=== PATIENT | female | born 1965 | race Caucasian/White ===

== ENCOUNTER 2022-05-02 08:05 | Outpatient (CLI) | payer OTHER, SELFPAY ==
--- NOTE | 2022-05-02 08:15 | CRLHL7_ITS ---
For Patients: As a result of the Century Cures Act, medical imaging exams and procedure reports are released immediately into your electronic medical record. You may view this report before your referring provider. If you have questions, please contact your health care provider. Technique: Double-contrast upper GI performed after the uneventful administration of effervescent crystals and thick barium followed by thin barium. Fluoroscopy time 1 minutes 40 seconds. Indication: MORBID OBESITY WITH BMI OF ADULT; COMPLAINS OF STOMACH PAIN Comparison: None. Findings: Swallowing mechanism: Normal. Esophageal motility: Decreased esophageal motility particularly in the prone oblique position. Gastroesophageal reflux: None. Hernia: 5.1 cm sliding hiatal hernia is present. Esophagus, stomach and duodenal bulb mucosa: Normal mucosa. No stricture or mass. Normal appearance of the gastric bypass with no evidence of inflammation regarding the small bowel. Impression: 5.1 cm sliding hiatal hernia. Decreased esophageal motility without mucosal irregularity. No reflux. Normal appearance of the gastrojejunal anastomosis. Dictated by Kapil Caldwell MD @ 05/02/2022 8:58:32 AM (Electronically Signed)
== END 2022-05-02 08:06 | disposition home or self-care (01) ==
PROVIDERS: PCP Family Medicine; Visit Provider Family Medicine
DX: R10.9 Unspecified abdominal pain (principal); K44.9 Diaphragmatic hernia without obstruction or gangrene; E66.01 Morbid (severe) obesity due to excess calories
CPT/HCPCS: 74246

== ENCOUNTER 2023-07-22 14:37 | Inpatient (IN) | payer OTHER, SELFPAY ==
[2023-07-22] VITALS (50 sets, daily range): BP systolic 96–134; BP diastolic 48–70; PULSE 88–105; RESP 16–22; TEMP 37.6; O2SAT 87–98; BMI 36.6
--- NOTE | 2023-07-22 15:38 | CRLHL7_ITS ---
For Patients: As a result of the Century Cures Act, medical imaging exams and procedure reports are released immediately into your electronic medical record. You may view this report before your referring provider. If you have questions, please contact your health care provider. INDICATION: Shortness of breath. Left-sided chest pain. Recent TORE procedure. TECHNIQUE: CT chest PE was acquired with 95 cc Isovue 370 IV contrast. COMPARISON: 01/02/2018. FINDINGS: Heart and vasculature: Contrast opacification of the pulmonary arterial tree is adequate. No sign of pulmonary embolism. Heart size is normal. Thoracic aorta and pulmonary artery are normal in caliber. Lungs and pleura: No suspicious nodules or infiltrates. Small to moderate size left pleural effusion with adjacent consolidation of the left lower lobe. No pneumothorax. Lymph nodes/mediastinum: No mediastinal, hilar, or axillary adenopathy. Chest wall: No masses. Upper abdomen: Postoperative changes present from a gastric bypass procedure. In large irregular fluid collection with a fair amount of air is positioned between the stomach and liver. This collection measures 8 cm as demonstrated on axial series 5, image 142. Smaller fluid collections with foci of air are adjacent to the larger collection. Bones: Unremarkable for age. IMPRESSION: 1. No pulmonary embolism. 2. Small to moderate-sized left pleural effusion with adjacent passive atelectasis favored over infiltrate in the left lower lobe. 3. Large complex 8 cm fluid collection with smaller adjacent fluid collections position between the stomach and left lobe of the liver. This likely represents a contained perforation/abscess. Surgical consultation recommended for management of this finding. Please note that all CT scans at this facility use dose modulation, iterative reconstruction, and/or weight-based dosing when appropriate to reduce radiation dose to as low as reasonably achievable. Dictated by Ananda Medrano MD @ 07/22/2023 5:53:35 PM (Electronically Signed)
--- NOTE | 2023-07-22 15:56 | ED_ITS ---
HPI - General Adult General Date Seen: 07/22/23 Chief complaint: Chest Pain Stated complaint: sharp chest pain L-post op Time Seen by Provider: 07/22/23 15:00 History of Present Illness HPI narrative: This is a very pleasant 57-year-old female with a past medical history including obesity, previous Comfort-en-Y gastric bypass surgery in the , revision in 2011, with recent T OR procedure done at [facility] last week on Saturday. She apparently was at [facility] last week for for workup. She she was undergoing a diagnostic endoscopy but did sign a general consent. During the endoscopy she says that her doctors discovered ?a hole? in her stomach. They apparently repaired the whole through a transoral approach with some stitches. They also removed some old edinson from her stomach lining. She was discharged home later that day. (based on the disposition I wonder if this was truly a stomach perforation. Perhaps they did a revision of her gastrojejunal anastomosis?) She was discharged home on omeprazole 40 mg b.i.d.. On postop day 1 she developed an episode of sharp left shoulder pain that resolved. Ever since then she has had some dyspnea. She notes dyspnea on exertion when she tries to walk more than 10 years. Sometimes when she breathes it hurts and makes her nauseous. Sometimes she has coughing spells but mostly she is not coughing. No production of sputum or hemoptysis. No fever or chills. She does have some chronic bilateral lower extremity edema but that is actually been better than baseline this week. No asymmetric swelling. Since yesterday she has had recurrence of her left shoulder and left posterior rib pain. It is more persistent than last Saturday and will not go away. She still very short of breath. She called her doctors at [facility] and they told to come here to the ER. No trauma. She has no history of heart disease. No history of DVT or PE. She does have a family history of PE in her father. She has no history of asthma, COPD, chronic liver or kidney disease. No history of diabetes. No seizures. No history of hypertension or dyslipidemia. She is a nonsmoker. Related Data Allergies Allergy/AdvReac Type Severity Reaction Status Date / Time No Known Drug Allergies Allergy Verified 05/02/22 08:47 PFSH PFSH Social History Smoking Status: Never smoker Do you use any of these nicotine containing products: None Second hand tobacco smoke exposure: No How often do you have a drink containing alcohol: never How often do you have six or more drinks on one occasion: Never AUDIT-C Alcohol total score: 0 Non-prescribed substance use: denies use service: No Exam Narrative: Exam Narrative: Constitutional: Appears well-developed and well-nourished. Alert. Conversant. Respiration mildly labored. Oxygen sats in the low 90s on room air while I am examining her. However,. Nurses did note that she desatted down to the 80s on room air so we put her on nasal cannula. HENT: Head: Atraumatic. Nose: Nose normal. Mouth/Throat: Oral mucosa is clear and moist. no trismus. Pharynx normal. Tonsils symmetric. No tonsillar enlargement, erythema, or exudate. Eyes: Conjunctivae normal. EOM normal. Pupils equal, round, and reactive to light. No scleral icterus. Neck: Normal range of motion. Neck supple. No tracheal deviation present. No JVD Cardiovascular: Normal rate, regular rhythm. No gallop. No friction rub. No murmur heard. Symmetric radial artery pulses Pulmonary/Chest: Effort normal. No stridor. No respiratory distress. No wheezes. Bilateral expiratory rales/wheezes.. Abdominal: Soft. Bowel sounds normal. No distension. No mass. No tenderness. No rebound. No guarding. Musculoskeletal: RUE: Normal range of motion. No tenderness. No deformity LUE: Normal range of motion. No tenderness. No deformity RLE: Normal range of motion. Trace edema. No tenderness. No deformity LLE: Normal range of motion. Trace edema. No tenderness. No deformity Lymph: No cervical adenopathy. Neurological: Alert and oriented to person, place, and time. Normal strength. CN II-VII intact. No sensory deficit. GCS eye subscore is 4. GCS verbal subscore is 5. GCS motor subscore is 6. Normal coordination Skin: Skin is warm and dry. No rash noted. No pallor. Normal capillary refill. Psychiatric: Normal mood. Normal affect. Const: Vital Signs, click to edit/add: Vital Signs - 24 hr 07/22/23 14:45 07/22/23 15:34 07/22/23 15:35 Temperature 99.7 F H Pulse Rate 96 100 Pulse Rate [Pulse Oximeter] 105 H Respiratory Rate 18 Blood Pressure 96/48 L Blood Pressure [Ri ght Upper Arm] 96/70 Pulse Oximetry 93 87 L 88 Oxygen Delivery Me thod Room Air Oxygen Flow Rate 07/22/23 15:37 07/22/23 15:45 07/22/23 16:01 Temperature Pulse Rate 100 104 H Pulse Rate [Pulse Oximeter] Respiratory Rate 20 Blood Pressure 114/66 Blood Pressure [Ri ght Upper Arm] Pulse Oximetry 88 92 88 Oxygen Delivery Me thod Nasal Cannula Oxygen Flow Rate 1 07/22/23 16:19 07/22/23 16:20 07/22/23 16:21 Temperature Pulse Rate 100 96 96 Pulse Rate [Pulse Oximeter] Respiratory Rate Blood Pressure 134/64 Blood Pressure [Ri ght Upper Arm] Pulse Oximetry 97 98 96 Oxygen Delivery Me thod Oxygen Flow Rate 07/22/23 16:30 07/22/23 16:32 07/22/23 16:41 Temperature Pulse Rate 102 H 98 Pulse Rate [Pulse Oximeter] Respiratory Rate 22 Blood Pressure 123/69 Blood Pressure [Ri ght Upper Arm] Pulse Oximetry 98 98 96 Oxygen Delivery Me thod Nasal Cannula Oxygen Flow Rate 2 07/22/23 16:45 07/22/23 17:00 07/22/23 17:02 Temperature Pulse Rate 103 H 93 91 Pulse Rate [Pulse Oximeter] Respiratory Rate Blood Pressure 110/65 Blood Pressure [Ri ght Upper Arm] Pulse Oximetry 97 97 95 Oxygen Delivery Me thod Oxygen Flow Rate 07/22/23 17:15 07/22/23 17:18 07/22/23 17:30 Temperature Pulse Rate 88 91 95 Pulse Rate [Pulse Oximeter] Respiratory Rate Blood Pressure 111/70 Blood Pressure [Ri ght Upper Arm] Pulse Oximetry 92 92 91 Oxygen Delivery Me thod Oxygen Flow Rate 0 07/22/23 17:32 07/22/23 17:45 07/22/23 18:00 Temperature Pulse Rate 96 93 96 Pulse Rate [Pulse Oximeter] Respiratory Rate Blood Pressure 116/68 Blood Pressure [Ri ght Upper Arm] Pulse Oximetry 92 90 89 Oxygen Delivery Me thod Oxygen Flow Rate 07/22/23 18:02 07/22/23 18:15 07/22/23 18:30 Temperature Pulse Rate 92 95 103 H Pulse Rate [Pulse Oximeter] Respiratory Rate Blood Pressure 123/68 Blood Pressure [Ri ght Upper Arm] Pulse Oximetry 91 96 91 Oxygen Delivery Me thod Oxygen Flow Rate 07/22/23 18:32 07/22/23 18:35 07/22/23 18:45 Temperature 99.6 F Pulse Rate 97 94 Pulse Rate [Pulse Oximeter] Respiratory Rate Blood Pressure 112/61 Blood Pressure [Ri ght Upper Arm] Pulse Oximetry 95 93 Oxygen Delivery Me thod Oxygen Flow Rate 07/22/23 19:00 07/22/23 19:02 07/22/23 19:15 Temperature Pulse Rate 93 94 93 Pulse Rate [Pulse Oximeter] Respiratory Rate Blood Pressure 105/67 Blood Pressure [Ri ght Upper Arm] Pulse Oximetry 93 92 95 Oxygen Delivery Me thod Oxygen Flow Rate 07/22/23 19:30 07/22/23 19:45 07/22/23 19:53 Temperature Pulse Rate 96 92 Pulse Rate [Pulse Oximeter] Respiratory Rate 22 Blood Pressure Blood Pressure [Ri ght Upper Arm] Pulse Oximetry 94 95 94 Oxygen Delivery Me thod Room Air Oxygen Flow Rate Course Course ED Course: Recheck-after fentanyl pain is improved. Did temporarily desaturate, requiring nasal cannula bed respirations still doing fairly well. Reevaluation(s) Reevaluation #1: Recheck-now off nasal cannula. Breathing on room air. Heart rate 95. Blood pressure 105/60. Updated patient about CT findings. Consult placed to [facility]. CT images transmitted to [facility]. Reevaluation #2: Recheck-discussed with DENISE bae Dr. Reichler. He accepts this patient for admission to the hospital/ /transfer back to [facility]. Unfortunately there are no open beds at [facility]. I reviewed the case with the accepting provider and the transfer line. There is no way to get the patient transferred to [facility]. Also reviewed for a possible ER to ER transfer. There ER is on full divert and cannot accept transfers. They anticipate she would likely be assigned a bed sometime tomorrow afternoon. We also looked for other tertiary care facilities. There are no beds and the [facility], in the [facility] [place] [facility], in the [place] [facility], or at [facility]. Reevaluation #3: Discussed with hospitalist from [place], Dr. Alvarez. He will admit the patient to the medical floor here at [place] overnight for supportive care until her bed at [facility] can be arranged. Vital Signs Vital signs: Initial Vital Signs Temperature 99.7 F H 07/22/23 14:45 Temperature Source Oral 07/22/23 14:45 Pulse Rate 105 H 07/22/23 14:45 Pulse Rhythm Regular 07/22/23 14:45 Respiratory Rate 18 07/22/23 14:45 Blood Pressure 96/70 07/22/23 14:45 Blood Pressure Mean 78 07/22/23 14:45 Blood Pressure Position Sitting 07/22/23 14:45 Pulse Oximetry 93 07/22/23 14:45 Oxygen Delivery Method Room Air 07/22/23 14:45 Vital Signs Temperature 99.7 F H 07/22/23 14:45 Pulse Rate 105 H 07/22/23 14:45 Respiratory Rate 18 07/22/23 14:45 Blood Pressure 96/70 07/22/23 14:45 Pulse Oximetry 93 07/22/23 14:45 Oxygen Delivery Method Room Air 07/22/23 14:45 Temperature 99.6 F 07/22/23 18:35 Pulse Rate 92 07/22/23 19:45 Respiratory Rate 22 07/22/23 19:53 Blood Pressure 105/67 07/22/23 19:02 Pulse Oximetry 94 07/22/23 19:53 Oxygen Delivery Method Room Air 07/22/23 19:53 Oxygen Flow Rate 0 07/22/23 17:30 Medical Decision Making MDM Narrative Medical decision making narrative: 57-year-old female with a complex presentation to the ER. 1. Her main concern would be left-sided chest pain and left shoulder pain with progressive shortness of breath and some coughing. Differential here would include pneumonia, postprocedural PE, COVID, cardiac pathology, pneumothorax, hemothorax, pleural effusion, rib fracture, among others. Given her recent surgical procedure we were concerned about PE so we obtain CT PA. CT scan does show evidence for a moderate size left pleural effusion with associated left lower lobe atelectasis. 2. She is also having some epigastric pain. She apparently underwent a transoral endoscopic procedure last Saturday at [facility]. She has signs of fluid collection adjacent to the stomach which are concerning for stomach perforation. Differential would also include intraperitoneal bleeding from her stomach. However her blood pressure is stable and hemoglobin is normal, arguing against any significant bleed. She is started on IV PPI. We made expeditious consultation with the GI service for [facility]. As above the accepted her for transfer but cannot take her right now due to bed capacity issues. She is started on broad-spectrum antibiotics-Zosyn, vanco, is the mycin to cover for pulmonary pathology, possible aspiration, as well as for a GI infection. 3. She did present with borderline tachycardia, heart rate 105, low-grade fever and then 9.7 and does have leukocytosis of 20. She has mild tachypnea but no severe hypoxia. Concern is for possible early or evolving sepsis. Fortunately blood pressures remained stable while here in the ER. Lactic acid is normal. At this point no clear physiology for septic shock requiring large fluid boluses or vasopressors. Lab Data Labs: Lab Results 07/22/23 07/22/23 Range/Units 15:50 16:40 WBC 20.11 H (4.50-11.00) K/uL RBC 4.32 (4.00-5.20) m/uL Hgb 13.1 (12.0-16.0) gm/dL Hct 39.6 (33.0-51.0) % MCV 92 (80-100) fL MCH 30 (26-34) pg MCHC 33 (32-36) gm/dL RDW Coeff of Cat 13.2 (11.5-15.5) % Plt Count 412 (140-440) K/uL Neut % (Auto) 85.2 H (42.0-72.0) % Lymph % (Auto) 8.3 L (20-44) % Storey % (Auto) 4.9 (0.0-11.0) % Eos % (Auto) 0.1 (0.0-7.0) % Baso % (Auto) 0.4 (0.0-3.0) % Neut # (Auto) 17.10 H (1.7-7.0) K/uL Lymph # (Auto) 1.70 (0.90-2.90) K/uL Storey # (Auto) 1.00 H (0.00-0.90) K/UL Eos # (Auto) 0.00 (0.00-0.50) K/uL Baso # (Auto) 0.10 (0.00-0.30) K/uL Abs Immat Gran (auto) 0.20 (0.00-0.30) K/uL Imm/Tot Granulo (auto) 1.1 % Diff Slide Review Acceptable Review (Acceptable) Sodium 134 L (135-149) mmol/L Potassium 3.4 L (3.6-5.1) mmol/L Chloride 95 L (96-114) mmol/L Carbon Dioxide 28 (20-32) mmol/L Anion Gap 11 (7-15) mEq/L BUN 9 (7-30) mg/dL Creatinine 0.5 (0.5-1.5) mg/dL Estimated Creat Clear 110.36 Estimated GFR 109 ml/min Glucose 114 (60-115) mg/dL Lactate 1.2 (0.5-1.9) mmol/L Calcium 8.7 (8.4-10.6) mg/dL Troponin I < 0.01 L (0.01-0.04) ng/mL NT-Pro-B Natriuret Pep 281 pg/mL Lipase 79 (23-300) U/L SARS-CoV-2 (PCR) Negative SARS-CoV-2 (Negative) Influenza Type A (PCR) Negative PCR FLU A (Negative) Influenza Type B (PCR) Negative PCR FLU B (Negative) RSV (PCR) Negative PCR RSV (Negative) Imaging Data CT scan - chest: My impression: Evaluated immediately after images were obtained. Large left pleural effusion. Possible enhancing of the left lower lung. No definite PE. Reviewed with instructional technology coordinator. They will try to expedite getting read by Radiology. Radiologist's impression: IMPRESSION: 1. No pulmonary embolism. 2. Small to moderate-sized left pleural effusion with adjacent passive atelectasis favored over infiltrate in the left lower lobe. 3. Large complex 8 cm fluid collection with smaller adjacent fluid collections position between the stomach and left lobe of the liver. This likely represents a contained perforation/abscess. Surgical consultation recommended for management of this finding. ECG Data Attestation: I personally reviewed and interpreted this ECG as follows: Interpretation: Normal sinus rhythm . Rate 100 MA 122 QRS axis normal QRS axis. No pathologic Q-waves. ST segment/T wave: Nonspecific ST changes in 2, 3, AVF. No ST elevation. QTc: 438 Discharge Plan Discharge Clinical Impression: Pleural effusion, Sepsis, Gastric perforation Follow Up/Referrals: Nayeli Orourke MD [Primary Care Provider] -
[2023-07-22 15:58] LABS: Lactate* 1.2 mmol/L (0.5-1.9)
[2023-07-22 16:01] LABS: Basophils Percent Auto 0.4 % (0.0-3.0); Eosinophils Percent Auto 0.1 % (0.0-7.0); Hematocrit 39.6 % (33.0-51.0); Hemoglobin* 13.1 gm/dL (12.0-16.0); Immature Granulocytes Pct Auto 1.1 %; Lymphocytes Percent Auto 8.3 % (20-44); Mean Corpuscular HGB Conc 33 gm/dL (32-36); Mean Corpuscular Hemoglobin 30 pg (26-34); Mean Corpuscular Volume 92 fL (80-100); Monocytes Percent Auto 4.9 % (0.0-11.0); Neutrophils Percent Auto 85.2 % (42.0-72.0); Platelet Count* 412 K/uL (140-440); RDW Coefficient of Variation % 13.2 % (11.5-15.5); Red Blood Count 4.32 m/uL (4.00-5.20); White Blood Count* 20.11 K/uL (4.50-11.00)
[2023-07-22 16:09] LABS: Slide Review Reflex Yes
[2023-07-22 16:14] LABS: Chloride* 95 mmol/L (96-114); Potassium* 3.4 mmol/L (3.6-5.1); Sodium* 134 mmol/L (135-149)
[2023-07-22 16:16] LABS: Creatinine* 0.5 mg/dL (0.5-1.5); Est. Creatinine Clearance* 110.36; Estimated Glomerular Filt Rate 109 ml/min
[2023-07-22 16:17] LABS: Anion Gap 11 mEq/L (7-15); Blood Urea Nitrogen* 9 mg/dL (7-30); Carbon Dioxide* 28 mmol/L (20-32); Glucose* 114 mg/dL (60-115); Lipase* 79 U/L (23-300)
[2023-07-22 16:18] LABS: Calcium* 8.7 mg/dL (8.4-10.6)
[2023-07-22] MEDS: fentaNYL 100 MCG/2 ML inj 25 MCG IVP ×2 (16:19→20:19)
[2023-07-22] MEDS: ONDANSETRON 2 MG/ML inj 4 MG IVP (16:19)
[2023-07-22] MEDS: ALBUTEROL SULFATE 2.5 MG/3 ML VIAL.NEB NEB (16:19)
[2023-07-22] MEDS: 0.9 % SODIUM CHLORIDE 500 ML 500 ML IV (16:23)
[2023-07-22 16:28] LABS: NT Pro B Type NatriureticPept* 281 pg/mL
[2023-07-22 16:30] LABS: Troponin I* < 0.01 ng/mL (0.01-0.04)
--- OUTSIDE RECORDS SUMMARY | 2023-07-22 16:45 | XMS_ITS | Continuity of Care Document ---
Author Name Unknown Organization [facility] Address [address] [place] [address] Phone Care Team Providers Care Presiding Steward Name Role Phone Unavailable Unavailable Unavailable Allergies, Adverse Reactions, Alerts Substance Reaction Status Criticality No Known allergies Medications Medication Instructions Dosage Effective Dates (start - stop) Status Comments ULTRAM (unknown strength) Not Available - Active Procedures Procedure Date Postop Followup Visit X-Ray Exam Lower Spine 2-3 Views 2011 Lumbar Spine Fusion, Posterolateral Lumbar Spine Fusion W/Bone Graft 2011 Removal Of Spine Lamina (Cabrera Type) Insert Spine Fixation, Posterior 2011 Insert Spine Fix Dev, Ant, 2-3 Seg Allograft, Spine Surg, Structural Allograft, Spine Surg, Morselized Autograft, Spine Surgery, Local 012 Pa Assist Lumbar Spine Fusion, Posterola teral Pa Assist Removal Of Spine Lamina (Cabrera Type) Pa Assist Insert Spine Fixation, Posteri or Office/Outpatient Visit,[facility], [facility] 2011 Advance Directives Directive Yes / No Effective Date File Name No Information Encounters Encounter Description Practice Location Reason(s) For Visit Diagnoses Date Provider Providers Copied on Encounter [facility] [place], [address], [place], [place], [facility], [place] tel:[phone] [facility] No Information Rodney-2 1-201 3 No Information [facility], [address] [place] [address], [place], [facility], [place] tel:[phone] [facility] No Information Dec-0 3-201 2 Mehbod Amir. [facility] [place], [address] [place] [address], [address] [place] [address], [place]. tel:[phone] Referring Provider: Ramesh Polanco, [address], [address]. tel:[phone] [facility] [place], [address] [place] [address], [facility], [place] tel:[phone] [facility] ACQ SPONDYLOLISTH ESIS Dec-0 3-201 2 Eckroth Benjamin. [address] [place] [address], [address] [place] [address], [place]. tel:[phone] [facility] [place], [address] [place] [address], [facility], [place] tel:[phone] [facility] No Information Jul-2 4-201 2 Mehbod Amir. [facility] [place], [address] [place] [address], [address] [place] [address], [place]. tel:[phone] Referring Provider: Ramesh Polanco [address], [address]. tel:[phone] Office/Outpa tient Visit,[facility], [facility] Z [facility] [place], [address] [place] [address], [facility], [place] tel:[phone] [facility] LUMBAGO Julián-3 0-201 2 Mehbod Amir. [facility] [place], [address] [place] [address], [address] [place] [address], [place]. tel:[phone] Referring Provider: Ramesh Polanco [address], [address]. tel:[phone] Family History Family Member Type Diagnosis Age At Onset Problem (finding) Problem (finding) Problem (finding) Problem (finding) Problem (finding) Family history of Yes Problem (finding) Problem (finding) Payers Payer name Insurance type Covered [id number] [facility] [id number] Social History Type Description Quantity Date Captured Comments Sex Female Smoking Status No Information Chief Complaint And Reason For Visit No Information Reason For Referral Reason For Referral No Information History Of Present Illness Encounter Date Complaint History Of Prese nt Illness No Information Functional Status Date Functional Assessmen t No Information Instructions Date Instruction Additional Infor mation No Information Assessments Type Assessment Date No Information Patient Care Teams Name Effective Dates (start - stop) Status Members No Information
--- OUTSIDE RECORDS SUMMARY | 2023-07-22 16:45 | XMS_ITS | Continuity of Care Document ---
Author Name Unknown Organization [facility] Address [address] [address] [place] [address] Phone Care Team Providers Care Health Navigator Name Role Phone Odell Ardon MD Unavailable Unavailable Allergies, Adverse Reactions, Alerts Substance Reaction Status Criticality No Known Allergies Active No Inform ation Medications Medication Instructions Dosage Effective Dates (start - stop) Status Comments omeprazole 40 mg capsule,delayed release take 1 capsule by oral route 2 times every day before a meal 40 MG - Active Procedures Procedure Date Established Level 3 Ugi Endo; W/bx 1/mx Level Iv-surg Path Gross/micro Esophageal Motility Study New Level 4 Advance Directives Directive Yes / No Effective Date File Name No Information Encounters Encounter Description Practice Location Reason(s) For Visit Diagnoses Date Provider Providers Copied on Encounter Established Level 3 [facility], [address] [address], [place], [place], [id number], [place] tel:[phone] [facility] GI Symptoms or Concerns (chief complaint) Bariatric surgery statusOther dysphagia 2 Duglas Bain. [address] [facility], [facility] [address], [place], [place], [id number], [place]. tel:[phone] Referring Provider: Referral Self. [facility], [address] [address], [place], [id number], [place] tel:[phone] [facility] GI Symptoms or Concerns (chief complaint) Eosinophilic esophagitisHi story of gastric bypassEosinop hilic esophagitisBa riatric surgery status 2 Russell Bryan. [address] [facility], [place] [address], [place], [id number], [place]. tel:[phone] Referring Provider: Nayeli Jett, [address] [facility], [place], [address]. tel:[phone] [facility], [address] [address], [place], [id number], [place] tel:[phone] [facility] Other dysphagia Jun-2 2 Duglas Bain. [address] [facility], [facility] [address], [place], [id number], [place]. tel:[phone] Referring Provider: Referral Self. New Level 4 [facility], [address] [address], [place], [place], [address], [place] tel:[phone] [facility] GI Symptoms or Concerns (chief complaint) Esophageal dysphagiaEosi nophilic esophagitis Sep-2 2 Duglas Bain. [address] [facility], [facility] [address], [place], [place], [address], [place]. tel:[phone] Referring Provider: Referral Self. [facility], [address] [address], [place], [id number], [place] tel:[phone] No Information Jun- 2 No Information Referring Provider: Zaida RODARTE M, [address] [facility] [address], [place], [address]. tel:[phone] Family History Family Member Type Diagnosis Age At Onset Father Problem (finding) GERD Mother Problem (finding) Cancer Brother Problem (finding) GERD Sister Problem (finding) Cancer, cervical Brother Problem (finding) Cancer, prostate Brother Problem (finding) Cancer, thyroid Mother Problem (finding) Crohn's disease Immunizations Vaccine Date Status Comments Afluria Qd administered Note: [facility] bi-directional interface ; Source: Other Registry SARS-COV-2 (COVID-19) vaccin e, mRNA, spike protein, LNP, bivalent booster, preservative free, 30 mcg/0.3 mL dose, robyn-sucrose formulation administered Note: [facility] bi-d irectional interface ; Source: Other Registry tetanus toxoid, reduced diphtheria toxoid, and acellular pertussis vaccine, adsorbed administered Note: [facility] b i-directional interface ; Source: Other Registry SARS-COV-2 (COVID-19) vaccin e, vector non-replicating, recombinant spike protein-Ad26, preservative free, 0.5 mL administered Note: [facility] bi- directional interface ; Source: Other Registry Influenza, injectable, Madin Glady Canine Kidney, quadrivalent with preservative administered Note: MII C bi- directional interface ; Source: Other Registry SARS-COV-2 (COVID-19) vaccin e, vector non-replicating, recombinant spike protein-Ad26, preservative free, 0.5 mL administered Note: [facility] bi- directional interface ; Source: Other Registry Influenza administered Note: [facility] bi-d irectional interface ; Source: Other Registry influenza virus vaccine, unspecified formulation administered Note: [facility] bi-di rectional interface ; Source: Other Registry Influenza, seasonal, injectable administe red Note: [facility] bi- directional interface ; Source: Other Registry influenza virus vaccine, unspecified formulation administered Note: [facility] bi-di rectional interface ; Source: Other Registry tetanus toxoid, reduced diphtheria toxoid, and acellular pertussis vaccine, adsorbed administered Note: [facility] b i-directional interface ; Source: Other Registry Novel [id number], all formulations administered Note: [facility] bi-direct ional interface ; Source: Other Registry Influenza, seasonal, injectable administe red Note: [facility] bi- directional interface ; Source: Other Registry Payers Payer name Insurance type Covered constitution party ID Authoriza tion(s) [employer] CI [id number] Social History Type Description Quantity Date Captured Comments Sex Female Smoking Status No Information Chief Complaint And Reason For Visit From encounter dated 09/13/2022 15:21'. GI Symptoms or Concerns (chief complaint). Description: Charisse Lizarraga is seen today in followup. Before beginning a virtual visit, she verified a safe place and gave consent. Her was present as well.By history, she is a 56-year-old woman with a history of vertical banded gastroplasty, subsequently converted 10 years ago to a Comfort-en-Y procedure.Most recently, she has been having abdominal discomfort. It is a strain sensation occasionally in the ribcage area, occurs when she is bendingover doing activity.She underwent upper endoscopy by Dr. Adams which was felt to show hiatal hernia, and showed significant eosinophilia. With a concern regarding this prior to possible repair surgically, we are seeing her.It is noted that when seen initially, dysphagia was occurring somewhat, but not but minimal.With these symptoms, she underwent repeat upper endoscopy. This was performed by Dr. Wells from our office. This was done after the patient had been on omeprazole at a higher dose of 20 mg twice a day.When seen today, she is actually feeling better. The globus type sensation, which she had in the past is gone, although she still does develop the upper abdominal discomfort.I reviewed the patient's endoscopy as well as pathology findings with her at the time of endoscopyand the esophagus appeared normal. Biopsy showed only 0-3 eosinophils per high-power field, essentially normal. Of note is that the study did not show evidence of hiatal hernia.In addition, her esophageal manometry did show what appeared to be intact motor function with no evidence of abnormality either. The manometry did suggest a small hiatal hernia, but only of about half a centimeter in size. Reason For Referral Reason For Referral No Information Plan Of Treatment Date Type Action Status Referral Ordered: Xray Esophagus (Esophagram, Barium Swallow Study) Appointment date/timeframe: First Available ordered History Of Present Illness Encounter Date Complaint History Of Prese nt Illness GI Symptoms or Concerns Charisse Hale is seen today in followup. Before beginning a virtual visit, she verified a safe place and gave consent. Her was present as well.By history, she is a 56-year-old woman with a history of vertical banded gastroplasty, subsequently converted 10 years ago to a Comfort-en-Y procedure.Most recently, she has been having abdominal discomfort. It is a strain sensation occasionally in the ribcage area, occurs when she is bending over doing activity.She underwent upper endoscopy by Dr. Adams which was felt to show hiatal hernia, and showed significant eosinophilia. With a concern regarding this prior to possible repair surgically, we are seeing her.It is noted that when seen initially, dysphagia was occurring somewhat, but not but minimal.With these symptoms, she underwent repeat upper endoscopy. This was performed by Dr. Wells from our office. This was done after the patient had been on omeprazole at a higher dose of 20 mg twice a day.When seen today, she is actually feeling better. The globus type sensation, which she had in the past is gone, although she still does develop the upper abdominal discomfort.I reviewed the patient's endoscopy as well as pathology findings with her at the time of endoscopy and the esophagus appeared normal. Biopsy showed only 0-3 eosinophils per high-power field, essentially normal. Of note is that the study did not show evidence of hiatal hernia.In addition, her esophageal manometry did show what appeared to be intact motor function with no evidence of abnormality either. The manometry did suggest a small hiatal hernia, but only of about half a centimeter in size. GI Symptoms or Concerns GI Symptoms or Concerns Charisse hale is seen today in consultation. This was a virtual visit. Before beginning, she verified a safe place and gave consent.By history, the patient is a 56-year-old woman with a history of vertical banded gastroplasty, subsequently converted 10 years ago to a Comfort-en-Y procedure. Most recently, she has been having what she describes as atypical abdominal discomfort. It is a straining sensation that she gets below the ribcage. Typically can occur any time. It may last a few days to be moderate in intensity. With these symptoms, she was seen through her physicians and subsequently by Dr. Adams from surgery. Upper GI series showed evidence of a 5 cm hiatal hernia. Upper GI endoscopy with biopsies of the esophagus revealed evidence of eosinophilia. Because of the concern regarding the eosinophilia prior to consideration of hernia repair, we are seeing her at this time.In talking to the patient, she does have some dysphagia. Typically, it occurs with dry food s Functional Status Date Functional Assessmen t No Information Instructions Date Instruction Additional Infor bernadine No Information Assessments Type Assessment Date assessment Bariatric surgery status 2021 assessment Other dysphagia impression IMPRESSION1. Probabl e abdominal wall musculoskeletal pain.2. Globus, resolving.At this stage, clinically the patient is doing reasonably well. Her abdominal discomfort does appear to be musculoskeletal. I am reassured that the eosinophilia has resolved at this stage and would appear probably to be related to acid reflux as it has responded to the higher dose of medication.Lastly, because of initial finding of hiatal hernia and possible surgery, I will ask that a barium study be done to verify this and make sure there are no other findings that we should be concerned about. If there is no evidence of a hiatal hernia, I would suggest deferring on any operative intervention.We appreciate assisting in Charisse's care. These findings were discussed with her in detail. A barium study will be ordered with followup as needed. Patient Care Teams Name Effective Dates (start - stop) Status Members No Information
--- OUTSIDE RECORDS SUMMARY | 2023-07-22 16:45 | XMS_ITS | Continuity of Care Document ---
Author Name Unknown Organization [facility] Address [address] [address] [place] [address] Phone Care Team Providers Care Vacuum Worker Name Role Phone Odell Ardon MD Unavailable [...] Providers Copied on Encounter Established Level 3 [facility], [address] [address], [place], [place], [id number], [place] tel:[phone] [facility] GI Symptoms or Concerns (chief complaint) Bariatric surgery statusOther dysphagia 2 Duglas Bain. [address] [facility], [facility] [address], [place], [place], [address], [place]. tel:[phone] Referring Provider: Referral Self. [facility], [address] [address], [place], [id number], [place] tel:[phone] [facility] GI Symptoms or Concerns (chief complaint) Eosinophilic esophagitisHi story of gastric bypassEosinop hilic esophagitisBa riatric surgery status 2 Russell Bryan. [address] [facility], [place] [address], [place], [id number], [place]. tel:[phone] Referring Provider: Nayeli Jett, [address] [facility], [place], [address]. tel:[phone] [facility], [address] [address], [place], [place], [address], [place] tel:[phone] [facility] Other dysphagia Jun-2 2 Duglas Bain. [address] [facility], [facility] [address], [place], [address], [place]. tel:[phone] Referring Provider: Referral Self. New Level 4 [facility], [address] [address], [place], [place], [id number], [place] tel:[phone] [facility] GI Symptoms or Concerns (chief complaint) Esophageal dysphagiaEosi nophilic esophagitis Sep-2 2 Duglas Bain. [address] [facility], [facility] [address], [place], [place], [address], [place]. tel:[phone] Referring Provider: Referral Self. [facility], [address] [address], [place], [place], [id number], [place] tel:[phone] No Information Jun- 2 No Information Referring Provider: Zaida RODARET M, [address] [facility] [address], [place], [address]. tel:[phone] Family History Family Member Type Diagnosis Age [...] ; Source: Other Registry Influenza, injectable, Madin Vichy Canine Kidney, quadrivalent with preservative administered Note: [...] i-directional interface ; Source: Other Registry Novel [id number], all formulations administered Note: [facility] bi-direct ional interface ; Source: Other Registry Influenza, seasonal, injectable administe red Note: [facility] bi- directional interface ; Source: Other Registry Payers Payer name Insurance type Covered constitution party ID Authoriza tion(s) [employer] CI [id number] Social History Type Description Quantity Date Captured [...]
--- OUTSIDE RECORDS SUMMARY | 2023-07-22 16:45 | XMS_ITS | Continuity of Care Document ---
Author Name Unknown Organization [facility] Address [address] [place] [address] Phone Care Team Providers Care Creeler Name Role Phone Unavailable Unavailable Unavailable Allergies, [...] Assist Insert Spine Fixation, Posteri or Office/Outpatient Visit,[facility], [facility] 2011 Advance Directives Directive Yes / No Effective Date File Name No Information Encounters Encounter Description Practice Location Reason(s) For Visit Diagnoses Date Provider Providers Copied on Encounter [facility] [place], [address], [place], [place], [facility], [place] tel:[phone] [facility] No Information Rodney-2 1-201 3 No Information [facility], [address] [place] [address], [place], [facility], [place] tel:[phone] [facility] No Information Dec-0 3-201 2 Mehbod Amir. [facility] [place], [address] [place] [address], [address] [place] [address], [place]. tel:[phone] Referring Provider: Ramesh Polanco, [address], [address]. tel:[phone] [facility] [place], [address] [place] [address], [facility], [place] tel:[phone] [facility] ACQ SPONDYLOLISTH ESIS Dec-0 3-201 2 Eckroth Benjamin. [address] [place] [address], [address] [place] [address], [place]. tel:[phone] [facility] [place], [address] [place] [address], [facility], [place] tel:[phone] [facility] No Information Jul-2 4-201 2 Mehbod Amir. [facility] [place], [address] [place] [address], [address] [place] [address], [place]. tel:[phone] Referring Provider: Ramesh Polanco [address], [address]. tel:[phone] Office/Outpa tient Visit,[facility], [facility] [place], [address] [place] [address], [facility], [place] tel:[phone] [facility] LUMBAGO Julián-3 0-201 2 Mehbod Amir. [facility] [place], [address] [place] [address], [address] [place] [address], [place]. tel:[phone] Referring Provider: Ramesh Polanco [address], [address]. tel:[phone] Family History Family Member Type Diagnosis Age At Onset Problem (finding) Problem (finding) Problem (finding) Problem (finding) Problem (finding) Family history of Yes Problem (finding) Problem (finding) Payers Payer name Insurance type Covered democr[place]iza tion([id number] [facility] [id number] Social History Type Description Quantity Date Captured [...]
[2023-07-22 17:19] LABS: Slide Review Acceptable Review (Acceptable)
[2023-07-22] MEDS: PIPERACILLIN/TAZOBACTAM 4.5 GM in 0.9 % SODIUM CHLORIDE Mini-bag 100 ML IVPB (17:20)
[2023-07-22 17:27] LABS: PCR FLU A Negative PCR FLU A (Negative); PCR FLU B Negative PCR FLU B (Negative); PCR RSV Negative PCR RSV (Negative); SARS PCR* Negative SARS-CoV-2 (Negative)
[2023-07-22] MEDS: AZITHROMYCIN 500 MG in 0.9 % SODIUM CHLORIDE 250 ml 250 ML 255 MG IVPB (18:06)
[2023-07-22] MEDS: PANTOPRAZOLE SODIUM 40 MG INJ 80 MG IVP (20:21)
[2023-07-22] MEDS: 0.9 % SODIUM CHLORIDE 1000 ml 1,000 ML IV (22:14)
--- NOTE | 2023-07-22 22:56 | ED.NURSE ---
Pt admitted to M/S. Transfered at 8255, report given to Deirdre. Continues to be on room air, dyspnea on exertion. Vitally stable.
--- NOTE | 2023-07-22 23:35 | P.IMHP_ITS ---
Hospitalist- H&P: HPI History of Present Illness Date Seen: 07/23/23 Chief complaint: sharp chest pain L-post op Narrative: Charisse Hoyt is a 57 year old female who has h/o Comfort-N-Y gastric bypass and recent EGD at [facility] with subsequent perforation and repair presents to the ED with sharp chest and epigastric pain and fever. Patient states that pain is centered over her left chest, is sharp and pleuritic. Patient had CT scan which shows large fluid collection near the stomach, either abscess versus contained perforation. The patient is to be transferred to the [facility], but unfortunately they have no beds currently so she will wait here until they have availability. The surgical team at [place] recommends broad spectrum abx and PPI. Review of Systems Status of ROS: Reports: 10 or more systems reviewed and unremarkable except as noted in History and below PFSH PFSH Social History Smoking Status: Never smoker Do you use any of these nicotine containing products: None Second hand tobacco smoke exposure: No How often do you have a drink containing alcohol: never How often do you have six or more drinks on one occasion: Never AUDIT-C Alcohol total score: 0 Non-prescribed substance use: denies use service: No Meds Home Medications and Allergies Allergies Allergy/AdvReac Type Severity Reaction Status Date / Time No Known Drug Allergies Allergy Verified 05/02/22 08:47 Exam Narrative: Exam Narrative: GEN: AA, moderate distress with pain HEENT: normocephalic, atraumatic NECK: supple, no masses, no JVD CVS: S1 S2 RRR, no murmurs LUNGS: CTA b/l ABD: soft, no distention, tender epigastrum, no rebound EXT: no edema NEURO: oriented x 3, no focal motor deficits PSYCH: normal affect Const: Vital Signs, click to edit/add: Vital Signs - 24 hr 07/22/23 14:45 07/22/23 15:34 07/22/23 15:35 Temperature 99.7 F H Pulse Rate 96 100 Pulse Rate [Pulse Oximeter] 105 H Respiratory Rate 18 Blood Pressure 96/48 L Blood Pressure [Ri ght Upper Arm] 96/70 Pulse Oximetry 93 87 L 88 Oxygen Delivery Me thod Room Air Oxygen Flow Rate 07/22/23 15:37 07/22/23 15:45 07/22/23 16:01 Temperature Pulse Rate 100 104 H Pulse Rate [Pulse Oximeter] Respiratory Rate 20 Blood Pressure 114/66 Blood Pressure [Ri ght Upper Arm] Pulse Oximetry 88 92 88 Oxygen Delivery Me thod Nasal Cannula Oxygen Flow Rate 1 07/22/23 16:19 07/22/23 16:20 07/22/23 16:21 Temperature Pulse Rate 100 96 96 Pulse Rate [Pulse Oximeter] Respiratory Rate Blood Pressure 134/64 Blood Pressure [Ri ght Upper Arm] Pulse Oximetry 97 98 96 Oxygen Delivery Me thod Oxygen Flow Rate 07/22/23 16:30 07/22/23 16:32 07/22/23 16:41 Temperature Pulse Rate 102 H 98 Pulse Rate [Pulse Oximeter] Respiratory Rate 22 Blood Pressure 123/69 Blood Pressure [Ri ght Upper Arm] Pulse Oximetry 98 98 96 Oxygen Delivery Me thod Nasal Cannula Oxygen Flow Rate 2 07/22/23 16:45 07/22/23 17:00 07/22/23 17:02 Temperature Pulse Rate 103 H 93 91 Pulse Rate [Pulse Oximeter] Respiratory Rate Blood Pressure 110/65 Blood Pressure [Ri ght Upper Arm] Pulse Oximetry 97 97 95 Oxygen Delivery Me thod Oxygen Flow Rate 07/22/23 17:15 07/22/23 17:18 07/22/23 17:30 Temperature Pulse Rate 88 91 95 Pulse Rate [Pulse Oximeter] Respiratory Rate Blood Pressure 111/70 Blood Pressure [Ri ght Upper Arm] Pulse Oximetry 92 92 91 Oxygen Delivery Me thod Oxygen Flow Rate 0 07/22/23 17:32 07/22/23 17:45 07/22/23 18:00 Temperature Pulse Rate 96 93 96 Pulse Rate [Pulse Oximeter] Respiratory Rate Blood Pressure 116/68 Blood Pressure [Ri ght Upper Arm] Pulse Oximetry 92 90 89 Oxygen Delivery Me thod Oxygen Flow Rate 07/22/23 18:02 07/22/23 18:15 07/22/23 18:30 Temperature Pulse Rate 92 95 103 H Pulse Rate [Pulse Oximeter] Respiratory Rate Blood Pressure 123/68 Blood Pressure [Ri ght Upper Arm] Pulse Oximetry 91 96 91 Oxygen Delivery Me thod Oxygen Flow Rate 07/22/23 18:32 07/22/23 18:35 07/22/23 18:45 Temperature 99.6 F Pulse Rate 97 94 Pulse Rate [Pulse Oximeter] Respiratory Rate Blood Pressure 112/61 Blood Pressure [Ri ght Upper Arm] Pulse Oximetry 95 93 Oxygen Delivery Me thod Oxygen Flow Rate 07/22/23 19:00 07/22/23 19:02 07/22/23 19:15 Temperature Pulse Rate 93 94 93 Pulse Rate [Pulse Oximeter] Respiratory Rate Blood Pressure 105/67 Blood Pressure [Ri ght Upper Arm] Pulse Oximetry 93 92 95 Oxygen Delivery Me thod Oxygen Flow Rate 07/22/23 19:30 07/22/23 19:45 07/22/23 19:53 Temperature Pulse Rate 96 92 Pulse Rate [Pulse Oximeter] Respiratory Rate 22 Blood Pressure Blood Pressure [Ri ght Upper Arm] Pulse Oximetry 94 95 94 Oxygen Delivery Me thod Room Air Oxygen Flow Rate 07/22/23 20:00 07/22/23 20:02 07/22/23 20:15 Temperature Pulse Rate 97 95 94 Pulse Rate [Pulse Oximeter] Respiratory Rate Blood Pressure 105/64 Blood Pressure [Ri ght Upper Arm] Pulse Oximetry 92 93 91 Oxygen Delivery Me thod Oxygen Flow Rate 07/22/23 20:27 07/22/23 20:30 07/22/23 20:45 Temperature Pulse Rate 94 95 95 Pulse Rate [Pulse Oximeter] Respiratory Rate Blood Pressure 113/64 Blood Pressure [Ri ght Upper Arm] Pulse Oximetry 94 93 92 Oxygen Delivery Me thod Oxygen Flow Rate 07/22/23 21:00 07/22/23 21:02 07/22/23 21:15 Temperature Pulse Rate 93 96 95 Pulse Rate [Pulse Oximeter] Respiratory Rate Blood Pressure 104/62 Blood Pressure [Ri ght Upper Arm] Pulse Oximetry 92 92 93 Oxygen Delivery Me thod Oxygen Flow Rate 07/22/23 21:30 07/22/23 21:45 07/22/23 22:06 Temperature Pulse Rate 94 99 100 Pulse Rate [Pulse Oximeter] Respiratory Rate Blood Pressure 117/60 Blood Pressure [Ri ght Upper Arm] Pulse Oximetry 93 93 93 Oxygen Delivery Me thod Oxygen Flow Rate 07/22/23 22:07 07/22/23 22:15 07/22/23 22:30 Temperature Pulse Rate 95 95 97 Pulse Rate [Pulse Oximeter] Respiratory Rate Blood Pressure Blood Pressure [Ri ght Upper Arm] Pulse Oximetry 92 92 93 Oxygen Delivery Me thod Oxygen Flow Rate Hospitalist - H&P: Result Labs Labs: Short CBC 07/22/23 Range/Units 15:50 WBC 20.11 H (4.50-11.00) K/uL Hgb 13.1 (12.0-16.0) gm/dL Hct 39.6 (33.0-51.0) % Plt Count 412 (140-440) K/uL BMP 07/22/23 15:50 Sodium 134 L Potassium 3.4 L Chloride 95 L Carbon Dioxide 28 BUN 9 Creatinine 0.5 Glucose 114 Calcium 8.7 Cardiac Enzymes 07/22/23 Range/Units 15:50 Troponin I < 0.01 L (0.01-0.04) ng/mL Assessment and Plan Assessment and plan (1) Gastric perforation: Status: Acute Assessment and Plan: -Transfer to [facility] for definitive management as soon as bed is available -Empiric zosyn and vanco (2) Sepsis: Status: Acute Assessment and Plan: -IV fluids per sepsis protocl -Telemetry monitoring (3) Pleural effusion: Status: Acute Assessment and Plan: -left sided, consider for source of symptoms -consider tapping after gastric perforation/abscess is addressed -abx as above for the time being -respiratory status stable on RA
[2023-07-23] MEDS: PANTOPRAZOLE SODIUM 40 MG INJ IVP (01:12)
[2023-07-23] MEDS: PIPERACILLIN/TAZOBACTAM 3.375 GM in 0.9 % SODIUM CHLORIDE Mini-bag 100 ML IVPB ×3 (01:13→13:19)
[2023-07-23] MEDS: POTASSIUM CHLORIDE 10 MEQ/100 ML PIGGYBACK 100 MEQ IVPB ×2 (01:13→03:56)
[2023-07-23] MEDS: 0.9 % SODIUM CHLORIDE 1000 ml 1,000 ML 75 ML IV (01:14)
[2023-07-23 01:48] VITALS: BP 117/67; PULSE 95; RESP 16; TEMP 36.7; O2SAT 92; BMI 37.2
[2023-07-23 03:00] VITALS: BP 115/64; PULSE 97; RESP 16; TEMP 36.7; O2SAT 93
[2023-07-23] MEDS: HYDROmorphone 0.5 mg/0.5 ml inj IVP ×2 (04:03→10:39)
[2023-07-23 06:02] LABS: Lactate* 0.7 mmol/L (0.5-1.9)
[2023-07-23 06:13] LABS: Basophils Percent Auto 0.5 % (0.0-3.0); Eosinophils Percent Auto 0.1 % (0.0-7.0); Hematocrit 34.6 % (33.0-51.0); Hemoglobin* 11.2 gm/dL (12.0-16.0); Lymphocytes Percent Auto 7.5 % (20-44); Mean Corpuscular HGB Conc 32 gm/dL (32-36); Mean Corpuscular Hemoglobin 30 pg (26-34); Mean Corpuscular Volume 92 fL (80-100); Neutrophils Percent Auto 85.9 % (42.0-72.0); Platelet Count* 384 K/uL (140-440); RDW Coefficient of Variation % 13.5 % (11.5-15.5); Red Blood Count 3.75 m/uL (4.00-5.20); White Blood Count* 21.26 K/uL (4.50-11.00)
[2023-07-23 06:26] LABS: Albumin* 2.8 g/dL (3.3-5.0); Chloride* 103 mmol/L (96-114)
[2023-07-23 06:27] LABS: Potassium* 3.6 mmol/L (3.6-5.1); Sodium* 138 mmol/L (135-149)
[2023-07-23 06:29] LABS: Alkaline Phosphatase* 115 U/L (40-150); Anion Gap 11 mEq/L (7-15); Aspartate Amino Transferase* 39 U/L (12-35); Bilirubin Total* 0.7 mg/dL (0.1-1.5); Blood Urea Nitrogen* 9 mg/dL (7-30); Carbon Dioxide* 24 mmol/L (20-32); Creatinine* 0.6 mg/dL (0.5-1.5); Est. Creatinine Clearance* 91.97; Estimated Glomerular Filt Rate 104 ml/min; Total Protein* 6.1 g/dL (6.0-8.3)
[2023-07-23 06:30] LABS: Alanine Aminotransferase* 38 U/L (4-35); Calcium* 8.3 mg/dL (8.4-10.6); Glucose* 102 mg/dL (60-115)
--- NOTE | 2023-07-23 06:35 | PC.NURSE ---
End of Shift: Pt admitted to unit via ED d/t epigastric pain radiating to left upper chest below breast. Imaging concluded this was related to a previous procedure and pt is needing to be sent out to a larger facility. In the meantime pt is to remain NPO and recieve current plan per DEC. Pt has two intact, working IV's, SBA in room with GB and cane.
[2023-07-23 07:00] VITALS: BP 123/65; PULSE 89; RESP 21; O2SAT 93
[2023-07-23 07:19] LABS: Slide Review Reflex Yes
[2023-07-23 08:31] LABS: Slide Review Acceptable Review (Acceptable)
[2023-07-23] MEDS: ONDANSETRON 2 MG/ML inj 4 MG IVP (10:39)
[2023-07-23 11:00] VITALS: BP 105/63; PULSE 88; RESP 20; O2SAT 92
--- NOTE | 2023-07-23 11:14 | P.IMPN_ITS ---
Progress Note: A&P Assessment and plan (1) Gastric perforation: Problem details: -CT shows large complex 8 cm fluid collection with smaller adjacent fluid collections position between the stomach and left lobe of the liver -s/p EGD 07/15/2023 at [place] -awaiting transfer to [facility] for definitive management as soon as bed is available (as of 0745 on 07/23, possible bed availability this afternoon) -continue empiric azithromycin, zosyn and vanco -WBC up trending slightly, 21.26 from 20.11. BC pending. Remains afebrile. -NPO, IVF 75 mL/HR -pain and nausea management as needed -IV PPI Status: Acute (2) Sepsis: Problem details: -management as above -telemetry Status: Acute (3) Pleural effusion: Problem details: -small to moderate sized, left sided, with atelectasis -?consider tapping after gastric perforation/abscess is addressed -abx as above for the time being -respiratory status stable on RA Status: Acute Plan CODE: Full VTE PPX: Heparin subQ q.12 Disposition: Inpatient. Awaiting transfer to [place] Time Spent With Patient Total time spent: Total time spent caring for the patient today was 45 minutes. This includes time spent for the visit reviewing the chart, time spent during the visit, time spent after the visit and documentation and planning in coordination of care. Subjective Date Seen: 07/23/23 Interval history: Patient admitted last night, awaiting transfer as no bed availability at outside hospitals last night. Tells me her pain is ?manageable? currently. Denies nausea. Remains NPO. She is s/p Comfort-en-Y and gastric bypass (last surgery in 2011) and underwent an EGD at [place] on 07/15/2023. Complains of intermittent, now constant shoulder pain 1 day following this procedure. Remains vitally stable. Leukocytosis up trending. Remains afebrile. Exam Narrative: Exam Narrative: PHYSICAL EXAM General: Sitting in a chair, appears mildly uncomfortable, otherwise conversant HEENT: Normocephalic, atraumatic, sclera white, EOMI, oral mucosa moist Cardiovascular: RRR, S1S2. No pitting edema Pulmonary: CTA bilaterally without rhonchi, rales, expiratory wheezes. No dyspnea Abdominal: Soft, nondistended, no guarding, no focal tenderness Neurological: Alert, answering questions appropriately, cranial nerves intact, no focal findings Extremities: No gross joint deformity or swelling. AROMI Skin: Warm, dry. No rash Const: Vital Signs, click to edit/add: Vital Signs - 24 hr 07/22/23 14:45 07/22/23 15:34 07/22/23 15:35 Temperature 99.7 F H Pulse Rate 96 100 Pulse Rate [Left P ulse Oximeter] Pulse Rate [Pulse Oximeter] 105 H Respiratory Rate 18 Blood Pressure 96/48 L Blood Pressure [Le ft Arm] Blood Pressure [Ri ght Upper Arm] 96/70 Pulse Oximetry 93 87 L 88 Oxygen Delivery Me thod Room Air Oxygen Flow Rate 07/22/23 15:37 07/22/23 15:45 07/22/23 16:01 Temperature Pulse Rate 100 104 H Pulse Rate [Left P ulse Oximeter] Pulse Rate [Pulse Oximeter] Respiratory Rate 20 Blood Pressure 114/66 Blood Pressure [Le ft Arm] Blood Pressure [Ri ght Upper Arm] Pulse Oximetry 88 92 88 Oxygen Delivery Me thod Nasal Cannula Oxygen Flow Rate 1 07/22/23 16:19 07/22/23 16:20 07/22/23 16:21 Temperature Pulse Rate 100 96 96 Pulse Rate [Left P ulse Oximeter] Pulse Rate [Pulse Oximeter] Respiratory Rate Blood Pressure 134/64 Blood Pressure [Le ft Arm] Blood Pressure [Ri ght Upper Arm] Pulse Oximetry 97 98 96 Oxygen Delivery Me thod Oxygen Flow Rate 07/22/23 16:30 07/22/23 16:32 07/22/23 16:41 Temperature Pulse Rate 102 H 98 Pulse Rate [Left P ulse Oximeter] Pulse Rate [Pulse Oximeter] Respiratory Rate 22 Blood Pressure 123/69 Blood Pressure [Le ft Arm] Blood Pressure [Ri ght Upper Arm] Pulse Oximetry 98 98 96 Oxygen Delivery Me thod Nasal Cannula Oxygen Flow Rate 2 07/22/23 16:45 07/22/23 17:00 07/22/23 17:02 Temperature Pulse Rate 103 H 93 91 Pulse Rate [Left P ulse Oximeter] Pulse Rate [Pulse Oximeter] Respiratory Rate Blood Pressure 110/65 Blood Pressure [Le ft Arm] Blood Pressure [Ri ght Upper Arm] Pulse Oximetry 97 97 95 Oxygen Delivery Me thod Oxygen Flow Rate 07/22/23 17:15 07/22/23 17:18 07/22/23 17:30 Temperature Pulse Rate 88 91 95 Pulse Rate [Left P ulse Oximeter] Pulse Rate [Pulse Oximeter] Respiratory Rate Blood Pressure 111/70 Blood Pressure [Le ft Arm] Blood Pressure [Ri ght Upper Arm] Pulse Oximetry 92 92 91 Oxygen Delivery Me thod Oxygen Flow Rate 0 07/22/23 17:32 07/22/23 17:45 07/22/23 18:00 Temperature Pulse Rate 96 93 96 Pulse Rate [Left P ulse Oximeter] Pulse Rate [Pulse Oximeter] Respiratory Rate Blood Pressure 116/68 Blood Pressure [Le ft Arm] Blood Pressure [Ri ght Upper Arm] Pulse Oximetry 92 90 89 Oxygen Delivery Me thod Oxygen Flow Rate 07/22/23 18:02 07/22/23 18:15 07/22/23 18:30 Temperature Pulse Rate 92 95 103 H Pulse Rate [Left P ulse Oximeter] Pulse Rate [Pulse Oximeter] Respiratory Rate Blood Pressure 123/68 Blood Pressure [Le ft Arm] Blood Pressure [Ri ght Upper Arm] Pulse Oximetry 91 96 91 Oxygen Delivery Me thod Oxygen Flow Rate 07/22/23 18:32 07/22/23 18:35 07/22/23 18:45 Temperature 99.6 F Pulse Rate 97 94 Pulse Rate [Left P ulse Oximeter] Pulse Rate [Pulse Oximeter] Respiratory Rate Blood Pressure 112/61 Blood Pressure [Le ft Arm] Blood Pressure [Ri ght Upper Arm] Pulse Oximetry 95 93 Oxygen Delivery Me thod Oxygen Flow Rate 07/22/23 19:00 07/22/23 19:02 07/22/23 19:15 Temperature Pulse Rate 93 94 93 Pulse Rate [Left P ulse Oximeter] Pulse Rate [Pulse Oximeter] Respiratory Rate Blood Pressure 105/67 Blood Pressure [Le ft Arm] Blood Pressure [Ri ght Upper Arm] Pulse Oximetry 93 92 95 Oxygen Delivery Me thod Oxygen Flow Rate 07/22/23 19:30 07/22/23 19:45 07/22/23 19:53 Temperature Pulse Rate 96 92 Pulse Rate [Left P ulse Oximeter] Pulse Rate [Pulse Oximeter] Respiratory Rate 22 Blood Pressure Blood Pressure [Le ft Arm] Blood Pressure [Ri ght Upper Arm] Pulse Oximetry 94 95 94 Oxygen Delivery Me thod Room Air Oxygen Flow Rate 07/22/23 20:00 07/22/23 20:02 07/22/23 20:15 Temperature Pulse Rate 97 95 94 Pulse Rate [Left P ulse Oximeter] Pulse Rate [Pulse Oximeter] Respiratory Rate Blood Pressure 105/64 Blood Pressure [Le ft Arm] Blood Pressure [Ri ght Upper Arm] Pulse Oximetry 92 93 91 Oxygen Delivery Me thod Oxygen Flow Rate 07/22/23 20:27 07/22/23 20:30 07/22/23 20:45 Temperature Pulse Rate 94 95 95 Pulse Rate [Left P ulse Oximeter] Pulse Rate [Pulse Oximeter] Respiratory Rate Blood Pressure 113/64 Blood Pressure [Le ft Arm] Blood Pressure [Ri ght Upper Arm] Pulse Oximetry 94 93 92 Oxygen Delivery Me thod Oxygen Flow Rate 07/22/23 21:00 07/22/23 21:02 07/22/23 21:15 Temperature Pulse Rate 93 96 95 Pulse Rate [Left P ulse Oximeter] Pulse Rate [Pulse Oximeter] Respiratory Rate Blood Pressure 104/62 Blood Pressure [Le ft Arm] Blood Pressure [Ri ght Upper Arm] Pulse Oximetry 92 92 93 Oxygen Delivery Me thod Oxygen Flow Rate 07/22/23 21:30 07/22/23 21:45 07/22/23 22:06 Temperature Pulse Rate 94 99 100 Pulse Rate [Left P ulse Oximeter] Pulse Rate [Pulse Oximeter] Respiratory Rate Blood Pressure 117/60 Blood Pressure [Le ft Arm] Blood Pressure [Ri ght Upper Arm] Pulse Oximetry 93 93 93 Oxygen Delivery Me thod Oxygen Flow Rate 07/22/23 22:07 07/22/23 22:15 07/22/23 22:30 Temperature Pulse Rate 95 95 97 Pulse Rate [Left P ulse Oximeter] Pulse Rate [Pulse Oximeter] Respiratory Rate Blood Pressure Blood Pressure [Le ft Arm] Blood Pressure [Ri ght Upper Arm] Pulse Oximetry 92 92 93 Oxygen Delivery Me thod Oxygen Flow Rate 07/22/23 23:00 07/22/23 23:28 07/23/23 01:48 Temperature 98.1 F Pulse Rate 90 Pulse Rate [Left P ulse Oximeter] 95 Pulse Rate [Pulse Oximeter] Respiratory Rate 16 16 Blood Pressure Blood Pressure [Le ft Arm] 117/67 Blood Pressure [Ri ght Upper Arm] Pulse Oximetry 92 92 Oxygen Delivery Me thod Room Air Room Air Oxygen Flow Rate 07/23/23 01:48 07/23/23 03:00 07/23/23 07:00 Temperature 98.1 F Pulse Rate Pulse Rate [Left P ulse Oximeter] 97 89 Pulse Rate [Pulse Oximeter] Respiratory Rate 16 16 21 Blood Pressure Blood Pressure [Le ft Arm] 115/64 Blood Pressure [Ri ght Upper Arm] Pulse Oximetry 92 93 Oxygen Delivery Nd thod Room Air Room Air Oxygen Flow Rate 0 07/23/23 07:00 07/23/23 07:00 Temperature Pulse Rate Pulse Rate [Left P ulse Oximeter] 89 Pulse Rate [Pulse Oximeter] Respiratory Rate 21 21 Blood Pressure Blood Pressure [Le ft Arm] 123/65 Blood Pressure [Ri ght Upper Arm] Pulse Oximetry 93 93 Oxygen Delivery Nd thod Room Air Room Air Oxygen Flow Rate Labs Labs: Laboratory Results - last 24 hr 07/22/23 07/22/23 07/23/23 15:50 16:40 05:48 WBC 20.11 H 21.26 H RBC 4.32 3.75 L Hgb 13.1 11.2 L Hct 39.6 34.6 MCV 92 92 MCH 30 30 MCHC 33 32 RDW Coeff of Cat 13.2 13.5 Plt Count 412 384 Neut % (Auto) 85.2 H 85.9 H Lymph % (Auto) 8.3 L 7.5 L [place] % (Auto) 4.9 5.0 Eos % (Auto) 0.1 0.1 Baso % (Auto) 0.4 0.5 Neut # (Auto) 17.10 H 18.30 H Lymph # (Auto) 1.70 1.60 [place] # (Auto) 1.00 H 1.10 H Eos # (Auto) 0.00 0.00 Baso # (Auto) 0.10 0.10 Abs Immat Gran (auto) 0.20 0.20 Imm/Tot Granulo (auto) 1.1 1.0 Diff Slide Review Acceptable Review Acceptable Review Sodium 134 L 138 Potassium 3.4 L 3.6 Chloride 95 L 103 Carbon Dioxide 28 24 Anion Gap 11 11 BUN 9 9 Creatinine 0.5 0.6 Estimated Creat Clear 110.36 91.97 Estimated GFR 109 104 Glucose 114 102 Lactate 1.2 0.7 Calcium 8.7 8.3 L Total Bilirubin 0.7 AST 39 H ALT 38 H Alkaline Phosphatase 115 Troponin I < 0.01 L NT-Pro-B Natriuret Pep 281 Total Protein 6.1 Albumin 2.8 L Lipase 79 SARS-CoV-2 (PCR) Negative SARS-CoV-2 Influenza Type A (PCR) Negative PCR FLU A Influenza Type B (PCR) Negative PCR FLU B RSV (PCR) Negative PCR RSV
[2023-07-23] MEDS: HEPARIN 5,000 UNIT/0.5 ML INJ 5000 UNIT SUBCUT (11:54)
[2023-07-23 15:00] VITALS: BP 119/63; PULSE 101; RESP 24; TEMP 36.9; O2SAT 97
--- NOTE | 2023-07-23 18:57 | PC.NURSE ---
Nursing Care Hours: [id number] Pt this shift calm and cooperative with cares, alert and oriented. Anxious d/t pain, weakened cough. Cotton Roll Packer educated pt about splinting against site of pain to promote stronger cough. Also gave and educated pt on IS, moderate effort in use, cough afterwards. Cough productive but LS clear. Afebrile, VSS. Pain controlled per eMAR. SB assist with walker and gait belt d/t weakness. Walked short distance in guidry, HR went up to 125, O2 saturation stable at 93%, SOB with exertion. IV in R hand and L AC patent and asymptomatic. Tele on, NSR reading. Pt independent in oral cares. DC'd to [facility] in [place], transferred via EMS. Nurse to nurse given over the phone.
--- NOTE | 2023-07-24 10:35 | P.DS_ITS ---
DS: Providers Provider Date Seen: 07/23/23 Date of admission: 07/22/23 23:29 Primary care physician: Nayeli Orourke MD Admitting Clinician: Praneeth Alvarez MD Attending Physician on discharge: Praneeth Alvarez MD Date of Discharge: 07/23/23 DS: Diagnosis Discharge Diagnosis (1) Gastric perforation: Status: Acute Problem details: -CT shows large complex 8 cm fluid collection with smaller adjacent fluid collections position between the stomach and left lobe of the liver -s/p EGD 07/15/2023 at [place] -awaiting transfer to [facility] for definitive management as soon as bed is available (as of 0745 on 07/23, possible bed availability this afternoon) -continue empiric azithromycin, zosyn and vanco -WBC up trending slightly, 21.26 from 20.11. BC pending. Remains afebrile. -NPO, IVF 75 mL/HR -pain and nausea management as needed -IV PPI (2) Sepsis: Status: Acute Problem details: -management as above -telemetry (3) Pleural effusion: Status: Acute Problem details: -small to moderate sized, left sided, with atelectasis -?consider tapping after gastric perforation/abscess is addressed -abx as above for the time being -respiratory status stable on RA DS: Summary Hospital Course Hospital Course: Hospitalist- H&P: HPI History of Present Illness Date Seen: 07/23/23 Chief complaint: sharp chest pain L-post op Narrative: Charisse Hoyt is a 57 year old female who has h/o Comfort-N-Y gastric bypass and recent EGD at [facility] with subsequent perforation and repair presents to the ED with sharp chest and epigastric pain and fever. Patient states that pain is centered over her left chest, is sharp and pleuritic. Patient had CT scan which shows large fluid collection near the stomach, either abscess versus contained perforation. The patient is to be transferred to the [facility], but unfortunately they have no beds currently so she will wait here until they have availability. The surgical team at [facility] recommends broad spectrum abx and PPI. HOSPITAL SUMMARY The patient was transferred to [facility] on 07/23 for definitive treatment and management Time Spent with Patient Time attestation: Total time spent providing and/or coordinating discharge services: Exam Narrative: Exam Narrative: patient examined by Primary hospitalist earlier in the day from Hospitalist Progress Note PHYSICAL EXAM General: Sitting in a chair, appears mildly uncomfortable, otherwise conversant HEENT: Normocephalic, atraumatic, sclera white, EOMI, oral mucosa moist Cardiovascular: RRR, S1S2. No pitting edema Pulmonary: CTA bilaterally without rhonchi, rales, expiratory wheezes. No dyspnea Abdominal: Soft, nondistended, no guarding, no focal tenderness Neurological: Alert, answering questions appropriately, cranial nerves intact, no focal findings Extremities: No gross joint deformity or swelling. AROMI Skin: Warm, dry. No rash Const: Vital Signs, click to edit/add: Vital Signs - 24 hr 07/23/23 11:00 07/23/23 15:00 07/23/23 15:00 Temperature Pulse Rate [Left P ulse Oximeter] 88 101 H Respiratory Rate 20 24 24 Blood Pressure [Le ft Arm] 105/63 Pulse Oximetry 92 97 Oxygen Delivery Me thod Room Air Room Air 07/23/23 15:00 Temperature 98.5 F Pulse Rate [Left P ulse Oximeter] 101 H Respiratory Rate 24 Blood Pressure [Le ft Arm] 119/63 Pulse Oximetry 97 Oxygen Delivery Me thod Room Air DS: Data Data Completed and Pending Labs on day of discharge: Preliminary micro results at discharge 07/22/23 17:30 Blood Culture - Preliminary Blood NO GROWTH AFTER 24 HOURS 07/22/23 16:44 Blood Culture - Preliminary Blood NO GROWTH AFTER 24 HOURS Discharge Plan Discharge Disposition: [facility] Acute Care Hospital Discharge Location: [facility] Date of Admission: 07/22/23 23:29 Attending Provider on Discharge: Praneeth Alvarez Primary Care Provider: Nayeli Orourke Condition: Critical
== END 2023-07-23 15:47 | disposition short-term general hospital (02) | DRG 862 ==
LOC: ED 21:39 → MEDSURG 22:38
PROVIDERS: Admitting Provider Internal Medicine; Emergency Provider Emergency Medicine; PCP Family Medicine; Visit Provider Hospitalist
DX: T81.44XA Sepsis following a procedure, initial encounter (principal); A41.9 Sepsis, unspecified organism; K63.1 Perforation of intestine (nontraumatic); J90 Pleural effusion, not elsewhere classified; J98.11 Atelectasis; T81.40XA Infection following a procedure, unspecified, initial encounter; Z98.84 Bariatric surgery status; K68.11 Postprocedural retroperitoneal abscess
CPT/HCPCS: 36415; 71275; 80048; 80053; 83605; 83690; 83880; 84484; 85025; 87040; 87631; 93005; 94640; 99284; 99285; A0425; A0428; C9113; J0456; J1170; J1644; J2405; J2543; J3010; J3370; J3480; J7030; J7050; J7120; Q9967

== ENCOUNTER 2023-08-29 11:00 | Outpatient (RCR) | payer OTHER, SELFPAY ==
--- NOTE | 2023-08-23 15:00 | ONC.NURNOTE ---
Addendum entered by Ruthann Preston RN 08/26/23 13:19: Called pt today, she had a GI procedure done today, no redness, or pain at PICC line site. Pt needs to keep PICC line in for another 4-6 weeks. Pt scheduled for PICC drsg change on 08/29/23. Original Note: Thick yellow drainage present under dressing near the insertion site. Cleaned area. Site irritated where dressing was present, so op-site applied. No warmth or pain present. Patient instructed on what to watch for regarding infection and aware to be seen urgently if redness, warmth, or pain appear in area. Left message for Dr. Orourke to call back with this information.
[2023-08-29 11:30] VITALS: BP 92/60; PULSE 94; RESP 16; TEMP 36.7; O2SAT 96
--- NOTE | 2023-08-29 13:02 | ONC.NURNOTE ---
Patient comes in for PICC dressing change. States she is starting to feel better but noted was her dry lips and lower blood pressure. She states she can give herself some extra fluids at home through her PICC line. PICC dressing changed and on biopatch was dark brown/green drainage. After site cleaned there was no redness but noted was 3cm migration with a widened insertion site hole.
== END 2024-02-19 23:59 | disposition home or self-care (01) ==
LOC: CCIC 11:00
PROVIDERS: PCP Family Medicine; Referring Provider Family Medicine; Visit Provider Family Medicine
DX: K25.5 Chronic or unspecified gastric ulcer with perforation (principal)
CPT/HCPCS: A4221

== ENCOUNTER 2024-04-06 08:48 | Outpatient (RCR) | payer OTHER, SELFPAY ==
--- NOTE | 2024-04-01 09:23 | URNOTE ---
Per Jason on behalf of [employer], prior auth is not required for Infed ([id number]).
--- NOTE | 2024-04-01 10:36 | PC.NURSE ---
Diagnosis: Iron Deficiency Anemia
[2024-04-06 09:10] VITALS: BP 117/81; PULSE 81; RESP 18; TEMP 36.9; O2SAT 95
[2024-04-06] MEDS: IRON DEXTRAN COMPLEX 25 MG in 0.9 % SODIUM CHLORIDE 100 ml 100 ML 400 MG IVPB (09:29)
[2024-04-06 09:52] VITALS: BP 109/74; PULSE 77; RESP 16; TEMP 36.7; O2SAT 95
[2024-04-06 10:39] VITALS: BP 106/72; PULSE 62; RESP 18; O2SAT 97
[2024-04-06] MEDS: IRON DEXTRAN COMPLEX 975 MG in 0.9 % SODIUM CHLORIDE 250 ml 250 ML 270 MG IVPB (10:59)
[2024-04-06] MEDS: SODIUM CHLORIDE 0.9 % (FLUSH) 10 ML SYRINGE IVF (11:00)
[2024-04-06] MEDS: 0.9 % SODIUM CHLORIDE 250 ml IV (11:00)
[2024-04-06 12:07] VITALS: BP 114/76; PULSE 60; RESP 18; TEMP 37.2; O2SAT 98
[2024-04-06 12:41] VITALS: BP 108/73; PULSE 68; RESP 16; TEMP 37.1; O2SAT 97
== END 2024-10-03 23:59 | disposition home or self-care (01) ==
LOC: CCIC 08:48
PROVIDERS: PCP Family Medicine; Referring Provider Family Medicine; Visit Provider Family Medicine
DX: D50.9 Iron deficiency anemia, unspecified (principal)
CPT/HCPCS: 96365; 96376; 96411; J1750; J7050

== ENCOUNTER 2024-05-04 17:47 | Outpatient (CLI) | payer OTHER, SELFPAY ==
--- OUTSIDE RECORDS SUMMARY | 2024-05-04 17:52 | XMS_ITS ---
Author Organization [facility] Address [address] [place] [id number] Care Team Providers Care Duct Layer Helper Name Role Phone Unavailable Unavailable Unavailable Surgery Details Not on file Complications Check Surgery Details section. Procedure Estimated Blood Loss Check Surgery Details section. Procedure Findings Check Surgery Details section. Procedure Specimens Taken Check Surgery Details section.
--- OUTSIDE RECORDS SUMMARY | 2024-05-04 17:52 | XMS_ITS | Encounter Summary ---
Author Organization [facility] Address [address] [place] [id number] Care Team Providers Care Tripe Cooker Name Role Phone Elsewhere, Pcp Primary Care Provider Unavailabl e Encounter Details Date Type Department Care Team (Latest Contact Info) Description 02/07/2024 11:24 AM CDT - 02/07/2024 11:59 PM CDT Hospital Encounter Department of Laboratory Medicine and Pathology, [facility], in [place], [place] [address] [place] [phone] Denise Tubbs M.D. [address] [place] [phone] Fistula Stomach; Bypass Gastric Comfort En Y Status Post; Hemorrhage Gastrointestinal Discharge Disposition: Home or Self Care Social History Tobacco Use Types Packs/Day Years Used Date Smoking Tobacco: Never Smokeless Tobacco: Never Alcohol Use Standard Drinks/Week Comments Not Currently 1 (1 standard drink = 0.6 oz pur e alcohol) Humiliation, Afraid, Rape, and Kick questionnair e Answer Date Recorded Within the last year, have y ou been afraid of your partner or ex-partner? No 05/12/2023 Within the last year, have y ou been humiliated or emotionally abused in other ways by your partner or ex-partner? No Within the last year, have y ou been kicked, hit, slapped, or otherwise physically hurt by your partner or ex-partner? No 05/12/2023 Within the last year, have y ou been raped or forced to have any kind of sexual activity by your partner or ex-partner? No 05/12/2023 Social Connection and Isolat ion Panel [NHANES] Answer Date Recorded In a typical week, how many times do you talk on the phone with family, friends, or neighbors? More than three times a week 08/28/2021 How often do you get togethe r with friends or relatives? Once a week 08/28/2021 How often do you attend [facility] or episcopal services? Patient declined 08/28/2021 Do you belong to any clubs o r organizations such as buddhism groups, unions, fraternal or athletic groups, or school groups? No 08/28/2021 How often do you attend meet ings of the clubs or organizations you belong to? Never 08/28/2021 Are you , , di vorced, , never , or living with a partner? 08/28/2021 AUDIT-C Answer Date Recorded Q1: How often do you have a drink containing alc ohol? Monthly or less 08/28/2021 Q2: How many drinks containi ng alcohol do you have on a typical day when you are drinking? 1 or 2 08/28/2021 Q3: How often do you have si x or more drinks on one occasion? Never 08/28/2021 Overall Financial Resource Strain (CARDIA) Answe r Date Recorded How hard is it for you to pa y for the very basics like food, housing, medical care, and heating? Not hard at all 05/12/2023 PHQ-2 Answer Date Recorded PHQ-2 Score 0 04/07/2020 [facility] - Occupational Stress Questionnaire Answer Date Recorded Do you feel stress - tense, restless, nervous, or anxious, or unable to sleep at night because your mind is troubled all the time - these days? To some extent 08/28/2021 Exercise Vital Sign Answer Date Recorde d On average, how many days pe r week do you engage in moderate to strenuous exercise (like a brisk walk)? 0 days 05/12/2023 On average, how many minutes do you engage in exercise at this level? 0 min 05/12/2023 Hunger Vital Sign Answer Date Recorded Within the past 12 months, y ou worried that your food would run out before you got the money to buy more. Never true 05/12/20 23 Within the past 12 months, t he food you bought just didn't last and you didn't have money to get more. Never true 05/12/2023 PRAPARE - Transportation Answer Date Re corded In the past 12 months, has l ack of transportation kept you from medical appointments or from getting medications? No 04/27 In the past 12 months, has l ack of transportation kept you from meetings, work, or from getting things needed for daily living? No 05/12/2023 Nutrition Answer Date Recorded On average, how many serving s of fruits and vegetables do you eat per day (serving size is equal to 1 cup or approximately the size of a tennis ball)? 0-2 05/12/2023 Dental Answer Date Recorded Dental: Regular Dentist Yes 10/28/19 Employment Answer Date Recorded Employment status Employed and actively working without restrictions 05/12/2023 Housing Stability Answer Date Recorded What is your living situation today? I have a [facility] place to live 05/12/2023 Education Answer Date Recorded What is the highest level of school you have completed or the highest degree you have received? Associate degree: academic program 04/12/2019 Sex and Gender Information Value Date Recorded Sex Assigned at Female 08/28/2021 7:02 PM CDT Gender Identity Female 08/28/2021 7:02 PM CDT Sexual Orientation Straight 08/28/2021 7: 02 PM CDT documented as of this encounter Medications at Time of Discharge Medication Sig Dispensed Refills Start Date End Date apixaban (ELIQUIS) 2.5 mg tablet Take 1 tablet (2.5 mg total) by mouth 2 (two) times a day. 180 tablet 3 02/07/2024 02/06/2025 furosemide (LASIX) 20 mg tablet Administer 1 tablet (20 mg total) via small bowel tube daily. 30 tablet 1 07/29/2023 iron,carbonyl/ascorbi c acid (VITRON-C ORAL) Administer 1 tablet via small bowel tube daily. 03/12/2017 omeprazole (PriLOSEC) [address] capsule Take 1 capsule (40 mg total) by mouth every morning before breakfast. 30 capsule 3 08/19/2023 documented as of this encounter Plan of Treatment Upcoming Encounters Date Type Department Care Team (Latest Contact Info) Description 05/21/2024 7:15 AM CDT Clinical Communication Virtual Review in [address] [phone] 05/22/2024 7:00 AM CDT Appointment Department of Radiology, [facility], in [place], [place] [address] [place] [phone] Arlene Loco APRN, C.N.P. [address] [place] [phone] 05/22/2024 9:30 AM CDT Office Visit Division of Endocrinology in [address] [phone] Arlene Loco APRN, C.N.P. [address] [place] [phone] 06/08/2024 8:15 AM CDT Clinical Communication Virtual Review in [address] [phone] 06/09/2024 2:00 PM CDT Telemedicine Division of Endocrinology in [address] [phone] Merry Donahue APRN, C.N.P. [address] [place] [phone] 07/01/2024 4:20 PM CDT Telemedicine Division of Gastroenterology in [address] [phone] Denise Tubbs M.D. [address] [place] [phone] documented as of this encounter Procedures Procedure Name Priority Date/Time Associated Diagnosis Comments HEPATIC FUNCTION PANEL, S Routine 02/07/2024 11:40 AM CDT Fistula Stomach Bypass Gastric Comfort En Y Status Post Hemorrhage Gastrointestinal IRON AND TOT IRON-BINDING CAPACITY, S/P Routine 02/07/2024 11:40 AM CDT Fistula Stomach Bypass Gastric Comfort En Y Status Post Hemorrhage Gastrointestinal CBC WITH DIFFERENTIAL, B Routine 02/07/2024 11:40 AM CDT Fistula Stomach Bypass Gastric Comfort En Y Status Post Hemorrhage Gastrointestinal FERRITIN, S Routine 02/07/2024 11:40 AM CDT Fistula Stomach Bypass Gastric Comfort En Y Status Post Hemorrhage Gastrointestinal VITAMIN B12 ASSAY, S Routine 02/07/2024 11:40 AM CDT Fistula Stomach Bypass Gastric Comfort En Y Status Post Hemorrhage Gastrointestinal documented in this encounter Results * CBC with Differential, Blood (02/07/2024 11:40 AM CDT) [facility] Hemoglobin 11.7 11.6 - 15.0 g/dL 02/07/2024 12:48 PM CDT DTL Hematocrit 38.0 35.5 - 44.9 % 02/07/2024 12:48 PM CDT DTL Erythrocytes 4.29 3.92 - 5.13 x10(12)/L 02/07/2024 12:48 PM CDT DTL MCV 88.6 78.2 - 97.9 fL 02/07/2024 12:48 PM CDT DTL RBC Distrib Width 15.0 12.2 - 16.1 % 02/07/2024 12:48 PM CDT DTL Platelet Count 339 157 - 371 x10(9)/L 02/07/2024 12:48 PM CDT DTL Leukocytes 5.6 3.4 - 9.6 x10(9)/L 02/07/2024 12:48 PM CDT DTL Neutrophils 2.36 1.56 - 6.45 x10(9)/L 02/07/2024 12:48 PM CDT [facility] Lymphocytes 2.65 0.95 - 3.07 x10(9)/L 02/07/2024 12:48 PM CDT DTL Monocytes 0.39 0.26 - 0.81 x10(9)/L 02/07/2024 12:48 PM CDT DTL Eosinophils 0.09 0.03 - 0.48 x10(9)/L 02/07/2024 12:48 PM CDT DTL Basophils 0.07 0.01 - 0.08 x10(9)/L 02/07/2024 12:48 PM CDT DTL Blood (Blood, Venous) 02/07/2024 11:40 AM CDT 02/07/2024 12:34 PM CDT Denise Tubbs M.D. LAB BLOOD ADD-ON Performing Organization Address City/[facility]/ZIP Co de Phone Number [facility] [address] [place] [address], [facility] [address] [place], [place] [phone] [place] [address] [address] [place] [address] * Iron and Total Iron-Binding Capacity (02/07/2024 11:40 AM CDT) Iron 56 35 - 145 mcg/dL 02/07/2024 1:01 PM CDT DTL Total Iron Binding Capacity 388 250 - 400 mcg/dL 02/07/2024 1:01 PM CDT DTL Percent Saturation 14 14 - 50 % 02/07/2024 1:01 PM CDT DTL Blood (Blood, Venous) 02/07/2024 11:40 AM CDT 02/07/2024 12:24 PM CDT Denise Tubbs M.D. LAB BLOOD ADD-ON Performing Organization Address City/[facility]/ZIP Co de Phone Number [facility] [address] [place] [address], [facility] [address] [place] [address] * Ferritin (02/07/2024 11:40 AM CDT) Ferritin, S 11 11 - 328 mcg/L 02/07/2024 1:01 PM CDT DTL Blood (Blood, Venous) 02/07/2024 11:40 AM CDT 02/07/2024 12:24 PM CDT Denise Tubbs M.D. LAB BLOOD ADD-ON Performing Organization Address [facility] Co de Phone Number [facility] [address] [place] [address], [facility] [address] [place] [address] * Vitamin B12 Assay (02/07/2024 11:40 AM CDT) Pathologist [facility] Vitamin B12 Assay, S 324 180 - 914 ng/L 02/07/2024 1:08 PM CDT DTL Comment: ----ADDITIONAL INFORMATION---- In patients being evaluated for vitamin B12 deficiency who have intrinsic factor blocking antibodies (IFBA), false elevations of B12 may occur due to IFBA interference thus potentially obscuring a physiological deficiency of B12. If observed B12 concentrations are discordant with clinical presentation, measurement of methylmalonic acid (MMA) should be considered. Blood (Blood, Venous) 02/07/2024 11:40 AM CDT 02/07/2024 12:24 PM CDT Denise Tubbs M.D. LAB BLOOD ADD-ON Performing Organization Address [facility] Co de Phone Number [facility] [address] [place] [address], [facility] [address] [place] [address] * Hepatic Function Panel (02/07/2024 11:40 AM CDT) Bilirubin, Total, S 0.4 0.0 - 1.2 mg/dL 02/07/2024 1:01 PM CDT DTL Bilirubin, Direct, S <0.2 0.0 - 0.3 mg/dL 02/07/2024 1:01 PM CDT DTL Aspartate Aminotransferase (AST), S 24 8 - 43 U/L 02/07/2024 1:01 PM CDT DTL Alanine Aminotransferase (ALT), S 34 7 - 45 U/L 02/07/2024 1:01 PM CDT DTL Alkaline Phosphatase, S 97 35 - 104 U/L 02/07/2024 1:01 PM CDT DTL Albumin, S 4.0 3.5 - 5.0 g/dL 02/07/2024 1:01 PM CDT DTL Protein, Total, S 6.3 6.3 - 7.9 g/dL 02/07/2024 1:01 PM CDT DTL Blood (Blood, Venous) 02/07/2024 11:40 AM CDT 02/07/2024 12:24 PM CDT Dneise Tubbs M.D. LAB BLOOD ADD-ON [facility] [address] [place] [address], [facility] [address] [place] [address] documented in this encounter Visit Diagnoses Diagnosis Fistula Stomach Bypass Gastric Comfort En Y Status Post Hemorrhage Gastrointestinal documented in this encounter Additional Health Concerns Assessment Noted Time PHQ-9 Depression Total Score: 4 03/12/20 17 3:53 PM CDT documented as of this encounter Care Teams Tripe Cooker Relationship Specialty Start Date End Date Elsewhere, Pcp PCP - General Internal Medicine 08/02/23 documented as of this encounter
--- OUTSIDE RECORDS SUMMARY | 2024-05-04 17:52 | XMS_ITS | Encounter Summary ---
Author Organization [facility] Address [address] [place] [phone] Care Team Providers Care Valve Grinder Name Role Phone Elsewhere, Pcp Primary Care Provider Unavailabl e Reason for Visit * Auth/Cert (Routine) Specialty Diagnoses / Procedures Referred By Arielle t Referred To Contact Diagnoses Fistula Stomach Procedures EGD (ESOPHAGEALGASTRODUODENOSCOPY) Referral ID Status Reason Start Date Expiration Date Visits Re quested Visits Authorized [id number] 1 1 Encounter Details Date Type Department Care Team (Latest Contact Info) Description 02/14/2024 12:43 PM CDT Anesthesia Event Division of Gastroenterology in [place], [place] [address] [place] [address] Kathy Power APRN, CHRISTIANO [address] [place] [phone] Gina Holland APRN, COMPLEX CASE MANAGER [address] [place] [phone] Anesthesia Record Procedure Summary Procedure Name Responsible Anesthesiologist Anesthesia Start Time Anesthesia Stop Time EGD (ESOPHAGEALGASTRODU ODENOSCOPY) Kathy Power APRN, CHRISTIANO 02/14/24 1243 02/14/24 1322 Events Date Time Event Comment 02/14/2024 1243 An Start Machine/Equipme nt Checked Infection Precautions Followed Procedure/Site Verified NPO Status Verified Supine Standard ASA Monitors Applied 1249 An Induction 1251 An Intubation 1252 Turnover to Proceduralist 1306 Proc Start 1311 Proc Fin 1313 Turnover to ANE Staff 1315 Airway Removal Criteria Met 1315 Extubation/Airway Removed 1316 an stop data 1322 An End I completed my handoff to the receiving staff during which we 1. Identified the patient 2. Identified the responsible provider 3. Reviewed the pertinent medical history 4. Discussed the surgical course 5. Reviewed intra-op anesthesia management and issues during anesthesia 6. Set expectations for post-procedure period 7. Allowed opportunity for questions and acknowledgement of understanding. Meds Name Total fentanyl injection 50 mcg/mL 50 mcg lidocaine 2% (mg) injection 60 mg succinylcholine 20 mg/mL injection 100 m g ondansetron 4 mg/2 mL injection 4 mg propofol 10 mg/mL infusion 289.14 mg propofol 10 mg/mL injection 150 mg scopolamine 1.5mg (1 mg/72) hr patch 1 p atch dexAMETHasone (DECADRON) injection 4 mg/ mL 4 mg Lactated Ringers Free Drip 500 mL * Agents No agents on file. * Blood No blood administrations on file. Lines, Drains, and Airways Type Details Placement Removal Wound 08/08/23; 1335; Y; IntertrigDer; Gluteal cleft; & Perianal 08/08/23 1335 by Parisa Barney R.N. Wound 08/08/23; 1335; Y; IntertrigDer; Breast; Bilateral; & Bilateral Groin & Medial Anterior Thighs Bilaterally 08/08/23 1335 by Parisa Barney R.N. Peripheral IV Placement Date: 01/26 07/21; Placement Time: 1220; Catheter Size: 20 G; Orientation: Distal, Lower, Posterior, Right; Location: Forearm; Site Prep: Alcohol; Removal Date: 02/14/24; Removal Time: 1352; Removal Reason: Patient discharged 02/14/24 1220 by Suzie Narvaez R.NSrikanth 02/14/24 1352 by Suzie Narvaez R.N. ETT Placement Date: 01/26 07/21; Placement Time: 1251 (created via procedure documentation); Mask Ventilation: Not attempted; Technique: Video laryngoscopy; Type: Standard ETT; Single Lumen Tube Size: 7 mm; Cuffed: Yes; Location: Oral; Grade View: Grade 2A; Insertion Attempts: 1; Placement Verification: Bilateral breath sounds, Positive ETCO2, Symmetrical chest wall movement; Removal Date: 02/14/24; Removal Time: 131402/14/24 1251 by Gina Holland APRN, CRNA 02/14/24 1315 by Kathy Power APRN, CRNA documented in this encounter Social History Tobacco Use Types Packs/Day Years [...] week 08/28/2021 How often do you attend [facility] or alevism services? Patient declined 08/28/2021 Do you belong to any clubs o r organizations such as catholic groups, unions, fraternal or athletic groups, or [...] Answer Date Recorded PHQ-2 Score 0 04/07/2020 [facility] of Occupat ional [facility] - Occupational Stress Questionnaire Answer Date Recorded [...] money to buy more. Never true 05/12/20 Within the past 12 months, t he [...] your living situation today? I have a [facility] place to live 05/12/2023 Education Answer Date [...] PM CDT documented as of this encounter OR Notes * Anesthesia Postprocedure Evaluation - Kathy Power APRN, CRNA - 02/14/2024 1:22 PM CDT Patient: Charisse Lizarraga Procedure Summary Date: 02/14/24 Room / Location: Division of Gastroenterology in [place], [place] Anesthesia Start: 1243 Anesthesia Stop: 1322 Procedure: EGD (ESOPHAGEALGASTRODUODENOSCOPY) Diagnosis: Fistula Stomach Fistula Stomach Scheduled Providers: Gina Holland APRN, CRNA Responsible Provider: Kathy Power APRN, CRNA Anesthesia Type: general ASA Status: 3 Anesthesia Type: general Last vitals Vitals Value Taken Time BP 120/73 02/14/24 1320 Temp 36.8 ??C 02/14/24 1318 Pulse 74 02/14/24 1322 Resp 10 02/14/24 1322 SpO2 95 % 02/14/24 1322 Vitals shown include unfiled device data. Please reference Vitals flowsheet for most recent vital signs. Anesthesia Post Evaluation Patient Disposition: dismissal Cardiovascular status: hemodynamics (HR & BP) acceptable Respiratory status: patent airway with spontaneous effort Temperature: normothermic Oxygen requirements: room air Level of consciousness: awake Pain score: pain adequately controlled and/or at baseline Post Op nausea/vomiting: none Hydration status: euvolemic * Anesthesia Procedure Notes - Gina Holland APRN, CRNA - 02/14/2024 12:59 PM CDTAssociated Order(s): Airway Airway Date/Time: 02/14/2024 12:51 PM Performed by: Gina Holland APRN, CRNA Authorized by: Kathy Power APRN, CRNA Patient location during procedure: OR / Procedure Area PROCEDURE DETAILS: Mask difficulty assessment: not attempted Final airway type: video laryngoscope Laryngeal Manipulation: no Final best view of glottic structures - Cormack/Lehane Score: grade 2A ETT location: oral VL device: glide scope [place] scope blade size: 3 Tube size: 7 ETT distance at teeth/gum: 22 Oral tube type: standard ETT Cuffed: yes Leak Test Performed: no Number of attempt to successful placement: 1 Airway confirmation: bilateral breath sounds, positive ETCO2 and bilateral chest rise PRE PROCEDURE DETAILS: Pre evaluation for airway management: procedure Urgency: elective Preop assessment of probable difficulty: no difficulty anticipated Preoxygenation: bag valve mask SEDATION / ANESTHESIA Anesthesia method: anesthesia POST PROCEDURE DETAILS: Procedure outcome: successful Notable Events: no complications * Anesthesia Preprocedure Evaluation - Gina Holland APRN, CRNA - 02/14/2024 12:56 PM CDT Preprocedure Anesthesia & H&P Assessment Procedure Summary Anesthesia Start Date/Time: 02/14/24 1243 Scheduled providers: Gina Holland APRN, CRNA Procedure: EGD (ESOPHAGEALGASTRODUODENOSCOPY) Diagnosis: Fistula Stomach [K31.6] Fistula Stomach [K31.6] Location: Division of Gastroenterology in [place], [place] Pertinent components of the patient's history including current problem list, medical history, surgical history, family history, social history, medications and allergies were reviewed. Present illness and pre-op diagnosis were confirmed. The planned surgery / procedure was verified with the patient / legal guardian. The patient's general health condition remains unchanged RELEVANT COMORBID CONDITIONS CV (+) Embolus Pulmonary (HCC) (+) Tachycardia Paroxysmal (HCC) GI (+) Acute Gastrojejunal Ulcer With Hemorrhage HEME (+) Anticoagulant Therapy Respiratory (+) Hernia Hiatal (+) Shortness Of Breath Circulatory (+) Thrombosis Deep Vein Acute Lower Extremity Left (HCC) Digestive (+) Hemorrhage Gastrointestinal (+) Nausea Hematologic (+) Lymphoma (HCC) Other (+) Abscess Intra Abdominal (HCC) (+) Bypass Gastric Comfort En Y Status Post (+) Obesity Body Mass Index 30-39.9 Adult OBJECTIVE PHYSICAL EXAMINATION Airway (HEENT) Mallampati: II TM Distance: >3 FB Neck ROM: Full Mouth Opening: >3 cm Upper Lip Bite Test Class: I Cardiovascular Rhythm: Regular Rate: Normal Cardiovascular Assessment: cardiovascular normal Functional Capacity: >4 METS Pulmonary Pulmonary Assessment: Clear General / Constitutional Constitutional Assessment: Normal General State of Health:: healthy appearing and calm Neurological Neurologic Assessment: alert and alert and oriented x 3 Dental Dental Assessment: dentition intact ASSESSMENT / PLAN ANESTHESIA PLAN ASA: 3 Anesthesia Plan: general RSI Patient seen and allergies reviewed, anesthesia plan and risks discussed directly with patient /legal guardian or through an healthcare recruiter. Risks/Benefits/Alternatives of Blood transfusion discussed with patient / legal guardian, includingan opportunity to ask questions and/or decline some or all transfusion therapies. The patient / legal guardian consented to the use of all blood products, as deemed medically necessary Approval to Proceed: approved for anesthesia documented in this encounter Plan of Treatment Upcoming Encounters Date Type Department Care Team (Latest Contact Info) Description 05/21/2024 7:15 AM CDT Clinical Communication Virtual Review in [address] [phone] 05/22/2024 7:00 AM CDT Appointment Department of Radiology, [facility], in [place], [place] [address] [place] [phone] Arlene Loco APRN, C.N.P. [address] [place] [phone] 05/22/2024 9:30 AM CDT Office Visit Division of Endocrinology in [address] [phone] Arlene Loco APRN, C.N.P. [address] [place] [phone] 06/08/2024 8:15 AM CDT Clinical Communication Virtual Review in [address] [phone] 06/09/2024 2:00 PM CDT Telemedicine Division of Endocrinology in [place], [place] [address] [place] [phone] Merry Donahue APRN, C.N.P. [address] [place] [phone] 07/01/2024 4:20 PM CDT Telemedicine Division of Gastroenterology in [place], [place] [address] [place] [phone] Denise Tubbs M.D. [address] [place] [phone] documented as of this encounter Procedures Procedure Name Priority Date/Time Associated Diagnosis Comments LDA ANE ENDOTRACHEAL AIRWAY Routine 02/14/2024 12:51 PM CDT documented in this encounter Results * LDA ANE ENDOTRACHEAL AIRWAY (02/14/2024 12:51 PM CDT) Narrative Gina Holland APRN, CRNA - 02/14/2024 12:51 PM CDT Gina Holland APRN, CRNA ? 02/14/2024 12:59 PM Airway Date/Time: 02/14/2024 12:51 PM Performed by: Gina Holland APRN, CRNA Authorized by: Kathy Power APRN, CRNA ?? Patient location during procedure: OR / Procedure Area PROCEDURE DETAILS: Mask difficulty assessment: not attempted Final airway type: video laryngoscope Laryngeal Manipulation: no ?? Final best view of glottic structures - Cormack/Lehane Score: grade 2A ETT location: oral VL device: glide scope [place] scope blade size: 3 Tube size: 7 ETT distance at teeth/gum: 22 Oral tube type: standard ETT Cuffed: yes Leak Test Performed: no ?? Number of attempt to successful placement: 1 Airway confirmation: bilateral breath sounds, positive ETCO2 and bilateral chest rise PRE PROCEDURE DETAILS: Pre evaluation for airway management: procedure Urgency: elective Preop assessment of probable difficulty: no difficulty anticipated Preoxygenation: bag valve mask SEDATION / ANESTHESIA Anesthesia method: anesthesia POST PROCEDURE DETAILS: ? Procedure outcome: successful ?? Notable Events: no complications Kathy Power APRN, CRNA ANESTHESIA ORD ERABLES documented in this encounter Visit Diagnoses Not on filedocumented in this encounter Administered Medications Inactive Administered Medications - up to 3 most recent administrations Medication Order MAR Action Action Date Dose Rate Site dexAMETHasone injection (DECADRON) intravenous, As needed, Starting on Sat02/14/24 at 1257, Anesthesia Intra-op Given 02/14/2024 12:57 PM CDT 4 mg fentaNYL injection (SUBLIMAZE) intravenous, As needed, Starting on Sat02/14/24 at 1248, Anesthesia Intra-op Given 02/14/2024 12:48 PM CDT 50 mcg Lactated Ringer's intravenous, Continuous Infusion: Per Instructions PRN, Starting on Sat02/14/24 at 1244, Anesthesia Intra-op New Bag 02/14/2024 12:44 PM CDT lidocaine (PF) (cardiac) injection intravenous, As needed, Starting on Sat02/14/24 at 1248, Anesthesia Intra-op Given 02/14/2024 12:48 PM CDT 60 mg ondansetron (PF) injection (ZOFRAN) intravenous, As needed, Starting on Sat02/14/24 at 1248, Anesthesia Intra-op Given 02/14/2024 12:48 PM CDT 4 mg propofol 10 mg/mL infusion (DIPRIVAN) intravenous, Continuous Infusion: Per Instructions PRN, Starting on Sat02/14/24 at 1248, Anesthesia Intra-op Rate/Dose Change 02/14/2024 1:09 PM CDT 100 mcg/kg/min 56.88 mL/hr Rate/Dose Change 02/14/2024 12:57 PM CDT 125 mcg/kg/min 71 .1 mL/hr New Bag 02/14/2024 12:48 PM CDT 150 mcg/kg/min 85.32 mL /hr propofoL injection (DIPRIVAN) intravenous, As needed, Starting on Sat02/14/24 at 1249, Anesthesia Intra-op Given 02/14/2024 12:49 PM CDT 150 mg scopolamine base 1 mg over 3 days (TRANSDERM SCOP) transdermal, Administer over 72 Hours, As needed, Starting on Sat02/14/24 at 1243, Anesthesia Intra-op Given 02/14/2024 12:43 PM CDT 1 patch succinylcholine (PF) injection (ANECTINE) intravenous, As needed, Starting on Sat02/14/24 at 1250, Anesthesia Intra-op Given 02/14/2024 12:50 PM CDT 100 mg documented in this encounter Additional Health Concerns Assessment Noted Time PHQ-9 Depression Total Score: 4 03/12/20 17 3:53 PM CDT documented as of this encounter Care Teams Valve Grinder Relationship Specialty Start Date End Date Elsewhere, Pcp PCP - General Internal Medicine 08/02/23 documented as of this encounter
--- OUTSIDE RECORDS SUMMARY | 2024-05-04 17:52 | XMS_ITS | Encounter Summary ---
Author Organization [facility] Address [address] [place] [phone] Care Team Providers Care Correctional Officer Chief Name Role Phone Elsewhere, Pcp Primary Care Provider Unavailabl e Reason for Visit * Auth/Cert (Routine) Specialty Diagnoses / Procedures Referred By Arielle t Referred To Contact Diagnoses Fistula Stomach Procedures EGD (ESOPHAGEALGASTRODUODENOSCOPY) Referral ID Status Reason Start Date Expiration Date Visits Re quested Visits Authorized [id number] 1 1 Encounter Details Date Type Department Care Team (Latest Contact Info) Description 02/14/2024 12:04 PM CDT - 02/14/2024 11:59 PM CDT Hospital Encounter Department of Radiology, [facility] in [place], [place] [address] [place] [phone] Eliana Davidson, JOSÉ MANUEL, C.N.P., D.N.P., M.S.N. [address] [place] [phone] Discharge Disposition: Home or Self Care Social [...] 08/28/2021 How often do you attend [facility] or sikh services? Patient declined 08/28/2021 Do you belong to any clubs o r organizations such as sikh groups, unions, fraternal or athletic groups, or [...] Answer Date Recorded PHQ-2 Score 0 04/07/2020 [facility] of Occupat ional Health - Occupational Stress [...] your living situation today? I have a [facility] place to live 05/12/2023 Education Answer [...] AM CDT Clinical Communication Virtual Review in [address] [phone] 05/22/2024 7:00 AM CDT Appointment Department of Radiology, [facility], in [address] [phone] Arlene Loco APRN, C.N.P. [address] [place] [phone] 05/22/2024 9:30 AM CDT Office Visit Division of Endocrinology in [address] [phone] Arlene Loco APRN, C.N.P. [address] [place] [phone] 06/08/2024 8:15 AM CDT Clinical Communication Virtual Review in [address] [phone] 06/09/2024 2:00 PM CDT Telemedicine Division of Endocrinology in [address] [phone] Merry Donahue APRN, C.N.P. [address] [place] [phone] 07/01/2024 4:20 PM CDT Telemedicine Division of Gastroenterology in [address] [phone] Denise Tubbs M.D. [address] [place] [phone] documented as of this encounter Procedures Procedure Name Priority Date/Time Associated Diagnosis Comments FL FLUORO LESS THAN 1 HOUR RAD - Routine (most inpatients and all outpatients) 02/14/2024 1:15 PM CDT Fistula Stomach documented in this encounter Results * FL Fluoro Less Than 1 Hour (02/14/2024 1:15 PM CDT) Narrative ERCP LOS RST - 02/14/2024 1:15 PM CDT This exam does not require a radiologist review or interpretation. Please refer to the patient's medical record on this date for clinical details. Jimbo Diop APRN.N.Sonido., D.N.P., M.S.N. IMG FLUOROSCOPY PROCEDURES ERCP LOS RST documented in this encounter Visit Diagnoses Not on filedocumented in this encounter Additional Health Concerns Assessment Noted Time PHQ-9 Depression Total Score: 4 03/12/20 17 3:53 PM CDT documented as of this encounter Care Teams Correctional Officer Chief Relationship Specialty Start Date End Date Elsewhere, Pcp PCP - General Internal Medicine 08/02/23 documented as of this encounter
--- OUTSIDE RECORDS SUMMARY | 2024-05-04 17:52 | XMS_ITS | Encounter Summary ---
Author Organization [facility] Address [address] [place] [phone] Care Team Providers Care Early Morning Name Role Phone Elsewhere, Pcp Primary Care Provider Unavailabl e Reason for Referral * Outpatient (Routine) - Authorized Specialty Diagnoses / Procedures Referred By Contact Referred To Contact Gastroenterology and Hepatology Diagnoses Fistula Stomach Bypass Gastric Comfort En Y Status Post Hemorrhage Gastrointestinal Denise Tubbs M.D. [address] [place] [phone] [facility] Referral ID Status Reason Start Date Expiration Date V isits Requested Visits Authorized [id number] Authorized 04/01/2024 10/01/2025 1 1 Reason for Visit * Outpatient (Routine) - Closed Specialty Diagnoses / Procedures Referred By Contact Referred To Contact Gastroenterology and Hepatology Diagnoses Fistula Stomach Bypass Gastric Comfort En Y Status Post Hemorrhage Gastrointestinal Denise Tubbs M.D. [address] [place] [phone] [facility] Referral ID Status Reason Start Date Expiration Date Visits Re quested Visits Authorized [id number] Closed 01/21/2024 07/22/2025 1 1 Encounter Details Date Type Department Care Team (Latest Contact Info) Description 04/01/2024 4:00 PM CDT Telemedicine Division of Gastroenterology in [place], [place] [address] [place] [address] Denise Tubbs M.D. [address] [place] [phone] Fistula Stomach; Bypass Gastric Comfort En Y Status Post; Hemorrhage Gastrointestinal Social History Tobacco Use Types Packs/Day Years [...] week 08/28/2021 How often do you attend chur or bahai services? Patient declined 08/28/2021 Do you belong to any clubs o r organizations such as religious groups, unions, fraternal or athletic groups, or [...] Answer Date Recorded PHQ-2 Score 0 04/07/2020 [facility] - Occupational Stress [...] your living situation today? I have a [facility] place to live 05/12/2023 Education Answer [...] PM CDT documented as of this encounter Progress Notes * Denise Tubbs M.D. - 04/01/2024 4:00 PM CDT Hospital follow up/ [facility] Mrs. 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 She is here for follow up of her fistula and procedure. 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 HEENT: Normocephalic, atraumatic. Conjunctivae anicteric without pallor or injection. Pulm: Breathing comfortably in room air. Neuro: Alert and oriented to person, place, time, and situation . Psych: Appropriate mood and affect; linear thought process. Imaging and Procedures: 02/14/24 EGD Post-op Diagnoses: - Normal esophagus. - Comfort-en-Y gastrojejunostomy with gastrojejunal anastomosis characterized by healthy appearing mucosa. OTSC is in good place and no contrast leak noted. - Normal examined jejunum. Spontaneously migrated stent. - No specimens collected. 11/25/22 EGD Post-op Diagnoses: - Normal esophagus. - Comfort-en-Y gastrojejunostomy with a well positioned stent. - Resolved abscess cavity. Drain removed and gastric fistula closed with OTSC. - Normal examined jejunum. - No specimens collected. Recommendation: - Please schedule [phone]) a follow-up procedure with Dr. Daily under anesthesia in 12 weeks to remove the Axios stent. - Diet- Clear liquids X1 day and then Full liquid diet X1 day and then Mechanical soft stent diet X12 weeks 09/25/23 EGD Recommendation: - Return to referring physician as previously scheduled. - Diet- Clear liquids X1 day and then Full liquid diet X1 day and then Mechanical soft stent diet - Perform CT scan (computed tomography) of the abdomen with contrast in 1 week. - If CT in 1 week shows no cavity, please schedule [phone]) a follow-up procedure with Dr. Daily under anesthesia in 4 weeks. Post-op Diagnoses: - Normal esophagus. - A Comfort-en-Y anastomosis was found, characterized by moderate stenosis. Prosthesis placed. - Gastric fistula. Transnasal drain was cut and left through the stent into the jejunum while the loop is still within the original cavity site in the left subdiaphragmatic space under fluoroscopic guidance. - No specimens collected. 10/02/2023 CT Abdomen pelvis with IV contrast (OSH) Findings: Linear areas of subsegmental scarring within the left lung base. No pleural effusion. No free air. No pneumatosis. Postop changes of gastric bypass. Internal fistula is present between the stomach and jejunum along with an internal stent. Positive contrast extends into the more distal small bowel wi thout evidence of obstruction or extravasation. No abscess. Bladder is normal. No adnexal mass. Heterogeneous uterus. No diverticulitis. Stool is present throughout the colon. No adenopathy. Small supraumbilical abdominal wall hernia containing fat. Fatty infiltration liver. No intrahepatic masses.Gallbladder absent. Similar appearance of the biliary tree. Spleen normal. Normal adrenal glands. Kidneys unremarkable. Postop changes L5-S1. Left hip replacement hardware. Impression: No evidence of abscess or bowel obstruction. Postop changes to the stomach from gastric bypass and internal fistula. No inflammatory changes. EGD 11/25/23 Recommendation: - Return to referring physician as previously scheduled. - Please schedule [phone]) a follow-up procedure with Dr. Daily under anesthesia in 12 weeks to remove the Axios stent. - Diet- Clear liquids X1 day and then Full liquid diet X1 day and then Mechanical soft stent diet X12 weeks Findings: The examined esophagus was normal. Evidence of a Comfort-en-Y gastrojejunostomy was found with a well positioned Axios stent. This was traversed. A drain was exiting a 3 mm fistula in the gastric pouch with no residua cavity in the cardia. Drainwas removed. To repair the defect, the tissue edges were approximated and one 12 mm [id number] clip was successfully placed (MR conditional). Closure of the defect was successful. Clip furnace mechanic: I and love and you. There was no bleeding at the end of the procedure. The examined jejunum was normal. Assessment and plan Overall, Mrs. Lizarraga is a 58-year-old cis woman who has a history of Comfort-en-Y gastric bypass andTORe complicated by perforation, fistula, and perigastric abscess s/p stenting 07/24/23 and also complicated by DVT/PE. She most recently underwent EGD with Dr. Daily on 02/14/24 which noted that the Comfort-en-Y gastrojejunostomy had an anastomosis with healthy-appearing mucosa. The OTSC was in good place without without contrast leak and the previously placed axial stent had spontaneously migrated. Likely, no additional upper endoscopy procedures are needed at this time. However, she is having some symptoms of abdominal pressure and pain that is worse postprandially. -can trial gaviscon advance with sodium alginate to see if it helps -carafate/sucralfate next option -pregabalin or TCA as third option -patient to let me know how this is helping -continue to advance diet as tolerated Follow up: 3 months, and over the portal sooner if needed I personally spent over half of total 25 minutes in counseling and discussion with the patient and coordination of care as described above. PATIENT EDUCATION Patient ready to learn, learning preferences including listening. Explained diagnosis and treatmentplan; patient expressed understanding of the content. Patient will be discussed with j2ee consultant Dr. Daily. documented in this encounter Plan of Treatment Upcoming Encounters Date Type Department Care Team (Latest Contact Info) Description 05/21/2024 7:15 AM CDT Clinical Communication Virtual Review in [place], [place] 200 [place] [address] 05/22/2024 7:00 AM CDT Appointment Department of Radiology, [facility], in [place], [place] [address] [place] [phone] Arlene Loco APRN, C.N.P. [address] [place] [phone] 05/22/2024 9:30 AM CDT Office Visit Division of Endocrinology in [address] [phone] Arlene Loco APRN, C.N.P. [address] [place] [phone] 06/08/2024 8:15 AM CDT Clinical Communication Virtual Review in [address] [phone] 06/09/2024 2:00 PM CDT Telemedicine Division of Endocrinology in [address] [phone] Merry Donahue APRN, C.N.P. [address] [place] [phone] 07/01/2024 4:20 PM CDT Telemedicine Division of Gastroenterology in [address] [phone] Denise Tubbs M.D. [address] [place] [phone] Scheduled Referrals Name Type Priority Associated Diagnoses Orde r Schedule Gastroenterology and Hepatology office visit (clinic) Outpatient Referral Routine Fistula Stomach Bypass Gastric Comfort En Y Status Post Hemorrhage Gastrointestinal Expected: 07/02/2024, Expires: 07/02/2025 documented as of this encounter Visit Diagnoses Diagnosis Fistula Stomach Bypass Gastric Comfort En Y Status Post Hemorrhage Gastrointestinal documented in this encounter Additional Health Concerns Assessment Noted Time PHQ-9 Depression Total Score: 4 03/12/20 17 3:53 PM CDT documented as of this encounter Care Teams Early Morning Relationship Specialty Start Date End Date Elsewhere, Pcp PCP - General Internal Medicine 08/02/23 documented as of this encounter
--- OUTSIDE RECORDS SUMMARY | 2024-05-04 17:52 | XMS_ITS | Encounter Summary ---
Author Organization [facility] Address [address] [place] [address] Care Team Providers Care Cesspool Cleaner Name Role Phone Elsewhere, Pcp Primary Care Provider Unavailabl e Reason for Referral * Outpatient (Routine) - Closed Specialty Diagnoses / Procedures Referred By Arielle richards Referred To Contact Diagnoses Fistula Stomach Procedures EGD (EsophagealGastroDuodenoscopy ) Eliana Davidson APRN, C.N.P., D.N.P., M.S.N. [address] [place] [phone] [facility] Referral ID Status Reason Start Date Expiration Date Visits Re quested Visits Authorized [id number] Closed 11/25/2023 11/24/2024 1 1 Reason for Visit * Auth/Cert (Routine) Specialty Diagnoses / Procedures Referred By Arielle richards Referred To Contact Diagnoses Fistula Stomach Procedures EGD (ESOPHAGEALGASTRODUODENOSCOPY) Referral ID Status Reason Start Date Expiration Date Visits Re quested Visits Authorized [id number] 1 1 Encounter Details Date Type Department Care Team (Latest Contact Info) Description 02/14/2024 11:37 AM CDT - 02/14/2024 1:55 PM CDT Hospital Encounter Division of Gastroenterology in [place], [place] [address] [place] [phone] Eliana Davidson APRN, C.N.P., D.N.P., M.S.N. [address] [place] [phone] Gina Holland APRN, DISABILITY REPRESENTATIVE [address] [place] [phone] Fistula Stomach Discharge Disposition: Home or Self Care Social [...] How often do you attend chur or evangelical services? Patient declined 08/28/2021 Do you belong to any clubs o r organizations such as taoist groups, unions, fraternal or athletic groups, or [...] Answer Date Recorded PHQ-2 Score 0 04/07/2020 [facility] - Occupational [...] PM CDT documented as of this encounter Last Filed Vital Signs Vital Sign Reading Time Taken Comments Blood Pressure 121/75 02/14/2024 1:45 PM CDT Pulse 63 02/14/2024 1:47 PM CDT Temperature 36.8 ??C (98.2 ??F) 02/14/2024 1:18 PM CD T Respiratory Rate 13 02/14/2024 1:47 PM CDT Oxygen Saturation 97% 02/14/2024 1:47 PM CDT Inhaled Oxygen Concentration - - Weight 94.8 kg (209 lb) 02/14/2024 12:05 PM CDT Height 165.1 cm (5' 5) 02/14/2024 12:05 PM CDT Body Mass Index 34.78 02/14/2024 12:05 PM CDT documented in this encounter Discharge Instructions * Discharge Instr - Other Orders* Suzie Narvaez, R.N. - 02/14/2024 1:30 PM CDT You have no dietary restrictions following today's GI procedure. You can RESTART Eliquis documented in this encounter Medications at Time of Discharge [...] AM CDT Clinical Communication Virtual Review in [address] [phone] 05/22/2024 7:00 AM CDT Appointment Department of Radiology, [facility], in [place], [place] [address] [place] [phone] Arlene Loco APRN, C.N.P. [address] [place] [phone] 05/22/2024 9:30 AM CDT Office Visit Division of Endocrinology in [address] [phone] Arlene Loco APRN, C.N.P. [address] [place] [phone] 06/08/2024 8:15 AM CDT Clinical Communication Virtual Review in [address] [phone] 06/09/2024 2:00 PM CDT Telemedicine Division of Endocrinology in [address] [phone] Merry Donahue APRN, C.N.P. [address] [place] [phone] 07/01/2024 4:20 PM CDT Telemedicine Division of Gastroenterology in [place], [place] [address] [place] [phone] Denise Tubbs M.D. [address] [place] [phone] documented as of this encounter Procedures Procedure Name Priority Date/Time Associated Diagnosis Comments UPPER GI ENDOSCOPY Routine 02/14/2024 1:27 PM CDT Fistula Stomach EGD (ESOPHAGEALGASTRO DUODENOSCOPY) Routine 02/14/2024 1:27 PM CDT Fistula Stomach FL FLUORO LESS THAN 1 HOUR RAD - Routine (most inpatients and all outpatients) 02/14/2024 1:15 PM CDT Fistula Stomach documented in this encounter Results * Upper GI Endoscopy (02/14/2024 1:27 PM CDT) 02/14/2024 1:27 PM CDT Impressions [facility] - 02/14/2024 2:23 PM CDT Post-op Diagnoses: ? - Normal esophagus. ? - Comfort-en-Y gastrojejunostomy with gastrojejunal anastomosis ? characterized by healthy appearing mucosa. OTSC is in good place and no ? contrast leak noted. ? - Normal examined jejunum. Spontaneously migrated stent. ? - No specimens collected. Narrative [facility] - 02/14/2024 2:23 PM CDT [facility] GI Patient Name: Charisse Lizarraga Date of : 1965 Age: 58 Procedure Date: 02/14/2024 Procedure: ? Upper GI endoscopy Providers: ? Bigg Daily MD Referring Provider: ?Eliana Davidson APRN DRYWALL CARRIER DNP Pre-op Diagnoses: ?Stent removal, Abnormal CT of the GI tract Recommendation: ? - Return to referring physician as previously scheduled. Findings: ? The examined esophagus was normal. ? Evidence of a Comfort-en-Y gastrojejunostomy was found. OTSC is in good ? place and no contrast leak noted. The gastrojejunal anastomosis was ? characterized by healthy appearing mucosa and spontaneously migrated ? stent. This was traversed. The [id number]-[id number]-[id number] limb was characterized ? by healthy appearing mucosa. ? The examined jejunum was normal. Procedural Details: ? The patient was seen, evaluated, history reviewed, airway and heart-lung ? exams were performed by licensed provider and were satisfactory for ? planned level of sedation care. ? The risks, benefits and alternatives for the procedure and sedation were ? discussed and informed consent was obtained. A procedural pause was ? conducted in the presence of assisting personnel to verify the correct ? patient identity and procedure to be performed. Throughout the ? procedure, the patient's blood pressure, pulse, and oxygen saturations ? were monitored continuously. The Gastroscope was introduced under direct ? vision through the mouth, and advanced to the jejunum. The upper GI ? endoscopy was accomplished without difficulty. The patient tolerated the ? procedure well. Estimated Blood Loss: ?Estimated blood loss: none. Complications: ? No immediate complications. Sedation: ? Anesthesia was administered by an anesthesia professional. The following ? parameters were monitored: oxygen saturation, heart rate, blood ? pressure, respiratory rate, EKG, adequacy of pulmonary ventilation, and ? response to care. Attending Participation: I personally performed the entire procedure. Bigg Daily MD 02/14/2024 2:23:21 PM This report has been signed electronically. Number of Addenda: 0 Eliana Davidson APRN, C.N.P., D.N.P., M.S.N. GI PROCEDURE [facility]ABLES [facility] * FL Fluoro Less Than 1 Hour (02/14/2024 1:15 PM CDT) Narrative ERCP LOS RST - 02/14/2024 1:15 PM CDT This exam does not require a radiologist review or interpretation. Please refer to the patient's medical record on this date for clinical details. Eliana Davidson APRN, C.N.P., Darlyn.N.P., M.S.N. IMG FLUOROSCOPY PROCEDURES ERCP LOS RST documented in this encounter Visit Diagnoses Diagnosis Fistula Stomach documented in this encounter Administered Medications Inactive Administered Medications - up to 3 most recent administrations Medication Order MAR Action Action Date Dose Rate Site acetaminophen injection 1,000 mg 1,000 mg, intravenous, at 400 mL/hr, Administer over 15 Minutes, Once as needed, other, If patient has not received in previous 6 hours, Starting on Sat02/14/24 at 1330, For 1 dose, PACU (only), Oral unless RASS less than -1 or nausea/vomiting. Do not use if given in last 6 hours, Restriction Criteria (Pharmacy will review and approve if criteria met): Unable to take or tolerate medications administered via the enteral route or orally (not just NPO) acetaminophen tablet 1,000 mg (TYLENOL) 1,000 mg, oral, Once as needed, other, If patient has not received in the previous 6 hours, Starting on Sat02/14/24 at 1330, For 1 dose, PACU (only), Oral unless RASS less than -1 or nausea/vomiting. Do not use if given in last 6 hours documented in this encounter Active and Recently Administered Medications Times are shown in CDT. PRN Medication Order 02/12/2024 02/13/2024 02/14/2024 acetaminophen injection 1,000 mg(Linked Group 1) 1,000 mg, intravenous, at 400 mL/hr, Administer over 15 Minutes, Once as needed, other, If patient has not received in previous 6 hours, Starting on Sat02/14/24 at 1330, For 1 dose, PACU (only), Oral unless RASS less than -1 or nausea/vomiting. Do not use if given in last 6 hours, Restriction Criteria (Pharmacy will review and approve if criteria met): Unable to take or tolerate medications administered via the enteral route or orally (not just NPO) acetaminophen tablet 1,000 mg (TYLENOL)(Linked Group 1) 1,000 mg, oral, Once as needed, other, If patient has not received in the previous 6 hours, Starting on Sat02/14/24 at 1330, For 1 dose, PACU (only), Oral unless RASS less than -1 or nausea/vomiting. Do not use if given in last 6 hours fentaNYL injection 25 mcg (SUBLIMAZE) 25 mcg, intravenous, Every 2 min PRN, For pain 4 or greater (maximum 100 mcg). If max dose of Fentanyl is reached and if pain is greater than 4, discontinue Fentanyl: give Hydromorphone, Starting on Sat02/14/24 at 1330, PACU (only) granisetron (PF) injection 1 mg (KYTRIL) 1 mg, intravenous, Once as needed, nausea, vomiting, Starting on Sat02/14/24 at 1330, For 1 dose, PACU (only), If patient does not respond to ondansetron or haloperidol. (order of antiemetic administration - ondansetron then haloperidol then granisetron) haloperidol lactate injection 1 mg (HALDOL) 1 mg, intravenous, Every 6 hours PRN, nausea, vomiting, Starting on Sat02/14/24 at 1330, PACU (only), Total of 3 doses in 24 hour period. RASS must be -2 or higher to administer. If nausea and vomiting persists, move to granisteron. (order of antiemetic administration - ondansetron then haloperidol then granisetron) Linked Groups Order Group 1: acetaminophen tablet 1,000 mg (TYLENOL)Jump to med 1,000 mg, oral, Once as needed, other, If patient has not received in the previous 6 hours, Starting on Sat02/14/24 at 1330, For 1 dose, PACU (only), Oral unless RASS less than -1 or nausea/vomiting. Do not use if given in last 6 hours Or acetaminophen injection 1,000 mgJump to med 1,000 mg, intravenous, at 400 mL/hr, Administer over 15 Minutes, Once as needed, other, If patient has not received in previous 6 hours, Starting on Sat02/14/24 at 1330, For 1 dose, PACU (only), Oral unless RASS less than -1 or nausea/vomiting. Do not use if given in last 6 hours, Restriction Criteria (Pharmacy will review and approve if criteria met): Unable to take or tolerate medications administered via the enteral route or orally (not just NPO) documented in this encounter Additional Health Concerns Assessment Noted Time PHQ-9 Depression Total Score: 4 03/12/20 17 3:53 PM CDT documented as of this encounter Care Teams Cesspool Cleaner Relationship Specialty Start Date End Date Elsewhere, Pcp PCP - General Internal Medicine 08/02/23 documented as of this encounter
--- OUTSIDE RECORDS SUMMARY | 2024-05-04 17:52 | XMS_ITS | Encounter Summary ---
Author Organization [facility] Address [address] [place] [id number] Care Team Providers Care Sas Sql Developer Name Role Phone Elsewhere, Pcp Primary Care Provider Unavailabl e Encounter Details Date Type Department Care Team (Latest Contact Info) Description 02/14/2024 1:30 PM CDT Ancillary Procedure Department of Gastroenterology Social History Tobacco Use Types Packs/Day Years [...] How often do you attend chur or druze services? Patient declined 08/28/2021 Do you belong to any clubs o r organizations such as muslim groups, unions, fraternal or athletic groups, or [...] Answer Date Recorded PHQ-2 Score 0 04/07/2020 [facility] - Occupational [...] your living situation today? I have a [facility] place to live 05/12/2023 Education Answer Date [...] PM CDT documented as of this encounter Plan of Treatment Upcoming Encounters Date Type Department Care Team (Latest Contact Info) Description 05/21/2024 7:15 AM CDT Clinical Communication Virtual Review in [place], [place] [address] [place] [phone] 05/22/2024 7:00 AM CDT Appointment Department of Radiology, [facility], in [place], [place] [address] [place] [phone] Arlene Loco APRN, C.N.P. [address] [place] [phone] 05/22/2024 9:30 AM CDT Office Visit Division of Endocrinology in [place], [place] [address] [place] [phone] Arlene Loco APRN, C.N.P. [address] [place] [phone] 06/08/2024 8:15 AM CDT Clinical Communication Virtual Review in [place], [place] [address] [place] [phone] 06/09/2024 2:00 PM CDT Telemedicine Division of Endocrinology in [place], [place] [address] [place] [phone] Merry Donahue APRN, C.N.P. [address] [place] [phone] 07/01/2024 4:20 PM CDT Telemedicine Division of Gastroenterology in [place], [place] [address] [place] [phone] Denise Tubbs M.D. [address] [place] [phone] documented as of this encounter Procedures Procedure Name Priority Date/Time Associated Diagnosis Comments GASTROENTEROLOGY IMAGE EXAM Routine 02/14/2024 1:30 PM CDT documented in this encounter Results * Upper GI endoscopy-Gastroenterology Image Exam (02/14/2024 1:30 PM CDT) 02/14/2024 1:27 PM CDT Narrative IIMS - 02/14/2024 2:31 PM CDT This order has been created and auto-finalized to support the import of images acquired without order. The clinical documentation to support these images can be found on the encounter that produced images. Provider Not In System IMG NON RAD IMAGI NG PROCEDURES IIMS NA documented in this encounter Visit Diagnoses Not on filedocumented in this encounter Additional Health Concerns Assessment Noted Time PHQ-9 Depression Total Score: 4 03/12/20 17 3:53 PM CDT documented as of this encounter Care Teams Sas Sql Developer Relationship Specialty Start Date End Date Elsewhere, Pcp PCP - General Internal Medicine 08/02/23 documented as of this encounter
--- OUTSIDE RECORDS SUMMARY | 2024-05-04 17:52 | XMS_ITS ---
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 Name Role Phone Elsewhere, Pcp Primary Care Provider Unavailabl e Active Problems Problem Noted Date Diagnosed Date Anticoagulant Therapy 11/15/2023 Acute Gastrojejunal Ulcer With Hemorrhage 2023 Pain Chest Atypical 08/06/2023 Hemorrhage Gastrointestinal 08/06/2023 Shortness Of Breath 08/02/2023 Embolus Pulmonary 08/02/2023 Overview: Right lower lobe Thrombosis Deep Vein Acute Lower Extremity Left 08/02/2023 Thrombosis Deep Vein Upper Extremity Acute Right 08/02/2023 Aftercare Feeding Tube 08/02/2023 Nausea 08/02/2023 Abscess Intra Abdominal 07/23/2023 Hernia Hiatal 07/15/2023 Obesity Body Mass Index 30-39.9 Adult 07/15/2023 Bypass Gastric Comfort En Y Status Post 07/15/2023 Osteoporosis 04/13/2019 Overview: Diagnosed in 2017 based on screening bone density with worst T-score of -3.3 at her right femoral neck. Fracture history: Leg as an infant Toe No history of fragility fractures. No history of renal stones. She has history of congenital hip dysplasia, s/p hip replacment. Lumbar spinal fusion in 2011. She underwent gastric bypass surgery in 1997 at [facility] and a revision in 2011. She had initial weight loss of 90 pounds and a regain of 35 pounds. No significant history of glucocorticoid, anticonvulsant, or anticoagulation therapy. Denies any history of tobacco use. Reports one glass of wine per week. No family history of osteoporosis or parental history of hip fracture. Tachycardia Paroxysmal 08/06/2017 Lymphoma 05/30/2017 Current Oncology Plans No current plan information found. Other Current Plans Vascular Access Patency - Peripheral Intravenous Catheter and Rapid Infusion Catheter* Plan Start Date:11/15/2023 Plan Provider:Arlene Loco APRN, C.N.P. Linked Problems Osteoporosis Treatment Medications No medications scheduled. Past Plans Radiation Treatments * No radiation treatments are documented for this patient in [facility]. Treatments may have been administered in another system. Lifetime Dose Tracking * Chemical Lifetime Dose Automatic Entry Manual Entr y Radiation 502.8 mGy 502.8 mGy 0 mGy Fluoro Time 28.08 minutes 28.08 minutes 0 minutes Resolved Problems Problem Noted Date Diagnosed Date Resolved Date Effusion Pleural 07/24/2023 07/28/2023
--- OUTSIDE RECORDS SUMMARY | 2024-05-04 17:52 | XMS_ITS | Clinical Summary ---
Author Organization [facility] Address [address] [place] [id number] Care Team Providers Care Returned Materials Inspector Name Role Phone Elsewhere, Pcp Primary Care Provider Unavailabl e Source Comments Patient records contain information from all sites at [facility]. For routine questions regarding patient records, call [phone] during business hours, M-F 8:00 AM - 5:00 PM Central Time. Record requests for emergency care only can be directed to [phone] at any time.[facility] Allergies Active Allergy Reactions Criticality Noted Date Comments Lip [place] Spf 15 Anaphylaxis High 03/12/2017 Starr's Bees lip balm - swollen throat and lips Morphine GI intolerance 06/21/2005 headache Nsaids (Non-Steroidal Anti-Inflammatory Drug) Other (see comments) 07/07/2012 Patient had gastric bypass surgery. ??Should not take oral NSAID's ever. Other reaction(s): Other - Describe In Comment Field Patient had gastric bypass surgery.?Should not take oral NSAID's ever. Medications Medication Sig Dispensed Refills Start Date End Date Status iron,carbonyl/ascorbic acid (VITRON-C ORAL) Administer 1 tablet via small bowel tube daily. 03/12/2017 Active furosemide (LASIX) 20 mg tablet Administer 1 tablet (20 mg total) via small bowel tube daily. 30 tablet 1 07/29/2023 Active omeprazole (PriLOSEC) [address] capsule Take 1 capsule (40 mg total) by mouth every morning before breakfast. 30 capsule 3 08/19/2023 Active apixaban (ELIQUIS) 2.5 mg tablet Take 1 tablet (2.5 mg total) by mouth 2 (two) times a day. 180 tablet 3 02/07/2024 Active sucralfate (CARAFATE) 100 mg/mL suspensionIndications: Fistula Stomach,Bypass Gastric Comfort En Y Status Post,Hemorrhage Gastrointestinal Take 10 mL (1 g total) by mouth 4 (four) times a day with meals and bedtime. Take 1 hour before meals and at bedtime 120 mL 11 04/01/2024 Active Active Problems Problem Noted Date Diagnosed Date [...] underwent gastric bypass surgery in 1997 at [facility] and a revision in 2011. She had initial weight loss of 90 pounds and a regain of 35 pounds. No significant history of glucocorticoid, anticonvulsant, or anticoagulation therapy. Denies any history of tobacco use. Reports one glass of wine per week. No family history of osteoporosis or parental history of hip fracture. Tachycardia Paroxysmal 08/06/2017 Lymphoma 05/30/2017 Resolved Problems Problem Noted Date Diagnosed Date Resolved Date Effusion Pleural 07/24/2023 07/28/2023 Encounters Date Type Department Care Team Description 04/01/2024 4:00 PM CDT Telemedicine Division of Gastroenterology in [place], [place] [address] [place] [phone] Denise Tubbs M.D. Fistula Stomach; Bypass Gastric Comfort En Y Status Post; Hemorrhage Gastrointestinal 02/14/2024 1:30 PM CDT Ancillary Procedure Department of Gastroenterology 02/14/2024 12:43 PM CDT Anesthesia Event Division of Gastroenterology in [address] [phone] Kathy Power APRN, CRNA Aubart, Chelsey A, APRN, CRNA 02/14/2024 12:04 PM CDT - 02/14/2024 11:59 PM CDT Hospital [place] [address] [place] [phone] Eliana Davidson APRN, C.N.PSrikanth, D.N.P., M.S.N. Discharge Disposition: Home or Self Care 02/14/2024 11:37 AM CDT - 02/14/2024 1:55 PM CDT Hospital Encounter Division of Gastroenterology in [address] [phone] Eliana Davidson APRN, C.N.P., D.N.P., M.S.N. Gina Holland APRN, CRNA Fistula Stomach Discharge Disposition: Home or Self Care 02/07/2024 3:00 PM CDT Office Visit Department of Vascular Medicine in [place], [place] [address] [place] [address] Mariella Redman APRN, C.N.P., M.S. Anticoagulant Therapy (Primary Dx); Thrombosis Deep Vein Personal History; Embolus Pulmonary Personal History; Edema Leg Chronic 02/07/2024 11:24 AM CDT - 02/07/2024 11:59 PM CDT Hospital Encounter Department of Laboratory Medicine and Pathology, [facility] in [place], [place] [address] [place] [address] Denise Tubbs M.D. Fistula Stomach; Bypass Gastric Comfort En Y Status Post; Hemorrhage Gastrointestinal Discharge Disposition: Home or Self Care 02/07/2024 9:40 AM CDT - 02/07/2024 11:23 AM CDT Hospital Encounter Department of Radiology, [place], [place] [address] [place] [address] Corazon Still P.A.-C. Thrombosis Deep Vein Acute Lower Extremity Left (HCC); Thrombosis Deep Vein Upper Extremity Acute Right (HCC) Discharge Disposition: Home or Self Care from Last 3 Months Immunizations Name Administration Dates Next Due SARS-COV-2 (COVID-19) - SURAJ NELSON (J&J)(Discontinued) 09/04/2021 Tdap 06/06/2011 influenza vaccine quad (FLUZONE/FLUARIX) (6 months and older)(PF) 08/02/2023(Deferred: Patient Refused - at this time) Family History Medical History Relation Name Comments Thyroid cancer Brother 1 Shaun Prostate cancer Brother 2 Patricia Coronary artery disease Father Markie Hypertension Father Markie Kidney disease Father Markie Obesity Father Markie Stroke Father Markie Breast cancer Grandmother Diabetes Mother Dolore Myelodysplastic syndrome Mother Dolore Osteoporosis Mother Dolore Parkinsons disease Mother Dolore Ulcerative colitis Mother Dolore Breast cancer Paternal Grandmother Grandma Gofredyl Suicide Attempts Son Berny Relation Name Status Comments Brother 1 Shaun Brother 2 Patricia Father Markie Grandmother Mother Dolore Paternal Grandmother Grandma Goettl Son Berny Social History Tobacco Use Types Packs/Day Years Used Date Smoking Tobacco: Never Smokeless Tobacco: Never Tobacco Cessation:Counseling Given: Not Answered Alcohol Use Standard Drinks/Week Comments Not Currently [...] week 08/28/2021 How often do you attend [facility] or anglican services? Patient declined 08/28/2021 Do you belong to any clubs o r organizations such as scientology groups, unions, fraternal or athletic groups, or [...] Answer Date Recorded PHQ-2 Score 0 04/07/2020 [facility] - Occupational [...] your living situation today? I have a [facility] place to live 05/12/2023 Education Answer Date Recorded What is the highest level of school you have completed or the highest degree you have received? Associate degree: academic program 04/12/2019 Sex and Gender Information Value Date Recorded Sex Assigned at Female 08/28/2021 7:02 PM CDT Gender Identity Female 08/28/2021 7:02 PM CDT Sexual Orientation Straight 08/28/2021 7: 02 PM CDT Last Filed Vital Signs Vital Sign Reading [...] Mass Index 34.78 02/14/2024 12:05 PM CDT Plan of Treatment Upcoming Encounters Date Type Department Care Team (Latest Contact Info) Description 05/21/2024 7:15 AM CDT Clinical Communication Virtual Review in [place], [place] 200 [place] [address] 05/22/2024 7:00 AM CDT Appointment Department of Radiology, [facility], in [place], [place] [address] [place] [phone] Arlene Loco APRN, C.N.P. [address] [place] [phone] 05/22/2024 9:30 AM CDT Office Visit Division of Endocrinology in [address] [phone] Alrene Loco APRN, C.N.P. [address] [place] [phone] 06/08/2024 8:15 AM CDT Clinical Communication Virtual Review in [address] [phone] 06/09/2024 2:00 PM CDT Telemedicine Division of Endocrinology in [address] [phone] Merry Donahue APRN, C.N.P. [address] [place] [phone] 07/01/2024 4:20 PM CDT Telemedicine Division of Gastroenterology in [address] [address] Denise Tubbs M.D. [address] [place] [phone] Health Maintenance Due Date Last Done Comments CT Colonography 1965 Cologuard 1965 HIV Screening 1965 Pneumococcal vaccine (0-64 years) (1 of 2 - PCV) 1970 Hepatitis B Vaccines (1 of 3 - 19+ 3-dose series) 1983 Zoster Vaccines (1 of 2) 1983 Cervical Cancer Screening 10/28/20172014 (Performed elsewhere) COVID-19 Vaccine ( season) 2023 09/21/2022, 03/15/2022, 09/04/2021, Additional history exists Depression Screening (Annual PHQ-2) 10/28/2023 Influenza Vaccine (#1) 2024 , 07/26/2021, 12/30/2020, Additional history exists Creatinine Level (Kidney Function Test) 03/24/2025 03/24/2024, 11/15/2023, 11/15/2023, Additional history exists Mammogram 03/24/2025 03/24/2024, 02/26, 03/15/2023, Additional history exists Potassium Level 03/24/2025 03/24/2024, 10/28, 11/15/2023, Additional history exists Sodium Level 03/24/2025 03/24/2024, 10/28, 11/15/2023, Additional history exists Fasting Glucose for Diabetes Screening 03/24/2027 03/24/2024, 11/15/2023, 11/15/2023, Additional history exists Colonoscopy 08/23/2027 08/23/2022, 03/10/2016 (Performed elsewhere) Colorectal Cancer Surveillance 08/23/2027 Lipid (Cholesterol) Screening 03/24/2029 03/24/2024, 03/08/2023, 12/30/2020, Additional history exists DTaP,Tdap,and Td Vaccines (3 - Td or Tdap) 03/15/2032 03/15/2022, 06/06/2011 Hepatitis C Screening Completed 02/01/2006 HPV Vaccines Aged Out No longer eligi ble based on patient's age to complete this topic Medical Devices Implanted Type Area Coffee Shop Attendant Device Identifier Shelf Expiration Date Model / Serial / Lot Stnt Kin Vbl Shrt Wr 8x60 - [id number] - [id number] Implanted:Qty: 1 on 07/24/2023 by Awais Martinez D.O. at [facility] Biliary Stent [employer] 02/04/2026 [id number] / Stnt Axios 15x10 - [id number] Implanted:Qty: 1 on 09/25/2023 by Henrique Daily M.D. at [facility] Biliary Stent [employer] 07/23/2025 [id number] / / [id number] Self Tap-Screw 4.5 X 38 - [id number] Implanted:Qty: 1 on 06/07/1998 Hardware e.g. pins/screws/ rods Depuy Synthes Description:Device Manufactu rer - Synthes. Device Status Text - HARDWARE-73433. Self Tap-Screw 4.5 X 32 - Loza [id number] Implanted:Qty: 1 on 06/07/1998 Hardware e.g. pins/screws/ rods [employer]uy [employer]ynthes Description:Device Manufactu rer - Synthes. Device Status Text - HARDWARE-14240. Dcp-Plate 90deg 10 65mm - Loza [id number] Implanted:Qty: 1 on 06/07/1998 Hardware e.g. pins/screws/ rods [employer] Description:Device Manufactu rer - Synthes. Device Status Text - HARDWARE-19532. Self Tap-Screw 4.5 X 30 - Loza [id number] Implanted:Qty: 1 on 06/07/1998 Hardware e.g. pins/screws/ rods [employer]ynthes Description:Device Manufactu rer - Synthes. Device Status Text - HARDWARE-96345. Standard-Screw Mayo 4.5 X 50 - Loza [id number] Implanted:Qty: 1 on 06/07/1998 Hardware e.g. pins/screws/ rods [employer]uy [employer]ynthes Description:Device Manufactu rer - Synthes. Device Status Text - HARDWARE-17704. Self Tap-Screw 4.5 X 20 - Loza [id number] Implanted:Qty: 1 on 06/07/1998 Hardware e.g. pins/screws/ rods [employer]uy [employer]ynthes Description:Device Manufactu rer - Synthes. Device Status Text - HARDWARE-86944. [place] Screw 2 Canc 6.5 X 20 - Loza [id number] Implanted:Qty: 1 on 06/22/2005 Hardware e.g. pins/screws/ rods [employer] Description:Device Manufactu rer - [employer]. Device Status Text - HARDWARE-33850. [place] Screw 2 Canc 6.5 X 40 - Loza [id number] Implanted:Qty: 1 on 06/22/2005 Hardware e.g. pins/screws/ rods [employer] Description:Device Manufactu rer - [employer]. Device Status Text - HARDWARE-37174. [place] Screw 2 Canc 6.5 X 30 - Loza [id number] Implanted:Qty: 2 on 06/22/2005 Hardware e.g. pins/screws/ rods [employer] Description:Device Manufactu rer - [employer] J [employer]. Device Status Text - HARDWARE-18584. Hardware E.G. Pins/Screws/Rods -06/12/2012 Implanted:2011 (Quantity not on file) Hardware e.g. pins/screws/ rods Back [place] Shell Multi 2 56mm - Loza [id number] Implanted:Qty: 1 on 06/22/2005 Hip Implant [employer] Description:Device Manufactu rer - [employer]. Device Status Text - HIP IMP-27985. [place]-Stem Car 4 Hi - Loza [id number] Implanted:Qty: 1 on 06/22/2005 Hip Implant [employer] Description:Device Manufactu rer - [employer]. Device Status Text - HIP IMP-47444. J J Articul Gui Head 36 - 2.0 - Loza [id number] Implanted:Qty: 1 on 06/22/2005 Hip Implant [employer] Description:Device Manufactu rer - [employer]. Device Status Text - HIP IMP-83945. J J Insert P Opal +4 10 36x56 - [id number] [id number] Implanted:Qty: 1 on 06/22/2005 Hip Implant [employer] Description:Device Manufactu rer - [employer]. Device Status Text - HIP IMP-12106. Clp [facility] 6t 220 - [id number] Implanted:Qty: 1 on 11/25/2023 by Henrique Daily M.D. at [facility] 04/26/2026 100.31 / / [id number] Explanted Type Area Coffee Shop Attendant Device Identifier Shelf Expiration Date Model / Serial / Lot Jordi Barrera Otw 7x7 - [id number] Implanted:Qty: 1 on 07/24/2023 by Awais Martinez D.O. at [facility] Explanted:Qty: 1 on 11/25/2023 at [facility] Biliary Stent [employer] 02/14/2026 [id number] / / [id number] Procedures Procedure Name Priority Date/Time Associated Diagnosis Comments EXTI LIPID PANEL W REFLEX MEASURED LDL Routine 03/24/2024 9:42 AM CDT EXTI COMPREHENSIVE METABOLIC PANEL, S/P Routine 03/24/2024 9:42 AM CDT BI BREAST SCREENING BILATERAL WITH TOMOSYNTHESIS RAD - Routine (most inpatients and all outpatients) 03/24/2024 7:32 AM CDT GASTROENTEROLOGY IMAGE EXAM Routine 02/14/2024 1:30 PM CDT UPPER GI ENDOSCOPY Routine 02/14/2024 1:27 PM CDT Fistula Stomach EGD (ESOPHAGEALGASTRODUOD ENOSCOPY) Routine 02/14/2024 1:27 PM CDT Fistula Stomach FL FLUORO LESS THAN 1 HOUR RAD - Routine (most inpatients and all outpatients) 02/14/2024 1:15 PM CDT Fistula Stomach LDA ANE ENDOTRACHEAL AIRWAY Routine 02/14/2024 12:51 PM CDT CBC WITH DIFFERENTIAL, B Routine 02/07/2024 11:40 [...] Comfort En Y Status Post Hemorrhage Gastrointestinal HEPATIC FUNCTION PANEL, S Routine 02/07/2024 11:40 AM CDT Fistula Stomach Bypass Gastric Comfort En Y Status Post Hemorrhage Gastrointestinal US UPPER EXTREMITY VEINS RIGHT RAD - Routine (most inpatients and all outpatients) 02/07/2024 11:13 AM CDT Thrombosis Deep Vein Acute Lower Extremity Left (HCC) Thrombosis Deep Vein Upper Extremity Acute Right (HCC) US LOWER EXTREMITY VEINS LEFT RAD - Routine (most inpatients and all outpatients) 02/07/2024 11:13 AM CDT Thrombosis Deep Vein Acute Lower Extremity Left (HCC) Thrombosis Deep Vein Upper Extremity Acute Right (HCC) from Last 3 Months or Most Recently Relevant to Health Maintenance Results * Upper GI endoscopy-Gastroenterology Image Exam [...] NON RAD IMAGI NG PROCEDURES IIMS NA * Upper GI Endoscopy (02/14/2024 1:27 PM CDT) 02/14/2024 1:27 PM CDT Impressions [facility] - 02/14/2024 2:23 PM CDT Post-op Diagnoses: ? - Normal esophagus. ? - Comfort-en-Y gastrojejunostomy with gastrojejunal anastomosis ? characterized by healthy appearing mucosa. OTSC is in good place and no ? contrast leak noted. ? - Normal examined jejunum. Spontaneously migrated stent. ? - No specimens collected. Narrative [facility] - 02/14/2024 2:23 PM CDT [facility] GI GI Patient Name: Charisse Hoyt Date of : 1965 Age: 58 Procedure Date: 02/14/2024 Procedure: ? Upper GI endoscopy Providers: ? Bigg Daily MD Referring Provider: ?Eliana Davidson, NOVELTY DIPPER FELT HAT POUNCING OPERATOR HAND DNP Pre-op Diagnoses: ?Stent removal, Abnormal CT [...] migrated ? stent. This was traversed. The [id number] limb was characterized ? by healthy appearing [...] of Addenda: 0 Eliana Davidson APRN, C.N.P., Lori, M.S.N. GI PROCEDURE ORDERABLES Performing Organization Address [facility] Co de Phone Number [facility] NA * FL Fluoro Less Than 1 Hour (02/14/2024 1:15 PM CDT) Narrative ERCP LOS RST - 02/14/2024 1:15 PM CDT This exam does not require a radiologist review or interpretation. Please refer to the patient's medical record on this date for clinical details. Eliana Davidson APRN, C.N.P., Lori, M.S.N. IMG FLUOROSCOPY PROCEDURES Performing Organization Address [facility] de Phone Number ERCP LOS RST * LDA ANE ENDOTRACHEAL AIRWAY (02/14/2024 12:51 [...] ETT location: oral VL device: glide scope [place] scope blade size: 3 Tube size: 7 [...] Kathy Power APRN, CRNA ANESTHESIA ORD ERABLES * Hepatic Function Panel (02/07/2024 11:40 AM [...] CDT Denise Tubbs M.D. LAB BLOOD ADD-ON [facility] [address] [place] [address], [facility] DTL [facility] [address] [place] [address] * Iron and Total Iron-Binding Capacity (02/07/2024 11:40 AM CDT) Pathologist [facility] Iron 56 35 - 145 mcg/dL 02/07/2024 1:01 PM CDT DTL Total Iron Binding Capacity 388 250 - 400 mcg/dL 02/07/2024 1:01 PM CDT DTL Percent Saturation 14 14 - 50 % 02/07/2024 1:01 PM CDT DTL Blood (Blood, Venous) 02/07/2024 11:40 AM CDT 02/07/2024 12:24 PM CDT Denise Tubbs M.D. LAB BLOOD ADD-ON [facility] [address] [place] [address], [facility] [address] [place] [address] * CBC with Differential, Blood (02/07/2024 11:40 AM CDT) [facility] Hemoglobin 11.7 11.6 - 15.0 g/dL [...] M.D. LAB BLOOD ADD-ON Performing Organization Address City/[facility]/ZIP Co de Phone Number [facility] [address] [place] [address], [facility] [address] [place], [place] [id number] [place] [address] 200 [place] [address] * Ferritin (02/07/2024 11:40 AM CDT) Pathologist [facility] Ferritin, S 11 11 - 328 mcg/L 02/07/2024 1:01 PM CDT DTL Blood (Blood, Venous) 02/07/2024 11:40 AM CDT 02/07/2024 12:24 PM CDT Denise Tubbs M.D. LAB BLOOD ADD-ON Performing Organization Address City/[facility]/ZIP Co de Phone Number [facility] [address] [place], [place] [id number] [place] [address] [facility] [address] [place] [address] * Vitamin B12 Assay (02/07/2024 11:40 AM CDT) Pathologist [facility] Vitamin B12 Assay, S 324 180 - [...] CDT Denise Tubbs M.D. LAB BLOOD ADD-ON [facility] [address] [place] [address], [facility] [address] [place] [address] * US Upper Extremity Veins Right (02/07/2024 11:13 AM CDT) Anatomical Region Laterality Modality Upper Extremity, Ultrasound RST LOS, Ultrasound ARZ LOS, Ultrasound FLA LOS Right Ultrasound Impressions 02/07/2024 12:21 PM CDT 1. Negative for acute DVT. 2. Resolution of previously seen catheter associated DVT in the lower right axillary vein. Narrative 02/07/2024 12:21 PM CDT EXAM: US UPPER EXTREMITY VEINS RIGHT Exam performed with color and spectral Doppler analysis. COMPARISON: Upper extremity ultrasound 08/02/2023 FINDINGS: RIGHT: Internal Jugular Vein: Negative. Innominate Vein: Negative. Subclavian Vein: Negative. Axillary Vein: Negative. Brachial Veins: Negative. Cephalic Vein: Negative. Basilic Vein: Negative. Information on venous thrombosis and management can be found on the [facility] site. Link [email or web address] Procedure Note Benjamin Gross M.B., B.Ch. - 02/07/2024 EXAM: US UPPER EXTREMITY VEINS RIGHT Exam performed with color and spectral Doppler analysis. COMPARISON: Upper extremity ultrasound 08/02/2023 FINDINGS: RIGHT: Internal Jugular Vein: Negative. Innominate Vein: Negative. Subclavian Vein: Negative. Axillary Vein: Negative. Brachial Veins: Negative. Cephalic Vein: Negative. Basilic Vein: Negative. Information on venous thrombosis and management can be found on theK[facility]AK site. [email or web address] -9 1725 IMPRESSION: 1. Negative for acute DVT. 2. Resolution of previously seen catheter associated DVT in the lowerright axillary vein. Corazon Still P.A.-C. IMG US PROCEDURES * US Lower Extremity Veins Left (02/07/2024 11:13 AM CDT) Anatomical Region Laterality Modality Lower Extremity, Ultrasound RST LOS, Ultrasound ARZ LOS, Ultrasound FLA LOS Left Ultrasound Impressions 02/07/2024 12:20 PM CDT 1. Negative for acute DVT. 2. 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 3. Resolution of previously seen DVT involving the left femoral, soleal, posterior tibial, peroneal veins. Narrative 02/07/2024 12:20 PM CDT EXAM: US LOWER EXTREMITY VEINS LEFT Exam performed with color and spectral Doppler analysis. COMPARISON: Lower extremity ultrasound 08/02/2023 FINDINGS: LEFT: Common Femoral Vein: Negative. Profunda Femoral Vein: Negative. Femoral Vein: Negative. Popliteal Vein: Chronic post thrombotic changes. Wall thickening and intraluminal webbing. Gastrocnemius Veins: Negative where seen. Soleal Veins: Negative where seen, Not well seen. Posterior Tibial Veins: Negative where seen, Not well seen. Peroneal Veins: Negative where seen, Not well seen. Great Saphenous Vein: Negative where seen. Small Saphenous Vein: Not evaluated. Popliteal Fossa: Negative. Other: n/a Information on venous thrombosis and management can be found on the [facility] site. Link [email or web address] Procedure Note Benjamin Gross M.B., B.Ch. - 02/07/2024 EXAM: US LOWER EXTREMITY VEINS LEFT Exam performed with color and spectral Doppler analysis. COMPARISON: Lower extremity ultrasound 08/02/2023 FINDINGS: LEFT: Common Femoral Vein: Negative. Profunda Femoral Vein: Negative. Femoral Vein: Negative. Popliteal Vein: Chronic post thrombotic changes. Wall thickening andintraluminal webbing. Gastrocnemius Veins: Negative where seen. Soleal Veins: Negative where seen, Not well seen. Posterior Tibial Veins: Negative where seen, Not well seen. Peroneal Veins: Negative where seen, Not well seen. Great Saphenous Vein: Negative where seen. Small Saphenous Vein: Not evaluated. Popliteal Fossa: Negative. Other: n/a Information on venous thrombosis and management can be found on theAskMaParko site. [email or web address] -[email or web address] 1725 IMPRESSION: 1. Negative for acute DVT. 2. 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 3. Resolution of previously seen DVT involving the left femoral, soleal,posterior tibial, peroneal veins. Corazon Still P.A.-C. IMG US PROCEDURES from Last 3 Months Advance Directives For more information, please contact: [phone] Documents on File Type Date Recorded Patient Supervisor Customer Complaint Service Expl anation Advance Directives 07/25/2023 1:43 PM Sreedhar KANOA/ADVOCATE/AGENT/ DATA MANAGEMENT ASSOCIATE/SURROG ATE Advance Directives 06/26/2005 12:00 AM Leg acy document. See document viewer. * Full Code (Latest Code Status on File) Date Activated Date Inactivated Comments 08/06/2023 8:31 PM 08/19/2023 6:02 PM Question Answer Comments Full Code: Discussed * Full Code Date Activated Date Inactivated Comments 08/02/2023 1:43 PM 08/03/2023 4:18 PM Question Answer Comments Full Code: Discussed * Full Code Date Activated Date Inactivated Comments 07/23/2023 7:32 PM 07/30/2023 5:13 PM Question Answer Comments Full Code: Discussed Healthcare Agents on File Name Relationship Healthcare Agent Relationship Communication Sreedhar Hoyt Spouse Health Care Agent Carmencita Boo Sister First Altern ate Health Care Agent Care Teams Returned Materials Inspector Relationship Specialty Start Date End Date Elsewhere, Pcp PCP - General Internal Medicine 08/02/23
--- OUTSIDE RECORDS SUMMARY | 2024-05-04 17:52 | XMS_ITS | Referral Summary ---
Author Organization [facility] Address [address] [place] [id number] Care Team Providers Care Coppersmith Helper Name Role Phone Elsewhere, Pcp Primary Care Provider Unavailabl e Source Comments Patient records contain information from all sites at [facility]. For routine questions regarding patient records, call [phone] during business hours, M-F 8:00 AM - 5:00 PM Central Time. Record requests for emergency care only can be directed to [phone] at any time.[facility] Encounters Date Type Department Care Team Description 04/01/2024 4:00 PM CDT Telemedicine Division of Gastroenterology in [place], [place] [address] [place] [address] Denise Tubbs M.D. Fistula Stomach; Bypass Gastric Comfort En Y Status Post; Hemorrhage Gastrointestinal 02/14/2024 1:30 PM CDT Ancillary Procedure Department of Gastroenterology 02/14/2024 12:04 PM CDT - 02/14/2024 11:59 PM CDT Hospital Encounter Department of Radiology, [facility], in [place], [place] [address] [place] [phone] Eliana Davidson APRN, C.N.P., D.N.P., M.S.N. Discharge Disposition: Home or Self Care 02/14/2024 12:43 PM CDT Anesthesia Event Division of Gastroenterology in [address] [phone] Kathy Power APRN, CRNA Aubart, Chelsey A, APRN, CRNA 02/14/2024 11:37 AM CDT - 02/14/2024 1:55 PM CDT Hospital Encounter Division of Gastroenterology in [address] [phone] Eliana Davidson APRN, C.N.P., D.N.P., M.S.N. Gina Holland APRN, CRNA Fistula Stomach Discharge Disposition: Home or Self Care 02/07/2024 11:24 AM CDT - 02/07/2024 11:59 PM CDT Hospital Encounter Department of Laboratory Medicine and Pathology, [place], [place] [address] [place] [phone] Denise Tubbs M.D. Fistula Stomach; Bypass Gastric Comfort En Y Status Post; Hemorrhage Gastrointestinal Discharge Disposition: Home or Self Care 02/07/2024 3:00 PM CDT Office Visit Department of Vascular Medicine in [place], [place] [address] [place] [phone] Mariella Redman APRN, C.N.P., M.S. Anticoagulant Therapy (Primary Dx); Thrombosis Deep Vein Personal History; Embolus Pulmonary Personal History; Edema Leg Chronic 02/07/2024 9:40 AM CDT - 02/07/2024 11:23 AM CDT Hospital Encounter Department of Radiology, [place], [place] [address] [place] [phone] Corazon Still, PSrikanthAAura. Thrombosis Deep Vein Acute Lower Extremity Left (HCC); Thrombosis Deep Vein Upper Extremity Acute Right (HCC) Discharge Disposition: Home or Self Care from Last 3 Months Allergies Active Allergy Reactions Criticality Noted Date Comments Lip Escalon Spf 15 Anaphylaxis High 03/12/2017 Eunice's Bees lip balm - swollen throat and [...] femoral neck. Fracture history: Leg as an Toe No history of fragility fractures. No history of renal stones. She has history of congenital hip dysplasia, s/p hip replacment. Lumbar spinal fusion in 2011. She underwent gastric bypass surgery in 1997 at [facility] and a revision in 2011. She [...] Date Resolved Date Effusion Pleural 07/24/2023 07/28/2023 Immunizations Name Administration Dates Next Due SARS-COV-2 (COVID-19) - SURAJ NELSON (J&J)(Discontinued) 09/04/2021 Tdap 06/06/2011 influenza vaccine quad (FLUZONE/FLUARIX) (6 months and older)(PF) 08/02/2023(Deferred: Patient Refused - at this time) Social History Tobacco Use Types Packs/Day Years [...] How often do you attend chur or shinto services? Patient declined 08/28/2021 Do you belong to any clubs o r organizations such as sikhism groups, unions, fraternal or athletic groups, or [...] Answer Date Recorded PHQ-2 Score 0 04/07/2020 [facility] [place] of Occupat ional Health - Occupational Stress [...] your living situation today? I have a [facility] place to live 05/12/2023 Education Answer [...] AM CDT Clinical Communication Virtual Review in [place], [place] [address] [place] [address] 05/22/2024 7:00 AM CDT Appointment Department of Radiology, [facility], in [place], [place] [address] [place] [phone] Arlene Loco APRN, C.N.P. [address] [place] [phone] 05/22/2024 9:30 AM CDT Office Visit Division of Endocrinology in [place], [place] [address] [place] [phone] Arlene Loco APRN, C.N.P. [address] [place] [phone] 06/08/2024 8:15 AM CDT Clinical Communication Virtual Review in [place], [place] [address] [place] [address] 06/09/2024 2:00 PM CDT Telemedicine Division of Endocrinology in [address] [phone] Merry Donahue APRN, C.N.P. [address] [place] [phone] 07/01/2024 4:20 PM CDT Telemedicine Division of Gastroenterology in [address] [phone] Denise Tubbs M.D. [address] [place] [phone] Medical Devices Implanted Type Area Bagging Machine Operator Device Identifier Shelf Expiration Date Model / Serial / Lot Stnt Kin Vbl Shrt Wr 8x60 - [id number] - [id number] Implanted:Qty: 1 on 07/24/2023 by Awais Martinez D.O. at [facility] Biliary Stent [place] 02/04/2026 [id number] / [id number] / [facility] [employer] 15x10 - [id number] Implanted:Qty: 1 on 09/25/2023 by Henrique Daily M.D. at [facility] Biliary Stent [employer] 07/23/2025 [id number] / / [id number] Self Tap-Screw 4.5 X 38 - [id number] Implanted:Qty: 1 on 06/07/1998 Hardware e.g. pins/screws/ rods [employer]uy [employer]ynthes Description:Device Manufactu rer - Synthes. Device Status Text - HARDWARE-83953. Self Tap-Screw 4.5 X 32 - Loza [id number] Implanted:Qty: 1 on 06/07/1998 Hardware e.g. pins/screws/ rods [employer]ynthe[employer] Description:Device Manufactu rer - Synthes. Device Status Text - HARDWARE-75797. Dcp-Plate 90deg 10 65mm - Loza [id number] Implanted:Qty: 1 on 06/07/1998 Hardware e.g. pins/screws/ rods [employer] Description:Device Manufactu rer - Synthes. Device Status Text - HARDWARE-33766. Self Tap-Screw 4.5 X 30 - Loza [id number] Implanted:Qty: 1 on 06/07/1998 Hardware e.g. pins/screws/ rods [employer] Description:Device Manufactu rer - Synthes. Device Status Text - HARDWARE-18733. Standard-Screw Mayo 4.5 X 50 - Loza [id number] Implanted:Qty: 1 on 06/07/1998 Hardware e.g. pins/screws/ rods [employer] Description:Device Manufactu rer - Synthes. Device Status Text - HARDWARE-14678. Self Tap-Screw 4.5 X 20 - Loza [id number] Implanted:Qty: 1 on 06/07/1998 Hardware e.g. pins/screws/ rods [employer] Description:Device Manufactu rer - Synthes. Device Status Text - HARDWARE-86816. [place] Screw 2 Canc 6.5 X 20 - Loza [id number] Implanted:Qty: 1 on 06/22/2005 Hardware e.g. pins/screws/ rods [employer] Description:Device Manufactu rer - [employer]. Device Status Text - HARDWARE-97497. [place] Screw 2 Canc 6.5 X 40 - Loza [id number] Implanted:Qty: 1 on 06/22/2005 Hardware e.g. pins/screws/ rods [employer] Description:Device Manufactu rer - [employer]. Device Status Text - HARDWARE-68224. [place] Screw 2 Canc 6.5 X 30 - Loza [id number] Implanted:Qty: 2 on 06/22/2005 Hardware e.g. pins/screws/ rods [employer] Description:Device Manufactu rer - [employer]. Device Status Text - HARDWARE-79468. Hardware E.G. Pins/Screws/Rods -06/12/2012 Implanted:2011 (Quantity not on file) Hardware e.g. pins/screws/ rods Back Ganado Shell Multi 2 56mm - Loza [id number] Implanted:Qty: 1 on 06/22/2005 Hip Implant [employer] Description:Device Manufactu rer - [employer]. Device Status Text - HIP IMP-18989. [place]-Stem Car 4 Hi - [place] [id number] Implanted:Qty: 1 on 06/22/2005 Hip Implant [employer] Description:Device Manufactu rer - [employer]. Device Status Text - HIP IMP-12768. J J Articul Gui Head 36 - 2.0 - [place] [id number] Implanted:Qty: 1 on 06/22/2005 Hip Implant [employer] Description:Device Manufactu rer - [employer]. Device Status Text - HIP IMP-81290. J J Insert P Opal +4 10 36x56 - Loza [id number] Implanted:Qty: 1 on 06/22/2005 Hip Implant [employer] Description:Device Manufactu rer - [employer]. Device Status Text - HIP IMP-92318. Clp Ots 12/6t 220 - [id number] Implanted:Qty: 1 on 11/25/2023 by Henrique Daily M.D. at [facility] [employer] [facility] 04/26/2026 100.31 / / [id number] Explanted Type Area Bagging Machine Operator Device Identifier Shelf Expiration Date Model / Serial / Lot Stnt Zmm Otw 7x7 - [id number] Implanted:Qty: 1 on 07/24/2023 by Awais Martinez D.O. at [facility] Explanted:Qty: 1 on 11/25/2023 at [facility] Biliary Stent [employer] 02/14/2026 [id number] / / [id number] Procedures Procedure Name Priority Date/Time Associated Diagnosis [...] PM CDT) 02/14/2024 1:27 PM CDT Narrative IIAK - 02/14/2024 2:31 PM CDT This order has been created and auto-finalized to support the import of images acquired without order. The clinical documentation to support these images can be found on the encounter that produced images. Provider Not In System IMG NON RAD IMAGI NG PROCEDURES IIMS NA * Upper GI Endoscopy (02/14/2024 1:27 PM CDT) 02/14/2024 1:27 PM CDT [facility]14[facility] 2:23 PM CDT Post-op Diagnoses: ? - Normal esophagus. ? - Comfort-en-Y gastrojejunostomy with gastrojejunal anastomosis ? characterized by healthy appearing mucosa. OTSC is in good place and no ? contrast leak noted. ? - Normal examined jejunum. Spontaneously migrated stent. ? - No specimens collected. Narrative [facility] - 02/14/2024 2:23 PM CDT [facility] 6 GI GI Patient Name: Charisse Hoyt Date of : 1965 Age: 58 Procedure Date: 02/14/2024 Procedure: ? Upper GI endoscopy Providers: ? Bigg Daily MD Referring Provider: ?Eliana Davidson APRN CNP DNP Pre-op Diagnoses: ?Stent removal, Abnormal CT [...] migrated ? stent. This was traversed. The hifsc-ky-ixxgxvl limb was characterized ? by healthy appearing [...] C.N.P., D.N.P., M.S.N. GI PROCEDURE ORDERABLES [employer] NA * FL Fluoro Less Than 1 Hour (02/14/2024 1:15 PM CDT) Narrative ERCP LOS RST - 02/14/2024 1:15 PM CDT This exam does not require a radiologist review or interpretation. Please refer to the patient's medical record on this date for clinical details. Eliana Davidson APRN, C.N.P., Lori, M.S.N. IMG FLUOROSCOPY PROCEDURES Performing Organization Address City/[facility] [[email or web address]] Co de Phone Number ERCP LOS RST * [...] ETT location: oral VL device: glide scope Animas scope blade size: 3 Tube size: 7 [...] outcome: successful ?? Notable Events: no complications Viqar Mohammad MATERIAL CHASER, OVEN ROASTER ANESTHESIA ORD ERABLES * Hepatic Function Panel [...] CDT Denise Tubbs M.D. LAB BLOOD ADD-ON [facility] [address] [place] [address], [facility] [address] [place] [address] * Iron and Total Iron-Binding Capacity (02/07/2024 [...] CDT Denise Tubbs M.D. LAB BLOOD ADD-ON [facility] [address] [place] [address], [facility] DTL [facility] [address] [place] [address] * CBC with Differential, Blood (02/07/2024 11:40 AM CDT) Hemoglobin 11.7 11.6 - 15.0 g/dL 02/07/2024 [...] CDT Denise Tubbs M.D. LAB BLOOD ADD-ON [facility] [address] [place] [address], [facility] [address] [place], [place] [phone] [place] [address] [address] [place] [address] * Ferritin (02/07/2024 11:40 AM CDT) Ferritin, S 11 11 - 328 mcg/L 02/07/2024 1:01 PM CDT DTL Blood (Blood, Venous) 02/07/2024 11:40 AM CDT 02/07/2024 12:24 PM CDT Denise Tubbs M.D. LAB BLOOD ADD-ON Performing Organization Address [facility] [[email or web address]] Co de Phone Number [facility] [address] [place], [place] [address] [address] [place] [address] * Vitamin B12 Assay (02/07/2024 11:40 AM CDT) [facility] Vitamin B12 Assay, S 324 180 - [...] CDT Denise Tubbs M.D. LAB BLOOD ADD-ON [facility] [address] [place] [address], [place] DTL [facility] [address] [place] [address] * US Upper Extremity Veins Right (02/07/2024 [...] and management can be found on the [employer] site. Link [email or web address].[facility] [place].org/topic/clinical-answers/[email or web address]/[email or web address] Procedure Note Benjamin Gross M.B., B.Ch. - 02/07/2024 EXAM: US UPPER EXTREMITY VEINS RIGHT Exam performed with color and spectral Doppler analysis. COMPARISON: Upper extremity ultrasound 08/02/2023 FINDINGS: RIGHT: Internal Jugular Vein: Negative. Innominate Vein: Negative. Subclavian Vein: Negative. Axillary Vein: Negative. Brachial Veins: Negative. Cephalic Vein: Negative. Basilic Vein: Negative. Information on venous thrombosis and management can be found on the[employer] site. Linkhttps://[employer].[email or web address].org/topic/clinical-answers/[email or web address]/cpm -2049 6469 IMPRESSION: 1. Negative for acute DVT. 2. [...] and management can be found on the [employer] site. Link [email or web address]://[employer].[facility].org/topic/clinical-answers/[email or web address]/cpm-204 81270 Procedure Note Benjamin Gross M.B., B.Ch. - [...] thrombosis and management can be found on the[employer] site. [email or web address]://[email or web address].[email or web address]/topic/clinical-answers/[email or web address]/cpm -2049 1725 IMPRESSION: 1. Negative for acute DVT. 2. 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 3. Resolution of previously seen DVT involving the left femoral, soleal,posterior tibial, peroneal veins. Corazon Still P.A.-C. IMG US PROCEDURES from Last 3 Months Advance Directives For more information, please contact: [phone] Documents on File Type Date Recorded Patient Director Medical Safety Expl anation Advance Directives 07/25/2023 1:43 PM Sreedhar HoytChrosariolauro Boo HCPOA/ADVOCATE/AGENT/ ANALYTICS DEVELOPER/SURROG ATE Advance Directives 06/26/2005 12:00 AM Leg [...] File Name Relationship Healthcare Agent Relationship Communication Sreedharcaprice Dunn Zia Spouse Health Care Agent Carmencitacorky Boo Sister First Altern ate Health Care Agent Care Teams Coppersmith Helper Relationship Specialty Start Date End Date Elsewhere, Pcp PCP - General Internal Medicine 08/02/23
--- OUTSIDE RECORDS SUMMARY | 2024-05-04 17:53 | XMS_ITS | Encounter Summary ---
Author Organization [facility] Address [address] [place] [address] Care Team Providers Care Fryline Attendant Name Role Phone Elsewhere, Pcp Primary Care Provider Unavailabl e Reason for Visit * Outpatient (Routine) - Closed Specialty Diagnoses / Procedures Referred By Arielle t Referred To Contact Vascular Medicine Corazon Still P.A.-C. [address] [place] [phone] [facility] Referral ID Status Reason Start Date Expiration Date Visits Re quested Visits Authorized [id number] Closed 11/15/2023 05/16/2025 1 1 Encounter Details Date Type Department Care Team (Latest Contact Info) Description 02/07/2024 3:00 PM CDT Office Visit Department of Vascular Medicine in [place], [place] [address] [place] [phone] Mariella Redman APRN, C.N.P., M.S. [address] [place] [phone] Anticoagulant Therapy (Primary Dx); Thrombosis Deep Vein Personal History; Embolus Pulmonary Personal History; Edema Leg Chronic Social History Tobacco Use Types Packs/Day Years [...] week 08/28/2021 How often do you attend [facility] or confucianism services? Patient declined 08/28/2021 Do you belong to any clubs o r organizations such as protestant groups, unions, fraternal or athletic groups, or [...] Answer Date Recorded PHQ-2 Score 0 04/07/2020 [facility] - Occupational Stress [...] your living situation today? I have a [facility] place to live 05/12/2023 Education Answer [...] Sign Reading Time Taken Comments Blood Pressure 105/73 02/07/2024 2:41 PM CDT Pulse 67 02/07/2024 2:41 PM CDT Temperature - - Respiratory Rate - - Oxygen Saturation - - Inhaled Oxygen Concentration - - Weight 98.4 kg (216 lb 14.9 oz) 02/07/2024 2:38 PM CDT Height 166.8 cm (5' 5.67) 02/07/2024 2:38 PM CD T Body Mass Index 35.37 02/07/2024 2:38 PM CDT documented in this encounter Progress Notes * Mariella Redman APRN, C.N.P., M.S. - 02/07/2024 3:00 PM CDT THROMBOPHILIA CLINIC FOLLOW UP NOTE Date of Service: 02/07/2024 SUBJECTIVE HISTORY OF PRESENT ILLNESS Ms. Mcqueen is a 58 y.o. female from [facility] that I am seeing today for follow up for anticoagulation therapy. She is accompanied by her . She has history of gastric bypass in 1997 and revision in 2011, and transoral outlet reduction in June 2023 complicated by perforation, fistula, and perigastric abscess s/p stenting 07/24/2023. She was diagnosed with pulmonary emboli and left lower extremity and right upper extremity PICC line associated DVT in July 2023. She presented with short of breath. Echocardiogram on 08/03/2023 showed mildly enlarged RV size, mildly reduced RV systolic function, LVEF 65%, no significant valvular abnormalities. She was initiated on anticoagulation therapy. She was seen in the outpatient thrombophilia clinic in October for initial consult. She was taking Eliquis 5 mg twice daily at that time. It was recommended to continue anticoagulation therapy until she completes endoscopic procedures. #[facility] thrombophilia clinic anticoagulation assessment# 1. Current length of anticoagulation therapy 3-6 months A. Blood thinner medication. Apixaban (Eliquis) 5mg bid B. Still on blood thinner? Yes 2. Missed doses (1 dose= pill, tablet, injection)? yes If yes, how many: for Endoscopic procedures 3. While taking anticoagulant, any new VTE? No 4. If new clot, did it occur while on the anticoagulant? NA 5. Major bleeding: No 6. Minor bleeding: No She has no prior history of VTE, CVA/TIA, cardiac disease/valvular disease/history of atrial fibrillation, inflammatory disorder, and/or personal or family history of clotting disorders. She is up todate on age-appropriate cancer screenings. Today she reports leg edema left greater than right since DVT diagnosis unchanged in the setting ofchronic leg edema. She denies difficulty with current Eliquis therapy. She denies signs/symptoms ofbleeding. She is currently scheduled for endoscopic procedure on 02/14/2024. She has not sure if this is goingto be the last procedure that she needs. I have reviewed and updated the following: allergies, current medications, medications, family history, medical history, social history, surgical history and problem list. REVIEW OF SYSTEMS Pertinent items are noted in HPI; all other review of systems was negative. OBJECTIVE BP 105/73 (BP Location: Right arm, Patient Position: Sitting) Pulse 67 Ht 166.8 cm Wt 98.4 kg BMI 35.37 kg/m?? PHYSICAL EXAMINATION Constitutional Appearance: Normal appearance. Cardiovascular Rate and Rhythm: Normal rate. Pulses: Normal pulses. Musculoskeletal Right lower leg: Edema present. Left lower leg: Edema present. Neurological General: No focal deficit present. Mental Status: She is alert and oriented to person, place, and time. DIAGNOSTICS Labs: Lab Results Component Value Date WBC 5.6 02/07/2024 HGB 11.7 02/07/2024 HCT 38.0 02/07/2024 MCV 88.6 02/07/2024 PLT 339 02/07/2024 Lab Results Component Value Date NA 144 11/15/2023 NA 144 11/15/2023 CL 107 11/15/2023 CL 107 11/15/2023 CREATININE 0.72 11/15/2023 CREATININE 0.72 11/15/2023 EGFR >90 11/15/2023 EGFR >90 11/15/2023 BUN 8 11/15/2023 BUN 8 11/15/2023 ANIONGAP 10 11/15/2023 ANIONGAP 10 11/15/2023 GLUCOSE 105 11/15/2023 GLUCOSE 105 11/15/2023 CALCIUM 9.6 11/15/2023 CALCIUM 9.6 11/15/2023 02/07/2024 EXAM: US LOWER EXTREMITY VEINS LEFT [...] Not evaluated. Popliteal Fossa: Negative. Other: n/a IMPRESSION: 1. Negative for acute DVT. 2. 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 3. Resolution of previously seen DVT involving the left femoral, soleal, posterior tibial, peronealveins. 02/07/2024 EXAM: US UPPER EXTREMITY VEINS RIGHT Exam performed with color and spectral Doppler analysis. COMPARISON: Upper extremity ultrasound 08/02/2023 FINDINGS: RIGHT: Internal Jugular Vein: Negative. Innominate Vein: Negative. Subclavian Vein: Negative. Axillary Vein: Negative. Brachial Veins: Negative. Cephalic Vein: Negative. Basilic Vein: Negative. IMPRESSION: 1. Negative for acute DVT. 2. Resolution of previously seen catheter associated DVT in the lower right axillary vein. I have reviewed pertinent laboratory and imaging studies. ASSESSMENT / PLAN #1 Anticoagulant Therapy #2 Thrombosis Deep Vein Personal History #3 Embolus Pulmonary Personal History #4 Edema Leg Chronic 1. Venous Thromboembolism: Date: 07/2023 Location (s): Acute pulmonary emboli, acute left right axillary vein DVT along PICC line, acute left lower extremity DVT Known risk factors for VTE at that time included: TCR VTE RISK FACTORS: Obesity (BMI>30), Recenthospitalization (>3 days): Major, Surgery (>30 min) general anesthesia (<2 months): Major,and Catheter/Intravenous Device: Major. Ms. Mcqueen is a 58 y.o. female is here for follow up of anticoagulation therapy for history of provoked venous thromboembolism including pulmonary emboli, catheter associated right upper extremity DVT, and left lower extremity DVT in the setting of transoral outlet reduction in June 2023 complicated by perforation, fistula, and perigastric abscess s/p stenting 07/24/2023. She remains on Eliquis 5 mg twice daily. Repeat ultrasound performed today showed resolution of previously seen catheter associated DVT in the right upper arm and resolution of majority of left lowerextremity DVT. She is currently scheduled for endoscopic procedure with possible stent removal on 02/14/2024. RECOMMENDATIONS: 1. Continue anticoagulation therapy until all procedures are completed 2. Can reduce Eliquis to 2.5 mg twice daily for secondary prophylaxis 3. Once all procedures are completed, Eliquis can be discontinued 4-6 weeks following the last procedure I met with Ms. Mcqueen in the Thrombophilia Clinic today, reviewed pertinent outside medical records, and discussed pertinent medical history, ROS, and symptoms as outline above. It was pleasure to meet Ms. Mcqueen in the Thrombophilia Clinic today. All questions were answered to the best of my knowledge. Mariella Redman APRN, C.NWendy, M.S. documented in this encounter Plan of Treatment Upcoming Encounters Date Type Department Care Team (Latest Contact Info) Description 05/21/2024 7:15 AM CDT Clinical Communication Virtual Review in [address] [phone] 05/22/2024 7:00 AM CDT Appointment Department of Radiology, [facility], in [address] [phone] Arlene Loco APRN, C.N.P. [address] [place] [phone] 05/22/2024 9:30 AM CDT Office Visit Division of Endocrinology in [address] [phone] Arlene Loco APRN, C.N.P. [address] [place] [phone] 06/08/2024 8:15 AM CDT Clinical Communication Virtual Review in [address] [phone] 06/09/2024 2:00 PM CDT Telemedicine Division of Endocrinology in [address] [phone] Merry Donahue APRN, C.N.P. [address] [place] [address] 07/01/2024 4:20 PM CDT Telemedicine Division of Gastroenterology in [place], [place] [address] [place] [address] Denise uTbbs M.D. [address] [place] [address] documented as of this encounter Visit Diagnoses Diagnosis Anticoagulant Therapy- Primary Thrombosis Deep Vein Personal History Embolus Pulmonary Personal History Edema Leg Chronic documented in this encounter Additional Health Concerns Assessment Noted Time PHQ-9 Depression Total Score: 4 03/12/20 17 3:53 PM CDT documented as of this encounter Care Teams Fryline Attendant Relationship Specialty Start Date End Date Elsewhere, Pcp PCP - General Internal Medicine 08/02/23 documented as of this encounter
--- OUTSIDE RECORDS SUMMARY | 2024-05-04 17:53 | XMS_ITS | Encounter Summary ---
Author Organization [facility] Address [address] [place] [address] Care Team Providers Care Loan Adviser Name Role Phone Nayeli Orourke Unavailable Sean Gaston MD Unavailable Nayeli Orourke Primary Care Provider Sonia Harley RN Unavailable [phone] Encounter Details Date Type Department Care Team (Late st Contact Info) Description 11/10/2017 [facility] Medical Advice [facility] Orthopaedic Clinic [address] [facility] [address] [place] [address] Sean Gaston MD [address] [place] [id number] Social History Tobacco Use Types Packs/Day Years Used Date Smoking Tobacco: Never Smokeless Tobacco: Never Alcohol Use Standard Drinks/Week Comments No 0 (1 standard drink = 0.6 oz pur e alcohol) Sex and Gender Information Value Date Recorded Sex Assigned at Female 11/25/2018 7:20 AM [employer] Gender Identity Female 11/25/2018 7:20 AM [employer] Sexual Orientation Straight 11/25/2018 7: 20 AM [employer] documented as of this encounter Plan of Treatment Not on file documented as of this encounter Visit Diagnoses Not on filedocumented in this encounter Care Teams Loan Adviser Relationship Specialty Start Date End Date Nayeli Orourke PCP - General Family Practice 11/26/17 Nayeli Orourke Referring Physician Family Practice 09/30/17 Sean Gaston MD [address] [place] [address] Orthopaedic Surgery 09/30/17 Sonia Harley, RN Registered Nurse Orthopaedic Surgery 12/20/17 documented as of this encounter
--- OUTSIDE RECORDS SUMMARY | 2024-05-04 17:53 | XMS_ITS | Referral Summary ---
Author Organization [facility] Address [address] [place] [address] Care Team Providers Care Pediatric Orthodontist Name Role Phone Nayeli Orourke Unavailable Sean Gaston MD Unavailable Nayeli Orourke Primary Care Provider [phone] Sonia Harley RN Unavailable Allergies Active Allergy Reactions Criticality Noted Date Comments Nsaids 07/07/2012 Other reaction(s): Other - Describe In Comment Field Patient had gastric bypass surgery. ??Should not take oral NSAID's ever. Medications Medication Sig Dispensed Refills Start Date End Date Status oxybutynin (DITROPAN-XL) 10 MG 24 hr tablet Take 10 mg by mouth At Bedtime 09/17/2017 Active nortriptyline (PAMELOR) 50 MG capsule Take 50 mg by mouth At Bedtime 07/05/2017 Active DULoxetine HCl (CYMBALTA PO) Take 10 mg by mouth 2 times daily Active Active Problems Problem Noted Date Diagnosed Date Iron deficiency anemia 10/16/2017 Social History Tobacco Use Types Packs/Day Years Used Date Smoking Tobacco: Never Smokeless Tobacco: Never Alcohol Use Standard Drinks/Week Comments Yes 0 (1 standard drink = 0.6 oz pur e alcohol) 2 glasses 2 x month PHQ-2 Answer Date Recorded PHQ-2 Score 0 11/28/2018 Adolescent Education Answer Date Record ed Getting School Help Needed Not on file 08/11 Sex and Gender Information Value Date Recorded Sex Assigned at Female 11/25/2018 7:20 AM SKIP LOCATOR Gender Identity Female 11/25/2018 7:20 AM SKIP LOCATOR Sexual Orientation Straight 11/25/2018 7: 20 AM SKIP LOCATOR Last Filed Vital Signs Vital Sign Reading Time Taken Comments Blood Pressure 112/55 12/08/2018 6:15 PM SKIP LOCATOR Pulse 72 12/08/2018 6:00 PM SKIP LOCATOR Temperature 36.8 ??C (98.2 ??F) 12/08/2018 6:15 PM CS T Respiratory Rate 14 12/08/2018 6:15 PM SKIP LOCATOR Oxygen Saturation 97% 12/08/2018 6:15 PM SKIP LOCATOR Inhaled Oxygen Concentration - - Weight 102.1 kg (225 lb) 12/24/2018 11:13 AM SKIP LOCATOR Height 165.1 cm (5' 5) 12/24/2018 11:13 AM SKIP LOCATOR Body Mass Index 37.44 12/24/2018 11:13 AM SKIP LOCATOR Plan of Treatment Not on file Care Teams Pediatric Orthodontist Relationship Specialty Start Date End Date Nayeli Orourke PCP - General Family Practice 11/26/17 Nayeli Orourke Referring Physician Family Practice 09/30/17 Sean Gaston MD [address] [place] [address] Orthopaedic Surgery 09/30/17 Sonia Harley RN Registered Nurse Orthopaedic Surgery 12/20/17
--- OUTSIDE RECORDS SUMMARY | 2024-05-04 17:53 | XMS_ITS | Clinical Summary ---
Author Organization [facility] Address [address] [place] [address] Care Team Providers Care Shipping And Receiving Supervisor Name Role Phone Nayeli Orourke Unavailable Sean Gaston MD Unavailable Nayeli Orourke Primary Care Provider [phone] Sonia Harley RN Unavailable [phone] Allergies Active Allergy Reactions Criticality Noted Date [...] Date Diagnosed Date Iron deficiency anemia 10/16/2017 Family History Medical History Relation Comments Other Cancer Brother 1 Thyroid, lymphom a Prostate Cancer Brother 1 Thyroid Disease Brother 1 Other Cancer Brother 2 Thyroid Thyroid Disease Brother 2 Cerebrovascular Disease Father 2016 Coronary Artery Disease Father heart at tack Hyperlipidemia Father Hypertension Father Low Back Problems Father Obesity Father Osteoporosis Mother Other Cancer Niece Skin Other Cancer Other Ovarian Breast Cancer Paternal Grandmother Coronary Artery Disease Sister heart cuevas rgery Relation Status Comments Brother 1 Brother 2 Father Mother Niece Other Paternal Grandmother Sister Social History Tobacco Use Types Packs/Day Years [...] Sex Assigned at Female 11/25/2018 7:20 AM DEVELOPMENT SCIENTIST Gender Identity Female 11/25/2018 7:20 AM DEVELOPMENT SCIENTIST Sexual Orientation Straight 11/25/2018 7: 20 AM DEVELOPMENT SCIENTIST Last Filed Vital Signs Vital Sign Reading Time Taken Comments Blood Pressure 112/55 12/08/2018 6:15 PM DEVELOPMENT SCIENTIST Pulse 72 12/08/2018 6:00 PM DEVELOPMENT SCIENTIST Temperature 36.8 ??C (98.2 ??F) 12/08/2018 6:15 PM CS T Respiratory Rate 14 12/08/2018 6:15 PM DEVELOPMENT SCIENTIST Oxygen Saturation 97% 12/08/2018 6:15 PM DEVELOPMENT SCIENTIST Inhaled Oxygen Concentration - - Weight 102.1 kg (225 lb) 12/24/2018 11:13 AM DEVELOPMENT SCIENTIST Height 165.1 cm (5' 5) 12/24/2018 11:13 AM DEVELOPMENT SCIENTIST Body Mass Index 37.44 12/24/2018 11:13 AM DEVELOPMENT SCIENTIST Plan of Treatment Not on file Care Teams Shipping And Receiving Supervisor Relationship Specialty Start Date End Date Nayeli Orourke PCP - General Family Practice 11/26/17 Nayeli Orourke Referring Physician Family Practice 09/30/17 Sean Gaston MD [facility] [address] [address] Orthopaedic Surgery 09/30/17 Sonia Harley, RN Registered Nurse Orthopaedic Surgery 12/20/17
--- OUTSIDE RECORDS SUMMARY | 2024-05-04 17:53 | XMS_ITS | Continuity of Care Document ---
Author Organization [facility] Address [address] [address] [place] [address] Phone Care Team Providers Care Laundromat Worker Name Role Phone Odell Ardon MD [...] Encounter Established Level 3 [facility], [address] [address], [place], [place], [id number], [place] tel:[phone] [facility] GI Symptoms or Concerns (chief complaint) Bariatric surgery statusOther dysphagia 2 Duglas Bain. [address] [facility], [facility] [address], [place], [place], [id number], [place]. tel:[phone] Referring Provider: Referral Self, USE FOR SELF REFERRALS. [facility], [address] [address], [place], [id number], [place] tel:[phone] [facility] GI Symptoms or Concerns (chief complaint) Eosinophilic esophagitisHi story of gastric bypassEosinop hilic esophagitisBa riatric surgery status 2 Russell Bryan. [address] [facility], [address], [place], [place], [id number], [place]. tel:[phone] Referring Provider: Nayeli Orourke MD K, [address] [facility], [place], [address]. tel:[phone] [facility], [address] [address], [place], [place], [id number], [place] tel:[phone] [facility] Other dysphagia Jun-2 2 Duglas Bain. [address] [facility], [facility] [address], [place], [place], [id number], [place]. tel:[phone] Referring Provider: Referral Self, USE FOR SELF REFERRALS. New Level 4 [facility], [address] [address], [facility] [place], [id number], [place] tel:[phone] [facility] GI Symptoms or Concerns (chief complaint) Esophageal dysphagiaEosi nophilic esophagitis Sep-2 2 Duglas Bain. [address] [facility], [address], [place], [place], [id number], [place]. tel:[phone] Referring Provider: Referral Self, USE FOR SELF REFERRALS. [facility], [address] [address], [facility] [place], [id number], [place] tel:[phone] No Information Jun-2 2 No Information Referring Provider: Zaida RODARTE M, [address] [facility] [address], [place], [address]. tel:[phone] Family History Family Member Type Diagnosis Age [...] ; Source: Other Registry Influenza, injectable, Madin Estela Canine Kidney, quadrivalent with preservative administered Note: [...] i-directional interface ; Source: Other Registry Novel [id number], all formulations administered Note: [facility] bi-direct ional interface ; Source: Other Registry Influenza, seasonal, injectable administe red Note: [facility] bi- directional interface ; Source: Other Registry Payers Payer name Insurance type Covered libertarian ID Authoriza tion(s) [employer] CI [id number] Social History Type Description Quantity Date Captured Comments Sex Female Smoking Status No Information Chief Complaint And Reason For Visit From encounter dated '09/13/2022 15:21'. GI Symptoms or Concerns (chief complaint). [...]
--- OUTSIDE RECORDS SUMMARY | 2024-05-04 17:53 | XMS_ITS | Encounter Summary ---
Author Organization [facility] Address [address] [place] [address] Care Team Providers Care Weaver Tire Cord Name Role Phone Elsewhere, Pcp Primary Care Provider Unavailabl e Reason for Referral * Outpatient (Routine) - Closed Specialty Diagnoses / Procedures Referred By Contac t Referred To Contact Diagnoses Thrombosis Deep Vein Acute Lower Extremity Left (HCC) Thrombosis Deep Vein Upper Extremity Acute Right (HCC) Procedures US Upper Extremity Veins Right Corazon Still P.A.-C. [address] [place] [phone] [facility] Referral ID Status Reason Start Date Expiration Date Visits Re quested Visits Authorized [id number] Closed 11/15/2023 11/14/2024 1 1 * Outpatient (Routine) - Closed Specialty Diagnoses / Procedures Referred By Contac t Referred To Contact Diagnoses Thrombosis Deep Vein Acute Lower Extremity Left (HCC) Thrombosis Deep Vein Upper Extremity Acute Right (HCC) Procedures US Lower Extremity Veins Left Corazon Still P.A.-C. [address] [place] [phone] [facility] Referral ID Status Reason Start Date Expiration Date Visits Re quested Visits Authorized [id number] Closed 11/15/2023 11/14/2024 1 1 Reason for Visit * Outpatient (Routine) - Closed Specialty Diagnoses / Procedures Referred By Arielle richards Referred To Contact Diagnoses Thrombosis Deep Vein Acute Lower Extremity Left (HCC) Thrombosis Deep Vein Upper Extremity Acute Right (HCC) Procedures US Upper Extremity Veins Right Corazon Still P.A.-C. [address] [place] [address] [facility] Referral ID Status Reason Start Date Expiration Date Visits Re quested Visits Authorized [id number] Closed 11/15/2023 11/14/2024 1 1 Encounter Details Date Type Department Care Team (Latest Contact Info) Description 02/07/2024 9:40 AM CDT - 02/07/2024 11:23 AM CDT Hospital Encounter Department of Radiology, [facility], in [place], [place] [address] [place] [address] Corazon Still P.A.-C. [address] [place] [address] Thrombosis Deep Vein Acute Lower Extremity Left (HCC); Thrombosis Deep Vein Upper Extremity Acute Right (HCC) Discharge Disposition: Home or Self Care Social [...] week 08/28/2021 How often do you attend [facility] or yazidi services? Patient declined 08/28/2021 Do you belong to any clubs o r organizations such as episcopal groups, unions, fraternal or athletic groups, or [...] Answer Date Recorded PHQ-2 Score 0 04/07/2020 [facility] Answer Date Recorded [...] your living situation today? I have a [facility] place to live 05/12/2023 Education [...] Sig Dispensed Refills Start Date End Date furosemide (LASIX) 20 mg tablet Administer 1 tablet (20 mg total) via small bowel tube daily. 30 tablet 1 07/29/2023 iron,carbonyl/ascorbic acid (VITRON-C ORAL) Administer 1 tablet via small bowel tube daily. 03/12/2017 omeprazole (PriLOSEC) [address] capsule Take 1 capsule (40 mg total) by mouth every morning before breakfast. 30 capsule 3 08/19/2023 documented as of this encounter Plan of Treatment Upcoming Encounters Date Type Department Care Team (Latest Contact Info) Description 05/21/2024 7:15 AM CDT Clinical Communication Virtual Review in [address] [phone] 05/22/2024 7:00 AM CDT Appointment Department of Radiology, [facility], in [place], [place] [address] [place] [phone] Arlene Loco APRN, C.N.P. [address] [place] [phone] 05/22/2024 9:30 AM CDT Office Visit Division of Endocrinology in [place], [place] [address] [place] [phone] Arlene Loco APRN, C.N.P. [address] [place] [phone] 06/08/2024 8:15 AM CDT Clinical Communication Virtual Review in [place], [place] 200 [place] [address] 06/09/2024 2:00 PM CDT Telemedicine Division of Endocrinology in [address] [phone] Merry Donahue APRN, C.N.P. [address] [place] [phone] 07/01/2024 4:20 PM CDT Telemedicine Division of Gastroenterology in [address] [phone] Denise Tubbs M.D. [address] [place] [phone] documented as of this encounter Procedures Procedure Name Priority Date/Time Associated Diagnosis Comments US UPPER EXTREMITY VEINS RIGHT RAD - [...] Deep Vein Upper Extremity Acute Right (HCC) documented in this encounter Results * US Upper Extremity Veins Right (02/07/2024 [...] and management can be found on the [employer] site. Link [email or web address]/topic/clinical-answers/[email or web address]/[email or web address] 44256 Procedure Note Benjamin Gross M.B., B.Ch. - 02/07/2024 EXAM: US UPPER EXTREMITY VEINS RIGHT Exam performed with color and spectral Doppler analysis. COMPARISON: Upper extremity ultrasound 08/02/2023 FINDINGS: RIGHT: Internal Jugular Vein: Negative. Innominate Vein: Negative. Subclavian Vein: Negative. Axillary Vein: Negative. Brachial Veins: Negative. Cephalic Vein: Negative. Basilic Vein: Negative. Information on venous thrombosis and management can be found on the[employer] site. Linkhttps://[email or web address].[email or web address]/topic/clinical-answers/[email or web address]/[facility] -2045 7424 IMPRESSION: 1. Negative for acute DVT. 2. Resolution of previously seen catheter associated DVT in the lowerright axillary vein. Corazon OLIVER US PROCEDURES * US Lower Extremity Veins [...] and management can be found on the [employer] site. Link [email or web address].[email or web address]/topic/clinical-answers/[email or web address]/cpm-204 18378 Procedure Note Benjamin Gross M.B., B.Ch. - [...] management can be found on the[employer] site. Linkhttps://askmayoexpert.[facility]/topic/clinical-answers/[email or web address]/cpm -2049 1725 IMPRESSION: 1. Negative for acute DVT. 2. 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 3. Resolution of previously seen DVT involving the left femoral, soleal,posterior tibial, peroneal veins. Corazon Still P.A.-C. IMG US PROCEDURES documented in this encounter Visit Diagnoses Diagnosis Thrombosis Deep Vein Acute Lower Extremity Left (HCC) Thrombosis Deep Vein Upper Extremity Acute Right (HCC) documented in this encounter Additional Health Concerns Assessment Noted Time PHQ-9 Depression Total Score: 4 03/12/20 17 3:53 PM CDT documented as of this encounter Care Teams [employer] Relationship Specialty Start Date End Date Elsewhere, Pcp PCP - General Internal Medicine 08/02/23 documented as of this encounter
--- OUTSIDE RECORDS SUMMARY | 2024-05-04 17:53 | XMS_ITS ---
Author Organization [facility] Address [address] [place] [address] Care Team Providers Care Textile Technologist Name Role Phone Elsewhere, Pcp Primary Care Provider Unavailabl e Bariatrics Program Status:Enrolled (Active) Start date:05/17/2023 Enrollment date:06/11/2023 Current support & services provided:Pre-Op Related social determinants of health:Food Insecurity, Transportation Needs Overview Caroline Continued Care and Services Coordination
--- OUTSIDE RECORDS SUMMARY | 2024-05-04 17:53 | XMS_ITS | Continuity of Care Document ---
Author Organization [facility] Address [address] [place] [address] Phone Care Team Providers Care Entry Level Sales Consultant Name Role Phone Unavailable Unavailable Unavailable Allergies, [...] Assist Insert Spine Fixation, Posteri or Office/Outpatient Visit,[facility], [facility] 2011 Advance Directives Directive Yes / No Effective Date File Name No Information Encounters Encounter Description Practice Location Reason(s) For Visit Diagnoses Date Provider Providers Copied on Encounter [facility], [address], [place], [place], [facility], [place] tel:[phone] [facility] No Information Rodney-2 1-201 3 No Information [facility], [address] [place] [address], [place], [place], [facility], [place] tel:[phone] [facility] No Information Dec-0 3-201 2 Mehbod Amir. [facility], [address] [address], [place], [address] [place] [address], [place]. tel:[phone] Referring Provider: Ramesh Guthrie, [facility] [address], [place], [address]. tel:[phone] [facility], [address] [place] [address], [facility], [place] tel:[phone] [facility] ACQ SPONDYLOLISTH ESIS Dec-0 3-201 2 Eckroth Benjamin. [address] [place] [address], [address] [place] [address], [place]. tel:[phone] [facility], [address] [place] [address], [place], [facility], [place] tel:[phone] [facility] No Information Jul-2 4-201 2 Mehbod Amir. [facility], [address] [address], [place], [place], [address] [place] [address], [place]. tel:[phone] Referring Provider: Ramesh Guthrie, [facility] [address], [place], [address]. tel:[phone] Office/Outpa tient Visit,[facility], [facility], [address] [place] [address], [place], [facility], [place] tel:[phone] [facility] LUMBAGO Julián-3 0-201 2 Mehbod Amir. [facility], [address] [address], [place], [place], [address] [place] [address], [place]. tel:[phone] Referring Provider: Ramesh Guthrie, [facility] [address], [place], [address]. tel:[phone] Family History Family Member Type Diagnosis Age At Onset Problem (finding) Problem (finding) Problem (finding) Problem (finding) Problem (finding) Family history of Yes Problem (finding) Problem (finding) Payers Payer name Insurance type Covered alliance party ID Authoriza tion([id number] [facility] [id number] Social History Type Description Quantity Date Captured [...]
--- OUTSIDE RECORDS SUMMARY | 2024-05-04 17:53 | XMS_ITS | Encounter Summary ---
Author Organization [facility] Address [address] [place] [address] Care Team Providers Care Assembler Utility Buildings Name Role Phone Nayeli Orourke Unavailable Sean Gaston MD Unavailable Nayeli Orourke Primary Care Provider Sonia Harley RN Unavailable [phone] Encounter Details Date Type Department Care Team (Late st Contact Info) Description 12/09/2017 [facility] Medical Advice [facility] [address] [facility] [address] [place] [address] Sean Gaston MD [address] [place] [phone] Social History Tobacco Use Types Packs/Day Years Used Date Smoking Tobacco: Never Smokeless Tobacco: Never Alcohol Use Standard Drinks/Week Comments No 0 (1 standard drink = 0.6 oz pur e alcohol) Sex and Gender Information Value Date Recorded Sex Assigned at Female 11/25/2018 7:20 AM CLIENT SUPPORT COORDINATOR Gender Identity Female 11/25/2018 7:20 AM CLIENT SUPPORT COORDINATOR Sexual Orientation Straight 11/25/2018 7: 20 AM CLIENT SUPPORT COORDINATOR documented as of this encounter Plan of Treatment Not on file documented as of this encounter Visit Diagnoses Not on filedocumented in this encounter Care Teams Assembler Utility Buildings Relationship Specialty Start Date End Date Nayeli Orourke PCP - General Family Practice 11/26/17 Nayeli Orourke Referring Physician Family Practice 09/30/17 Sean Gaston MD [address] [place] [address] Orthopaedic Surgery 09/30/17 Sonia Harley, RN Registered Nurse Orthopaedic Surgery 12/20/17 documented as of this encounter
--- OUTSIDE RECORDS SUMMARY | 2024-05-04 17:53 | XMS_ITS | Encounter Summary ---
Author Organization [facility] Address [address] [place] [address] Care Team Providers Care Petal Cutter Name Role Phone Elsewhere, Pcp Primary Care Provider Unavailabl e Encounter Details Date Type Department Care Team (Latest Contact Info) Description 08/02/2023 Intake [facility] Social History Tobacco Use Types Packs/Day Years Used Date Smoking Tobacco: Never Smokeless Tobacco: Never Alcohol Use Standard Drinks/Week Comments Yes 1 (1 standard drink = 0.6 oz [...] 08/28/2021 How often do you attend chur ch or sikh services? Patient declined 08/28/2021 Do you belong to any clubs o r organizations such as orthodoxy groups, unions, fraternal or athletic groups, or [...] Answer Date Recorded PHQ-2 Score 0 04/07/2020 [facility] - [...] your living situation today? I have a [facility] place to live 05/12/2023 Education [...] AM CDT Clinical Communication Virtual Review in [place], [place] 200 [place] [address] 05/22/2024 7:00 AM CDT Appointment Department of Radiology, [facility], in [place], [place] [address] [place] [phone] Arlene Loco APRN, C.N.P. [address] [place] [phone] 05/22/2024 9:30 AM CDT Office Visit Division of Endocrinology in [place], [place] [address] [place] [phone] Arlene Loco APRN, C.N.P. [address] [place] [phone] 06/08/2024 8:15 AM CDT Clinical Communication Virtual Review in [place], [place] [address] [place] [address] 06/09/2024 2:00 PM CDT Telemedicine Division of Endocrinology in [place], [place] [address] [place] [phone] Merry Donahue APRN, C.N.P. [address] [place] [phone] 07/01/2024 4:20 PM CDT Telemedicine Division of Gastroenterology in [place], [place] [address] [place] [phone] Denise Tubbs M.D. [address] [place] [phone] documented as of this encounter Visit Diagnoses Not on filedocumented in this encounter Additional Health Concerns Infection Onset Date Last Indicated Resolved Time COVID19 Pending 08/02/2023 08/02/2023 08/02/2023 1 :45 PM CDT Assessment Noted Time PHQ-9 Depression Total Score: 4 03/12/20 17 3:53 PM CDT documented as of this encounter Care Teams Petal Cutter Relationship Specialty Start Date End Date Elsewhere, Pcp PCP - General Internal Medicine 08/02/23 documented as of this encounter
--- OUTSIDE RECORDS SUMMARY | 2024-05-04 17:53 | XMS_ITS | Clinical Summary ---
Author Organization [facility] Address [place], [place] [address] Care Team Providers Care Storyboard Artist Name Role Phone Nayeli Orourke MD Primary Care Provide r Carline Puente NP Unavailable Unavailable Jermain Collado MD Unavailable + [facility] Unavailable [phone] Allergies Active Allergy Reactions Criticality Noted Date Comments Nsaids (Non-Steroidal Anti-Inflammatory Drug) Other - Describe In Comment Field 07/07/2012 Patient had gastric bypass surgery. Should not take oral NSAID's ever. Medications Medication Sig Dispensed Refills Start Date End Date Status MULTIVITAMIN WITH MINERALS (MULTIVITAMIN & MINERAL FORMULA ORAL) Take 1 Tab by mouth 2 times daily. Active CALCIUM CITRATE/VITAMIN D3 (CALCIUM CITRATE + D ORAL) Take by mouth. Take up to 2000 mg by oral route every day in divided doses. Active cholecalciferol (VITAMIN D3) 2,000 unit capsule Take 2,000 Units by mouth once daily. Active acetaminophen (TYLENOL) 650 mg tablet Take 1 tablet by mouth every 6 hours. Max acetaminophen dose: 4000mg in 24 hrs. 90 tablet 0 08/24/2012 Active iron,carbonyl-evette min C (Vitron-C) 65 mg iron- 125 mg Delayed-Release tablet Take 1 Tablet by mouth once daily. 0 02/16/2022 Active omeprazole (PRILOSEC) 40 mg Delayed-Release capsule Take 1 Capsule by mouth two times daily. 07/24/2022 Active cyanocobalamin (VITAMIN B12) 2,500 mcg tablet Take 2,500 mcg by mouth once daily. 07/30/2023 Active furosemide (LASIX) 20 mg tabletIndications: Left leg swelling Take 1 Tablet (20 mg) by mouth once daily in the morning. 90 Tablet 3 03/24/2024 Active Active Problems Patient Care Coordination No te Formatting of this note is d ifferent from the original. M[facility] binder sent. Weight Management - Adult Surgical Program -- [place] Initial Consult / Established Care 04/24/2022 with Zaida Jeffers PA-C To be GIVEN SWL BINDER by Registered Nurse or Registered Dietitian Nohemy Mathews RN Intake (Initial measurements): 08/31/22 was pursuing distalization with Dr. Adams- no benfits & unable to proceed MAY have benefits added in 2022 -TBD req 11/06/22 Wt Readings from Last 1 Encounters: 04/24/22 108.8 kg (239 lb 12.8 oz) lbs, Ht Readings from Last 1 Encounters: 04/24/22 1.529 m (5' 0.2) , Body mass index is 46.53 kg/m??. Planned Operation: TO BE PRESENTED AT [facility] - s/p VBG to LAPAROSCOPIC BRAD-EN-Y GASTRIC BYPASS on 06/12/[address] Martinez; VBG [place] [address] Zapata Payor: MEDICA / Plan: MEDICA CHOICE / Product Type: *No Product type* / Additional Insurance requirements: TBD Est. Pgm Completion: ~ TBD Procedure Location: [employer] Co-morbidities: Past Medical History: . Date Adjustment disorder with depressed mood 05/10/2011 Bariatric surgery status 07/07/2012 Congenital dislocation of hip, unilateral Congenital dysplasia of left hip - total hip in 200405/07/2012 Depression 2010 HCD (health care directive) 07/25/2012 History of total hip arthroplasty 03/04/2012 Iron deficiency anemia 01/11/2017 Irregular heartbeat Irritable bowel syndrome Joint pain Lymphoma (HC) 05/30/2017 Not formally diagnosed-- has had suspicion of this with 8th rib lesion, but no formal diagnosis. Biopsy to date have been negative. Menopause Morbid obesity (HC) 06/11/2012 Multiple gastric polyps 04/07/2012 Nausea after anesthesia Obesity Obesity (BMI 30-39.9) 06/11/2012 Obesity, unspecified Osteoarthritis Paroxysmal tachycardia (HC) 08/06/2017 Prediabetes 12/21/2014 Restless legs Routine adult health maintenance 12/17/2014 Colonoscopy 11/2014 normal repeat in 10 years Skin cancer 2008 Spondylolisthesis, grade 2 04/10/2012 Stiffness in joint Stress incontinence Swelling UTI (lower urinary tract infection) 07/07/2012 Orders: Labs PENDING, ordered 04/24/2022 Imaging / Procedures Previous cholecystectomy (IF DOING Brad-en Y gastric bypass) Pre-Surgery Program Consults: Registered Dietitian: PENDING, # / TBD Mental Health: TBD, PENDING CLEARANCE Referrals: - Sleep Medicine for DAVID work-up: 3, consider ordering a sleep study - Physical Therapy: N/A - Gastroenterology: N/A - Cardiology: N/A - Hematology: N/A - Dental: N/A - Nicotine Cessation: N/A ( reports that she has never smoked. She has never used smokeless tobacco.) NOTES: Info Session: PASSED Binge Eating Disorder Concerns: QoL: Global Mental Health: 15 (04/16/2022 12:00 PM) Global Physical Health: 9 (04/16/2022 12:00 PM) No future appointments. Progress Note for Multidisciplinary Case Review on Reason for Multidisciplinary Case Review: Complex Medical Issues, History of Charisse Hoyt is a 56 y.o. female who presents today for evaluation of weight regain and discuss revision. She underwent open VBG by Dr. Zapata on 1995. She then underwent laparoscopic conversion from VBG to brad-en-Y gastric bypass (RC, RG; BP limb 25 cm, Brad limb 75 cm; omentum tacked over GJ anastomosis; 32 Fr gastric tube for GJ anastomosis), partial gastrectomy, and lysis of adhesions by Dr. Keo Martinez on June 12, 2012. She underwent conversion for obstructed VBG and weight regain. She currently weighs 239 pounds, BMI 46.53. She has been at this weight for about 10 years. Her weight at the time of surgery was 270 pounds. Her lowest weight after surgery was 190 pounds. She has been overweight since 17 years old. She feels that gradual overtime has contributed to her weight gain. She has tried diets, exercise and previous weight loss surgery in the past to lose weight. Her notes she has restriction at 1 cups. Follows 30/30 rule with liquids around eating. She has had previous abdominal surgeries: cholecystectomy, appendectomy, bladder repair, lumbar fusion (anterior/posterior approaches for L5, S1), and tubal ligation. She does not smoke cigarettes or vape. She does not use of ibuprofen. Current exercise program is walking 2 days per week with a cane--this has been limited due to increasing back pain and hip pain. She is following the recommended bariatric vitamins and supplements with the addition of iron infusions (this spring) and every 2-3 years since her surgery. She has restless legs, urinary incontinence, irregular heartbeat, and osteoarthritis (back, hip, knee) with her obesity. She denies bloating, abdominal pain, difficulty swallowing, nausea, or vomiting. She is not under the care of a psychiatrist/psychologist/therapist. A comprehensive review of imaging and relevant past medical history occured. Upper GI Series (05/02/22): Esophageal motility: Decreased particularly in the prone oblique position. No GERD 5.1 cm sliding hiatal hernia No stricture or mass Upper GI Endoscopy (06/20/22): Impressions/Post-Op Diagnosis: - Normal esophagus. Small hiatal hernia with Carlos's ulcer. - Z-line irregular, 37 cm from the incisors. Biopsied. - Gastric bypass with a pouch 5 cm in length and intact staple line. Exposed edinson causing mild inflmamatory changes. Gastrojejunal anastomosis characterized by healthy appearing mucosa. Biopsied. - Normal examined Brad limb. Biopsy Results (06/20/22): A) STOMACH, BIOPSY: 1. Normal gastric body mucosa 2. Negative for Helicobacter B) ESOPHAGUS, DISTAL, BIOPSY: 1. Eosinophilic esophagitis (peak count of 45) 2. Negative for columnar mucosa Manometry (NA): NA Staff present from [facility], [facility], [facility] & [facility] including Surgeons, Advance Practice Clinicians, Bariatric Nurse Clinicians, Registered Dietitians, Psychologists Patient notified by Medical message on: 07/13/22 Problem Noted Date Diagnosed Date Pap smear for cervical cancer screening 04/03/20 Overview: 03/24/2024: NIL/HPV negative Plan: Pap and HPV in 5 years. Other pulmonary embolism without acute cor pulmo nale 08/29/2023 History of repair of hiatal hernia 10/10/2022 Weight gain 08/22/2022 Rib lesion 02/16/2022 Osteoporosis 05/09/2018 Colon polyp 07/08/2017 Overview: Colonoscopy 06/2017 polyp repeat in 5 years Colonoscopy 07/2022 TA, repeat in 5 years Iron deficiency anemia 01/11/2017 Degenerative disc disease, lumbar 08/20/2012 HCD (health care directive) 07/25/2012 Bariatric surgery status 07/07/2012 Morbid obesity with BMI of 40.0-44.9, adult 05/28 Overview: S/p gastric bypass. Congenital dysplasia of left hip - total hip in 200405/07/2012 Spondylolisthesis, grade 2 04/10/2012 Multiple gastric polyps 04/07/2012 History of total hip arthroplasty 03/04/2012 Resolved Problems Problem Noted Date Diagnosed Date Resolved Date Hiatal hernia with GERD 08/22/202209/27 Routine adult health maintenance 12/17/2014 12/27/2016 Overview: Colonoscopy 11/2014 normal repeat in 10 years UTI (lower urinary tract infection) 07/07/2012 08/07/2012 Complications of stapling of GI tract 04/07/2012 07/07/2012 Bariatric surgery status: ve rtical banded gastroplasty 03/04/2012 07/07/2012 Overview: -dilated proximal pouch, 2 staple disruptions, obstructed gastroplasty channel, by endoscopy. Congenital dislocation of hip, unilateral 01/30/2007 05/07/2012 Obesity, unspecified 01/30/2007 009 Gastroesophageal reflux dise ase without esophagitis 10/10/2022 Encounters Date Type Department Care Team Description 03/25/2024 Telephone [facility] [address] [place] [address] Nayeli Orourke MD Medication Management (Feraheme x's 2) 03/24/2024 8:25 AM CDT Office Visit [facility] [address] [place] [address] Nayeli Orourke MD Physical (58 years); Fatigue (less energy) 03/24/2024 7:20 AM CDT Ancillary Procedure [facility] [address] [place] [address] 03/23/2024 Travel from Last 3 Months Immunizations Name Administration Dates Next Due COVID-19 vaccine (Corrine-J& J) PF, MDV 01/07/2021 COVID-19 vaccine (Smeam.com-Bio NTech 30mcg/0.3mL) 12YO+ BIVALENT PF, MDV 09/21/2022 COVID-19 vaccine (Pfizer-Bio NTech 30mcg/0.3mL) PF, MDV 03/15/2022 Influenza A (H1N1), Inactivated 10/05/2009 Influenza Virus, Unspecified 06/29/2019,07/28/20 14 Influenza, IIV3 (Age >=3 years) 08/28/20 17,08/25/2014,07/25/2012,2005 Influenza, IIV4 09/21/2022,07/26/2021,12/30/2020 Influenza, IIV4 (=>6mos) MDV 08/19/2019 Influenza, Injectable, Mdck, Quadrivalent, W/preservative 07/26/2021 Td (Age >=7 Years) 04/06/1999 Tdap 03/15/2022,06/06/2011 Family History Medical History Relation Name Comments Cancer-colon Brother Heart Disease Father 3 vessel bypas s Hyperlipidemia Father Hypertension Father Obesity Father Stroke Father Diabetes Mother AGe 60s Other Mother parkinsons /Manager Printing hns disease/ myodisplsia Cancer-breast Paternal Grandmother Heart Disease Sister 2 congenital- op en heart surgery when 1yo Cancer-ovarian No Family History Relation Name Status Comments Brother Alive X3 Father Alive Mother (Age 69) mylodyspla erik Paternal Grandmother Sister 1 Alive X3 Sister 2 Social History Tobacco Use Types Packs/Day Years Used Date Smoking Tobacco: Never Passive Smoke Exposure: Never Smokeless Tobacco: Never Tobacco Cessation:Counseling Given: Yes Alcohol Use Standard Drinks/Week Comments Not Currently 0 (1 standard drink = 0.6 oz pur e alcohol) 2 drinks a month PHQ-2 Answer Date Recorded PHQ-2 TOTAL SCORE 0 03/24/2024 Social Connections Answer Date Recorded Frequency of Communication with Friends and Fami ly 0 11/29/2023 Financial Resource Strain Answer Date R ecorded Difficulty of Paying Living Expenses 3 11/29/2023 Difficulty of Paying Living Expenses Not on file 11/29/2023 Food Insecurity Answer Date Recorded Worried About Running Out of Food in the Last Ye ar 1 11/29/2023 Transportation Needs Answer Date Record ed Lack of Transportation (Medical) 1 11/29/2023 Housing Stability Answer Date Recorded Unable to Pay for Housing in the Last Year 1 11/29/2023 Sex and Gender Information Value Date Recorded Sex Assigned at Not on file Gender Identity Not on file Sexual Orientation Not on file Obstetrics History Para Term AB IAB SAB Ectopic Multiple Livin g Live Births 4 4 4 4 4 Date Outcome GA Total Labor Labor/11/30 Weight Sex Type Anes PTL Crys A1 A5 Name Clin 01/17 Term 24h 00m 3.18 kg (7 lb) M VAGINAL JAH Living 09/14 Term 14h 00m 4.08 kg (9 lb) M Vag Living 08/01 Term 24h 00m 4.54 kg (10 lb) M Vag Living 03/09 Term 24h 00m 2.72 kg (6 lb) F Vag Living Last Filed Vital Signs Vital Sign Reading Time Taken Comments Blood Pressure 109/71 03/24/2024 8:20 AM CDT Pulse 67 03/24/2024 8:20 AM CDT Temperature 36.6 ??C (97.8 ??F) 09/12/2023 9:05 AM CS T Respiratory Rate 18 09/12/2023 9:05 AM [employer] Oxygen Saturation 97% 03/24/2024 8:20 AM CDT Inhaled Oxygen Concentration - - Weight 97.1 kg (214 lb 1.6 oz) 03/24/2024 8:20 A M CDT Height 164.5 cm (5' 4.75) 03/24/2024 8:20 AM CD T Body Mass Index 35.9 03/24/2024 8:20 AM CDT Plan of Treatment Health Maintenance Due Date Last Done Comments Zoster (shingles) series for age 50+ (1 of 2) 2014 COVID-19 vaccine series ( season) 2023 09/21/2022, 03/15/2022, 09/04/2021, Additional history exists Influenza for age 50-64 06/28/2024 09/21/20 22, 07/26/2021, 07/26/2021, Additional history exists BMI (ht and wt on same day) for age 18+ 03/24/2025 03/24/2024, 12/03/2023, 03/15/2023, Additional history exists Mammogram for age 45-75 03/24/2025 03/24/20 24, 03/15/2023, 02/16/2022, Additional history exists Depression screening for age 12+ 03/25/2025 03/25/2024, 03/24/2024, 08/29/2023, Additional history exists Colonoscopy through age 75 08/23/202708/23, 08/23/2022, 08/23/2022, Additional history exists Lipids for age 45-75 03/24/2029 03/24/2024, 03/08/2023, 12/30/2020, Additional history exists Pap test for age 21-65 03/24/2029 , 03/24/2024, 12/30/2020, Additional history exists Tetanus booster 03/15/2032 03/15/2022, 05/28, 04/06/1999 HIV for age 15-65 Completed 05/11/2011 Hepatitis C screening for age 18-79 Completed 05/11/2011 Tdap Completed 03/15/2022, 06/06/2011 Pneumococcal series for age 6-64 Aged Out No longer eligible based on patient's age to complete this topic Medical Devices Implanted Type Area Certified Art Therapist Device Identifier Shelf Expiration Date Model / Serial / Lot [id number] 1095bone Canclls Crushed 30cc [[id number] Implanted:Qty: 1 on 08/20/2012 at [facility] Explanted:(Jonah titthai not on file) Spine Musculoskeletal Transplant 05/03/2015 [id number]# / [id number] / [id number] bone Prec Graft [id number] ] Implanted:Qty: 1 on 08/20/2012 at [facility] Explanted:at [facility] (Quantity not on file) Spine SPINAL GRAFT 07/15/2016 [id number]# / [id number] / Screw Low Profile 6.5x30mm [id number] - [id number] Implanted:Qty: 1 on 08/20/2012 at [facility] N/A: Lumbar Vertebrae Medtronic Spine/Ortho [id number]# / / Washer 17mm - [id number] Implanted:Qty: 1 on 08/20/2012 at [facility] N/A: Lumbar Vertebrae Medtronic Spine/Ortho [id number]# / / Screw Post 6.5x40mm Std Trio Thoraco-Lmbr - [id number] Implanted:Qty: 2 on 08/20/2012 by Milana Abbott MD at [facility] N/A: Spine [place] Spine [id number]# / / Screw Post 6.5x50mm Std Trio Thoraco-Lmbr - [id number] Implanted:Qty: 2 on 08/20/2012 by Milana Abbott MD at [facility] N/A: Spine [place] Spine [id number]# / / Matt Valeria Rad 40mm 108mm Radius - [id number] Implanted:Qty: 2 on 08/20/2012 by Milana Abbott MD at [facility] N/A: Spine Adilene Spine [id number]# / / Cnnctr Sm Offset - [id number] Implanted:Qty: 4 on 08/20/2012 by Benjamin Pereira PA at [facility] N/A: Spine [place] Spine [id number]# / / Kit Infuse Sm - [id number] Implanted:Qty: 1 on 08/20/2012 at [facility] Spine Medtronic Spine/Ortho [id number]# / / [id number] I Mesh Hiatal 7x10cm Bio-A - [id number] Implanted:Qty: 1 on 10/05/2022 by Jermain Crowe MD at [facility] N/A: Abdomen [employer] 05/29/2025 [id number] / [id number] / Procedures Procedure Name Priority Date/Time Associated Diagnosis Comments RED CELL MORPHOLOGY Routine 03/24/2024 9 :42 AM CDT Fatigue, unspecified type PLATELET ESTIMATE Routine 03/24/2024 9:4 2 AM CDT Fatigue, unspecified type MANUAL DIFFERENTIAL Routine 03/24/2024 9 :42 AM CDT Fatigue, unspecified type CBC WITH AUTO DIFFERENTIAL Routine 03/24/2024 9:42 AM CDT Fatigue, unspecified type FERRITIN Routine 03/24/2024 9:42 AM CDT Fatigue, unspecified type LIPID PANEL W REFLEX MEASURED LDL Routine 03/24/2024 9:42 AM CDT Lipid screening COMP METABOLIC PANEL Routine 03/24/2024 9:42 AM CDT Fatigue, unspecified type TSH WITH REFLEX Routine 03/24/2024 9:42 AM CDT Fatigue, unspecified type CBC WITH AUTO DIFFERENTIAL Routine 03/24/2024 9:42 AM CDT Fatigue, unspecified type POT PUSHER THIN PREP PAP SCREEN IMAGED Routine 03/24/2024 9:26 AM CDT Screening for cervical cancer HPV THIN PREP Routine 03/24/2024 9:26 AM CDT Screening for cervical cancer XR MAMMO JACKIE BILAT SCREEN Routine 03/24/2024 7:32 AM CDT Encounter for screening mammogram for malignant neoplasm of breast COLONOSCOPY SCREENING Routine 08/23/2022 12:46 PM CDT History of colon polyps ANTI HIV 1/2 Routine 05/11/2011 5:16 PM CDT Screening for STDs (sexually transmitted diseases) ANTI HCV Routine 05/11/2011 5:16 PM CDT Screening for STDs (sexually transmitted diseases) from Last 3 Months or Most Recently Relevant to Health Maintenance Results * (ABNORMAL) CBC WITH AUTO DIFFERENTIAL (03/24/2024 9:42 AM CDT) WHITE BLOOD COUNT 7.0 4.5 - 11.0 thou/cu mm 03/24/2024 10:26 AM CDT [facility] RED BLOOD COUNT 4.47 4.00 - 5.20 mil/cu mm 03/24/2024 10:26 AM CDT [facility] HEMOGLOBIN 12.2 12.0 - 16.0 g/dL 03/24/2024 10:26 AM CDT [facility] HEMATOCRIT 39.1 33.0 - 51.0 % 03/24/2024 10:26 AM CDT [facility] MCV 88 80 - 100 fL 03/24/2024 10:26 AM CDT [facility] MCH 27.3 26.0 - 34.0 pg 03/24/2024 10:26 AM CDT [facility] MCHC 31.2(L) 32.0 - 36.0 g/dL 03/24/2024 10:26 AM CDT [facility] RDW 14.1 11.5 - 15.5 % 03/24/2024 10:26 AM CDT [facility] PLATELET COUNT 321 140 - 440 thou/cu mm 03/24/2024 10:26 AM CDT [facility] MPV 10.6 6.5 - 11.0 fL 03/24/2024 10:26 AM CDT [facility] Blood BLOOD SPECIMEN / Unknown Venipuncture / Unknown 03/24/2024 9:42 AM CDT 03/24/2024 9:42 AM CDT Nayeli Orourke MD HEMATOLOGY [facility] [address] [place] [address], * RED CELL MORPHOLOGY (03/24/2024 9:42 AM CDT) RBC COMMENT RBC morphology appears normal RBC morphology appears normal, RBC morphology within normal limits for newborns. 03/24/2024 10:26 AM CDT [facility] Blood BLOOD SPECIMEN / Unknown Venipuncture / Unknown 03/24/2024 9:42 AM CDT 03/24/2024 9:42 AM CDT Nayeli Orourke MD HEMATOLOGY Performing Organization Address City/[facility] Co de Phone Number [facility] [address] [place] [address], * PLATELET ESTIMATE (03/24/2024 9:42 AM CDT) PLATELET ESTIMATE Adequate Adequate, No estimate 03/24/2024 10:26 AM CDT [facility] Blood BLOOD SPECIMEN / Unknown Venipuncture / Unknown 03/24/2024 9:42 AM CDT 03/24/2024 9:42 AM CDT Nayeli Orourke MD HEMATOLOGY Performing Organization Address [facility] de Phone Number [facility] [address] [place] [address], [place] [phone] * TSH WITH REFLEX (03/24/2024 9:42 AM CDT) TSH 2.12 0.27 - 4.20 uIU/mL 03/24/2024 7:05 PM CDT [facility] Blood BLOOD SPECIMEN / Unknown Venipuncture / Unknown 03/24/2024 9:42 AM CDT 03/24/2024 9:42 AM CDT Narrative [facility] - 03/24/2024 7:05 PM CDT In Adults, TSH values between 5.00 and 10.00 uIU/ml do not necessarily indicate the presence of Hypothyroidism. Correlation with clinical findings such as presence of goiter and/or Thyroperoxidase (TPO) Antibody may be helpful. For more information please refer to JORGE 2004; 291: 228-238. Nayeli Orourke MD CHEMISTRY Performing Organization Address [facility] Co de Phone Number [facility] [address] [place] [address], * (ABNORMAL) LIPID PANEL W REFLEX MEASURED LDL (03/24/2024 9:42 AM CDT) CHOLESTEROL,TOTAL 229(H) 100 - 199 mg/dL 03/24/2024 7:05 PM CDT [facility] Comment: Cholesterol, Total Reference Ranges Desirable <200 mg/dL Borderline 200-239 mg/dL High >=240 mg/dL TRIGLYCERIDES 87 <150 mg/dL 03/24/2024 7:05 PM CDT [facility] HDL CHOLESTEROL 68 >40 mg/dL 7:05 PM T [facility] NON-HDL CHOLESTEROL 161(H) <145 mg/dl 03/24/2024 7:05 PM T [facility] CHOL/HDL RATIO 3.37 <4.50 03/24/2024 7:05 PM T [facility] LDL CHOLESTEROL 144(H) <=130 mg/dL 03/24/2024 7:05 PM T [facility] VLDL CHOLESTEROL 17 <=30 mg/dL 03/24/2024 7:05 PM T [facility] PROVIDER ORDERED STATUS RANDOM 03/24/2024 7:05 PM T [facility] Blood BLOOD SPECIMEN / Unknown Venipuncture / Unknown 03/24/2024 9:42 AM CDT 03/24/2024 9:42 AM CDT Nayeli Orourke MD CHEMISTRY [facility] [address] [place] [id number], * MANUAL DIFFERENTIAL (03/24/2024 9:42 AM CDT) % NEUTROPHILS 59.0 % 03/24/2024 10:26 AM CDT [facility] % LYMPHOCYTES 36.0 % 03/24/2024 10:26 AM CDT [facility] % MONOCYTES 5.0 % 03/24/2024 10:26 AM CDT [facility] % EOSINOPHILS 0.0 % 03/24/2024 10:26 AM CDT [facility] % BASOPHILS 0.0 % 03/24/2024 10:26 AM CDT [facility] NEUTROPHILS ABSOLUTE 4.1 1.7 - 7.0 thou/cu mm 03/24/2024 10:26 AM CDT [facility] LYMPHOCYTES ABSOLUTE 2.5 0.9 - 2.9 thou/cu mm 03/24/2024 10:26 AM CDT [facility] MONOCYTES ABSOLUTE 0.4 <0.9 thou/cu mm 03/24/2024 10:26 AM CDT [facility] EOSINOPHILS ABSOLUTE 0.0 <0.5 thou/cu mm 03/24/2024 10:26 AM CDT [facility] BASOPHILS ABSOLUTE 0.0 <0.3 thou/cu mm 03/24/2024 10:26 AM CDT [facility] Blood BLOOD SPECIMEN / Unknown Venipuncture / Unknown 03/24/2024 9:42 AM CDT 03/24/2024 9:42 AM CDT Nayeli Orourke MD HEMATOLOGY [facility] [address] [place] [address], [place] [phone] * (ABNORMAL) FERRITIN (03/24/2024 9:42 AM CDT) [facility] FERRITIN 7.5(L) 15.0 - 150.0 ng/mL 03/24/2024 7:17 PM CDT [facility] Blood BLOOD SPECIMEN / Unknown Venipuncture / Unknown 03/24/2024 9:42 AM CDT 03/24/2024 9:42 AM CDT Nayeli Orourke MD CHEMISTRY [facility] [address] [place] [id number], [place] * COMP METABOLIC PANEL (03/24/2024 9:42 AM CDT) SODIUM 143 136 - 145 mmol/L 03/24/2024 7:05 PM T [facility] POTASSIUM 4.8 3.5 - 5.1 mmol/L 03/24/2024 7:05 PM T [facility] CHLORIDE 107 98 - 107 mmol/L 03/24/2024 7:05 PM [facility] CO2,TOTAL 25 22 - 29 mmol/L 03/24/2024 7:05 PM [facility] ANION GAP 11 5 - 18 03/24/2024 7:05 PM [facility] GLUCOSE 95 70 - 99 mg/dL 03/24/2024 7:05 PM [facility] CALCIUM 9.3 8.6 - 10.0 mg/dL 03/24/2024 7:05 PM [facility] BUN 9 6 - 20 mg/dL 03/24/2024 7:05 PM [facility] CREATININE 0.71 0.50 - 0.90 mg/dL 03/24/2024 7:05 PM [facility] BUN/CREAT RATIO 13 10 - 20 7:05 PM [facility] eGFR >90 >90 mL/min/1.7 3m2 03/24/2024 7:05 PM [facility] Comment:As of 2022, eG FR is calculated by the CKD-EPI creatinine equation without race adjustment. ??eGFR can be influenced by muscle mass, exercise, and diet. ??The reported eGFR is an estimation only and is only applicable if the renal function is stable. ALBUMIN 4.3 4.0 - 4.9 g/dL 03/24/2024 7:05 PM T [facility] PROTEIN,TOTAL 6.8 6.0 - 8.0 g/dL 03/24/2024 7:05 PM [facility] BILIRUBIN,TOTAL 0.3 0.0 - 1.2 mg/dL 03/24/2024 7:05 PM CDT [facility] ALK PHOSPHATASE 98 35 - 104 IU/L 03/24/2024 7:05 PM CDT [facility] ALT (SGPT) 25 10 - 35 IU/L 03/24/2024 7:05 PM CDT [facility] AST (SGOT) 25 10 - 35 IU/L 03/24/2024 7:05 PM CDT [facility] Blood BLOOD SPECIMEN / Unknown Venipuncture / Unknown 03/24/2024 9:42 AM CDT 03/24/2024 9:42 AM CDT Nayeli Orourke MD CHEMISTRY [facility] [address] [place] [id number], * POT PUSHER THIN PREP PAP SCREEN IMAGED [[id number]] (03/24/2024 9:26 AM CDT) Case Report Gynecologic Cytology Report ? Case: [id number] ? Authorizing Provider: ??Nayeli Orourke, ??Collected: ? 03/24/2024 0926 ? Ordering Location: ? [facility] ?? Received: ?03/24/2024 0926 ? Clinic ? First Screen: ?Kia Jones ? Specimen: ?POT PUSHER ThinPrep Vial Screening, Cervical ? 04/01/2024 2:43 PM CDT [facility]- [facility]AL LABORATORY INTERPRETATION/ RESULT NEGATIVE FOR INTRAEPITHELIAL LESION OR MALIGNANCY (NIL) (none) 04/01/2024 2:43 PM CDT [facility]- [facility]AL [facility] IMEN ADEQUACY Satisfactory for evaluation Endocervical component present 04/01/2024 2:43 PM CDT [facility]- EN[facility]AL LAB[facility]ATORY HPV REQUEST HPV and PAP 04/01/2024 2:43 PM CDT [facility]-C ENTRAL LABORATORY Date of LMP years ago 04/01/2024 2:43 PM CDT [facility] EN[facility]AL [facility] Last Pap Date 12/30/20 04/01/2024 2:43 PM CDT [facility]AL [facility] Last Pap Result NIL 2:43 PM CDT [facility]- EN[facility]AL [facility]ORY Abnormal Pap or [place] Bx in last 5 years No 04/01/2024 2:43 PM CDT [facility] Menstrual Status Postmenopausal 04/01/2024 2:43 PM CDT [facility] [place] Bx Done Today No 04/01/2024 2:43 PM CDT [facility] Additional Information None given 04/01/2024 2:43 PM CDT [facility] Comment: Cytology is screened at [facility] - [address], [place] [address] and [facility] - [address], [place] [address] and [facility] - [address] [place] [address] Interpreted at [facility] - [address], [place] [address] Automated Review Successful 04/01/2024 2:43 PM CDT [facility] Comment:Specimen processed s uccessfully by automated stator tester device, ThinPrep Imaging System, [employer] ANCILLARY TESTING POT PUSHER HPV Ordered, Please see separate report 04/01/2024 2:43 PM CDT [facility] Note The pap test is a screening technique, not a diagnostic procedure. It is used primarily to screen for squamous cancers and precursor lesions. Published studies have shown that it is subject to both false negative and false positive results. The pap test should not be used as the sole means to diagnose or exclude pre-malignant and malignant lesions. 04/01/2024 2:43 PM CDT [facility] Other (Cervical) Non-Blood / Unknown 03/24/2024 9:26 AM CDT 03/24/2024 9:26 AM CDT Nayeli Orourke MD PATHOLOGY/CYT OLOGY [facility] [address] [place] [address], * HPV HIGH RISK (03/24/2024 9:26 AM CDT) TYPE 16 Negative Negative 03/27/2024 6:00 AM CDT [facility] TYPE 18 Negative Negative 03/27/2024 6:00 AM CDT [facility] OTHER HIGH RISK TYPES Negative Negative 03/27/2024 6:00 AM CDT [facility] Other (Cervical) Non-Blood / Unknown 03/24/2024 9:26 AM CDT 03/25/2024 8:34 AM CDT Narrative [facility] - 03/27/2024 6:00 AM CDT HPV types 16, 18, 31, 33, 35, 39, 45, 51, 52, 56, 58, 59, 66 and 68 DNA were undetectable or below the pre-set threshold. Methodology: Germmatters Peter 4800 HPV Test Nayeli Orourke MD MICROBIOLOGY [facility] [address] [place] [address], [place] * XR MAMMO JACKIE BILAT SCREEN (03/24/2024 7:32 AM CDT) Anatomical Region Laterality Modality BREASTS, Breast Left, Breast Right Bilateral Mammography Impressions 03/25/2024 1:38 PM CDT ??There is no radiographic evidence for malignancy. ??Recommend annual mammograms. MAMMOGRAM ASSESSMENT: ??ACR 1 Negative PATIENTS: You will also receive a letter with your examination results in an easy to read format. ??If you have questions about your results, please contact your referring provider. Narrative 03/25/2024 1:38 PM CDT For Patients: As a result of the 21st Century Cures Act, medical imaging exams and procedure reports are released immediately into your electronic medical record. You may view this report before your referring provider. If you have questions, please contact your health care provider. XR MAMMO JACKIE BILAT SCREEN [[id number]] CLINICAL HISTORY: ??This is an asymptomatic 58 y.o. patient. INDICATION FOR EXAM: Mammogram Screening. TECHNIQUE: CC & MLO views were obtained. ??This study was evaluated with the assistance of Computer-Aided Detection. Breast Tomosynthesis was used in interpretation. COMPARISON FILM: Yes 03/15/23 [facility] 02/16/22 [facility] FINDINGS: ??The breasts are almost entirely fatty. There are no dominant masses, suspicious micro calcifications or areas of architectural distortion. Nayeli Orourke MD MAMMO * COLONOSCOPY (08/23/2022 11:38 AM CDT) 08/23/2022 11:3 8 AM CDT Narrative Transcriptions Keaton Agee MD - 08/23/2022 1:48 PM CDT Patient Name: Charisse Hoyt Procedure Date: 08/23/2022 Gender: Female Date of : 1965 Admit Type: Outpatient Procedure: Colonoscopy Proceduralist: Keaton Agee MD , Merry aZvala (Nurse), Gabrielle Taylor RN (Nurse) Referring MD: Nayeli Oorurke Indications/Pre-Op Diagnosis: High risk colon cancer surveillance:Personal history of adenoma less than 10 mm in size, Last colonoscopy: June 2017 Medications: Fentanyl 100 micrograms IV, Midazolam 4 mgIV, The level of sedation administered wasmoderate Procedure Description: The patient had risks, benefits and alternatives explained to andgave informed consent. The patient had a stable cardiopulmonary status and judged an adequate candidate for conscious sedation. The endoscope [id number] was passed through the anus andadvanced to the cecum, identified by appendiceal orifice and ileocecal valve.The colonoscopy was performed without difficulty. The patient toleratedthe procedure well. The quality of the bowel preparation was good. The ileocecal valve, appendiceal orifice, and rectum were photographed. Complications: No immediate complications. Estimated Blood Loss & Specimen: Estimated blood loss: none. Specimen collected - Yes and sent to Laboratory Findings: The perianal and digital rectal examinations were normal. A 4 mm polyp was found in the transverse colon. The polyp wassessile. The polyp was removed with a cold snare. Resection and retrieval were complete. The exam was otherwise without abnormality on direct and retroflexion views. Impressions/Post-Op Diagnosis: - One 4 mm polyp in the transverse colon, removed with a cold snare. Resected and retrieved. - The examination was otherwise normal on direct and retroflexionviews. Recommendation: - Patient has a contact number available for emergencies. The signsand symptoms of potential delayed complications were discussed with the patient. Return to normal activities tomorrow. Written discharge instructions were provided to the patient. - Resume previous diet. - Continue present medications. - Await pathology results. - Repeat colonoscopy is recommended. The colonoscopy date will be determined after pathology results from today's exam become available for review. Moderate Sedation: A time out was performed before the procedure. Moderate (conscious) sedation was administered by the endoscopy nurse and supervised bythe endoscopist. The following parameters were monitored: oxygensaturation, heart rate, blood pressure, EKG, CO2, respiratory rate, adequacy of pulmonary ventilation and reponse to care. Please refer to the patient's medical record flowsheets and nursing notes for moderate sedation details. Total physician intraservice time was 19 minutes. Keaton Agee MD 08/23/2022 1:48:29 PM This report has been signed electronically. Note Initiated On: 08/23/2022 11:38 AM Procedure Code(s): --- Professional --- 10844, Colonoscopy, flexible; with removalof tumor(s), polyp(s), or other lesion(s) bysnare technique Diagnosis Code(s): --- Professional --- Z86.010, Personal history of colonicpolyps D12.3, Benign neoplasm of transverse colon (hepatic flexure or splenic flexure) CPT copyright 2020 [employer]. All rights reserved. The codes documented in this report are preliminary and upon corpsman reviewmay be revised to meet current compliance requirements. Scope In: 1:27:03 PM Scope Withdrawal Time 0 hours 10 minutes 6 seconds Scope Out: 1:44:02 PM Keaton Agee MD PROCEDURE ORD * ANTI HCV (05/11/2011 5:16 PM CDT) ANTI HCV Non-reacti ve [facility] Blood specimen (specimen) BLOOD SPECIMEN / Unknown 05/11/2011 5:16 PM CDT 05/11/2011 5:11 PM CDT Nayeli Orourke MD SEND OUTS [facility] INTERNAL ZIP [address] [address] * ANTI HIV 1/2 (05/11/2011 5:16 PM CDT) ANTI HIV 1/2 Non-reacti ve [facility] Blood specimen (specimen) BLOOD SPECIMEN / Unknown 05/11/2011 5:16 PM CDT 05/11/2011 5:11 PM CDT Nayeli Orourke MD [facility] OUT[facility] [place]NAL ZIP [address] [address] from Last 3 Months or Most Recently Relevant to Health Maintenance Advance Directives Documents on File Type Date Recorded Patient Rubber Process Hand Expl anation Healthcare Directive 06/12/2012 6:48 AM He althcare Directive * Full Code (Latest Code Status on File) Date Activated Date Inactivated Comments 10/05/2022 9:36 AM 10/06/2022 4:15 PM Question Answer Comments Code Status Discussion: Reviewed Preferences * Full Code Date Activated Date Inactivated Comments 08/20/2012 4:11 PM 08/24/2012 4:43 PM * Full Code Date Activated Date Inactivated Comments 08/20/2012 5:53 AM 08/20/2012 4:11 PM * Full Code Date Activated Date Inactivated Comments 06/12/2012 5:43 AM 06/14/2012 3:02 PM * Full Code Date Activated Date Inactivated Comments 04/07/2012 12:32 PM 04/07/2012 5:00 PM Care Teams Storyboard Artist Relationship Specialty Start Date End Date Nayeli Orourke MD [address] [place] [address] PCP - General 02/15/06 Carline Puente NP [address] [place] [address] Nurse Practitioner - Adult 08/21/22 Jermain Collado MD [address] [facility] [address] [place] [address] Surgery - General 01/04/[address] [address] 08/27/23
--- OUTSIDE RECORDS SUMMARY | 2024-05-04 17:53 | XMS_ITS | Encounter Summary ---
Author Organization [place] Address [address] [place] [address] Care Team Providers Care Farmworker [employer]oder Farm Name Role Phone Nayeli Orourke Unavailable Sean Gaston MD Unavailable Nayeli Orourke Primary Care Provider Sonia Harley RN Unavailable [phone] Encounter Details Date Type Department Care Team (Late st Contact Info) Description 10/31/2017 [facility] Medical Advice [facility] [address] [facility] [address] [place] [address] Sean Gaston MD [address] [place] [address] Social History Tobacco Use Types Packs/Day Years Used Date Smoking Tobacco: Never Smokeless Tobacco: Never Alcohol Use Standard Drinks/Week Comments No 0 (1 standard drink = 0.6 oz pur e alcohol) Sex and Gender Information Value Date Recorded Sex Assigned at Female 11/25/2018 7:20 AM PHYSIOLOGIST Gender Identity Female 11/25/2018 7:20 AM PHYSIOLOGIST Sexual Orientation Straight 11/25/2018 7: 20 AM PHYSIOLOGIST documented as of this encounter Plan of Treatment Not on file documented as of this encounter Visit Diagnoses Not on filedocumented in this encounter Care Teams [employer]worker [employer] Relationship Specialty Start Date End Date Nayeli Orourke PCP - General Family Practice 11/26/17 Nayeli Orourke Referring Physician Family Practice 09/30/17 Sean Gaston MD [address] [place] [address] Orthopaedic Surgery 09/30/17 Sonia Harley, RN Registered Nurse Orthopaedic Surgery 12/20/17 documented as of this encounter
--- NOTE | 2024-05-04 18:00 | CRLHL7_ITS ---
For Patients: As a result of the Century Cures Act, medical imaging exams and procedure reports are released immediately into your electronic medical record. You may view this report before your referring provider. If you have questions, please contact your health care provider. INDICATION: Vaginal polyps COMPARISON: none TECHNIQUE: 2D guy scale and color Doppler images were acquired of the pelvis using a transabdominal and transvaginal approach. FINDINGS: Sonographic images demonstrate a normal size and smooth outer contour of the uterus. Uterus measures 7.3 cm in length by 4.3 cm in AP diameter by 4.9 cm in transverse dimension. Hyperechoic focus within the lower uterine segment/endocervical canal measures 7 x 5 x 8 millimeters. The endometrial lining appears normal and measures 4 mm in composite thickness. The right ovary measures 2.3 x 1.2 x 1.9 cm in size and the left ovary measures 1.8 x 1.7 x 1.7 cm. The ovaries demonstrate normal arterial and venous blood flow on color Doppler analysis. There are no suspicious fluid collections within the cul-de-sac. Hypoechoic area within the right ovary measures 17 x 12 x 17 millimeters. IMPRESSION: Hyperechoic focus within the lower uterine segment/endocervical canal may represent calcifications, possibly associated with prior procedure. Endometrial thickness 4 millimeters. No endometrial fluid. Hypoechoic right ovarian structure measures 1.7 cm with a trace amount of internal blood flow is suspected. No shadowing is present. Margins are smooth. Consider follow-up ultrasound in 6 months. Dictated by Kapil Caldwell MD @ 05/05/2024 6:12:10 AM (Electronically Signed)
== END 2024-05-04 17:48 | disposition home or self-care (01) ==
LOC: US 17:50
PROVIDERS: PCP Family Medicine; Visit Provider Obstetrics & Gynecology
DX: N84.2 Polyp of vagina (principal); R93.89 Abnormal findings on diagnostic imaging of other specified body structures
CPT/HCPCS: 76830; 76856

== ENCOUNTER 2024-05-21 07:10 | Day surgery (SDC) | payer OTHER, SELFPAY ==
--- OUTSIDE RECORDS SUMMARY | 2024-05-21 07:14 | XMS_ITS ---
Author Organization [facility] Address [address] [place] [address] Care Team Providers Care Forwarder Operator Name Role Phone Unavailable Unavailable Unavailable Surgery Details Not on file Complications Check Surgery Details section. Procedure Estimated Blood Loss Check Surgery Details section. Procedure Findings Check Surgery Details section. Procedure Specimens Taken Check Surgery Details section.
--- OUTSIDE RECORDS SUMMARY | 2024-05-21 07:14 | XMS_ITS | Referral Summary ---
Author Organization [facility] Address [address] [place] [address] Care Team Providers Care Packer Dried Beef Name Role Phone Elsewhere, Pcp Primary Care Provider Unavailabl e Source Comments Patient records contain information from all sites at [facility]. For routine questions regarding patient records, call [phone] during business hours, M-F 8:00 AM - 5:00 PM Central Time. Record requests for emergency care only can be directed to [phone] at any time.[facility] Encounters Date Type Department Care Team Description 04/01/2024 4:00 PM CDT Telemedicine Division of Gastroenterology in [place], [place] [address] [place] [address] Denise Tubbs M.D. Fistula Stomach; Bypass Gastric Comfort En Y Status Post; Hemorrhage Gastrointestinal from Last 3 Months Allergies Active Allergy Reactions Criticality Noted Date Comments Lip Cerrillos Spf 15 Anaphylaxis High 03/12/2017 Sylvester's Bees lip balm - swollen throat and [...] Shortness Of Breath 08/02/2023 Embolus Pulmonary 08/02/2023 Overview (08/02/2023): Right lower lobe Thrombosis Deep Vein Acute Lower Extremity Left 08/02/2023 Thrombosis Deep Vein Upper Extremity Acute Right 08/02/2023 Aftercare Feeding Tube 08/02/2023 Nausea 08/02/2023 Abscess Intra Abdominal 07/23/2023 Hernia Hiatal 07/15/2023 Obesity Body Mass Index 30-39.9 Adult 07/15/2023 Bypass Gastric Comfort En Y Status Post 07/15/2023 Osteoporosis 04/13/2019 Overview (05/17/2023): Diagnosed in 2017 based on screening bone density with worst T-score of -3.3 at her right femoral neck. Fracture history: Leg as an Toe No history of fragility fractures. No history of renal stones. She has history of congenital hip dysplasia, s/p hip replacment. Lumbar spinal fusion in 2011. She underwent gastric bypass surgery in 1997 at and a revision in 2011. She had [...] drink = 0.6 oz pur e alcohol) [facility] Utilities Answer Date Recorded In the past 12 months has e Locationary gas, oil, or water [employer] threatened to shut off services in your home? No 05/18/2024 Humiliation, Afraid, Rape, and Kick questionnair e [...] often do you attend chur ch or yazdanism services? Patient declined 08/28/2021 Do you belong to any clubs o r organizations such as gnosticism groups, unions, fraternal or athletic groups, or [...] exercise (like a brisk walk)? 0 days 05/18/2024 On average, how many minutes do you engage in exercise at this level? 0 min 05/18/2024 Hunger Vital Sign Answer Date Recorded Within the past 12 months, y ou worried that your food would run out before you got the money to buy more. Never true 05/18/20 24 Within the past 12 months, t he food you bought just didn't last and you didn't have money to get more. Never true 05/18/2024 PRAPARE - Transportation Answer Date Re corded In the past 12 months, has l ack of transportation kept you from medical appointments or from getting medications? No 04/28 In the past 12 months, has l ack of transportation kept you from meetings, work, or from getting things needed for daily living? No 05/18/2024 Nutrition Answer Date Recorded On average, how many serving s of fruits and vegetables do you eat per day (serving size is equal to 1 cup or approximately the size of a tennis ball)? 0-2 05/18/2024 Dental Answer Date Recorded Dental: Regular Dentist Yes 10/28/19 Employment Answer Date Recorded Employment status Employed and actively working without restrictions 05/18/2024 Housing Stability Answer Date Recorded What is your living situation today? I have a [facility] place to live 05/18/2024 Education Answer Date Recorded What is the [...] AM CDT Clinical Communication Virtual Review in [place], [place] 200 [place] [address] 05/22/2024 7:00 AM CDT Appointment Department of Radiology, [facility], in [place], [place] [address] [place] [phone] Arlene Loco, JOSÉ MANUEL, C.N.P. [address] [place] [phone] 05/22/2024 9:30 AM CDT Office Visit Division of Endocrinology in [place], [place] [address] [place] [phone] Arlene Loco APRN, C.N.P. [address] [place] [phone] 06/08/2024 8:15 AM CDT Clinical Communication Virtual Review in [place], [place] 200 [place] [phone] 06/09/2024 2:00 PM CDT Telemedicine Division of Endocrinology in [address] [phone] Merry Donahue APRN, C.N.P. [address] [place] [phone] 07/01/2024 4:20 PM CDT Telemedicine Division of Gastroenterology in [address] [phone] Denise Tubbs M.D. [address] [place] [phone] Medical Devices Implanted Type Area Nail Technician Teacher Device Identifier Shelf Expiration Date Model / Serial / Lot Stnt Kin Vbl [facility] 8x60 - [id number] - [id number] Implanted:Qty: 1 on 07/24/2023 by Awais Martinez D.O. at [facility] Biliary Stent [place] 02/04/2026 [id number] / Stnt Axios 15x10 - [id number] Implanted:Qty: 1 on 09/25/2023 by Henrique Daily M.D. at [facility] Biliary Stent [place] [employer] 07/23/2025 [id number] / / [id number] Self Tap-Screw 4.5 X 38 - [id number] Implanted:Qty: 1 on 06/07/1998 Hardware e.g. pins/screws/ rods Depuy Synthes Description:Device Manufactu rer - Synthes. Device Status Text - HARDWARE-65829. Self Tap-Screw 4.5 X 32 - [id number] [id number] Implanted:Qty: 1 on 06/07/1998 Hardware e.g. pins/screws/ rods Depuy Synthes Description:Device Manufactu rer - Synthes. Device Status Text - HARDWARE-51433. Dcp-Plate 90deg 10 65mm - [id number] [id number] Implanted:Qty: 1 on 06/07/1998 Hardware e.g. pins/screws/ rods Depuy Synthes Description:Device Manufactu rer - Synthes. Device Status Text - HARDWARE-75042. Self Tap-Screw 4.5 X 30 - Loza [id number] Implanted:Qty: 1 on 06/07/1998 Hardware e.g. pins/screws/ rods Depuy Synthes Description:Device Manufactu rer - Synthes. Device Status Text - HARDWARE-50017. Standard-Screw Mayo 4.5 X 50 - Loza [id number] Implanted:Qty: 1 on 06/07/1998 Hardware e.g. pins/screws/ rods Depuy Synthes Description:Device Manufactu rer - Synthes. Device Status Text - HARDWARE-34373. Self Tap-Screw 4.5 X 20 - Loza [id number] Implanted:Qty: 1 on 06/07/1998 Hardware e.g. pins/screws/ rods Depuy Synthes Description:Device Manufactu rer - Synthes. Device Status Text - HARDWARE-25033. [place] Screw 2 Canc 6.5 X 20 - Loza [id number] Implanted:Qty: 1 on 06/22/2005 Hardware e.g. pins/screws/ rods [employer] Description:Device Manufactu rer - J [employer] J [employer]. Device Status Text - HARDWARE-36535. [place] Screw 2 Canc 6.5 X 40 - Loza [id number] Implanted:Qty: 1 on 06/22/2005 Hardware e.g. pins/screws/ rods [employer] Description:Device Manufactu rer - J [employer] J Ortho. Device Status Text - HARDWARE-35588. [place] Screw 2 Canc 6.5 X 30 - Loza [id number] Implanted:Qty: 2 on 06/22/2005 Hardware e.g. pins/screws/ rods [employer] Description:Device Manufactu rer - J & J Ortho. Device Status Text - HARDWARE-65158. Hardware E.G. Pins/Screws/Rods -06/12/2012 Implanted:2011 (Quantity not on file) Hardware e.g. pins/screws/ rods Back [place] Shell Multi 2 56mm - [id number] Implanted:Qty: 1 on 06/22/2005 Hip Implant [employer] Description:Device Manufactu rer - J [employer]. Device Status Text - HIP IMP-43468. [place]-Stem Car 4 Hi - [id number] Implanted:Qty: 1 on 06/22/2005 Hip Implant [employer] Description:Device Manufactu rer - J [employer] J [employer]. Device Status Text - HIP IMP-06358. J J Articul Gui Head 36 - 2.0 - [id number] Implanted:Qty: 1 on 06/22/2005 Hip Implant [employer] Description:Device Manufactu rer - J [employer]. Device Status Text - HIP IMP-13926. J J Insert P Opal +4 10 36x56 - [id number] Implanted:Qty: 1 on 06/22/2005 Hip Implant [employer] Description:Device Manufactu rer - J & J Healthcare. Device Status Text - HIP IMP-41654. Clp Ots 12/6t 220 - [id number] Implanted:Qty: 1 on 11/25/2023 by Henrique Daily M.D. at [facility] [employer] 04/26/2026 100.31 / / [id number] Explanted Type Area Nail Technician Teacher Device Identifier Shelf Expiration Date Model / Serial / Lot Stnt Zmm Otw 7x7 - [id number] Implanted:Qty: 1 on 07/24/2023 by Awais Martinez D.O. at [facility] Explanted:Qty: 1 on 11/25/2023 at [facility] Biliary Stent [employer] 02/14/2026 [id number] / / [id number] Procedures Procedure Name Priority Date/Time Associated Diagnosis Comments COMPREHENSIVE METABOLIC PANEL, S/P Routine 11/15/2023 8:24 AM COLLECTIONS ATTORNEY Acute Gastrojejunal Ulcer With Hemorrhage Hemorrhage Gastrointestinal LIPID PANEL, S Routine 03/12/2017 11:56 AM CDT from Last 3 Months or Most Recently Relevant to Health Maintenance Advance Directives For more information, please contact: [phone] Documents on File Type Date Recorded Patient Hair Weaver Expl anation Advance Directives 07/25/2023 1:43 PM Sreedharcaprice Dunn ZiaChrosariolauro Boo HCPOA/ADVOCATE/AGENT/ CENTRAL OFFICE TECHNICIAN/SURROG ATE Advance Directives 06/26/2005 12:00 AM Leg [...] Name Relationship Healthcare Agent Relationship Communication Sreedhar Lizarraga Spouse Health Care Agent Carmencita Boo Sister First Altern ate Health Care Agent Care Teams Packer Dried Beef Relationship Specialty Start Date End Date Elsewhere, Pcp PCP - General Internal Medicine 08/02/23
--- OUTSIDE RECORDS SUMMARY | 2024-05-21 07:14 | XMS_ITS | Encounter Summary ---
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 [address] [place] [phone] [facility] Referral ID Status Reason Start Date Expiration Date Visits Re quested Visits Authorized [id number] Closed 01/21/2024 07/22/2025 1 1 Encounter Details Date Type Department Care Team (Latest Contact Info) Description 04/01/2024 4:00 PM CDT Telemedicine Division of Gastroenterology in [place], [place] [address] [place] [address] Denise Tubbs M.D. [address] [place] [phone] Fistula Stomach; Bypass Gastric Comfort En Y [...] How often do you attend chur or restorationist services? Patient declined 08/28/2021 Do you belong to any clubs o r organizations such as shinto groups, unions, fraternal or athletic groups, or [...] Answer Date Recorded PHQ-2 Score 0 04/07/2020 [facility] - [...] living situation today? I have a [facility] place to live 05/12/2023 Education Answer Date [...] exercising as much, still requiring a cane, sanding machine tender automatic -hgb is normal, ferritin is 7, likely [...] No specimens collected. Recommendation: - Please schedule ([phone]) a follow-up procedure with Dr. Daily under [...] 1 week shows no cavity, please schedule ([phone]) a follow-up procedure with Dr. Daily under [...] physician as previously scheduled. - Please schedule ([phone]) a follow-up procedure with Dr. Daily under [...] edges were approximated and one 12 mm yvws-yhz-yqjuw clip was successfully placed (MR conditional). Closure of the defect was successful. Clip black top roller: Genoom. There was no bleeding at the end [...] the content. Patient will be discussed with brand sales consultant Dr. Daily. documented in this encounter Plan of Treatment Upcoming Encounters Date Type Department Care Team (Latest Contact Info) Description 05/21/2024 7:15 AM CDT Clinical Communication Virtual Review in [place], [place] 200 [place] [address] 05/22/2024 7:00 AM CDT Appointment Department of Radiology, [facility], in [place], [place] [address] [place] [phone] Arlene Loco APRN, C.N.P. [address] [place] [phone] 05/22/2024 9:30 AM CDT Office Visit Division of Endocrinology in [address] [phone] Arlene Loco APRN, C.N.P. [address] [place] [phone] 06/08/2024 8:15 AM CDT Clinical Communication Virtual Review in [address] [phone] 06/09/2024 2:00 PM CDT Telemedicine Division of Endocrinology in [address] [phone] Merry Donahue APRN, C.N.P. [address] [place] [phone] 07/01/2024 4:20 PM CDT Telemedicine Division of Gastroenterology in [address] [phone] Denise Tubbs M.D. [address] [place] [phone] Scheduled Referrals Name Type Priority Associated Diagnoses [...] documented as of this encounter Care Teams Pillowcase Cutter Relationship Specialty Start Date End Date Elsewhere, Pcp PCP - General Internal Medicine 08/02/23 documented as of this encounter
--- OUTSIDE RECORDS SUMMARY | 2024-05-21 07:14 | XMS_ITS | Clinical Summary ---
Author Organization [facility] Address [address] [place] [address] Care Team Providers Care Aircraft Load Controller Name Role Phone Elsewhere, Pcp Primary Care Provider Unavailabl e Source Comments Patient records contain information from all sites at [facility]. For routine questions regarding patient records, call [phone] during business hours, M-F 8:00 AM - 5:00 PM Central Time. Record requests for emergency care only can be directed to [phone] at any time.[facility] Allergies Active Allergy Reactions Criticality Noted Date Comments Lip Euless Spf 15 Anaphylaxis High 03/12/2017 Mingo's Bees lip balm - swollen throat and [...] underwent gastric bypass surgery in 1997 at [facility] and a revision in 2011. She [...] PM CDT Telemedicine Division of Gastroenterology in [place], [place] [address] [place] [phone] Denise Tubbs M.D. Fistula Stomach; Bypass Gastric Comfort En Y Status Post; Hemorrhage Gastrointestinal from Last 3 Months Immunizations Name Administration Dates Next Due SARS-COV-2 (COVID-19) - JANS SEN (J&J)(Discontinued) 09/04/2021 Tdap 06/06/2011 influenza vaccine quad [...] Mother Dolore Breast cancer Paternal Grandmother Grandma Edwar Suicide Attempts Son Berny Relation Name Status Comments Brother 1 Shaun Brother 2 Patricia Father Markie Grandmother Mother Dolore Paternal Grandmother Grandma Gofredyl Son Berny Social History Tobacco Use Types Packs/Day Years Used Date Smoking Tobacco: Never Smokeless Tobacco: Never Tobacco Cessation:Counseling Given: Not Answered Alcohol Use Standard Drinks/Week Comments Not Currently 1 (1 standard drink = 0.6 oz pur e alcohol) [facility] Utilities Answer Date Recorded In the past 12 months has e [employer], oil, or water [employer] threatened to shut off services in your [...] week 08/28/2021 How often do you attend [facility] or taoist services? Patient declined 08/28/2021 Do you belong to any clubs o r organizations such as mosque groups, unions, fraternal or athletic groups, or [...] Answer Date Recorded PHQ-2 Score 0 04/07/2020 [facility] - Occupational [...] your living situation today? I have a [facility] place to live 05/18/2024 Education Answer [...] AM CDT Clinical Communication Virtual Review in [place], [place] 200 [place] [address] 05/22/2024 7:00 AM CDT Appointment Department of Radiology, [facility], in [place], [place] [address] [place] [phone] Arlene Loco APRN, C.N.P. [address] [place] [phone] 05/22/2024 9:30 AM CDT Office Visit Division of Endocrinology in [address] [phone] Arlene Loco APRN, C.N.P. [address] [place] [phone] 06/08/2024 8:15 AM CDT Clinical Communication Virtual Review in [address] [phone] 06/09/2024 2:00 PM CDT Telemedicine Division of Endocrinology in [address] [phone] Merry Donahue APRN, C.N.P. [address] [place] [phone] 07/01/2024 4:20 PM CDT Telemedicine Division of Gastroenterology in [address] [phone] Denise Tubbs M.D. [address] [place] [phone] Health Maintenance Due Date Last Done Comments CT Colonography 1964 Cologuard 1964 HIV Screening 1964 Pneumococcal vaccine (0-64 years) (1 of 2 - PCV) 1970 Hepatitis B Vaccines (1 of 3 - 19+ 3-dose series) 1983 Zoster Vaccines (1 of 2) 1983 Cervical Cancer Screening 10/28/20172014 (Performed elsewhere) COVID-19 Vaccine (5 - 2022- season) 2023 09/21/2022, 03/15/2022, 09/04/2021, Additional history [...] 11/15/2023, Additional history exists Colonoscopy 08/23/2027 08/23/2022, 03/0 10/2016 (Performed elsewhere) Colorectal Cancer Surveillance 08/23/2027 Lipid (Cholesterol) Screening 03/24/2029 03/24/2024, 03/08/2023, 12/30/2020, Additional history exists DTaP,Tdap,and Td Vaccines (3 - Td or Tdap) 03/15/2032 03/15/2022, 06/06/2011 Hepatitis C Screening Completed 02/01/2006 HPV Vaccines Aged Out No longer eligi ble based on patient's age to complete this topic Medical Devices Implanted Type Area Transformation Consultant Device Identifier Shelf Expiration Date Model / Serial / Lot Stnt Kin Vbl Shrt Wr 8x60 - [id number] - [id number] Implanted:Qty: 1 on 07/24/2023 by Awais Martinez D.O. at [facility] Biliary Stent [place] 02/04/2026 [id number] / [facility] [employer] 15x10 - [id number] Implanted:Qty: 1 on 09/25/2023 by Henrique Daily M.D. at [facility] Biliary Stent [employer] 07/23/2025 [id number] / / [id number] Self Tap-Screw 4.5 X 38 - [id number] [id number] Implanted:Qty: 1 on 06/07/1998 Hardware e.g. pins/screws/ rods Depuy Synthes Description:Device Manufactu rer - Synthes. Device Status Text - HARDWARE-90825. Self Tap-Screw 4.5 X 32 - Loza [id number] Implanted:Qty: 1 on 06/07/1998 Hardware e.g. pins/screws/ rods Depuy Synthes Description:Device Manufactu rer - Synthes. Device Status Text - HARDWARE-70777. Dcp-Plate 90deg 10 65mm - [id number] [id number] Implanted:Qty: 1 on 06/07/1998 Hardware e.g. pins/screws/ rods Depuy [employer]ynthe[employer] Description:Device Manufactu rer - Synthes. Device Status Text - HARDWARE-59937. Self Tap-Screw 4.5 X 30 - Loza [id number] Implanted:Qty: 1 on 06/07/1998 Hardware e.g. pins/screws/ rods Depuy [employer]ynthes Description:Device Manufactu rer - Synthes. Device Status Text - HARDWARE-09501. Standard-Screw Mayo 4.5 X 50 - Loza [id number] Implanted:Qty: 1 on 06/07/1998 Hardware e.g. pins/screws/ rods Depuy [employer]ynthes Description:Device Manufactu rer - Synthes. Device Status Text - HARDWARE-13339. Self Tap-Screw 4.5 X 20 - Loza [id number] Implanted:Qty: 1 on 06/07/1998 Hardware e.g. pins/screws/ rods Depuy [employer]ynthes Description:Device Manufactu rer - Synthes. Device Status Text - HARDWARE-22812. [place] Screw 2 Canc 6.5 X 20 - Loza [id number] Implanted:Qty: 1 on 06/22/2005 Hardware e.g. pins/screws/ rods [employer] Description:Device Manufactu rer - J & J Ortho. Device Status Text - HARDWARE-39816. [place] Screw 2 Canc 6.5 X 40 - Loza [id number] Implanted:Qty: 1 on 06/22/2005 Hardware e.g. pins/screws/ rods [employer] Description:Device Manufactu rer - J & J Ortho. Device Status Text - HARDWARE-05481. [place] Screw 2 Canc 6.5 X 30 - Loza [id number] Implanted:Qty: 2 on 06/22/2005 Hardware e.g. pins/screws/ rods [employer] Description:Device Manufactu rer - J & J Ortho. Device Status Text - HARDWARE-65543. Hardware E.G. Pins/Screws/Rods -06/12/2012 Implanted:2011 (Quantity not on file) Hardware e.g. pins/screws/ rods Back [place] Shell Multi 2 56mm - Loza [id number] Implanted:Qty: 1 on 06/22/2005 Hip Implant [employer] Description:Device Manufactu rer - J & J Healthcare. Device Status Text - HIP IMP-53877. [place]-Stem Car 4 Hi - [id number] [id number] Implanted:Qty: 1 on 06/22/2005 Hip Implant [employer] Description:Device Manufactu rer - J [employer]. Device Status Text - HIP IMP-49326. J J Articul Gui Head 36 - 2.0 - Loza [id number] Implanted:Qty: 1 on 06/22/2005 Hip Implant [employer] Description:Device Manufactu rer - J [employer]. Device Status Text - HIP IMP-12917. J J Insert P Opal +4 10 36x56 - [id number] [id number] Implanted:Qty: 1 on 06/22/2005 Hip Implant [employer] Description:Device Manufactu rer - J & J [employer]. Device Status Text - HIP IMP-75923. Clp Ots /6t 220 - [id number] Implanted:Qty: 1 on 11/25/2023 by Henrique Daily M.D. at [facility] [employer] [facility] 04/26/2026 100.31 / / [id number] Explanted Type Area Transformation Consultant Device Identifier Shelf Expiration Date Model / Serial / Lot Stnt Zmm Otw 7x7 - [id number] Implanted:Qty: 1 on 07/24/2023 by Awais Martinez D.O. at [facility] Explanted:Qty: 1 on 11/25/2023 at [facility] Biliary Stent [employer] 02/14/2026 [id number] / / [id number] Procedures Procedure Name Priority Date/Time Associated Diagnosis Comments COMPREHENSIVE METABOLIC PANEL, S/P Routine 11/15/2023 8:24 AM PNEUMATIC TOOL REPAIRER Acute Gastrojejunal Ulcer With Hemorrhage Hemorrhage Gastrointestinal LIPID PANEL, S Routine 03/12/2017 11:56 AM CDT from Last 3 Months or Most Recently Relevant to Health Maintenance Advance Directives For more information, please contact: [phone] Documents on File Type Date Recorded Patient Concrete Inspector Expl anation Advance Directives 07/25/2023 1:43 PM Sreedhar Boo HCPOA/ADVOCATE/AGENT/ SLIME PLANT OPERATOR HELPER/SURROG ATE Advance Directives 06/26/2005 12:00 AM Leg [...] Altern ate Health Care Agent Care Teams Aircraft Load Controller Relationship Specialty Start Date End Date Elsewhere, Pcp PCP - General Internal Medicine 08/02/23
--- OUTSIDE RECORDS SUMMARY | 2024-05-21 07:14 | XMS_ITS ---
Author Organization [facility] Address [address] [place] [address] Care Team Providers Care Crystal Report Developer Name Role Phone Elsewhere, Pcp Primary [...] underwent gastric bypass surgery in 1997 at [facility] and a revision in 2011. She [...] treatments are documented for this patient in [facility]. Treatments may have been administered in another system. Lifetime Dose Tracking * Chemical Lifetime Dose Automatic Entry Manual Entr y Radiation 502.8 mGy 502.8 mGy 0 mGy Fluoro Time 28.08 minutes 28.08 minutes 0 minutes Resolved Problems Problem Noted Date Diagnosed Date Resolved Date Effusion Pleural 07/24/2023 07/28/2023
--- OUTSIDE RECORDS SUMMARY | 2024-05-21 07:14 | XMS_ITS | Encounter Summary ---
Author Organization [facility] Address [address] [place] [address] Care Team Providers Care Manager Oracle Database Name Role Phone Elsewhere, Pcp Primary Care [...] How often do you attend chur or anabaptism services? Patient declined 08/28/2021 Do you belong to any clubs o r organizations such as confucianist groups, unions, fraternal or athletic groups, or [...] Answer Date Recorded PHQ-2 Score 0 04/07/2020 [facility] of Occupat ional Health - Occupational Stress [...] living situation today? I have a [facility] place to live 05/12/2023 Education Answer Date [...] AM CDT Clinical Communication Virtual Review in [place], [place] 200 [place] [address] 05/22/2024 7:00 AM CDT Appointment Department of Radiology, [facility], in [place], [place] [address] [place] [phone] Arlene Loco APRN, C.N.P. [address] [place] [phone] 05/22/2024 9:30 AM CDT Office Visit Division of Endocrinology in [place], [place] [address] [place] [phone] Arlene Loco APRN, C.N.P. [address] [place] [phone] 06/08/2024 8:15 AM CDT Clinical Communication Virtual Review in [place], [place] 200 [place] [address] 06/09/2024 2:00 PM CDT Telemedicine Division of Endocrinology in [place], [place] [address] [place] [phone] Merry Donahue APRN, C.N.P. [address] [place] [phone] 07/01/2024 4:20 PM CDT Telemedicine Division of Gastroenterology in [place], [place] [address] [place] [phone] Denise Tubbs M.D. [address] [place] [phone] documented as of this encounter Procedures Procedure [...] documented as of this encounter Care Teams Manager Oracle Database Relationship Specialty Start Date End Date Elsewhere, Pcp PCP - General Internal Medicine 08/02/23 documented as of this encounter
--- OUTSIDE RECORDS SUMMARY | 2024-05-21 07:15 | XMS_ITS | Encounter Summary ---
Author Organization [facility] Address [address] [place] [address] Care Team Providers Care Soaker Soda Worker Name Role Phone Elsewhere, Pcp Primary Care Provider Unavailabl e Reason for Visit * Auth/Cert (Routine) Specialty Diagnoses / Procedures Referred By Arielle t Referred To Contact Diagnoses Fistula Stomach Procedures EGD (ESOPHAGEALGASTRODUODENOSCOPY) Referral ID Status Reason Start Date Expiration Date Visits Re quested Visits Authorized [id number] 1 1 Encounter Details Date Type Department Care Team (Latest Contact Info) Description 02/14/2024 12:04 PM CDT - 02/14/2024 11:59 PM CDT Hospital Encounter Department of Radiology, [facility] in [place], [place] [address] [place] [address] Eliana Davidson, JOSÉ MANUEL, C.N.P., D.N.P., M.S.N. [address] [place] [phone] Discharge Disposition: Home or Self Care Social [...] 08/28/2021 How often do you attend [facility] or moravian services? Patient declined 08/28/2021 Do you belong to any clubs o r organizations such as mu-ism groups, unions, fraternal or athletic groups, or [...] Answer Date Recorded PHQ-2 Score 0 04/07/2020 [facility] [place] of Occupat ional Health - Occupational Stress [...] your living situation today? I have a [facility] place to live 05/12/2023 Education Answer Date [...] AM CDT Clinical Communication Virtual Review in [address] [phone] 05/22/2024 7:00 AM CDT Appointment Department of Radiology, [facility], in [address] [phone] Arlene Loco APRN, C.N.P. [address] [place] [phone] 05/22/2024 9:30 AM CDT Office Visit Division of Endocrinology in [address] [phone] Arlene Loco APRN, C.N.P. [address] [place] [phone] 06/08/2024 8:15 AM CDT Clinical Communication Virtual Review in [address] [phone] 06/09/2024 2:00 PM CDT Telemedicine Division of Endocrinology in [address] [phone] Merry Donahue APRN, C.N.P. [address] [place] [phone] 07/01/2024 4:20 PM CDT Telemedicine Division of Gastroenterology in [address] [phone] Denise Tubbs M.D. [address] [place] [address] documented as of this encounter Procedures Procedure [...] documented as of this encounter Care Teams Soaker Soda Worker Relationship Specialty Start Date End Date Elsewhere, Pcp PCP - General Internal Medicine 08/02/23 documented as of this encounter
--- OUTSIDE RECORDS SUMMARY | 2024-05-21 07:15 | XMS_ITS | Encounter Summary ---
Author Organization [facility] Address [address] [place] [address] Care Team Providers Care Scrum Master Name Role Phone Elsewhere, Pcp Primary Care Provider Unavailkraig e Reason for Referral * Outpatient (Routine) - Closed Specialty Diagnoses / Procedures Referred By Arielle richards Referred To Contact Diagnoses Fistula Stomach Procedures EGD (EsophagealGastroDuodenoscopy ) Eliana Davidson APRN, C.N.P., D.N.P., M.S.N. [address] [place] [phone] [facility] Referral ID Status Reason Start Date Expiration Date Visits Re quested Visits Authorized [id number] Closed 11/25/2023 11/24/2024 1 1 Reason for Visit * Auth/Cert (Routine) Specialty Diagnoses / Procedures Referred By Arielle richards Referred To Contact Diagnoses Fistula Stomach Procedures EGD (ESOPHAGEALGASTRODUODENOSCOPY) Referral ID Status Reason Start Date Expiration Date Visits Re quested Visits Authorized [id number] 1 1 Encounter Details Date Type Department Care Team (Latest Contact Info) Description 02/14/2024 11:37 AM CDT - 02/14/2024 1:55 PM CDT Hospital Encounter Division of Gastroenterology in [place], [place] [address] [place] [phone] Eliana Davidson APRN, C.N.P., D.N.P., M.S.N. [address] [place] [phone] Gina Holland APRN, TALENT SCOUT [address] [place] [phone] Fistula Stomach Discharge Disposition: Home or Self [...] How often do you attend chur or jehovah's witness services? Patient declined 08/28/2021 Do you belong [...] Answer Date Recorded PHQ-2 Score 0 04/07/2020 [facility] of Occupat ional Health - Occupational Stress [...] * Discharge Instr - Other Orders* Suzie Naravez, R.N. - 02/14/2024 1:30 PM CDT You [...] AM CDT Clinical Communication Virtual Review in [address] [phone] 05/22/2024 7:00 AM CDT Appointment Department of Radiology, [facility], in [place], [place] [address] [place] [phone] Arlene Loco APRN, C.N.P. [address] [place] [phone] 05/22/2024 9:30 AM CDT Office Visit Division of Endocrinology in [address] [phone] Arlene Loco APRN, C.N.P. [address] [place] [phone] 06/08/2024 8:15 AM CDT Clinical Communication Virtual Review in [address] [phone] 06/09/2024 2:00 PM CDT Telemedicine Division of Endocrinology in [address] [phone] Merry Donahue APRN, C.N.P. [address] [place] [phone] 07/01/2024 4:20 PM CDT Telemedicine Division of Gastroenterology in [place], [place] [address] [place] [phone] Denise Tubbs M.D. [address] [place] [phone] documented as of this encounter Procedures Procedure [...] CDT) 02/14/2024 1:27 PM CDT Impressions [facility] - 02/14/2024 2:23 PM CDT Post-op Diagnoses: ? - Normal esophagus. ? - Comfort-en-Y gastrojejunostomy with gastrojejunal anastomosis ? characterized by healthy appearing mucosa. OTSC is in good place and no ? contrast leak noted. ? - Normal examined jejunum. Spontaneously migrated stent. ? - No specimens collected. Narrative [facility] - 02/14/2024 2:23 PM CDT [facility] GI Patient Name: Charisse Lizarraga Date of : 1965 Age: 58 Procedure Date: 02/14/2024 Procedure: ? Upper GI endoscopy Providers: ? Bigg Daily MD Referring Provider: ?Eliana Davidson APRN MEDICAL RECORDS SECRETARY DNP Pre-op Diagnoses: ?Stent removal, Abnormal CT [...] migrated ? stent. This was traversed. The kosvr-wg-[id number] limb was characterized ? by healthy appearing [...] C.N.P., D.N.P., M.S.N. GI PROCEDURE ORDERABLES [facility] NA * [place] Fluoro Less Than [...] documented as of this encounter Care Teams Scrum Master Relationship Specialty Start Date End Date Elsewhere, Pcp PCP - General Internal Medicine 08/02/23 documented as of this encounter
--- OUTSIDE RECORDS SUMMARY | 2024-05-21 07:15 | XMS_ITS | Continuity of Care Document ---
Author Organization [facility] Address [address] [place] [address] Phone Care Team Providers Care Oral Surgery Physician Name Role Phone Unavailable Unavailable Unavailable Allergies, [...] Assist Insert Spine Fixation, Posteri or Office/Outpatient Visit,[facility] 2011 Advance Directives Directive Yes / No Effective Date File Name No Information Encounters Encounter Description Practice Location Reason(s) For Visit Diagnoses Date Provider Providers Copied on Encounter [facility], [address], [place], [place], [facility], [place] tel:[phone] [facility] No Information Rodney-2 1-201 3 No Information [facility], [address] [place] [address], [place], [place], [facility], [place] tel:[phone] [facility] No Information Dec-0 3-201 2 Mehbod Amir. [facility], [address], [place], [address] [place] [address], [place]. tel:[phone] Referring Provider: Ramesh Guthrie, [facility] [address], [place], [address]. tel:[phone] [facility], [address] [place] [address], [facility], [place] tel:[phone] [facility] ACQ SPONDYLOLISTH ESIS Dec-0 3-201 2 Eckroth Benjamin. [address] [place] [address], [address] [place] [address], [place]. tel:[phone] [facility], [address] [place] [address], [place], [facility], [place] tel:[phone] [facility] No Information Jul-2 4-201 2 Mehbod Amir. [facility], [address] [address], [place], [place], [address] [place] [address], [place]. tel:[phone] Referring Provider: Ramesh Guthrie, [facility] [address], [place], [address]. tel:[phone] Office/Outpa tient Visit,[facility], [address] [place] [address], [place], [facility], [place] tel:[phone] [facility] LUMBAGO Julián-3 0-201 2 Mehbod Amir. [facility], [address] [address], [place], [place], [address] [place] [address], [place]. tel:[phone] Referring Provider: Ramesh Guthrie, [facility] [address], [place], [address]. tel:[phone] Family History Family Member Type Diagnosis Age At Onset Problem (finding) Problem (finding) Problem (finding) Problem (finding) Problem (finding) Family history of Yes Problem (finding) Problem (finding) Payers Payer name Insurance type Covered green [place] Authoriza tion([id number] [facility] [id number] Social History Type Description Quantity Date Captured [...]
--- OUTSIDE RECORDS SUMMARY | 2024-05-21 07:15 | XMS_ITS | Encounter Summary ---
Author Organization [place] [facility] Address [address] [place] [address] Care Team Providers Care Corridor Redevelopment Manager Name Role Phone Nayeli Orourke Unavailable Sean Gastno MD Unavailable Nayeli Orourke Primary Care Provider Sonia Harley RN Unavailable [phone] Encounter Details Date Type Department Care Team (Late st Contact Info) Description 11/10/2017 [facility] Medical Advice [facility] [address] [facility] [address] [place] [address] Sean Gaston MD [address] [place] [phone] Social History Tobacco Use Types Packs/Day Years Used Date Smoking Tobacco: Never Smokeless Tobacco: Never Alcohol Use Standard Drinks/Week Comments No 0 (1 standard drink = 0.6 oz pur e alcohol) Sex and Gender Information Value Date Recorded Sex Assigned at Female 11/25/2018 7:20 AM LIVESTOCK AUCTIONEER Gender Identity Female 11/25/2018 7:20 AM LIVESTOCK AUCTIONEER Sexual Orientation Straight 11/25/2018 7: 20 AM LIVESTOCK AUCTIONEER documented as of this encounter Plan of Treatment Not on file documented as of this encounter Visit Diagnoses Not on filedocumented in this encounter Care Teams Corridor Redevelopment Manager Relationship Specialty Start Date End Date Nayeli Orourke PCP - General Family Practice 11/26/17 Nayeli Orourke Referring Physician Family Practice 09/30/17 Sean Gaston MD [address] [place] [address] Orthopaedic Surgery 09/30/17 Sonia Harley, RN Registered Nurse Orthopaedic Surgery 12/20/17 documented as of this encounter
--- OUTSIDE RECORDS SUMMARY | 2024-05-21 07:15 | XMS_ITS ---
Author Organization [facility] Address [address] [place] [address] Care Team Providers Care Roaster Supervisor Name Role Phone Elsewhere, Pcp Primary Care Provider Unavailabl e Bariatrics Program Status:Enrolled (Active) Start date:05/17/2023 Enrollment date:06/11/2023 Current support & services provided:Pre-Op Related social determinants of health:Food Insecurity, Transportation Needs Overview [facility]ued Care and Services Coordination
--- OUTSIDE RECORDS SUMMARY | 2024-05-21 07:15 | XMS_ITS | Clinical Summary ---
Author Organization [employer] [facility] s [facility] Address [place], [place] [address] Care Team Providers Care Supplier Diversity Director Name Role Phone Nayeli Orourke MD Primary Care Provide r Carline Puente NP Unavailable Unavailable Jermain Collado MD Unavailable + [facility] Unavailable Allergies Active Allergy Reactions Criticality Noted [...] Weight Management - Adult Surgical Program -- [place] Initial Consult / Established Care 04/24/2022 with [...] kg/m??. Planned Operation: TO BE PRESENTED AT [facility] - s/p VBG to LAPAROSCOPIC BRAD-EN-Y GASTRIC BYPASS on 06/12/[address] Martinez; VBG [place] [address] Zapata Payor: MEDICA / Plan: MEDICA CHOICE / Product Type: *No Product type* / Additional Insurance requirements: TBD Est. Pgm Completion: ~ TBD Procedure Location: [place]-morbidities: Past Medical History: . Date Adjustment [...] mucosa Manometry (NA): NA Staff present from [facility], [facility], [facility] & [facility] including Surgeons, Advance [...] Encounters Date Type Department Care Team Description 05/14/2024 2:00 PM CDT Preop Visit [facility] [address] [place] [address] Nicole Macias, DO Pre-Op Exam (Women's health, Dr. Alvarado, 05/21/24, hysteroscopy d&c fax: ) 05/14/2024 Travel 05/04/2024 Orders Only [facility] Scanner 1 scan: (1-Ord) [facility] PELVIC TA AND TV, 05/04/2024 03/25/2024 Telephone [facility] [address] [place] [address] Nayeli Orourke MD Medication Management (Feraheme x's 2) 03/24/2024 8:25 AM CDT Office Visit [facility] [address] [place] [address] Nayeli Orourke MD Physical (58 years); Fatigue (less energy) 03/24/2024 7:20 AM CDT Ancillary Procedure [facility] [address] [place] [address] 03/23/2024 Travel from Last 3 Months Immunizations Name Administration Dates Next Due COVID-19 vaccine (AgentBridge-J& J) PF, MDV 01/07/2021 COVID-19 vaccine (ChewseBio NTech 30mcg/0.3mL) 12YO+ BIVALENT PF, MDV 09/21/2022 COVID-19 vaccine (HealthLok-Bio NTech 30mcg/0.3mL) PF, MDV 03/15/2022 Influenza A [...] Diabetes Mother AGe 60s Other Mother parkinsons /Machinist hns disease/ myodisplsia Cancer-breast Paternal Grandmother Heart Disease Sister 2 congenital- op en heart surgery when 1yo Cancer-ovarian No Family History Relation Name Status Comments Brother Alive X3 Father Alive Mother (Age 69) aida valencia Paternal Grandmother Sister 1 Alive X3 Sister [...] 4 4 Date Outcome GA Total Labor Labor/2nd/3rd Weight Sex Type Anes PTL Crys A1 [...] Sign Reading Time Taken Comments Blood Pressure 99/67 05/14/2024 1:54 PM CDT Pulse 78 05/14/2024 1:54 PM CDT Temperature 36.6 ??C (97.8 ??F) 09/12/2023 9:05 AM CS T Respiratory Rate 18 09/12/2023 9:05 AM ASPHALT PLANT OPERATOR Oxygen Saturation 99% 05/14/2024 1:54 PM CDT Inhaled Oxygen Concentration - - Weight 97.6 kg (215 lb 3.2 oz) 05/14/2024 1:54 P M CDT Height 164.4 cm (5' 4.72) 05/14/2024 1:54 PM CD T Body Mass Index 36.12 05/14/2024 1:54 PM CDT Plan of Treatment Health Maintenance Due Date Last Done Comments Zoster (shingles) series for age 50+ (1 of 2) 2014 COVID-19 vaccine series ( season) 2023 09/21/2022, 03/15/2022, 09/04/2021, Additional history exists Influenza for age 50-64 06/28/2024 09/21/20, 07/26/2021, 07/26/2021, Additional history exists Mammogram for age 45-75 03/24/2025 03/24/20 24, 03/15/2023, 02/16/2022, Additional history exists Depression screening for age 12+ 03/25/2025 03/25/2024, 03/24/2024, 08/29/2023, Additional history exists BMI (ht and wt on same day) for age 18+ 05/14/2025 05/14/2024, 03/24/2024, 12/03/2023, Additional history exists Colonoscopy through age 75 [...] this topic Medical Devices Implanted Type Area It Risk Advisor Device Identifier Shelf Expiration Date Model / Serial / Lot [id number] 1095bone Canclls Crushed 30cc [[id number] Implanted:Qty: 1 on 08/20/2012 at [facility] Explanted:(Jonah guerda not on file) Spine Musculoskeletal Transplant 05/03/2015 [id number]# / [id number] / [id number] bone Prec Graft [id number] [[id number] ] Implanted:Qty: 1 on 08/20/2012 at [facility] Explanted:at [facility] (Quantity not on file) Spine SPINAL GRAFT 07/15/2016 [id number]# / [id number] / Screw Low Profile 6.5x30mm [id number] - [id number] Implanted:Qty: 1 on 08/20/2012 at [facility] N/A: Lumbar Vertebrae Medtronic Spine/Ortho [id number]# / / Washer 17mm - [id number] Implanted:Qty: 1 on 08/20/2012 at [facility] N/A: Lumbar Vertebrae Medtronic Spine/Ortho [id number]# / / Screw Post 6.5x40mm Std Trio Thoraco-Lmbr - [id number] Implanted:Qty: 2 on 08/20/2012 by Milana Abbott MD at [facility] N/A: Spine Adilene Spine [id number]# / / Screw Post 6.5x50mm Std Trio Thoraco-Lmbr - [id number] Implanted:Qty: 2 on 08/20/2012 by Milana Abbott MD at [facility] N/A: Spine Adilene Spine [id number]# / / Matt Valeria Rad 40mm 108mm Radius - [id number] Implanted:Qty: 2 on 08/20/2012 by Milana Abbott MD at [facility] N/A: Spine Adilene Spine [id number]# / / Cnnctr Sm Offset - [id number] Implanted:Qty: 4 on 08/20/2012 by Benjamin Pereira PA at [facility] N/A: Spine Adilene Spine [id number]# / / Kit Infuse Sm - [id number] Implanted:Qty: 1 on 08/20/2012 at [facility] Spine Medtronic Spine/Ortho [id number]# / / [id number] I Mesh Hiatal 7x10cm Bio-A - [id number] Implanted:Qty: 1 on 10/05/2022 by Jermain Crowe MD at [facility] N/A: Abdomen [employer] 05/29/2025 [id number] / [id number] / Procedures Procedure Name Priority Date/Time Associated Diagnosis Comments POTASSIUM Routine 05/14/2024 2:29 PM CDT Postoperative examination FERRITIN Routine 05/14/2024 2:29 PM CDT Other iron deficiency anemia HEMOGLOBIN Routine 05/14/2024 2:29 PM CDT Other iron deficiency anemia SCAN-ULTRASOUND REPORT 05/04/2024 12:00 AM CDT RED CELL MORPHOLOGY Routine 03/24/2024 9 :42 [...] 03/24/2024 9:42 AM CDT Fatigue, unspecified type STUDENT LOAN COUNSELOR THIN PREP PAP SCREEN IMAGED Routine 03/24/2024 [...] Recently Relevant to Health Maintenance Results * HEMOGLOBIN (05/14/2024 2:29 PM CDT) HEMOGLOBIN 14.0 12.0 - 16.0 g/dL 05/14/2024 2:36 PM CDT [facility] MCV 91 80 - 100 fL 05/14/2024 2:36 PM CDT [facility] Blood BLOOD SPECIMEN / Unknown Venipuncture / Unknown 05/14/2024 2:29 PM CDT 05/14/2024 2:30 PM CDT Nicole Macias DO HEMATOLOGY [facility] [address] [place] [address], * POTASSIUM (05/14/2024 2:29 PM CDT) POTASSIUM 4.5 3.5 - 5.1 mmol/L 05/15/2024 8:54 AM CDT [facility] Blood BLOOD SPECIMEN / Unknown Venipuncture / Unknown 05/14/2024 2:29 PM CDT 05/14/2024 2:30 PM CDT Nicole Macias DO CHEMISTRY Performing Organization Address City/[facility] [address]/ZIP Co de Phone Number [facility] [address] [place] [address], * (ABNORMAL) FERRITIN (05/14/2024 2:29 PM CDT) Only the most recent of2 resultswithin the time period is included. Pathologist [facility] FERRITIN 192.0(H) 15.0 - 150.0 ng/mL 05/15/2024 8:54 AM CDT [facility] Blood BLOOD SPECIMEN / Unknown Venipuncture / Unknown 05/14/2024 2:29 PM CDT 05/14/2024 2:30 PM CDT Nicole Macias DO CHEMISTRY Performing Organization Address [facility] [address]/[facility] Co de Phone Number [facility] [address] [place] [address], * SCAN-ULTRASOUND REPORT (05/04/2024 12:00 AM CDT) Anatomical Region Laterality Modality Other Scanner OTHER * (ABNORMAL) CBC WITH AUTO DIFFERENTIAL (03/24/2024 9:42 AM CDT) [facility] WHITE BLOOD COUNT 7.0 4.5 - 11.0 thou/cu mm 03/24/2024 10:26 AM CDT [facility] RED BLOOD COUNT 4.47 4.00 - 5.20 mil/cu mm 03/24/2024 10:26 AM CDT [facility] HEMOGLOBIN 12.2 12.0 - 16.0 g/dL 03/24/2024 10:26 AM CDT [facility] HEMATOCRIT 39.1 33.0 - 51.0 % 03/24/2024 10:26 AM CDT [facility] MCV 88 80 - 100 fL 03/24/2024 10:26 AM CDT [facility] MCH 27.3 26.0 - 34.0 pg 03/24/2024 10:26 AM CDT [facility] MCHC 31.2(L) 32.0 - 36.0 g/dL 03/24/2024 10:26 AM CDT [facility] RDW 14.1 11.5 - 15.5 % 03/24/2024 10:26 AM CDT [facility] PLATELET COUNT 321 140 - 440 thou/cu mm 03/24/2024 10:26 AM CDT [facility] MPV 10.6 6.5 - 11.0 fL 03/24/2024 10:26 AM CDT [facility] Blood BLOOD SPECIMEN / Unknown Venipuncture / Unknown 03/24/2024 9:42 AM CDT 03/24/2024 9:42 AM CDT Nayeli Orourke MD HEMATOLOGY Performing Organization Address City/[facility] [address]/ZIP Co de Phone Number [facility] [address] [place] [address], * RED CELL MORPHOLOGY (03/24/2024 9:42 AM CDT) RBC COMMENT RBC morphology appears normal RBC morphology appears normal, RBC morphology within normal limits for newborns. 03/24/2024 10:26 AM CDT [facility] Blood BLOOD SPECIMEN / Unknown Venipuncture / Unknown 03/24/2024 9:42 AM CDT 03/24/2024 9:42 AM CDT Nayeli Orourke MD HEMATOLOGY [facility] [address] [place] [address], [place] [phone] * PLATELET ESTIMATE (03/24/2024 9:42 AM CDT) PLATELET ESTIMATE Adequate Adequate, No estimate 03/24/2024 10:26 AM CDT [facility] Blood BLOOD SPECIMEN / Unknown Venipuncture / Unknown 03/24/2024 9:42 AM CDT 03/24/2024 9:42 AM CDT Nayeli Orourke MD HEMATOLOGY [facility] [address] [place] [address], * TSH WITH REFLEX (03/24/2024 9:42 AM CDT) TSH 2.12 0.27 - 4.20 uIU/mL 03/24/2024 7:05 PM CDT [facility] Blood BLOOD SPECIMEN / Unknown Venipuncture / Unknown 03/24/2024 9:42 AM CDT 03/24/2024 9:42 AM CDT Narrative [facility] - 03/24/2024 7:05 PM CDT In Adults, TSH values between 5.00 and 10.00 uIU/ml do not necessarily indicate the presence of Hypothyroidism. Correlation with clinical findings such as presence of goiter and/or Thyroperoxidase (TPO) Antibody may be helpful. For more information please refer to JORGE 2004; 291: 228-238. Nayeli Orourke MD CHEMISTRY Performing Organization Address City/[facility] [address]/ZIP Co de Phone Number [facility] [address] [place] [address], * (ABNORMAL) LIPID PANEL W REFLEX MEASURED LDL (03/24/2024 9:42 AM CDT) CHOLESTEROL,TOTAL 229(H) 100 - 199 mg/dL 03/24/2024 7:05 PM CDT [facility] Comment: Cholesterol, Total Reference Ranges Desirable <200 mg/dL Borderline 200-239 mg/dL High >=240 mg/dL TRIGLYCERIDES 87 <150 mg/dL 03/24/2024 7:05 PM CDT [facility] HDL CHOLESTEROL 68 >40 mg/dL 7:05 PM CDT [facility] NON-HDL CHOLESTEROL 161(H) <145 mg/dl 03/24/2024 7:05 PM CDT [facility] CHOL/HDL RATIO 3.37 <4.50 03/24/2024 7:05 PM CDT [facility] LDL CHOLESTEROL 144(H) <=130 mg/dL 03/24/2024 7:05 PM CDT [facility] VLDL CHOLESTEROL 17 <=30 mg/dL 03/24/2024 7:05 PM CDT [facility] PROVIDER ORDERED STATUS RANDOM 03/24/2024 7:05 PM T [facility] Blood BLOOD SPECIMEN / Unknown Venipuncture / Unknown 03/24/2024 9:42 AM CDT 03/24/2024 9:42 AM CDT Nayeli Orourke MD CHEMISTRY [facility] [address] [place] [address], * MANUAL DIFFERENTIAL (03/24/2024 9:42 AM CDT) % NEUTROPHILS 59.0 % 03/24/2024 10:26 AM CDT [facility] % LYMPHOCYTES 36.0 % 03/24/2024 10:26 AM CDT [facility] % MONOCYTES 5.0 % 03/24/2024 10:26 AM CDT [facility] % EOSINOPHILS 0.0 % 03/24/2024 10:26 AM CDT [facility] % BASOPHILS 0.0 % 03/24/2024 10:26 AM CDT [facility] NEUTROPHILS ABSOLUTE 4.1 1.7 - 7.0 thou/cu mm 03/24/2024 10:26 AM CDT [facility] LYMPHOCYTES ABSOLUTE 2.5 0.9 - 2.9 thou/cu mm 03/24/2024 10:26 AM CDT [facility] MONOCYTES ABSOLUTE 0.4 <0.9 thou/cu mm 03/24/2024 10:26 AM CDT [facility] EOSINOPHILS ABSOLUTE 0.0 <0.5 thou/cu mm 03/24/2024 10:26 AM CDT [facility] BASOPHILS ABSOLUTE 0.0 <0.3 thou/cu mm 03/24/2024 10:26 AM T [facility] Blood BLOOD SPECIMEN / Unknown Venipuncture / Unknown 03/24/2024 9:42 AM CDT 03/24/2024 9:42 AM CDT Nayeli Orourke MD HEMATOLOGY [facility] [address] [place] [address], * COMP METABOLIC PANEL (03/24/2024 9:42 AM CDT) SODIUM 143 136 - 145 mmol/L 03/24/2024 7:05 PM CDT [facility] POTASSIUM 4.8 3.5 - 5.1 mmol/L 03/24/2024 7:05 PM T [facility] CHLORIDE 107 98 - 107 mmol/L 03/24/2024 7:05 PM T [facility] CO2,TOTAL 25 22 - 29 mmol/L 03/24/2024 7:05 PM T [facility] ANION GAP 11 5 - 18 03/24/2024 7:05 PM T [facility] GLUCOSE 95 70 - 99 mg/dL 03/24/2024 7:05 PM T [facility] CALCIUM 9.3 8.6 - 10.0 mg/dL 03/24/2024 7:05 PM T [facility] BUN 9 6 - 20 mg/dL 03/24/2024 7:05 PM T [facility] CREATININE 0.71 0.50 - 0.90 mg/dL 03/24/2024 7:05 PM T [facility] BUN/CREAT RATIO 13 10 - 20 7:05 PM T [facility] eGFR >90 >90 mL/min/1.7 3m2 03/24/2024 7:05 PM CDT [facility] Comment:As of 2022, eG FR is calculated by the CKD-EPI creatinine equation without race adjustment. ??eGFR can be influenced by muscle mass, exercise, and diet. ??The reported eGFR is an estimation only and is only applicable if the renal function is stable. ALBUMIN 4.3 4.0 - 4.9 g/dL 03/24/2024 7:05 PM CDT [facility] PROTEIN,TOTAL 6.8 6.0 - 8.0 g/dL 03/24/2024 7:05 PM CDT [facility] BILIRUBIN,TOTAL 0.3 0.0 - 1.2 mg/dL 03/24/2024 7:05 PM CDT [facility] ALK PHOSPHATASE 98 35 - 104 IU/L 03/24/2024 7:05 PM CDT [facility] ALT (SGPT) 25 10 - 35 IU/L 03/24/2024 7:05 PM CDT [facility] AST (SGOT) 25 10 - 35 IU/L 03/24/2024 7:05 PM CDT [facility] Blood BLOOD SPECIMEN / Unknown Venipuncture / Unknown 03/24/2024 9:42 AM CDT 03/24/2024 9:42 AM CDT Nayeli Orourke MD CHEMISTRY Performing Organization Address City/State/[facility] Co de Phone Number [facility] [address] [place] [address], * STUDENT LOAN COUNSELOR THIN PREP PAP SCREEN IMAGED [[id number]] (03/24/2024 9:26 AM CDT) Case Report Gynecologic Cytology Report ? Case: [id number] ? Authorizing Provider: ??Nayeli Orourke, ??Collected: ? 03/24/2024925 ? MD ? Ordering Location: ? [facility] ?? Received: ?03/24/2024925 ? Clinic ? First Screen: ?Kia Jones ? Specimen: ?STUDENT LOAN COUNSELOR ThinPrep Vial Screening, Cervical ? 04/01/2024 2:43 PM CDT [facility] INTERPRETATION/ RESULT NEGATIVE FOR INTRAEPITHELIAL LESION OR MALIGNANCY (NIL) (none) 04/01/2024 2:43 PM CDT [facility] LAB[facility] IMEN ADEQUACY Satisfactory for evaluation Endocervical component present 04/01/2024 2:43 PM CDT [facility] HPV REQUEST HPV and PAP 04/01/2024 2:43 PM CDT [facility] Date of LMP years ago 04/01/2024 2:43 PM CDT [facility] Last Pap Date 12/30/20 04/01/2024 2:43 PM CDT [facility] Last Pap Result NIL 2:43 PM CDT [facility] Abnormal Pap or [place] Bx in last 5 years No 04/01/2024 2:43 PM CDT [facility] Menstrual Status Postmenopausal 04/01/2024 2:43 PM CDT [facility] [place] Bx Done Today No 04/01/2024 2:43 PM CDT [facility] Additional Information None given 04/01/2024 2:43 PM CDT [facility] Comment: Cytology is screened at [facility] - [address], [place] [address] and [facility] - [address] [place] [address] and [facility] - [address] [place] [address] Interpreted at [facility] - [address], [place] [address] Automated Review Successful 04/01/2024 2:43 PM CDT [facility] Comment:Specimen processed s uccessfully by automated medical unit secretary device, ThinPrep Imaging System, [employer] ANCILLARY TESTING STUDENT LOAN COUNSELOR HPV Ordered, Please see separate report 04/01/2024 2:43 PM CDT [facility] Note The pap test is a [...] and malignant lesions. 04/01/2024 2:43 PM CDT [facility] Other (Cervical) Non-Blood / Unknown 03/24/2024 9:26 AM CDT 03/24/2024 9:26 AM CDT Nayeli Orourke MD PATHOLOGY/CYT OLOGY Performing Organization Address [facility] Co de Phone Number [facility] [address] [place] [address], * HPV HIGH RISK (03/24/2024 9:26 AM CDT) TYPE 16 Negative Negative 03/27/2024 6:00 AM CDT [facility] TYPE 18 Negative Negative 03/27/2024 6:00 AM CDT [facility] OTHER HIGH RISK TYPES Negative Negative 03/27/2024 6:00 AM CDT [facility] Other (Cervical) Non-Blood / Unknown 03/24/2024 9:26 AM CDT 03/25/2024 8:34 AM CDT Narrative [facility] - 03/27/2024 6:00 AM CDT HPV types 16, 18, 31, 33, 35, 39, 45, 51, 52, 56, 58, 59, 66 and 68 DNA were undetectable or below the pre-set threshold. Methodology: [employer] Peter 4800 HPV Test Nayeli Orourke MD MICROBIOLOGY Performing Organization Address [facility] Co de Phone Number [facility] [address] [place] [address], * XR MAMMO JACKIE BILAT SCREEN (03/24/2024 [...] For Patients: As a result of the Cures Act, medical imaging exams and procedure reports are released immediately into your electronic medical record. You may view this report before your referring provider. If you have questions, please contact your health care provider. XR MAMMO JACKIE BILAT SCREEN [[id number]] CLINICAL HISTORY: ??This is an asymptomatic 58 y.o. patient. INDICATION FOR EXAM: Mammogram Screening. TECHNIQUE: CC & MLO views were obtained. ??This study was evaluated with the assistance of Computer-Aided Detection. Breast Tomosynthesis was used in interpretation. COMPARISON FILM: Yes 03/15/23 [facility] 02/16/22 [facility] FINDINGS: ??The breasts are almost entirely fatty. [...] Colonoscopy Proceduralist: Keaton Agee MD , Merry Zavala (Nurse), Gabrielle Taylor RN (Nurse) Referring MD: Nayeli Orourke Indications/Pre-Op Diagnosis: High risk colon cancer surveillance:Personal [...] adequate candidate for conscious sedation. The endoscope [id number] was passed through the anus andadvanced to [...] physician intraservice time was 19 minutes. Keaton Aege MD 08/23/2022 1:48:29 PM This report has been signed electronically. Note Initiated On: 08/23/2022 11:38 AM Procedure Code(s): --- Professional --- 96510, Colonoscopy, flexible; with removalof tumor(s), polyp(s), or other lesion(s) bysnare technique Diagnosis Code(s): --- Professional --- Z86.010, Personal history of colonicpolyps D12.3, Benign neoplasm of transverse colon (hepatic flexure or splenic flexure) CPT copyright 2020 [employer]. All rights reserved. The codes documented in this report are preliminary and upon computer systems security administrator reviewmay be revised to meet current compliance requirements. Scope In: 1:27:03 PM Scope Withdrawal Time 0 hours 10 minutes 6 seconds Scope Out: 1:44:02 PM Keaton Agee MD PROCEDURE ORD * ANTI HCV (05/11/2011 5:16 PM CDT) ANTI HCV Non-reacti ve [facility] Blood specimen (specimen) BLOOD SPECIMEN / Unknown 05/11/2011 5:16 PM CDT 05/11/2011 5:11 PM CDT Nayeli Orourke MD SEND OUTS [facility] INTERNAL ZIP [address] [place] [address] * ANTI HIV 1/2 (05/11/2011 5:16 PM CDT) ANTI HIV 1/2 Non-reacti ve [facility] Blood specimen (specimen) BLOOD SPECIMEN / Unknown 05/11/2011 5:16 PM CDT 05/11/2011 5:11 PM CDT Nayeli Orourke MD SEND OUTS [facility] INTERNAL ZIP [address] [place] [address] from Last 3 Months or Most Recently Relevant to Health Maintenance Advance Directives Documents on File Type Date Recorded Patient Fitness Attendant Expl anation Healthcare Directive 06/12/2012 6:48 AM [...] 12:32 PM 04/07/2012 5:00 PM Care Teams Supplier Diversity Director Relationship Specialty Start Date End Date Nayeli Orourke MD [address] [place] [address] PCP - General 02/15/06 Carline Puente NP [address] [place] [address] Nurse Practitioner - Adult 08/21/22 Jermain Collado MD [address] [facility] [address] [place] [address] Surgery - General 01/04/23 [facility] [place] [address] [place] [address] 08/27/23
--- OUTSIDE RECORDS SUMMARY | 2024-05-21 07:15 | XMS_ITS | Referral Summary ---
Author Organization [facility] Address [address] [place] [address] Care Team Providers Care Court Specialist Name Role Phone Nayeli Orourke Unavailable Sean Gaston MD Unavailable Nayeli Orourke Primary Care Provider [phone] Sonia Harley RN Unavailable [phone] Allergies Active Allergy Reactions Criticality Noted Date [...] Sex Assigned at Female 11/25/2018 7:20 AM E TAILER Gender Identity Female 11/25/2018 7:20 AM E TAILER Sexual Orientation Straight 11/25/2018 7: 20 AM E TAILER Last Filed Vital Signs Vital Sign Reading Time Taken Comments Blood Pressure 112/55 12/08/2018 6:15 PM E TAILER Pulse 72 12/08/2018 6:00 PM E TAILER Temperature 36.8 ??C (98.2 ??F) 12/08/2018 6:15 PM CS T Respiratory Rate 14 12/08/2018 6:15 PM E TAILER Oxygen Saturation 97% 12/08/2018 6:15 PM E TAILER Inhaled Oxygen Concentration - - Weight 102.1 kg (225 lb) 12/24/2018 11:13 AM E TAILER Height 165.1 cm (5' 5) 12/24/2018 11:13 AM E TAILER Body Mass Index 37.44 12/24/2018 11:13 AM E TAILER Plan of Treatment Not on file Care Teams Court Specialist Relationship Specialty Start Date End Date Nayeli Orourke PCP - General Family Practice 11/26/17 Nayeli Orourke Referring Physician Family Practice 09/30/17 Sean Gaston MD [address] [place] [id number] Orthopaedic Surgery 09/30/17 Sonia Harley RN Registered Nurse Orthopaedic Surgery 12/20/17
--- OUTSIDE RECORDS SUMMARY | 2024-05-21 07:15 | XMS_ITS | Encounter Summary ---
Author Organization [place] Address [address] [place] [address] Care Team Providers Care Real Time Trader Name Role Phone Nayeli Orourke Unavailable Sean Gaston MD Unavailable Nayeli Orourke Primary Care Provider oSnia Harley RN Unavailable [phone] Encounter Details Date Type Department Care Team (Late st Contact Info) Description 12/09/2017 [facility] Medical Advice [facility] [address] [facility] [address] [place] [address] Sean Gaston MD [address] [place] [address] [id number] Social History Tobacco Use Types Packs/Day Years Used Date Smoking Tobacco: Never Smokeless Tobacco: Never Alcohol Use Standard Drinks/Week Comments No 0 (1 standard drink = 0.6 oz pur e alcohol) Sex and Gender Information Value Date Recorded Sex Assigned at Female 11/25/2018 7:20 AM EPIC ANALYST Gender Identity Female 11/25/2018 7:20 AM EPIC ANALYST Sexual Orientation Straight 11/25/2018 7: 20 AM EPIC ANALYST documented as of this encounter Plan of Treatment Not on file documented as of this encounter Visit Diagnoses Not on filedocumented in this encounter Care Teams Real Time Trader Relationship Specialty Start Date End Date Nayeli Orourke PCP - General Family Practice 11/26/17 Nayeli Orourke Referring Physician Family Practice 09/30/17 Sean Gaston MD [address] [place] [address] Orthopaedic Surgery 09/30/17 Sonia Harley, RN Registered Nurse Orthopaedic Surgery 12/20/17 documented as of this encounter
--- OUTSIDE RECORDS SUMMARY | 2024-05-21 07:15 | XMS_ITS | Continuity of Care Document ---
Author Organization [facility] Address [address] [address] [place] [address] Phone Care Team Providers Care Carton Folder Name Role Phone Odell Ardon MD Unavailable [...] Providers Copied on Encounter Established Level 3 [facility], [address] [address], [place], [place], [id number], [place] tel:[phone] [facility] GI Symptoms or Concerns (chief complaint) Bariatric surgery statusOther dysphagia 2 Duglas Bain. [address] [facility], [facility] [address], [place], [place], [id number], [place]. tel:[phone] Referring Provider: Referral Self, USE FOR SELF REFERRALS. [facility], [address] [address], [place], [id number], [place] tel:[phone] [facility] GI Symptoms or Concerns (chief complaint) Eosinophilic esophagitisHi story of gastric bypassEosinop hilic esophagitisBa riatric surgery status 2 Russell Bryan. [address] [facility], [address], [place], [place], [address], [place]. tel:[phone] Referring Provider: Nayeli Orourke MD K, [address] [facility], [place], [address]. tel:[phone] [facility], [address] [address], [place], [place], [id number], [place] tel:[phone] [facility] Other dysphagia Jun-2 2 Duglas Bain. [address] [facility], [facility] [address], [place], [place], [id number], [place]. tel:[phone] Referring Provider: Referral Self, USE FOR SELF REFERRALS. New Level 4 [facility], [address] [address], [facility] [place], [id number], [place] tel:[phone] [facility] GI Symptoms or Concerns (chief complaint) Esophageal dysphagiaEosi nophilic esophagitis Sep-2 2 Duglas Bain. [address] [facility], [address], [place], [place], [id number], [place]. tel:[phone] Referring Provider: Referral Self, USE FOR SELF REFERRALS. [facility], [address] [address], [facility] [place], [address], [place] tel:[phone] No Information Jun-2 2 No Information Referring Provider: Zaida RODARTE M, [address] [facility] [address], [place], [address]. tel:[phone] Family History Family Member Type Diagnosis Age [...] ; Source: Other Registry Influenza, injectable, Madin Pinola Canine Kidney, quadrivalent with preservative administered Note: [...] i-directional interface ; Source: Other Registry Novel [id number], all formulations administered Note: [facility] bi-direct ional interface ; Source: Other Registry Influenza, seasonal, injectable administe red Note: [facility] bi- directional interface ; Source: Other Registry Payers Payer name Insurance type Covered democrat ID Authoriza tion(s) [employer] CI [id number] Social History Type Description Quantity Date Captured [...]
--- OUTSIDE RECORDS SUMMARY | 2024-05-21 07:15 | XMS_ITS | Encounter Summary ---
Author Organization [facility] Address [address] [place] [address] Care Team Providers Care Electronic Tech Name Role Phone Elsewhere, Pcp Primary Care Provider Unavailabl e Reason for Visit * Auth/Cert (Routine) Specialty Diagnoses / Procedures Referred By Arielle t Referred To Contact Diagnoses Fistula Stomach Procedures EGD (ESOPHAGEALGASTRODUODENOSCOPY) Referral ID Status Reason Start Date Expiration Date Visits Re quested Visits Authorized [id number] 1 1 Encounter Details Date Type Department Care Team (Latest Contact Info) Description 02/14/2024 12:43 PM CDT Anesthesia Event Division of Gastroenterology in [place], [place] [address] [place] [address] Kathy Power APRN, CHRISTIANO [address] [place] [phone] Gina Holland APRN, CARAMEL CUTTER MACHINE [address] [place] [phone] Anesthesia Record Procedure Summary Procedure Name Responsible [...] 08/28/2021 How often do you attend [facility] services? Patient declined 08/28/2021 Do you belong to any clubs o r organizations such as uatsdin groups, unions, fraternal or athletic groups, or [...] Answer Date Recorded PHQ-2 Score 0 04/07/2020 [facility] - Occupational Stress Questionnaire Answer Date [...] Room / Location: Division of Gastroenterology in [place], [place] Anesthesia Start: 1243 Anesthesia Stop: 1322 [...] ETT location: oral VL device: glide scope [place] scope blade size: 3 Tube size: 7 [...] Stomach [K31.6] Location: Division of Gastroenterology in [place], [place] Pertinent components of the patient's history [...] with patient /legal guardian or through an charge machine operator. Risks/Benefits/Alternatives of Blood transfusion discussed with patient [...] AM CDT Clinical Communication Virtual Review in [address] [phone] 05/22/2024 7:00 AM CDT Appointment Department of Radiology, [facility], in [place], [place] [address] [place] [phone] Arlene Loco APRN, C.N.P. [address] [place] [phone] 05/22/2024 9:30 AM CDT Office Visit Division of Endocrinology in [address] [address] Arlene Loco APRN, C.N.P. [address] [place] [phone] 06/08/2024 8:15 AM CDT Clinical Communication Virtual Review in [address] [address] 06/09/2024 2:00 PM CDT Telemedicine Division of Endocrinology in [place], [place] [address] [place] [phone] Merry Donahue APRN, C.N.P. [address] [place] [phone] 07/01/2024 4:20 PM CDT Telemedicine Division of Gastroenterology in [place], [place] [address] [place] [phone] Denise Tubbs M.D. [address] [place] [phone] documented as of this encounter Procedures Procedure [...] ETT location: oral VL device: glide scope [place] scope blade size: 3 Tube size: 7 [...] documented as of this encounter Care Teams Electronic Tech Relationship Specialty Start Date End Date Elsewhere, Pcp PCP - General Internal Medicine 08/02/23 documented as of this encounter
--- OUTSIDE RECORDS SUMMARY | 2024-05-21 07:15 | XMS_ITS | Clinical Summary ---
Author Organization [place] Address [address] [place] [address] Care Team Providers Care Repairer Resistance Welding Machines Name Role Phone Nayeli Orourke Unavailable Sean Gaston MD Unavailable Nayeli Orourke Primary Care Provider [phone] Sonia Harley RN Unavailable [phone] Allergies Active Allergy Reactions Criticality Noted Date [...] Sex Assigned at Female 11/25/2018 7:20 AM STEREO EQUIPMENT REPAIRER Gender Identity Female 11/25/2018 7:20 AM STEREO EQUIPMENT REPAIRER Sexual Orientation Straight 11/25/2018 7: 20 AM STEREO EQUIPMENT REPAIRER Last Filed Vital Signs Vital Sign Reading Time Taken Comments Blood Pressure 112/55 12/08/2018 6:15 PM STEREO EQUIPMENT REPAIRER Pulse 72 12/08/2018 6:00 PM STEREO EQUIPMENT REPAIRER Temperature 36.8 ??C (98.2 ??F) 12/08/2018 6:15 PM CS T Respiratory Rate 14 12/08/2018 6:15 PM STEREO EQUIPMENT REPAIRER Oxygen Saturation 97% 12/08/2018 6:15 PM STEREO EQUIPMENT REPAIRER Inhaled Oxygen Concentration - - Weight 102.1 kg (225 lb) 12/24/2018 11:13 AM STEREO EQUIPMENT REPAIRER Height 165.1 cm (5' 5) 12/24/2018 11:13 AM STEREO EQUIPMENT REPAIRER Body Mass Index 37.44 12/24/2018 11:13 AM STEREO EQUIPMENT REPAIRER Plan of Treatment Not on file Care Teams Repairer Resistance Welding Machines Relationship Specialty Start Date End Date Nayeli Orourke PCP - General Family Practice 11/26/17 Nayeli Orourke Referring Physician Family Practice 09/30/17 Sean Gaston MD [facility] [address] [address] Orthopaedic Surgery 09/30/17 Sonia Harley, RN Registered Nurse Orthopaedic Surgery 12/20/17
--- OUTSIDE RECORDS SUMMARY | 2024-05-21 07:15 | XMS_ITS | Encounter Summary ---
Author Organization [place] Address [address] [place] [address] Care Team Providers Care Coroner Transport Technician Name Role Phone Nayeli Orourke Unavailable Sean Gaston MD Unavailable Nayeli Orourke Primary Care Provider Sonia Harley RN Unavailable [phone] Encounter Details Date Type Department Care Team (Late st Contact Info) Description 10/31/2017 [facility] Medical Advice [facility] [address] [facility] [address] [place] [address] Sean Gaston MD [address] [place] [phone] Social History Tobacco Use Types Packs/Day Years Used Date Smoking Tobacco: Never Smokeless Tobacco: Never Alcohol Use Standard Drinks/Week Comments No 0 (1 standard drink = 0.6 oz pur e alcohol) Sex and Gender Information Value Date Recorded Sex Assigned at Female 11/25/2018 7:20 AM FOOT PRESS OPERATOR Gender Identity Female 11/25/2018 7:20 AM FOOT PRESS OPERATOR Sexual Orientation Straight 11/25/2018 7: 20 AM FOOT PRESS OPERATOR documented as of this encounter Plan of Treatment Not on file documented as of this encounter Visit Diagnoses Not on filedocumented in this encounter Care Teams Coroner Transport Technician Relationship Specialty Start Date End Date Nayeli Orourke PCP - General Family Practice 11/26/17 Nayeli Orourke Referring Physician Family Practice 09/30/17 Sean Gaston MD [address] [place] [address] Orthopaedic Surgery 09/30/17 Sonia Harley, RN Registered Nurse Orthopaedic Surgery 12/20/17 documented as of this encounter
[2024-05-21 07:38] VITALS: BMI 36.1
[2024-05-21 07:54] VITALS: BP 121/73; PULSE 77; RESP 16; TEMP 36.7; O2SAT 96
[2024-05-21 07:54] LABS: Hemoglobin* 13.6 gm/dL (12.0-16.0)
[2024-05-21] MEDS: LACTATED RINGERS 1000 ML 1,000 ML 100 ML IV ×2 (07:55→09:45)
[2024-05-21] MEDS: SODIUM CHLORIDE 0.9 % (FLUSH) 10 ML SYRINGE IVF (07:55)
[2024-05-21 08:12] LABS: Creatinine* 0.6 mg/dL (0.5-1.5); Est. Creatinine Clearance* 87.18; Estimated Glomerular Filt Rate 103 ml/min
--- NOTE | 2024-05-21 08:13 | W.PM.H&PU ---
History & Physical Update History & Physical Update H&P Reviewed and patient assessed: No changes noted
[2024-05-21] MEDS: SILVER NITRATE APPLICATOR 1 EACH STICK..EA. 4 EACH TOPICAL (09:28)
--- NOTE | 2024-05-21 09:41 | W.ANESCHARGE ---
Anesthesia Charges Start Date/Time Anesthesia Start Date: 05/21/24 Anesthesia Start Time: 08:42 Stop Date/Time Anesthesia Stop Date: 05/21/24 Anesthesia Stop Time: 09:46
[2024-05-21 09:42] VITALS: BP 103/59; PULSE 75; RESP 16; TEMP 36.4; O2SAT 96
--- NOTE | 2024-05-21 09:45 | W.PM.GYNPROC ---
Procedure Note Time Seen by Provider: 09:45 Date of procedure: 05/21/24 Will [facility] bill your pro fee for this procedure?: Yes Pre-op diagnosis: 1. Intrauterine calcification on ultrasound 2. Vaginal polyps Post-op diagnosis: 1. Intrauterine calcification on ultrasound 2. Vaginal polyps Procedure: 1. Hysteroscopy 2. Dilation and curettage 3. Vaginal polyps biopsy and repair Anesthesia: MAC and local Complications: None Surgeon: Shruthi Alvarado MD Estimated blood loss (mL): 10 IV fluids (mL): 1,000 Urine Output (mL): 60 Pathology: specimen obtained, sent to pathology Condition: stable Disposition: same day Findings: Exam under anesthesia: Cervix palpates normal. Anterior vaginal polyps palpated as well. Uterus: position, 6 week size, mobile, without nodularity/masses palpable. Adnexa were without fullness or nodularity. On speculum exam: Vaginal pink and well rugated with multiple polyps at the top of the vaginal canal - largest one at approximately 1.5 cm high on anterior vaginal wall. Overall benign appearing, previous friable and erythematous bases on some of the polyps have healed. Cervix pink and without lesion. On hysteroscopy: small, atrophic appearing canal. No masses, lesions, or defect noted. Normal bilateral ostia. Procedure Description: Procedure: Charisse was taken to the operating operating room more conscious sedation was found to be adequate. The patient was placed on in the dorsal lithotomy position and an exam under anesthesia was performed with findings stated above. She was then prepped and draped in a normal sterile manner. A bivalve speculum was placed in the vagina. The cervix appears nulliparous. Otherwise no abnormalities. The paracervical block was placed using 1% Lidocaine with epinephrine, 5 mL was injected at the 4 and 8 o'clock positions on the cervix. The anterior lip of the cervix was grasped with a long tenaculum clamp. The cervix dilated to Hegar 6. The uterus sounded to 7 cm. The Truclear hysteroscope was advanced into the uterus. A diagnostic hysteroscopy was performed with normal saline as the insufflation medium. Findings are stated above. The Truclear incisor was then advanced through the camera. The curettage was performed with the incisor over the enter endometrial cavity. The incisor was then removed. The endometrial cavity appeared normal. Saline deficit at the end of the procedure 60 mL. Total saline used 330 mL. The hysteroscope, Allis clamp and speculum were removed from the vaginal canal. Attention was then turned towards obtaining vaginal biopsy. A sales utility representative polyp on the anterior wall of the vagina was grasped with a long Allis and excised superficially with a 15 blade. The vaginal tissue was subsequently repaired with a 2-0 vicryl suture in a continuous running locking manner. Silver nitrate applied for hemostasis. Final exam showed excellent hemostasis and the procedure was considered terminated at this time. The patient tolerated the procedure well. Sponge, lap and instrument counts were correct x2 at the end of the procedure. The patient was taken to the recovery area in stable condition. Surgical debrief and specimen review performed. Specimen 1. Endometrial curetting 2. Vaginal polyp
[2024-05-21 10:00] VITALS: BP 104/63; PULSE 61; RESP 16; O2SAT 100
[2024-05-21 10:15] VITALS: BP 112/71; PULSE 68; RESP 16; O2SAT 98
[2024-05-21] MEDS: ACETAMINOPHEN 500 MG TABLET 1000 MG PO (10:17)
[2024-05-21] MEDS: OXYCODONE 5 MG TABLET PO (10:17)
--- NOTE | 2024-05-21 10:25 | W.ANESCHARGE ---
Anesthesia Charges Start Date/Time Anesthesia Start Date: 05/21/24 Anesthesia Start Time: 08:42 Stop Date/Time Anesthesia Stop Date: 05/21/24 Anesthesia Stop Time: 09:46
[2024-05-21 10:30] VITALS: BP 124/72; PULSE 68; RESP 16; O2SAT 98
== END 2024-05-21 10:59 | disposition home or self-care (01) ==
LOC: OR 07:12
PROVIDERS: PCP Family Medicine; Visit Provider Obstetrics & Gynecology
PROC: 0UDB8ZZ Extraction of Endometrium, Via Natural or Artificial Opening Endoscopic (ICD-10-PCS; CPT 58558; principal; 2024-05-21 08:30)
PROC: 0UQG0ZZ Repair Vagina, Open Approach (ICD-10-PCS; CPT 58558; 2024-05-21 08:30)
DX: N84.2 Polyp of vagina (principal); N85.8 Other specified noninflammatory disorders of uterus
CPT/HCPCS: 58558; 57135; 00952; 36415; 81025; 82565; 85018; 86850; 86900; 86901; 88304; 88305; A9270; C1782; J1100; J1885; J2405; J2704; J3010; J7120

== ENCOUNTER 2024-08-18 07:08 | Outpatient (CLI) | payer OTHER, SELFPAY ==
--- OUTSIDE RECORDS SUMMARY | 2024-08-18 07:10 | XMS_ITS ---
Author Organization [facility] Address [address] [place] [address] Care Team Providers Care Ornamental Iron Erector Name Role Phone Unavailable Primary Care Provider Unavailabl e Active Problems [...] Y Status Post 07/15/2023 Osteoporosis 04/13/2019 Overview (05/22/2024): Diagnosed in 2016 based on screening bone density with worst T-score of -3.3 at her right femoral neck. Fracture history: Leg as an Toe Treatment history: Reclast 2016, 2017, 2018 Drug holiday [id number] Tymlos April 2023-June 2023, discontinued due to hospitalizations Reclast November 15, 2023 Right foot fracture September 2023. No history of renal stones. She has history of congenital hip dysplasia, s/p hip replacment. Lumbar spinal fusion in 2011. She underwent gastric bypass surgery in [address] [facility] and a revision in 2011. She had [...] current plan information found. Other Current Plans romosozumab aqqg ([facility] Plan Start Date:11/09/2024 Plan Provider:Arlene Loco APRN, C.N.P. Linked Problems Osteoporosis Treatment Medications No medications scheduled. Vascular Access Patency - Peripheral Intravenous Catheter and Rapid Infusion Catheter* Plan Start Date:11/15/2023 Plan Provider:Arlene Loco APRN, C.N.P. Linked Problems Osteoporosis Treatment Medications No medications scheduled. Past Plans Radiation Treatments * No radiation treatments are documented for this patient in [facility]. Treatments may have been administered in another system. Lifetime Dose Tracking * Chemical Lifetime Dose Automatic Entry Manual Entr y Radiation 561.4 mGy 561.4 mGy 0 mGy Fluoro Time 31.98 minutes 31.98 minutes 0 minutes Resolved Problems Problem Noted Date Diagnosed Date Resolved Date Effusion Pleural 07/24/2023 07/28/2023
--- OUTSIDE RECORDS SUMMARY | 2024-08-18 07:10 | XMS_ITS | Referral Summary ---
Author Organization [facility] Address [address] [place] [id number] Care Team Providers Care Help Desk Agent Name Role Phone Unavailable Primary Care Provider Unavailabl e Source Comments Patient records contain information from all sites at [facility]. For routine questions regarding patient records, call [phone] during business hours, M-F 8:00 AM - 5:00 PM Central Time. Record requests for emergency care only can be directed to [phone] at any time.[facility] Encounters Date Type Department Care Team Description 08/10/2024 7:12 AM CDT - 08/10/2024 11:59 PM CDT Hospital Encounter Department of Radiology, [facility], in [place], [place] [address] [place] [address] Denise Tubbs M.D. Fistula Stomach; Bypass Gastric Comfort En Y Status Post; Pain Epigastric Discharge Disposition: Home or Self Care 07/24/2024 Clinical Communication Division of Gastroenterology in [place], [place] [address] [place] [phone] Denise Tubbs M.D. 07/01/2024 4:20 PM CDT Telemedicine Division of Gastroenterology in [place], [place] [address] [place] [address] Denise Tubbs M.D. Fistula Stomach; Bypass Gastric Comfort En Y Status Post; Hemorrhage Gastrointestinal 06/09/2024 Orders Only Division of Endocrinology in [place], [place] [address] [place] [phone] Merry Donahue APRN, C.N.P. 06/09/2024 2:00 PM CDT Telemedicine Division of Endocrinology in [place], [place] [address] [place] [phone] Merry Donahue APRN, C.N.P. Bypass Gastric Comfort En Y Status Post (Primary Dx); Obesity Body Mass Index 30-39.9 Adult; Hemorrhage Gastrointestinal; Fistula Stomach 06/08/2024 8:15 AM CDT Clinical Communication Virtual Review in [place], [place] [address] [place] [address] Pre-visit Intake 05/22/2024 9:30 AM CDT Office Visit Division of Endocrinology in [place], [place] [address] [place] [phone] Arlene Loco APRN, C.N.P. Bypass Gastric Comfort En Y Status Post (Primary Dx); Osteoporosis 05/22/2024 6:49 AM CDT - 05/22/2024 11:59 PM CDT Hospital Encounter Department of Radiology, [facility], in [address] [phone] Arlene Loco APRN, C.N.P. Osteoporosis Discharge Disposition: Home or Self Care from Last 3 Months Allergies Active Allergy Reactions Criticality Noted Date Comments Lip Proctor Spf 15 Anaphylaxis High 03/12/2017 swollen throat and lips - ([place] Lip Proctor) Morphine Headache Medium 06/21/2005 Nsaids (Non-Steroidal Anti-Inflammatory Drug) Other (see comments) High 07/07/2012 patient had gastric bypass surgery - should not take oral NSAID's. Medications iron,carbonyl/a scorbic acid (VITRON-C ORAL) Take 1 tablet by mouth daily. 7 Active furosemide (LASIX) 20 mg tablet Administer 1 tablet (20 mg total) via small bowel tube daily. 30 tablet 1 3 Active Additional Information Patient taking differently:20 mgoralDaily, Reported on 06/08/2024 omeprazole (PriLOSEC) [address] capsule Take 1 capsule (40 mg total) by mouth every morning before breakfast. 30 capsule 3 Active Additional Information Patient taking differently:40 mg oralAs needed, Reported on 06/08/2024 cyanocobalamin, vitamin B-12, 2,500 mcg tablet Take 2,500 mcg by mouth daily. Active Hospital, Clinic, or Other Facility Administered Medication Ordered Dose Route Frequency Start Date End Date Status calcium carbonate suspension 500 mg of calciumIndications:O steoporosis 500 mg of calcium oral 2 times daily with meals 05/22/2024 Active Active Problems Problem Noted Date Diagnosed [...] 07/15/2023 Osteoporosis 04/13/2019 Overview (05/22/2024): Diagnosed in 2017 based on screening bone density with worst T-score of -3.3 at her right femoral neck. Fracture history: Leg as an Toe Treatment history: Reclast 2016, 2018, 2019 Drug holiday [id number] Tymlos April 2023-June 2023, discontinued due to hospitalizations Reclast November 15, 2023 Right foot fracture September 2023. No history of renal stones. She has history of congenital hip dysplasia, s/p hip replacment. Lumbar spinal fusion in 2011. She underwent gastric bypass surgery in 1997 at [facility] and a revision in 2011. She [...] 07/28/2023 Immunizations Name Administration Dates Next Due H1N1 All Forms 10/05/2009 Influenza, Injectable, Mdck, Quadrivalent 07/26/2021 Influenza, Seasonal, Injectable 07/29/2012 Influenza, Unspecified 06/29/2019,07/28/2014 SARS-COV-2 (COVID-19) - SURAJ NELSON (J&J)(Discontinued) 09/04/2021 Tdap 03/15/2022,06/06/2011 influenza vaccine quad (FLUZONE/FLUARIX) (6 months and older)(PF) 08/02/2023(Deferred: Patient Refused - at this time),09/21/2022,12/30/2020,08/19/2019, 08/28/2017,08/25/2014,10/05/2009,2005 Social History Tobacco Use Types Packs/Day Years Used Date Smoking Tobacco: Never Smokeless Tobacco: Never Tobacco Cessation:Counseling Given: Not Answered Alcohol Use Standard Drinks/Week Comments Yes 1 (1 standard drink = 0.6 oz pur e alcohol) [facility] Links Global[employer] Answer Date Recorded In the past 12 months has [facility] [employer], gas, oil, or water [employer] threatened to shut off services in your [...] often do you attend chur ch or voodoo services? Patient declined 08/28/2021 Do you belong to any clubs o r organizations such as hoahaoism groups, unions, fraternal or athletic groups, or [...] Answer Date Recorded PHQ-2 Score 0 04/07/2020 [facility] - Occupational [...] Date Recorded Dental: Regular Dentist Yes 10/28/19 23 Employment Answer Date Recorded Employment status Employed and actively working without restrictions 05/18/2024 Housing Stability Answer Date Recorded What is your living situation today? I have a [facility] place to live 05/18/2024 Education Answer Date Recorded What is the highest level of school you have completed or the highest degree you have received? Associate degree: academic program 04/12/2019 Comments No Sex and Gender Information Value Date Recorded Sex Assigned at Female 08/28/2021 7:02 PM CDT Legal Sex Female 2:38 AM [facility]ER DOUGH[facility]UT Gender Identity Female 08/28/2021 7:02 PM CDT Sexual Orientation Straight 08/28/2021 7: 02 PM CDT Last Filed Vital Signs Vital Sign Reading Time Taken Comments Blood Pressure 113/73 05/22/2024 9:39 AM CDT Pulse 72 05/22/2024 9:39 AM CDT Temperature 36.8 ??C (98.2 ??F) 02/14/2024 1 :18 PM CDT Respiratory Rate 13 02/14/2024 1:47 PM CDT Oxygen Saturation 97% 02/14/2024 1:4 7 PM CDT Inhaled Oxygen Concentration - - Weight 95.5 kg (210 lb 8.6 oz) 06/09/2024 2:32 PM CDT self reported Height 166.5 cm (5' 5.55) 05/22/2024 9 :39 AM CDT Body Mass Index 34.45 05/22/2024 9:39 AM CDT Plan of Treatment Upcoming Encounters Date Type Department Care Team (Late st Contact Info) Description 09/03/2024 10:00 AM B[facility]ER DOUGHNUT Appointment Department of Radiology, [facility], in [place], [place] [address] [place] [address] Denise Tubbs M.D. [address] [place] [address] 10/01/2024 4:40 PM [facility]ER DOUGHNUT Virtual Visit Division of Gastroenterology in [place], [place] [address] [place] [address] Denise Tubbs M.D. [address] [place] [address] Medical Devices Implanted Type Area Gang Saw Operator Device Identifier Shelf Expiration Date Model / Serial / Lot Stnt Kin Vbl Shrt Wr 8x60 - [id number] - [id number] Implanted:Qty: 1 on 07/24/2023 by Awais Martinez D.O. at [facility] Biliary Stent [employer] 02/04/2026 [id number] / [id number] / Stnt Axios 15x10 - [id number] Implanted:Qty: 1 on 09/25/2023 by Henrique Daily M.D. at [facility] Biliary Stent [employer] 07/23/2025 [id number] / / [id number] Self Tap-Screw 4.5 X 38 - [id number] Implanted:Qty: 1 on 06/07/1998 Hardware e.g. pins/screws/ rods [employer]ynthes Description:Device Manufactu rer - Synthes. Device Status Text - [id number]. Self Tap-Screw 4.5 X 32 - Loza [id number] Implanted:Qty: 1 on 06/07/1998 Hardware e.g. pins/screws/ rods [employer]ynthe[employer] Description:Device Manufactu rer - Synthes. Device Status Text - [id number]. Dcp-Plate 90deg 10 65mm - Loza [id number] Implanted:Qty: 1 on 06/07/1998 Hardware e.g. pins/screws/ rods [employer] Description:Device Manufactu rer - Synthes. Device Status Text - HARDWARE-59982. Self Tap-Screw 4.5 X 30 - Loza [id number] Implanted:Qty: 1 on 06/07/1998 Hardware e.g. pins/screws/ rods [employer] Description:Device Manufactu rer - Synthes. Device Status Text - HARDWARE-81613. Standard-Screw Mayo 4.5 X 50 - Loza [id number] Implanted:Qty: 1 on 06/07/1998 Hardware e.g. pins/screws/ rods [employer] Description:Device Manufactu rer - Synthes. Device Status Text - HARDWARE-02108. Self Tap-Screw 4.5 X 20 - Loza [id number] Implanted:Qty: 1 on 06/07/1998 Hardware e.g. pins/screws/ rods [employer]uy [employer]ynthe[employer] Description:Device Manufactu rer - Synthes. Device Status Text - HARDWARE-95623. [place] Screw 2 Canc 6.5 X 20 - Loza [id number] Implanted:Qty: 1 on 06/22/2005 Hardware e.g. pins/screws/ rods [employer] Description:Device Manufactu rer - [employer]. Device Status Text - HARDWARE-65119. [place] Screw 2 Canc 6.5 X 40 - Loza [id number] Implanted:Qty: 1 on 06/22/2005 Hardware e.g. pins/screws/ rods [employer] Description:Device Manufactu rer - [employer]. Device Status Text - HARDWARE-88093. [place] Screw 2 Canc 6.5 X 30 - Loza [id number] Implanted:Qty: 2 on 06/22/2005 Hardware e.g. pins/screws/ rods [employer] Description:Device Manufactu rer - [employer]. Device Status Text - HARDWARE-64824. Hardware E.G. Pins/Screws/Rods -06/12/2012 Implanted:2011 (Quantity not on file) Hardware e.g. pins/screws/ rods Back Description:Cage - Lumbar Sp ine [place] Shell Multi 2 56mm - Loza [id number] Implanted:Qty: 1 on 06/22/2005 Hip Implant [employer] Description:Device Manufactu rer - [employer]. Device Status Text - HIP IMP-72886. [place]born-Stem Car 4 Hi - [place] [id number] Implanted:Qty: 1 on 06/22/2005 Hip Implant [employer] Description:Device Manufactu rer - [employer]. Device Status Text - HIP IMP-45068. J J Articul Gui Head 36 - 2.0 - [place] [id number] Implanted:Qty: 1 on 06/22/2005 Hip Implant [employer] Description:Device Manufactu rer - [employer]. Device Status Text - HIP IMP-98910. J J Insert P Opal +4 10 36x56 - [id number] [id number] Implanted:Qty: 1 on 06/22/2005 Hip Implant [employer] Description:Device Manufactu rer - [employer]. Device Status Text - HIP IMP-68202. Clp Ots 126t 220 - [id number] Implanted:Qty: 1 on 11/25/2023 by Henrique Daily M.D. at [facility] OTS System [employer] [facility] 04/26/2026 100.31 / / [id number] Explanted Type Area Gang Saw Operator Device Identifier Shelf Expiration Date Model / Serial / Lot [facility] Zmm Otw 7x7 - [id number] Implanted:Qty: 1 on 07/24/2023 by Awais Martinez DSrikanthOSrikanth at [facility] Explanted:Qty: 1 on 11/25/2023 at [facility] Biliary Stent [employer] 02/14/2026 [id number] / / [id number] Procedures Procedure Name Priority Date/Time Associated Diagnosis Comments FL UPPER GI DOUBLE CONTRAST WITH SMALL BOWEL RAD - Routine (most inpatients and all outpatients) 08/10/2024 9:25 AM CDT Fistula Stomach Bypass Gastric Comfort En Y Status Post Pain Epigastric BMD BONE DENSITY SPINE HIPS RAD - Routine (most inpatients and all outpatients) 05/22/2024 7:06 AM CDT Osteoporosis COMPREHENSIVE METABOLIC PANEL, S/P Routine 11/15/2023 8:24 AM BAKER DOUGHNUT Acute Gastrojejunal Ulcer With Hemorrhage Hemorrhage Gastrointestinal LIPID PANEL, S Routine 03/12/2017 11:56 AM CDT from Last 3 Months or Most Recently Relevant to Health Maintenance Results * FL Upper GI Double Contrast with Small Bowel (08/10/2024 9:25 AM CDT) Anatomical Region Laterality Modality Gastro Intestinal, Abdominal RST LOS, Abdominal ARZ LOS, Abdominal FLA LOS N/A Digital Radiography Impressions 08/10/2024 10:04 AM CDT No leak demonstrated. Small gastric pouch. Small hiatus hernia. Small bowel loops are normal. Narrative 08/10/2024 10:04 AM CDT EXAM: FL UPPER GI DOUBLE CONTRAST WITH SMALL BOWEL COMPARISON: Fluoroscopy study 02/14/2024 and 11/25/2023 FINDINGS: Postsurgical changes of Comfort-en-Y gastric bypass, TORe, complicated by perforation and fistula and perigastric abscesses. Stenting and repair of the fistula. Initial swallow showed small gastric pouch with no leak. ??Small hiatus hernia. Free flow of barium across the gastrojejunostomy. Small bowel loops normal. Ileocecal region normal. Visualized proximal and distal colon are normal. Spinal instrumentation. Procedure Note Guillermo Marlow M.D. - 08/10/2024 EXAM: FL UPPER GI DOUBLE CONTRAST WITH SMALL BOWEL COMPARISON: Fluoroscopy study 02/14/2024 and 11/25/2023 FINDINGS: Postsurgical changes of Comfort-en-Y gastric bypass, TORe,complicated by perforation and fistula and perigastric abscesses. Stentingand repair of the fistula. Initial swallow showed small gastric pouch with no leak. Small hiatushernia. Free flow of barium across the gastrojejunostomy. Small bowel loopsnormal. Ileocecal region normal. Visualized proximal and distal colon arenormal. Spinal instrumentation. IMPRESSION: No leak demonstrated. Small gastric pouch. Small hiatus hernia. Smallbowel loops are normal. Denise Tubbs M.D. IMPacheco FLUOROSCOPY PROCEDURES Fi nal Result * BMD Bone Density Spine Hips (05/22/2024 7:06 AM CDT) Anatomical Region Laterality Modality Hip, Lumbar Spine, Nuclear M edicine RST LOS, Musculoskeletal ARZ LOS, Muskuloskeletal FLA LOS N/A Radio graphic Imaging Impressions 05/22/2024 9:23 AM CDT Osteoporosis Right Femur (region: Neck) ?? Narrative 05/22/2024 9:23 AM CDT EXAM: ??BMD BONE DENSITY SPINE HIPS Bone Mineral Density (BMD) analysis performed on [employer] with serial number [id number]. ? COMPARISON: Serial Comparisons Right Total Hip results: Exam Date ? BMD ? T-score ? 03/13/2017 ? 0.636 g/cm2 ?? -3.0 ? 04/13/2019 ? 0.690 g/cm2 ?? -2.5 ? 09/04/2021 ? 0.695 g/cm2 ?? -2.5 ? 05/17/2023 ? 0.641 g/cm2 ?? -2.9 ? 05/22/2024 ? 0.616 g/cm2 ?? -3.1 ? Change vs. Previous (difference): -0.025 g/cm2 Change vs. Previous (%): -3.9 % The absolute BMD change from previous, -0.025 g/cm2, is greater than least significant change: No The absolute BMD change from baseline, -0.020 g/cm2, is greater than least significant change: No Spine results: Exam Date ? BMD ? T-score ? 03/13/2017 ? 1.111 g/cm2 ?? -0.8 ? 04/13/2019 ? 1.166 g/cm2 ?? -0.4 ? 09/04/2021 ? 1.161 g/cm2 ?? -0.4 ? 05/17/2023 ? 1.108 g/cm2 ?? -0.9 ? 05/22/2024 ? 1.114 g/cm2 ?? -0.8 ? Change vs. Previous (difference): 0.006 g/cm2 Change vs. Previous (%): 0.5 % The absolute BMD change from previous, 0.006 g/cm2, is greater than the least significant change: No The absolute BMD change from baseline, 0.003 g/cm2, is greater than the least significant change: No ----- FINDINGS: Right Hip: Femur Neck: BMD = 0.562 g/cm2 T-score = -3.4 ?? Z-score = -2.9 Total Hip: BMD = 0.616 g/cm2 T-score = -3.1 ?Z-score = -2.9 Lumbar Spine: L1: BMD = 1.165 g/cm2 L2: BMD = 1.126 g/cm2 L3: BMD = 1.103 g/cm2 L4: BMD = 1.008 g/cm2 Total Lumbar Spine (L2-L3): BMD = 1.114 g/cm2 T-score = -0.8 ?Z-score = -0.7 Trabecular Bone Score: L2-L3: TBS = 1.613 ? < 1.23: low 1.23 -1.31: borderline ?? > 1.31: normal ? A low TBS has been associated with increased risk of fractures in certain populations. TBS should not be used alone to determine treatment recommendations. It can be used in conjunction with BMD and FRAX to inform management. Please note: A more comprehensive DXA report, including images and graphs, is available in [employer]. In the absence of other causes of low BMD or demonstrated skeletal fragility, osteoporosis may be diagnosed in post-menopausal women and men at or above age 50 when the T-score is at or below -2.5 as defined by the WHO. Low bone density is present at T-scores between -1 and -2.5. The diagnosis in pre-menopausal women and men < age 50 can be based on low bone density or evidence of skeletal fragility in the appropriate clinical setting. Degenerative changes are present which may spuriously elevate the spine BMD measurement. Today's spine scan was compared with the previous scans using a new region, L2- L3 (L1,L4) Patient does not meet ISCD guidelines for FRAX calculations. (on treatment) Procedure Note Penny Rodriguez M.D. - 05/22/2024 EXAM: BMD BONE DENSITY SPINE HIPS Bone Mineral Density (BMD) analysis performed on [employer] with serialnumber [id number]. COMPARISON: Serial Comparisons Right Total Hip results: Exam Date BMD T-score 03/13/2017 0.636 g/cm2 -3.0 04/13/2019 0.690 g/cm2 -2.5 09/04/2021 0.695 g/cm2 -2.5 05/17/2023 0.641 g/cm2 -2.9 05/22/2024 0.616 g/cm2 -3.1 Change vs. Previous (difference): -0.025 g/cm2 Change vs. Previous (%): -3.9 % The absolute BMD change from previous, -0.025 g/cm2, is greater than least significant change: No The absolute BMD change from baseline, -0.020 g/cm2, is greater than least significant change: No Spine results: Exam Date BMD T-score 03/13/2017 1.111 g/cm2 -0.8 04/13/2019 1.166 g/cm2 -0.4 09/04/2021 1.161 g/cm2 -0.4 05/17/2023 1.108 g/cm2 -0.9 05/22/2024 1.114 g/cm2 -0.8 Change vs. Previous (difference): 0.006 g/cm2 Change vs. Previous (%): 0.5 % The absolute BMD change from previous, 0.006 g/cm2, is greater than the least significant change: No The absolute BMD change from baseline, 0.003 g/cm2, is greater than the least significant change: No ----- FINDINGS: Right Hip: Femur Neck: BMD = 0.562 g/cm2 T-score = -3.4 Z-score = -2.9 Total Hip: BMD = 0.616 g/cm2 T-score = -3.1 Z-score = -2.9 Lumbar Spine: L1: BMD = 1.165 g/cm2 L2: BMD = 1.126 g/cm2 L3: BMD = 1.103 g/cm2 L4: BMD = 1.008 g/cm2 Total Lumbar Spine (L2-L3): BMD = 1.114 g/cm2 T-score = -0.8 Z-score = -0.7 Trabecular Bone Score: L2-L3: TBS = 1.613 < 1.23: low 1.23 -1.31: borderline > 1.31: normal A low TBS has been associated with increased risk of fractures in certainpopulations. TBS should not be used alone to determine treatmentrecommendations. It can be used in conjunction with BMD and FRAX to informmanagement. Please note: A more comprehensive DXA report, including images and graphs,is available in [employer]. In the absence of other causes of low BMD or demonstrated skeletalfragility, osteoporosis may be diagnosed in post-menopausal women and menat or above age 50 when the T-score is at or below -2.5 as defined by theWHO. Low bone density is present at T-scores between -1 and -2.5. The diagnosis in pre-menopausal women andmen < age 50 can be based on low bone density or evidence of skeletalfragility in the appropriate clinical setting. Degenerative changes are present which may spuriously elevate the spineBMD measurement. Today's spine scan was compared with the previous scans using a newregion, L2-L3 (L1,L4) Patient does not meet ISCD guidelines for FRAX calculations. (ontreatment) IMPRESSION: Osteoporosis Right Femur (region: Neck) Arlene Loco APRN, C.N.P. IMG DXA PROCEDURES Final Result * (ABNORMAL) Comprehensive Metabolic Panel (11/15/2023 8:24 AM BAKER DOUGHNUT) Pathologist [facility] Potassium, S 4.5 3.6 - 5.2 mmol/L 11/15/2023 9:18 AM BAKER DOUGHNUT DTL Sodium, S 144 135 - 145 mmol/L 11/15/2023 9:18 AM BAKER DOUGHNUT DTL Chloride, S 107 98 - 107 mmol/L 11/15/2023 9:18 AM BAKER DOUGHNUT DTL Bicarbonate, S 27 22 - 29 mmol/L 11/15/2023 9:18 AM BAKER DOUGHNUT DTL Anion Gap 10 7 - 15 11/15/2023 9:18 AM BAKER DOUGHNUT DTL BUN (Blood Urea Nitrogen), S 8 6 - 21 mg/dL 11/15/2023 9:18 AM BAKER DOUGHNUT DTL Creatinine 0.72 0.59 - 1.04 mg/dL 11/15/2023 9:18 AM BAKER DOUGHNUT DTL Estimated GFR (eGFR) >90 >=60 mL/min/BS A 11/15/2023 9:18 AM BAKER DOUGHNUT DTL Comment: Estimated GFR calculated using the 2020 CKD_EPI creatinine equation. Calcium, Total, S 9.6 8.6 - 10.0 mg/dL 11/15/2023 9:18 AM BAKER DOUGHNUT DTL Glucose, S 105 70 - 140 mg/dL 11/15/2023 9:18 AM BAKER DOUGHNUT DTL Protein, Total, S 6.6 6.3 - 7.9 g/dL 11/15/2023 9:18 AM BAKER DOUGHNUT DTL Albumin, S 4.0 3.5 - 5.0 g/dL 11/15/2023 9:18 AM BAKER DOUGHNUT DTL Aspartate Aminotransferase (AST), S 31 8 - 43 U/L 11/15/2023 9:18 AM BAKER DOUGHNUT DTL Alkaline Phosphatase, S 116(H) 35 - 104 U/L 11/15/2023 9:18 AM BAKER DOUGHNUT DTL Alanine Aminotransferase (ALT), S 45 7 - 45 U/L 11/15/2023 9:18 AM BAKER DOUGHNUT DTL Bilirubin, Total, S 0.3 0.0 - 1.2 mg/dL 11/15/2023 9:18 AM BAKER DOUGHNUT DTL Blood (Blood, Venous) 11/15/2023 8:24 AM BAKER DOUGHNUT 11/15/2023 9:00 AM BAKER DOUGHNUT us Rebel Craft M.D. LAB BLOOD ADD-ON Final Res ult [facility] [address] [place] [address], [place] DTL [facility] [address] [place] [address] * Lipid Panel (03/12/2017 11:56 AM CDT) Cholesterol, HDL, S 61 >=50 MG/DL [facility] Calculated LDL 122 SeeComment MG/DL [facility] Comment: ? REFERENCE VALUE ? Desirable: <100 ? Above Desirable: 100-129 ? Borderline high: 130-159 ? High: 160-189 ? Very high: > or =190 ? Cholesterol, Total 198 SeeComment MG/DL [facility] Comment: ? REFERENCE VALUE ? Desirable: < 200 ? Borderline high: 200 - 239 ? High: > or = 240 ? Triglycerides 77 SeeComment MG/DL [facility] Comment: ? REFERENCE VALUE ? Normal: <150 ? Borderline high: 150-199 ? High: 200-499 ? Very high: > or =500 ? Cholesterol, Non-HDL, Calculated 137 SeeComment MG/DL [facility] Comment: ? REFERENCE VALUE ? Desirable: <130 ? Above Desirable: 130-159 ? Borderline high: 160-189 ? High: 190-219 ? Very high: > or =220 ? 03/12/2017 11:5 6 AM CDT 03/12/2017 11:56 AM CDT us [place] M.D. LAB BLOOD ADD-ON Final Resul t [facility] [address] [place] [address], [facility] from Last 3 Months or Most Recently Relevant to Health Maintenance Insurance MEDICA Advance Directives For more information, please contact: [phone] Documents on File Type Date Recorded Patient Fitness/Wellness Director Expl anation Advance Directives 07/25/2023 1:43 PM Sreedhar Shaun LizarragaChrosariolauro Boo HCPOA/ADVOCATE/AGENT/ AUTOMOBILE DAMAGE APPRAISER/SURROG ATE Advance Directives 06/26/2005 12:00 AM Leg [...] Sreedharcaprice Dunn Zia Spouse Health Care Agent Carmencita Rajeev Sister First Altern ate Health Care Agent
--- OUTSIDE RECORDS SUMMARY | 2024-08-18 07:10 | XMS_ITS | Encounter Summary ---
Author Organization [facility] Address [address] [place] [address] Care Team Providers Care Driver'S License Examiner Name Role Phone Unavailable Primary Care Provider Unavailabl e Reason for Visit * Outpatient (Routine) - Closed Specialty Diagnoses / Procedures Referred By Arielle richards Referred To Contact Diagnoses Fistula Stomach Bypass Gastric Comfort En Y Status Post Pain Epigastric Procedures FL Upper GI Double Contrast with Small Bowel FL Upper GI Single Contrast With Small Bowel Denise Tubbs M.D. [address] [place] [phone] Phone: tel: fax: [facility] Referral ID Status Reason Start Date Expiration Date Visits Re quested Visits Authorized [id number] Closed 07/31/2024 07/31/2025 1 1 Encounter Details Date Type Department Care Team (Latest Contact Info) Description 08/10/2024 7:12 AM CDT - 08/10/2024 11:59 PM CDT Hospital Encounter Department of Radiology, [facility], in [place], [place] [address] [place] [phone] Denise Tubbs M.D. [address] [place] [phone] Fistula Stomach; Bypass Gastric Comfort En Y Status Post; Pain Epigastric Discharge Disposition: Home or Self Care Social History Tobacco Use Types Packs/Day Years Used Date Smoking Tobacco: Never Smokeless Tobacco: Never Alcohol Use Standard Drinks/Week Comments Yes 1 (1 standard drink = 0.6 oz pur e alcohol) [facility] Utilities Answer Date Recorded In the past 12 months has th e electric, gas, oil, or water company threatened to shut off services in your [...] 08/28/2021 How often do you attend [facility] or sikhism services? Patient declined 08/28/2021 Do you belong to any clubs o r organizations such as moravian groups, unions, fraternal or athletic groups, or [...] Answer Date Recorded PHQ-2 Score 0 04/07/2020 [facility] [place] [facility] Occupat ional [facility] - Occupational Stress Questionnaire Answer Date Recorded [...] have a [facility] place to live 05/18/2024 Education Answer Date Recorded What is the highest level of school you have completed or the highest degree you have received? Associate degree: academic program 04/12/2019 Comments No Sex and Gender Information Value Date Recorded Sex Assigned at Female 08/28/2021 7:02 PM CDT Legal Sex Female 2:38 AM EXPLORATION GEOLOGIST Gender Identity Female 08/28/2021 7:02 PM CDT Sexual Orientation Straight 08/28/2021 7: 02 PM CDT documented as of this encounter Medications at Time of Discharge cyanocobalamin, vitamin B-12, 2,500 mcg tablet Take 2,500 mcg by mouth daily. 07/30/2023 furosemide (LASIX) 20 mg tablet Administer 1 tablet (20 mg total) via small bowel tube daily. 30 tablet 1 07/29/2023 iron,carbonyl/as corbic acid (VITRON-C ORAL) Take 1 tablet by mouth daily. 03/12/2017 omeprazole (PriLOSEC) [address] capsule Take 1 capsule (40 mg total) by mouth every morning before breakfast. 30 capsule 3 08/19/2023 documented as of this encounter Plan of Treatment Upcoming Encounters Date Type Department Care Team (Late st Contact Info) Description 09/03/2024 10:00 AM EXPLORATION GEOLOGIST Appointment Department of Radiology, [facility], in [place], [place] [address] [place] [phone] Denise Tubbs M.D. [address] [place] [phone] 10/01/2024 4:40 PM EXPLORATION GEOLOGIST Virtual Visit Division of Gastroenterology in [place], [place] [address] [place] [phone] Denise Tubbs M.D. [address] [place] [phone] documented as of this encounter Procedures Procedure Name Priority Date/Time Associated Diagnosis Comments FL UPPER GI DOUBLE CONTRAST WITH SMALL BOWEL RAD - Routine (most inpatients and all outpatients) 08/10/2024 9:25 AM CDT Fistula Stomach Bypass Gastric Comfort En Y Status Post Pain Epigastric documented in this encounter Results * FL Upper GI Double Contrast [...] hiatus hernia. Smallbowel loops are normal. Denise OLIVER FLUOROSCOPY PROCEDURES Fi nal Result documented in this encounter Visit Diagnoses Diagnosis Fistula Stomach Bypass Gastric Comfort En Y Status Post Pain Epigastric documented in this encounter Administered Medications Inactive Administered Medications - up to 3 most recent administrations Medication Order MAR Action Action Date Dose Rate Site barium 60 % (w/v) suspension 300 mL (Liquid E-Z-Paque) 300 mL, oral, Once in imaging, contrast, Starting on 08/10/24 at 0925, For 1 dose Given 08/10/2024 9:27 AM CDT 300 mL barium 98 % oral powder for suspension 100 mL (E-Z-HD) 100 mL, oral, Once in imaging, contrast, Starting on Sat08/10/24 at 0925, For 1 dose Given 08/10/2024 9:26 AM CDT 100 mL sodium bicarbonate-citric acid-simethicone effervescent packet 0.5 packet (E-Z-Gas II) 0.5 packet, oral, Once, On Sat08/10/24 at 0945, For 1 dose Given 08/10/2024 9:27 AM CDT 0.5 packets documented in this encounter Additional Health Concerns Assessment Noted Time PHQ-9 Depression Total Score: 4 03/12/20 17 3:53 PM CDT documented as of this encounter
--- OUTSIDE RECORDS SUMMARY | 2024-08-18 07:10 | XMS_ITS ---
Author Organization [facility] Address [address] [place] [address] Care Team Providers Care Shoe Repair Supervisor Name Role Phone Unavailable Unavailable Unavailable Surgery Details Not on file Complications Check Surgery Details section. Procedure Estimated Blood Loss Check Surgery Details section. Procedure Findings Check Surgery Details section. Procedure Specimens Taken Check Surgery Details section.
--- OUTSIDE RECORDS SUMMARY | 2024-08-18 07:10 | XMS_ITS | Clinical Summary ---
Author Organization [facility] Address [address] [place] [address] Care Team Providers Care Title One Kindergarten Teacher Name Role Phone Unavailable Primary Care Provider Unavailabl e Source Comments Patient records contain information from all sites at [facility]. For routine questions regarding patient records, call [phone] during business hours, M-F 8:00 AM - 5:00 PM Central Time. Record requests for emergency care only can be directed to [phone] at any time.[facility] Allergies Active Allergy Reactions Criticality Noted Date Comments Lip Hamel Spf 15 Anaphylaxis High 03/12/2017 swollen throat and lips - (Mingo's Bees Lip Hamel) Morphine Headache Medium 06/21/2005 Nsaids (Non-Steroidal Anti-Inflammatory [...] every morning before breakfast. 30 capsule 3 3 Active Additional Information Patient taking differently:40 [...] history: Reclast 2016, 2018, 2019 Drug holiday [id number] Tymlos April 2023-June 2023, discontinued due to hospitalizations Reclast November 15, 2023 Right foot fracture September 2023. No history of renal stones. She has history of congenital hip dysplasia, s/p hip replacment. Lumbar spinal fusion in 2011. She underwent gastric bypass surgery in 1997 at [facility] and a revision in 2011. She had [...] PM CDT Hospital Encounter Department of Radiology, [facility], in [place], [place] [address] [place] [phone] Denise Tubbs M.D. Fistula Stomach; Bypass Gastric Comfort En Y Status Post; Pain Epigastric Discharge Disposition: Home or Self Care 07/24/2024 Clinical Communication Division of Gastroenterology in [address] [phone] Denise Tubbs M.D. 07/01/2024 4:20 PM CDT Telemedicine Division of Gastroenterology in [address] [phone] Denise Tubbs M.D. Fistula Stomach; Bypass Gastric Comfort En Y Status Post; Hemorrhage Gastrointestinal 06/09/2024 2:00 PM CDT Telemedicine Division of Endocrinology in [address] [phone] Merry Donahue APRN, C.N.P. Bypass Gastric Comfort En Y Status Post (Primary Dx); Obesity Body Mass Index 30-39.9 Adult; Hemorrhage Gastrointestinal; Fistula Stomach 06/09/2024 Orders Only Division of Endocrinology in [address] [phone] Merry Donahue APRN, C.N.P. 06/08/2024 8:15 AM CDT Clinical Communication Virtual Review in [place], [place] 200 [place] [phone] Pre-visit Intake 05/22/2024 9:30 AM CDT Office Visit Division of Endocrinology in [address] [phone] Arlene Loco APRN, C.N.P. Bypass Gastric Comfort En Y Status Post (Primary Dx); Osteoporosis 05/22/2024 6:49 AM CDT - 05/22/2024 11:59 PM CDT Hospital Encounter Department of Radiology, [facility], in [place], [place] [address] [place] [phone] Arlene Loco, JOSÉ MANUEL, C.N.P. Osteoporosis Discharge Disposition: Home or Self Care from Last 3 Months Immunizations Name Administration Dates Next Due H1N1 All Forms 10/05/2009 Influenza, Injectable, Mdck, Quadrivalent 07/26/2021 Influenza, Seasonal, Injectable 07/29/2012 Influenza, Unspecified 06/29/2019,07/28/2014 SARS-COV-2 (COVID-19) - SURJA NELSON (J&J)(Discontinued) 09/04/2021 Tdap 03/15/2022,06/06/2011 influenza vaccine quad (FLUZONE/FLUARIX) (6 months and older)(PF) 08/02/2023(Deferred: Patient Refused - at this time),09/21/2022,12/30/2020,08/19/2019, 08/28/2017,08/25/2014,10/05/2009,2005 Family History Medical History Relation Name Comments Thyroid cancer Brother 1 Shaun Pancreatic cancer Brother 2 Patricia Prostate cancer Brother 2 Patricia Coronary artery [...] drink = 0.6 oz pur e alcohol) [facility] Utilities Answer Date Recorded In the past 12 months has th e electric, gas, oil, or water [employer] threatened to shut off services in your [...] week 08/28/2021 How often do you attend [facility] or jewish services? Patient declined 08/28/2021 Do you belong to any clubs o r organizations such as gnosticist groups, unions, fraternal or athletic groups, or [...] Answer Date Recorded PHQ-2 Score 0 04/07/2020 [facility] Occupat ional Health - Occupational [...] your living situation today? I have a [facility] place to live 05/18/2024 Education Answer Date Recorded What is the highest level of school you have completed or the highest degree you have received? Associate degree: academic program 04/12/2019 Comments No Sex and Gender Information Value Date Recorded Sex Assigned at Female 08/28/2021 7:02 PM CDT Legal Sex Female 2:38 AM ECHO VASC TECH Gender Identity Female 08/28/2021 7:02 PM CDT [...] st Contact Info) Description 09/03/2024 10:00 AM ECHO VASC TECH Appointment Department of Radiology, [facility], in [place], [place] [address] [place] [phone] Denise Tubbs M.D. [address] [place] [phone] 10/01/2024 4:40 PM ECHO VASC TECH Virtual Visit Division of Gastroenterology in [place], [place] [address] [place] [phone] Denise Tubbs M.D. [address] [place] [phone] Health Maintenance Due Date Last Done Comments CT Colonography 1964 Cologuard 1964 Pneumococcal vaccine (0-64 years) (1 of 2 - PCV) 1970 Hepatitis B Vaccines (1 of 3 - 19+ 3-dose series) 1983 Zoster Vaccines (1 of 2) 1983 Cervical Cancer Screening 10/28/20172014 (Performed elsewhere) Depression Screening (Annual PHQ-2) 10/28/2023 COVID-19 Vaccine ( season) 2024 09/21/2022, 03/15/2022, 09/04/2021, Additional history exists Influenza Vaccine (#1) 2024 2, 07/26/2021, 12/30/2020, Additional history exists Creatinine Level (Kidney Function Test) 03/24/2025 03/24/2024, 11/15/2023, 11/15/2023, Additional history exists Mammogram 03/24/2025 03/24/2024, 02/26, 03/15/2023, Additional history exists Sodium Level 03/24/2025 03/24/2024, 10/28, 11/15/2023, Additional history exists Potassium Level 05/14/2025 05/14/2024, 02/26, 11/15/2023, Additional history exists Fasting Glucose for Diabetes Screening 03/24/2027 03/24/2024, 11/15/2023, 11/15/2023, Additional history exists Colonoscopy 08/23/2027 08/23/2022, 10/2016 (Performed elsewhere) Colorectal Cancer Surveillance 08/23/2027 Lipid (Cholesterol) Screening 03/24/2029 03/24/2024, 03/08/2023, 12/30/2020, Additional history exists DTaP,Tdap,and Td Vaccines (3 - Td or Tdap) 03/15/2032 03/15/2022, 06/06/2011 Hepatitis C Screening Completed 02/01/2006 HPV Vaccines Aged Out No longer eligi ble based on patient's age to complete this topic Medical Devices Implanted Type Area Kennel Technician Device Identifier Shelf Expiration Date Model / Serial / Lot Stnt Kin Vbl Shrt Wr 8x60 - [id number] - [id number] Implanted:Qty: 1 on 07/24/2023 by Awais Martinez D.O. at [facility] Biliary Stent [employer] 02/04/2026 [id number] / [id number] / [facility] Axios 15x10 - [id number] Implanted:Qty: 1 on 09/25/2023 by Henrique Daily M.D. at [facility] Biliary Stent [employer] 07/23/2025 [id number] / / [id number] Self Tap-Screw 4.5 X 38 - [id number] [id number] Implanted:Qty: 1 on 06/07/1998 Hardware e.g. pins/screws/ rods Depuy Synthes Description:Device Manufactu rer - Synthes. Device Status Text - HARDWARE-36293. Self Tap-Screw 4.5 X 32 - Loza [id number] Implanted:Qty: 1 on 06/07/1998 Hardware e.g. pins/screws/ rods [employer]uy [employer]ynthes Description:Device Manufactu rer - Synthes. Device Status Text - HARDWARE-72482. Dcp-Plate 90deg 10 65mm - Loza [id number] Implanted:Qty: 1 on 06/07/1998 Hardware e.g. pins/screws/ rods [employer]ynthe[employer] Description:Device Manufactu rer - Synthes. Device Status Text - HARDWARE-08025. Self Tap-Screw 4.5 X 30 - Loza [id number] Implanted:Qty: 1 on 06/07/1998 Hardware e.g. pins/screws/ rods [employer]uy [employer]ynthes Description:Device Manufactu rer - Synthes. Device Status Text - HARDWARE-12731. Standard-Screw Mayo 4.5 X 50 - Loza [id number] Implanted:Qty: 1 on 06/07/1998 Hardware e.g. pins/screws/ rods [employer]ynthe[employer] Description:Device Manufactu rer - Synthes. Device Status Text - HARDWARE-53202. Self Tap-Screw 4.5 X 20 - Loza [id number] Implanted:Qty: 1 on 06/07/1998 Hardware e.g. pins/screws/ rods [employer]uy [employer]ynthe[employer] Description:Device Manufactu rer - Synthes. Device Status Text - HARDWARE-41482. Mccomb Screw 2 Canc 6.5 X 20 - Loza [id number] Implanted:Qty: 1 on 06/22/2005 Hardware e.g. pins/screws/ rods [employer] Description:Device Manufactu rer - [employer]. Device Status Text - HARDWARE-79977. Mccomb Screw 2 Canc 6.5 X 40 - Loza [id number] Implanted:Qty: 1 on 06/22/2005 Hardware e.g. pins/screws/ rods [employer] Description:Device Manufactu rer - [employer]. Device Status Text - HARDWARE-90815. Mccomb Screw 2 Canc 6.5 X 30 - Loza [id number] Implanted:Qty: 2 on 06/22/2005 Hardware e.g. pins/screws/ rods [employer] Description:Device Manufactu rer - [employer]. Device Status Text - HARDWARE-00613. Hardware E.G. Pins/Screws/Rods -06/12/2012 Implanted:2011 (Quantity not on file) Hardware e.g. pins/screws/ rods Back Description:Cage - Lumbar Sp ine Mccomb Shell Multi 2 56mm - Loza [id number] Implanted:Qty: 1 on 06/22/2005 Hip Implant [employer] Description:Device Manufactu rer - [employer]. Device Status Text - HIP IMP-08997. [place]-Stem Car 4 Hi - [place] [id number] Implanted:Qty: 1 on 06/22/2005 Hip Implant [employer] Description:Device Manufactu rer - [employer]. Device Status Text - HIP IMP-68411. J J Articul Gui Head 36 - 2.0 - Loza [id number] Implanted:Qty: 1 on 06/22/2005 Hip Implant [employer] Description:Device Manufactu rer - [employer]. Device Status Text - HIP IMP-40027. J J Insert P Opal +4 10 36x56 - Loza [id number] Implanted:Qty: 1 on 06/22/2005 Hip Implant [employer] Description:Device Manufactu rer - [employer]. Device Status Text - HIP IMP-25739. Clp Ots 6 220 - [id number] Implanted:Qty: 1 on 11/25/2023 by Henrique Daily M.D. at [facility] OTS System [employer] [facility] 04/26/2026 100.31 / / [id number] Explanted Type Area Kennel Technician Device Identifier Shelf Expiration Date Model / Serial / Lot [facility] Zm Otw 7x7 - [id number] Implanted:Qty: 1 on 07/24/2023 by Awais Martinez D.O. at [facility] Explanted:Qty: 1 on 11/25/2023 at [facility] Biliary Stent [employer] 02/14/2026 [id number] / / [id number] Procedures Procedure Name Priority Date/Time Associated Diagnosis [...] METABOLIC PANEL, S/P Routine 11/15/2023 8:24 AM ECHO VASC TECH Acute Gastrojejunal Ulcer With Hemorrhage Hemorrhage Gastrointestinal [...] Small hiatus hernia. Smallbowel loops are normal. us Denise Tubbs M.D. IMPacheco FLUOROSCOPY PROCEDURES Fi [...] Bone Mineral Density (BMD) analysis performed on Noovo with serial number [id number]. ? COMPARISON: Serial Comparisons Right Total Hip [...] including images and graphs, is available in QREADS. In the absence of [...] Bone Mineral Density (BMD) analysis performed on NextivaXA with serialnumber [id number]. COMPARISON: Serial Comparisons Right Total Hip results: [...] report, including images and graphs,is available in [employer]. In the absence of other causes of [...] Femur (region: Neck) Arlene Loco APRN, C.N.P. IM DXA PROCEDURES Final Result * (ABNORMAL) Comprehensive Metabolic Panel (11/15/2023 8:24 AM ECHO VASC TECH) Potassium, S 4.5 3.6 - 5.2 mmol/L 11/15/2023 9:18 AM ECHO VASC TECH DTL Sodium, S 144 135 - 145 mmol/L 11/15/2023 9:18 AM ECHO VASC TECH DTL Chloride, S 107 98 - 107 mmol/L 11/15/2023 9:18 AM ECHO VASC TECH DTL Bicarbonate, S 27 22 - 29 mmol/L 11/15/2023 9:18 AM ECHO VASC TECH DTL Anion Gap 10 7 - 15 11/15/2023 9:18 AM ECHO VASC TECH DTL BUN (Blood Urea Nitrogen), S 8 6 - 21 mg/dL 11/15/2023 9:18 AM ECHO VASC TECH DTL Creatinine 0.72 0.59 - 1.04 mg/dL 11/15/2023 9:18 AM ECHO VASC TECH DTL Estimated GFR (eGFR) >90 >=60 mL/min/BS A 11/15/2023 9:18 AM ECHO VASC TECH DTL Comment: Estimated GFR calculated using the 2020 CKD_EPI creatinine equation. Calcium, Total, S 9.6 8.6 - 10.0 mg/dL 11/15/2023 9:18 AM ECHO VASC TECH DTL Glucose, S 105 70 - 140 mg/dL 11/15/2023 9:18 AM ECHO VASC TECH DTL Protein, Total, S 6.6 6.3 - 7.9 g/dL 11/15/2023 9:18 AM ECHO VASC TECH DTL Albumin, S 4.0 3.5 - 5.0 g/dL 11/15/2023 9:18 AM ECHO VASC TECH DTL Aspartate Aminotransferase (AST), S 31 8 - 43 U/L 11/15/2023 9:18 AM ECHO VASC TECH DTL Alkaline Phosphatase, S 116(H) 35 - 104 U/L 11/15/2023 9:18 AM ECHO VASC TECH DTL Alanine Aminotransferase (ALT), S 45 7 - 45 U/L 11/15/2023 9:18 AM ECHO VASC TECH DTL Bilirubin, Total, S 0.3 0.0 - 1.2 mg/dL 11/15/2023 9:18 AM ECHO VASC TECH DTL Blood (Blood, Venous) 11/15/2023 8:24 AM ECHO VASC TECH 11/15/2023 9:00 AM ECHO VASC TECH Rebel Craft M.D. LAB BLOOD ADD-ON Final Res ult [facility] [address] [place] [address], [facility] [place]note 2[facility] [address] [place] [address] * Lipid Panel (03/12/2017 11:56 AM CDT) Cholesterol, HDL, S 61 >=50 MG/DL [facility] Calculated LDL 122 SeeComment MG/DL [facility] Comment: ? REFERENCE VALUE ? Desirable: <100 ? Above Desirable: 100-129 ? Borderline high: 130-159 ? High: 160-189 ? Very high: > or =190 ? Cholesterol, Total 198 SeeComment MG/DL [facility] Comment: ? REFERENCE VALUE ? Desirable: < 200 ? Borderline high: 200 - 239 ? High: > or = 240 ? Triglycerides 77 SeeComment MG/DL [facility] Comment: ? REFERENCE VALUE ? Normal: <150 ? Borderline high: 150-199 ? High: 200-499 ? Very high: > or =500 ? Cholesterol, Non-HDL, Calculated 137 SeeComment MG/DL [facility] Comment: ? REFERENCE VALUE ? Desirable: <130 ? Above Desirable: 130-159 ? Borderline high: 160-189 ? High: 190-219 ? Very high: > or =220 ? 03/12/2017 11:5 6 AM CDT 03/12/2017 11:56 AM CDT us [place] M.D. LAB BLOOD ADD-ON Final Resul t [facility] [address] [place] [id number], [facility] from Last 3 Months or Most Recently Relevant to Health Maintenance Insurance MEDICA Advance Directives For more information, please contact: [phone] Documents on File Type Date Recorded Patient Easement Worker Expl anation Advance Directives 07/25/2023 1:43 PM Sreedhar Dunn Troy Rajeev HCPOA/ADVOCATE/AGENT/ RESIDENTIAL SUBSTANCE ABUSE COUNSELOR/SURROG ATE Advance Directives 06/26/2005 12:00 AM Leg [...] Name Relationship Healthcare Agent Relationship Communication Sreedhar Dunn Zia Spouse Health Care Agent Carmencita Boo Sister First Altern ate Health Care Agent
--- OUTSIDE RECORDS SUMMARY | 2024-08-18 07:10 | XMS_ITS | Encounter Summary ---
Author Organization [facility] Address [address] [place] [address] Care Team Providers Care Podiatry Professor Name Role Phone Unavailable Primary Care Provider Unavailabl e Encounter Details Date Type Department Care Team (Latest Contact Info) Description 07/24/2024 Clinical Communication Division of Gastroenterology in [place], [place] [address] [place] [phone] Denise Tubbs M.D. [address] [place] [phone] Social History Tobacco Use Types Packs/Day Years Used Date Smoking Tobacco: Never Smokeless Tobacco: Never Alcohol Use Standard Drinks/Week Comments Yes 1 (1 standard drink = 0.6 oz pur e alcohol) [facility] Utilities Answer Date Recorded In the past 12 months has [facility] [employer] gas, oil, or water [employer] threatened to shut off services in your [...] How often do you attend chur or denominational services? Patient declined 08/28/2021 Do you belong to any clubs o r organizations such as presybeterian groups, unions, [employer] or athletic groups, or school groups? No [...] Answer Date Recorded PHQ-2 Score 0 04/07/2020 [facility] of Occupat ional Health - [...] your living situation today? I have a [facility] place to live 05/18/2024 Education Answer Date Recorded What is the highest level of school you have completed or the highest degree you have received? Associate degree: academic program 04/12/2019 Comments No Sex and Gender Information Value Date Recorded Sex Assigned at Female 08/28/2021 7:02 PM CDT Legal Sex Female 2:38 AM ORE WASHER Gender Identity Female 08/28/2021 7:02 PM CDT Sexual Orientation Straight 08/28/2021 7: 02 PM CDT documented as of this encounter Plan of Treatment Upcoming Encounters Date Type Department Care Team (Late st Contact Info) Description 09/03/2024 10:00 AM ORE WASHER Appointment Department of Radiology, [facility], in [place], [place] [address] [place] [phone] Denise Tubbs M.D. [address] [place] [phone] 10/01/2024 4:40 PM ORE WASHER Virtual Visit Division of Gastroenterology in [place], [place] [address] [place] [phone] Denise Tubbs M.D. [address] [place] [phone] documented as of this encounter Visit Diagnoses Not on filedocumented in this encounter Additional Health Concerns Assessment Noted Time PHQ-9 Depression Total Score: 4 03/12/20 17 3:53 PM CDT documented as of this encounter
--- OUTSIDE RECORDS SUMMARY | 2024-08-18 07:11 | XMS_ITS | Encounter Summary ---
Author Organization [facility] Address [address] [place] [address] Care Team Providers Care Email Marketing Manager Name Role Phone Nayeli Orourke Unavailable Sean Gaston MD Unavailable [phone] Nayeli Orourke Primary Care Provider [phone] Sonia Harley RN Unavailable [phone] Encounter Details Date Type Department Care Team (Late st Contact Info) Description 11/10/2017 [facility] Medical Advice [facility] [address] [facility] [address] [place] [address] Sean Gaston MD [address] [place] [address] [phone] Social History Tobacco Use Types Packs/Day Years Used Date Smoking Tobacco: Never Smokeless Tobacco: Never Alcohol Use Standard Drinks/Week Comments No 0 (1 standard drink = 0.6 oz pur e alcohol) Sex and Gender Information Value Date Recorded Sex Assigned at Female 11/25/2018 7:20 AM COMPENSATION AND BENEFITS ANALYST Gender Identity Female 11/25/2018 7:20 AM COMPENSATION AND BENEFITS ANALYST Sexual Orientation Straight 11/25/2018 7: 20 AM COMPENSATION AND BENEFITS ANALYST documented as of this encounter Plan of Treatment Not on file documented as of this encounter Visit Diagnoses Not on filedocumented in this encounter Care Teams Email Marketing Manager Relationship Specialty Start Date End Date Nayeli Orourke PCP - General Family Practice 11/26/17 Nayeli Orourke Referring Physician Family Practice 09/30/17 Sean Gaston MD [address] [place] [id number] Orthopaedic Surgery 09/30/17 Sonia Harley, RN Registered Nurse Orthopaedic Surgery 12/20/17 documented as of this encounter
--- OUTSIDE RECORDS SUMMARY | 2024-08-18 07:11 | XMS_ITS ---
Author Organization [facility] Address [address] [place] [address] Care Team Providers Care Marketing Content Manager Name Role Phone Unavailable Primary Care Provider Unavailabl e Bariatrics Program Status:Enrolled (Active) Start date:05/17/2023 Enrollment date:06/11/2023 Current support & services provided:Pre-Op Related social drivers of health:Food Insecurity, Transportation Needs Overview [facility] Continued Care and Services Coordination
--- OUTSIDE RECORDS SUMMARY | 2024-08-18 07:11 | XMS_ITS | Encounter Summary ---
Author Organization [facility] Address [address] [place] [address] Care Team Providers Care Assembly Technician Name Role Phone Nayeli Orourke Unavailable Sean Gaston MD Unavailable Nayeli Orourke Primary Care Provider Sonia Harley RN Unavailable [phone] Encounter Details Date Type Department Care Team (Late st Contact Info) Description 12/09/2017 [facility] Medical Advice [facility] [address] [facility] [address] [place] [address] Sean Gaston MD [address] [place] [address] [id number] Social History Tobacco Use Types Packs/Day Years Used Date Smoking Tobacco: Never Smokeless Tobacco: Never Alcohol Use Standard Drinks/Week Comments No 0 (1 standard drink = 0.6 oz pur e alcohol) Sex and Gender Information Value Date Recorded Sex Assigned at Female 11/25/2018 7:20 AM AURICULOTHERAPIST Gender Identity Female 11/25/2018 7:20 AM AURICULOTHERAPIST Sexual Orientation Straight 11/25/2018 7: 20 AM AURICULOTHERAPIST documented as of this encounter Plan of Treatment Not on file documented as of this encounter Visit Diagnoses Not on filedocumented in this encounter Care Teams Assembly Technician Relationship Specialty Start Date End Date Nayeli Orourke PCP - General Family Practice 11/26/17 Nayeli Orourke Referring Physician Family Practice 09/30/17 Sean Gaston MD [address] [place] [address] Orthopaedic Surgery 09/30/17 Sonia Harley, RN Registered Nurse Orthopaedic Surgery 12/20/17 documented as of this encounter
--- OUTSIDE RECORDS SUMMARY | 2024-08-18 07:11 | XMS_ITS | Encounter Summary ---
Author Organization [facility] Address [address] [place] [address] Care Team Providers Care Business Investor Name Role Phone Unavailable Primary Care Provider Unavailabl e Reason for Referral * Physical Therapy (Routine) - Authorized Specialty Diagnoses / Procedures Referred By Contac t Referred To Contact Diagnoses Osteoporosis Procedures Healthy Living Program - Physical Therapy (Clinic) Arlene Loco APRN, C.N.P. [address] [place] [phone] Phone: tel: fax: [facility] Referral ID Status Reason Start Date Expiration Date V isits Requested Visits Authorized [id number] Authorized 05/22/2024 05/22/2025 1 1 * Outpatient (Routine) - Authorized Specialty Diagnoses / Procedures Referred By Contac t Referred To Contact Endocrinology Diagnoses Osteoporosis Arlene Loco APRN, C.N.P. [address] [place] [phone] Phone: tel: fax: [facility] Referral ID Status Reason Start Date Expiration Date V isits Requested Visits Authorized [id number] Authorized 05/22/2024 11/21/2025 1 1 * Outpatient (Routine) - Authorized Specialty Diagnoses / Procedures Referred By Arielle richards Referred To Contact Diagnoses Osteoporosis Procedures BMD Bone Density Spine Hips Arlene Loco APRN, C.N.P. [address] [place] [phone] Phone: tel: fax: [facility] Referral ID Status Reason Start Date Expiration Date V isits Requested Visits Authorized [id number] Authorized 05/22/2024 05/22/2025 1 1 Reason for Visit * Outpatient (Routine) - Closed Specialty Diagnoses / Procedures Referred By Arielle richards Referred To Contact Endocrinology Diagnoses Osteoporosis Arlene Loco APRN, C.N.P. [address] [place] [phone] Phone: tel: fax: [facility] Referral ID Status Reason Start Date Expiration Date Visits Re quested Visits Authorized [id number] Closed 05/17/2023 05/16/2026 1 1 Encounter Details Date Type Department Care Team (Latest Contact Info) Description 05/22/2024 9:30 AM CDT Office Visit Division of Endocrinology in [place], [place] [address] [place] [phone] Arlene Loco APRN, C.N.P. [address] [place] [phone] Bypass Gastric Comfort En Y Status Post (Primary Dx); Osteoporosis Social History Tobacco Use Types Packs/Day Years Used Date Smoking Tobacco: Never Smokeless Tobacco: Never Alcohol Use Standard Drinks/Week Comments Not Currently 1 (1 standard drink = 0.6 oz pur e alcohol) [facility] Utilities Answer Date Recorded In the past 12 months has [employer], gas, oil, or water [employer] threatened to shut off services in your [...] week 08/28/2021 How often do you attend [facility] or islam services? Patient declined 08/28/2021 Do you belong to any clubs o r organizations such as jain groups, unions, fraternal or athletic groups, or [...] Answer Date Recorded PHQ-2 Score 0 04/07/2020 [facility] of Occupat ional Health - Occupational Stress [...] your living situation today? I have a [facility] place to live 05/18/2024 Education Answer Date Recorded What is the highest level of school you have completed or the highest degree you have received? Associate degree: academic program 04/12/2019 Comments No Sex and Gender Information Value Date Recorded Sex Assigned at Female 08/28/2021 7:02 PM CDT Legal Sex Female 2:38 AM MOUNTAIN OR GLACIER GUIDE Gender Identity Female 08/28/2021 7:02 PM CDT Sexual Orientation Straight 08/28/2021 7: 02 PM CDT documented as of this encounter Last Filed Vital Signs Vital Sign Reading Time Taken Comments Blood Pressure 113/73 05/22/2024 9:39 AM CDT Pulse 72 05/22/2024 9:39 AM CDT Temperature - - Respiratory Rate - - Oxygen Saturation - - Inhaled Oxygen Concentration - - Weight 100 kg (220 lb 10.9 oz) 05/22/2024 9:39 A M CDT Height 166.5 cm (5' 5.55) 05/22/2024 9:39 AM CD T Body Mass Index 36.11 05/22/2024 9:39 AM CDT documented in this encounter Progress Notes * Arlene Loco APRN, C.N.P. - 05/22/2024 9:30 AM CDT [facility] Endocrinology, Diabetes, and Nutrition Diabetes Clinic Date of Visit: 05/22/2024 Clinician: Arlene Loco APRN, C.N.P. SUBJECTIVE CHIEF COMPLAINT / REASON FOR VISIT Seeing this 58 y.o. female back in follow-up for ongoing management of osteoporosis. HISTORY OF PRESENT ILLNESS Charisse Lizarraga is a very pleasant 58 y.o. female. Patient states she is doing well at this time, without specific complaints. She is accompanied to this visit by her spouse. She was last seen in [facility] Clinic by myself on May 17, 2023. #1 Bypass Gastric Comfort En Y Status Post #2 Osteoporosis Charisse was initiated on Tymlos therapy following our last visit. Therapy was discontinued while shewas hospitalized for a TORe procedure in June 2023. She was then readmitted August 06- with atypical chest pain. She was not interested resuming Tymlos therapy due to complexity of her health care management following release from that hospitalization and therefore transitioned to Reclasttherapy. She received her first infusion on November 15, 2023, which she tolerated well. She suffered from a right foot fracture in September, which was due to a fall from standing height. She had a repeat bone density this morning which demonstrates T-scores: Right femoral neck -3.4 Right total hip -3.1 Lumbar spine -0.8. Trabecular bone score is 1.613. This represents a -3.9% change at her right total hip and +0.5% at her lumbar spine when compared to previous, which was on May 17, 2023. Overview: Diagnosed in 2017 based on screening bone density with worst T-score of -3.3 at her right femoral neck. Fracture history: Leg as an infant Toe Treatment history: Reclast 2017, 2018, 2019 Drug holiday [id number] Tymlos April 2023-June 2023, discontinued due to hospitalizations Reclast November 15, 2023 Right foot fracture September 2023. No history of renal stones. She has history of congenital hip dysplasia, s/p hip replacement. Lumbar spinal fusion in 2011. She underwent [...] osteoporosis or parental history of hip fracture. NUTRITION/FITNESS: Dietary calcium intake: 1 serving of milk daily, cheese daily, yogurt 4 servings per week Calcium and vitamin D supplementation: Calcium +D 500 mg twice daily Activity/Exercise: very limited activity due to low energy and feeling light headed. She has just had the one fall in the past year. She receives routine dental care and does not anticipate need for any major dental procedures. The following portions of the patient's history were reviewed and updated as appropriate: allergies, current medications, family history, medical history, social history, surgical history and problemlist. REVIEW OF SYSTEMS REVIEW OF SYSTEMS OBJECTIVE VITAL SIGNS BP 113/73 (BP Location: Right arm, Patient Position: Sitting, Cuff Size: Regular) Pulse 72 Ht 166.5 cm Wt 100 kg BMI 36.11 kg/m?? PHYSICAL EXAMINATION General: Pleasant female, no apparent distress. Eye: No icterus, no conjunctival erythema. Lungs: Easy respiratory effort. Spine: No lordosis or kyphosis present. Extremities: Good upper and lower extremity strength. No proximal muscle weakness noted. Able to sit to stand without use of arms. Mental: Alert and oriented. Interactive and answers questions appropriately. Gait: Stable with cane. DIAGNOSTICS Lab Results Component Value Date CALCIUM 9.3 03/24/2024 ALBUMIN 4.0 02/07/2024 LABPHOS 4.7 (H) 11/15/2023 25OHVITDTTL 34 08/08/2023 [id number] <4.0 08/08/2023 [id number] 34 08/08/2023 CREATININE 0.71 03/24/2024 EGFR >90 11/15/2023 EGFR >90 11/15/2023 ALKPHOS 98 03/24/2024 Lab Results Component Value Date BCTX 554 05/17/2023 BCTX 265 09/04/2021 BCTX 219 04/13/2019 ASSESSMENT / PLAN Charisse Lizarraga is a 58 y.o. female who presents for evaluation of endocrine issues. I have recommended the following orders: #1 Bypass Gastric Comfort En Y Status Post #2 Osteoporosis Charisse had a 3 month course of Tymlos therapy prior to discontinuing it due to hospitalizations andburden of personal healthcare management following her dismissal. She received her first dose of IVReclast in new series on November 15 of this year, which she tolerated well. Her bone density demonstrates decline at her right total hip, which is approaching statistical significance. Discussed option of continuing on Reclast therapy vs consideration of anabolic therapy once again. She reports that her burden of disease management is much more manageable at this time and she wouldlike to pursue anabolic therapy. After review of the agents available once again, her preference isto initiate Evenity. Have placed orders for those to be administered at [facility], however she will not be due for her first dose until October 2024. Reinforced the importance of transitioningback to Reclast therapy at the end of her course of Evenity in order to preserve gains made. Discussed recommendation to increase activity level and she is agreeable to consultation with our colleagues in Physical Therapy through our Healthy Living Program and she is agreeable. Order has been placed and she will schedule to coordinate with future appointments. Will place orders for repeat bone density, labs, return visit, and Reclast infusion for October 2025 to assess response to therapy. I spent a total of 40 minutes with patient, record review, and coordination of care. All questions were answered and patient and her both verbalize understanding. documented in this encounter Plan of Treatment Upcoming Encounters Date Type Department Care Team (Late st Contact Info) Description 09/03/2024 10:00 AM MOUNTAIN OR GLACIER GUIDE Appointment Department of Radiology, [facility], in [place], [place] [address] [place] [address] Denise Tubbs M.D. [address] [place] [address] 10/01/2024 4:40 PM MOUNTAIN OR GLACIER GUIDE Virtual Visit Division of Gastroenterology in [place], [place] [address] [place] [address] Denise Tubbs M.D. [address] [place] [address] Scheduled Orders Name Type Priority Associated Diagnoses Orde r Schedule BMD Bone Density Spine Hips Imaging RAD - Routine (most inpatients and all outpatients) Osteoporosis Expected: 11/08/2025 (Approximate), Expires: 05/02/2026 Calcium, Total Lab Routine Osteoporosis Expected: 11/08/2025, Expires: 04/25/2026 Creatinine with Estimated GFR Lab Routine Osteoporosis Expected: 11/08/2025 (Approximate), Expires: 04/25/2026 Scheduled Referrals Name Type Priority Associated Diagnoses Order Schedule Endocrinology office visit (clinic) Outpatient Referral Routine Osteoporosis Expected: 11/08/2025, Expires: 04/25/2026 documented as of this encounter Visit Diagnoses Diagnosis Bypass Gastric Comfort En Y Status Post- Primary Osteoporosis documented in this encounter Additional Health Concerns Assessment Noted Time PHQ-9 Depression Total Score: 4 03/12/20 17 3:53 PM CDT documented as of this encounter
--- OUTSIDE RECORDS SUMMARY | 2024-08-18 07:11 | XMS_ITS | Encounter Summary ---
Author Organization [facility] Address [address] [place] [address] Care Team Providers Care Survey Questionnaire Designer Name Role Phone Unavailable Primary Care Provider Unavailabl e Reason for Referral * Outpatient (Routine) - Authorized Specialty Diagnoses / Procedures Referred By Contact Referred To Contact Gastroenterology and Hepatology Diagnoses Fistula Stomach Bypass Gastric Comfort En Y Status Post Hemorrhage Gastrointestinal Denise Tubbs M.D. [address] [place] [address] Phone: tel:[phone] fax:[phone] [facility] Referral ID Status Reason Start Date Expiration Date V isits Requested Visits Authorized [id number] Authorized 07/01/2024 12/31/2025 1 1 Reason for Visit * Outpatient (Routine) - Closed Specialty Diagnoses / Procedures Referred By Contact Referred To Contact Gastroenterology and Hepatology Diagnoses Fistula Stomach Bypass Gastric Comfort En Y Status Post Hemorrhage Gastrointestinal Denise Tubbs M.D. [address] [place] [address] Phone: tel:[phone] fax:[phone] [facility] Referral ID Status Reason Start Date Expiration Date Visits Re quested Visits Authorized [id number] Closed 04/01/2024 10/01/2025 1 1 Encounter Details Date Type Department Care Team (Latest Contact Info) Description 07/01/2024 4:20 PM CDT Telemedicine Division of Gastroenterology in [place], [place] [address] [place] [address] Denise Tubbs M.D. [address] [place] [address] Fistula Stomach; Bypass Gastric Comfort En Y Status Post; Hemorrhage Gastrointestinal Social History Tobacco Use Types Packs/Day Years Used Date Smoking Tobacco: Never Smokeless Tobacco: Never Alcohol Use Standard Drinks/Week Comments Yes 1 (1 standard drink = 0.6 oz pur e alcohol) [facility] Utilities Answer Date Recorded In the past 12 months has e [employer], gas, oil, or water [employer] threatened to shut off services in your [...] How often do you attend chur or confucianist services? Patient declined 08/28/2021 Do you belong to any clubs o r organizations such as caodaism groups, unions, fraternal or athletic groups, or [...] Answer Date Recorded PHQ-2 Score 0 04/07/2020 [facility] - Occupational Stress Questionnaire Answer Date [...] your living situation today? I have a [facility] place to live 05/18/2024 Education Answer Date Recorded What is the highest level of school you have completed or the highest degree you have received? Associate degree: academic program 04/12/2019 Comments No Sex and Gender Information Value Date Recorded Sex Assigned at Female 08/28/2021 7:02 PM CDT Legal Sex Female 2:38 AM VICE PRESIDENT OF BRAND MANAGEMENT Gender Identity Female 08/28/2021 7:02 PM CDT Sexual Orientation Straight 08/28/2021 7: 02 PM CDT documented as of this encounter Progress Notes * Denise Tubbs M.D. - 07/01/2024 4:20 PM CDT Hospital follow up/ Contin[facility] Mrs. 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 She is here for follow up of her fistula and procedure. 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 Recommendation: - Please schedule [phone]) a follow-up procedure with Dr. Daily under [...] 1 week shows no cavity, please schedule ([phone]) a follow-up procedure with Dr. Daily under [...] physician as previously scheduled. - Please schedule ([phone]) a follow-up procedure with Dr. Daily under [...] edges were approximated and one 12 mm [id number]-umb-mpocn clip was successfully placed (MR conditional). Closure of the defect was successful. Clip transit planning manager: [employer]. There was no bleeding at the end [...] The OTSC was in good place without contrast leak and the previously placed axial stent had spontaneously migrated. However, she is having worsening of her symptoms of abdominal pressure and pain that is worse postprandially, which is now constant and affecting her working abilities (in LUQ/epigastric area). She may need additional diagnostic testing, which I will consult with Dr. Daily about. -can trial gaviscon advance with sodium alginate to see if it helps, wasn't able to find it -carafate/sucralfate next option -pregabalin or TCA as third option -patient to let me know how this is helping -continue to advance diet as tolerated -continue BID PPI -considering EGD versus CT abdomen pelvis with IV contrast -may need trigger point injection when returns Follow up: 3 months, will message patient after discuss Dr. Daily next week -September 05 patient is unavailable I personally spent over half of total 25 minutes in counseling and discussion with the patient and coordination of care as described above. PATIENT EDUCATION Patient ready to learn, learning preferences including listening. Explained diagnosis and treatmentplan; patient expressed understanding of the content. Patient will be discussed with building consultant Dr. Daily. documented in this encounter Plan of Treatment Upcoming Encounters Date Type Department Care Team (Late st Contact Info) Description 09/03/2024 10:00 AM VICE PRESIDENT OF BRAND MANAGEMENT Appointment Department of Radiology, [facility], in [place], [place] [address] [place] [phone] Denise Tubbs M.D. [address] [place] [phone] 10/01/2024 4:40 PM VICE PRESIDENT OF BRAND MANAGEMENT Virtual Visit Division of Gastroenterology in [place], [place] [address] [place] [address] Denise Tubbs M.D. [address] [place] [phone] Scheduled Referrals Name Type Priority Associated Diagnoses Orde r Schedule Gastroenterology and Hepatology office visit (clinic) Outpatient Referral Routine Fistula Stomach Bypass Gastric Comfort En Y Status Post Hemorrhage Gastrointestinal Expected: 09/30/2024, Expires: 09/30/2025 documented as of this encounter Visit Diagnoses Diagnosis Fistula Stomach Bypass Gastric Comfort En Y Status Post Hemorrhage Gastrointestinal documented in this encounter Additional Health Concerns Assessment Noted Time PHQ-9 Depression Total Score: 4 03/12/20 17 3:53 PM CDT documented as of this encounter
--- OUTSIDE RECORDS SUMMARY | 2024-08-18 07:11 | XMS_ITS | Encounter Summary ---
Author Organization [facility] Address [address] [place] [address] Care Team Providers Care Vinegar Maker Name Role Phone Unavailable Primary Care Provider Unavailabl e Reason for Visit * Reason Onset Date Comments Pre-visit Intake 06/08/2024 Encounter Details Date Type Department Care Team (Latest Contact Info) Description 06/08/2024 8:15 AM CDT Clinical Communication Virtual Review in [place], [place] [address] [place] [address] Pre-visit Intake Social History Tobacco Use Types Packs/Day Years Used Date Smoking Tobacco: Never Smokeless Tobacco: Never Tobacco Cessation:Counseling Given: Not Answered Alcohol Use Standard Drinks/Week Comments Yes 1 (1 standard drink = 0.6 oz pur e alcohol) [facility] Utilities Answer Date Recorded In the past 12 months has [employer], gas, oil, or water [employer] threatened to shut off services in your [...] How often do you attend chur or hoahaoism services? Patient declined 08/28/2021 Do you belong [...] Answer Date Recorded PHQ-2 Score 0 04/07/2020 [facility] Occupat ional [facility] - Occupational [...] your living situation today? I have a [facility] place to live 05/18/2024 Education Answer Date Recorded What is the highest level of school you have completed or the highest degree you have received? Associate degree: academic program 04/12/2019 Comments No Sex and Gender Information Value Date Recorded Sex Assigned at Female 08/28/2021 7:02 PM CDT Legal Sex Female 2:38 AM BOAT OFFICER Gender Identity Female 08/28/2021 7:02 PM CDT Sexual Orientation Straight 08/28/2021 7: 02 PM CDT documented as of this encounter Plan of Treatment Upcoming Encounters Date Type Department Care Team (Late st Contact Info) Description 09/03/2024 10:00 AM BOAT OFFICER Appointment Department of Radiology, [facility], in [place], [place] [address] [place] [address] Denise Tubbs M.D. [address] [place] [phone] 10/01/2024 4:40 PM BOAT OFFICER Virtual Visit Division of Gastroenterology in [place], [place] [address] [place] [address] Denise Tubbs M.D. [address] [place] [address] documented as of this encounter Visit Diagnoses Not on filedocumented in this encounter Additional Health Concerns Assessment Noted Time PHQ-9 Depression Total Score: 4 03/12/20 17 3:53 PM CDT documented as of this encounter
--- OUTSIDE RECORDS SUMMARY | 2024-08-18 07:11 | XMS_ITS | Encounter Summary ---
Author Organization [facility] Address [address] [place] [address] Care Team Providers Care Internet Sales Representative Name Role Phone Unavailable Primary Care Provider Unavailabl e Reason for Referral * Outpatient (Routine) - Authorized Specialty Diagnoses / Procedures Referred By Arielle richards Referred To Contact Endocrinology Diagnoses Bypass Gastric Comfort En Y Status Post Merry Donahue APRN, C.N.P. 200 [place] [address] Phone: tel: fax: [facility] Referral ID Status Reason Start Date Expiration Date V isits Requested Visits Authorized [id number] Authorized 06/09/2024 12/09/2025 1 1 Reason for Visit * Outpatient (Routine) - Closed Specialty Diagnoses / Procedures Referred By Arielle t Referred To Contact Endocrinology Diagnoses Bypass Gastric Comfort En Y Status Post Obesity Body Mass Index 30-39.9 Adult Hemorrhage Gastrointestinal Fistula Stomach Jocy Lucero P.A.-C. [address] [place] [phone] Phone: tel: fax: [facility] Referral ID Status Reason Start Date Expiration Date Visits Re quested Visits Authorized [id number] Closed 12/23/2023 06/23/2025 1 1 Encounter Details Date Type Department Care Team (Late st Contact Info) Description 06/09/2024 2:00 PM CDT Telemedicine Division of Endocrinology in [place], [place] [address] [place] [address] Merry Donahue APRN, C.N.P. [address] [place] [address] Bypass Gastric Comfort En Y Status Post (Primary Dx); Obesity Body Mass Index 30-39.9 Adult; Hemorrhage Gastrointestinal; Fistula Stomach Social History Tobacco Use Types Packs/Day Years Used Date Smoking Tobacco: Never Smokeless Tobacco: Never Alcohol Use Standard Drinks/Week Comments Yes 1 (1 standard drink = 0.6 oz pur e alcohol) [facility] Utilities Answer Date Recorded In the past 12 months has [employer], gas, oil, or water [employer] threatened to shut off services in your [...] week 08/28/2021 How often do you attend [facility] services? Patient declined 08/28/2021 Do you belong to any clubs o r organizations such as religion groups, unions, fraternal or athletic groups, or [...] Answer Date Recorded PHQ-2 Score 0 04/07/2020 [facility] of Occupat ional [facility] - Occupational Stress Questionnaire Answer Date Recorded [...] your living situation today? I have a [facility] [facility] place to live 05/18/2024 Education Answer Date Recorded What is the highest level of school you have completed or the highest degree you have received? 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 - 06/09/2024 2:00 PM CDT SUBJECTIVE CHIEF COMPLAINT Video Visit This is a meterman (>1 year) post-bariatric surgery visit HISTORY OF PRESENT ILLNESS Charisse Lizarraga is a 58 y.o. female being seen today for a follow-up visit after undergoing a Comfort-en-Y gastric bypass in 1997 at an outside facility. She had a revisional surgery in 2011 and more recently underwent a TORe procedure on 07/15/23. The post-procedure course was complicated by a gastric perforation requiring hospitalization. 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 She required TPN and tube feeds. [facility] post [facility]ric surgery related care on 12/20/23. Overall she is doing well, but notes that the burning sensation in the abdomen has becoming more regular. She notes that this improved somewhat after the stents were removed and was more intermittent, but over the past 1-2 months it has been occurring almost daily. She denies blood in stool. She is shawanda eduled to follow-up with Gastroenterology in early June 2024. She underwent a follow up EGD inApril 2023 and this was unremarkable. Weight history: Weight at time of bariatric surgery at outside facility in 1997 (per EMR): 122 kg Elias weight after bariatric surgery (per EMR): 86 kg Baseline weight in [facility] (06/05/23): 105 kg Weight at time of TORe procedure (07/15/23): 105 kg Weight today: 95.5 kg Current Diet: Regular diet, consumes 2-3 meals and 2 snacks per day. Main protein sources include meat, dairy, nuts, and protein bars. She obtains 64 oz of fluid per day consisting of water, tea, and water mixed with Crystal Light. Alcohol use: Monthly or less. No dependence. Presence of GI symptoms: She denies all gastrointestinal symptoms besides for abdominal pain as discussed above. Exercise / Activity program: No regular exercise program. She does walk approximately twice per week for 10 minutes. The following portions of the patient's history were reviewed and updated as appropriate: visit questionnaire, allergies, labs, current medications, family history, medical history, social history, surgical history, and problem list. REVIEW OF SYSTEMS Pertinent items are noted in HPI; all other review of systems was negative. OBJECTIVE Laboratory values: Lab Results Component Value Date HGB 14.0 05/14/2024 FERRITIN 11 02/07/2024 ALBUMIN 4.0 02/07/2024 AST 25 03/24/2024 CREATININE 0.71 03/24/2024 GLUCOSE 95 03/24/2024 HGBA1C 5.4 03/08/2023 CHOL 229 (H) 03/24/2024 TRIG 87 03/24/2024 HDL 68 03/24/2024 LDLCALC 122 03/12/2017 CALCIUM 9.3 03/24/2024 ASSESSMENT / PLAN #1 Status post Comfort-en-Y gastric bypass at outside facility, 1997 #2 Status post TORe on 07/15/23 #3 Osteoporosis Charisse presents today in follow up. Overall she has been doing well in regard to weight management and nutrition since her last visit. She has been tolerating a regular diet and has been taking her vitamins and supplements. She reports that the burning sensation in the abdomen has become more regular and that over the past 1-2 months has been noticing this almost daily. Prior to this it was less f requent and improved after her stents were removed. She has follow-up scheduled with Gastroenterology on 07/01/24. An EGD was performed in January 2024 and was unremarkable. I defer recommendations on additional imaging to Gastroenterology and appreciate their assistance. I reviewed the laboratory work with her. She has a history of low ferritin and underwent an iron infusion locally on 03/24/2024. The hemoglobin is within normal limits. She notes that her local PCP checks the ferritin level every 6 months. She will continue with a twice daily multivitamin, once daily iron supplement, twice daily calcium supplement, and a daily sublingual vitamin B12 supplement. At present, I recommend follow-up in 1 year with laboratory work. Charisse Blossom Zia is aware of the recommendation of no alcohol use post bariatric surgery and will continue to limit use. Visit conducted via real-time audio/video technology by Merry Donahue APRN, C.N.P. in [facility] to the patient in Patient's Home. I personally spent a total of 30 minutes performing a review of the record and/or discussing with the patient/caregiver as described above. documented in this encounter Plan of Treatment Upcoming Encounters Date Type Department Care Team (Late st Contact Info) Description 09/03/2024 10:00 AM FARMWORKER VEGETABLE Appointment Department of Radiology, [facility], in [place], [place] [address] [place] [phone] Denise Tubbs M.D. [address] [place] [phone] 10/01/2024 4:40 PM FARMWORKER VEGETABLE Virtual Visit Division of Gastroenterology in [place], [place] [address] [place] [phone] Denise Tubbs M.D. [address] [place] [phone] Scheduled Orders Name Type Priority Associated Diagnoses Orde r Schedule 25-Hydroxyvitamin D2 and D3 Lab Routine Bypass Gastric Comfort En Y Status Post Expected: 06/09/2025 (Approximate), Expires: 09/09/2025 Albumin Lab Routine Bypass Gastric Comfort En Y Status Post Expected: 06/09/2025 (Approximate), Expires: 09/09/2025 AST (Aspartate Aminotransferase) Lab Routine Bypass Gastric Comfort En Y Status Post Expected: 06/09/2025 (Approximate), Expires: 09/09/2025 Bone Alkaline Phosphatase Lab Routine Bypass Gastric Comfort En Y Status Post Expected: 06/09/2025 (Approximate), Expires: 09/09/2025 Calcium, 24 hour, Urine Lab Routine Bypass Gastric Comfort En Y Status Post Expected: 06/09/2025 (Approximate), Expires: 09/09/2025 Calcium, Total Lab Routine Bypass Gastric Comfort En Y Status Post Expected: 06/09/2025 (Approximate), Expires: 09/09/2025 CBC without Differential Lab Routine Bypass Gastric Comfort En Y Status Post Expected: 06/09/2025 (Approximate), Expires: 09/09/2025 Creatinine with Estimated GFR Lab Routine Bypass Gastric Comfort En Y Status Post Expected: 06/09/2025 (Approximate), Expires: 09/09/2025 Ferritin Lab Routine Bypass Gastric Comfort En Y Status Post Expected: 06/09/2025 (Approximate), Expires: 09/09/2025 Glucose, Fasting Lab Routine Bypass Gastric Comfort En Y Status Post Expected: 06/09/2025 (Approximate), Expires: 09/09/2025 Hemoglobin A1c Lab Routine Bypass Gastric Comfort En Y Status Post Expected: 06/09/2025 (Approximate), Expires: 09/09/2025 Lipid Panel Lab Routine Bypass Gastric Comfort En Y Status Post Expected: 06/09/2025 (Approximate), Expires: 09/09/2025 Scheduled Referrals Name Type Priority Associated Diagnoses Order Schedule Endocrinology office visit (clinic) Outpatient Referral Routine Bypass Gastric Comfort En Y Status Post Expected: 06/09/2025, Expires: 09/09/2025 documented as of this encounter Visit Diagnoses Diagnosis Bypass Gastric Comfort En Y Status Post- Primary Obesity Body Mass Index 30-39.9 Adult Hemorrhage Gastrointestinal Fistula Stomach documented in this encounter Additional Health Concerns Assessment Noted Time PHQ-9 Depression Total Score: 4 03/12/20 17 3:53 PM CDT documented as of this encounter
--- OUTSIDE RECORDS SUMMARY | 2024-08-18 07:11 | XMS_ITS | Continuity of Care Document ---
Author Organization [facility] Address [address] [address] [place] [address] Phone Care Team Providers Care Lacquer Maker Name Role Phone Odell Ardon MD Unavailable [...] Providers Copied on Encounter Established Level 3 [facility], [address] [address], [place], [place], [id number], [place] tel:[phone] [facility] GI Symptoms or Concerns (chief complaint) Bariatric surgery statusOther dysphagia 2 Duglas Bain. [address] [facility], [facility] [address], [place], [place], [id number], [place]. tel:[phone] Referring Provider: Referral Self, USE FOR SELF REFERRALS. [facility], [address] [address], [place], [id number], [place] tel:[phone] [facility] GI Symptoms or Concerns (chief complaint) Eosinophilic esophagitisHi story of gastric bypassEosinop hilic esophagitisBa riatric surgery status 2 Russell Bryan. [address] [facility], [address], [place], [place], [id number], [place]. tel:[phone] Referring Provider: Nayeli Orourke MD K, [address] [facility], [place], [address]. tel:[phone] [facility], [address] [address], [place], [place], [id number], [place] tel:[phone] [facility] Other dysphagia Jun-2 2 Duglas Bain. [address] [facility], [facility] [address], [place], [place], [id number], [place]. tel:[phone] Referring Provider: Referral Self, USE FOR SELF REFERRALS. New Level 4 [facility], [address] [address], [facility] [place], [id number], [place] tel:[phone] [facility] GI Symptoms or Concerns (chief complaint) Esophageal dysphagiaEosi nophilic esophagitis Sep-2 2 Duglas Bain. [address] [facility], [address], [place], [place], [id number], [place]. tel:[phone] Referring Provider: Referral Self, USE FOR SELF REFERRALS. [facility], [address] [address], [facility] [place], [place], [id number], [place] tel:[phone] No Information Jun-2 2 No Information Referring Provider: Zaida RODARTE M, [address] [facility] [address], [place], [address]. tel:[phone] Family History Family Member Type Diagnosis Age [...] i-directional interface ; Source: Other Registry Novel [id number], all formulations administered Note: [facility] bi-direct ional interface ; Source: Other Registry Influenza, seasonal, injectable administe red Note: [facility] bi- directional interface ; Source: Other Registry Payers Payer name Insurance type Covered green party ID Authoriza tion(s) [employer] CI [id number] Social History Type Description Quantity Date Captured [...] subsequently converted 10 years ago to a Cofmort-en-Y procedure.Most recently, she has been having abdominal [...]
--- OUTSIDE RECORDS SUMMARY | 2024-08-18 07:11 | XMS_ITS | Encounter Summary ---
Author Organization [facility] Address [address] [place] [address] Care Team Providers Care Tool Room Lathe Operator Name Role Phone Unavailable Primary Care Provider Unavailabl e Encounter Details Date Type Department Care Team (Late st Contact Info) Description 06/09/2024 Orders Only Division of Endocrinology in [place], [place] [address] [place] [phone] Merry Donahue, GARDEN LABOURER, C.N.P. [address] [place] [phone] Social History Tobacco Use Types Packs/Day Years Used Date Smoking Tobacco: Never Smokeless Tobacco: Never Alcohol Use Standard Drinks/Week Comments Yes 1 (1 standard drink = 0.6 oz pur e alcohol) [facility] Utilities Answer Date Recorded In the past 12 months has [facility] [employer], gas, oil, or water [employer] threatened to shut off services in your [...] How often do you attend chur or anglican services? Patient declined 08/28/2021 Do you belong to any clubs o r organizations such as shinto groups, unions, fraYAZUO or athletic groups, or school groups? No [...] Date Recorded PHQ-2 Score 0 04/07/2020 [facility] of Occupat ional Health - [...] have a [facility] place to live 05/18/2024 Education Answer Date Recorded What is the highest level of school you have completed or the highest degree you have received? 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 200 [place] [address] 10/01/2024 4:40 PM MASTIC SPRAYER Virtual Visit Division of Gastroenterology in [place], [place] [address] [place] [address] Denise Tubbs M.D. [address] [place] [phone] documented as of this encounter Visit Diagnoses Not on filedocumented in this encounter Additional Health Concerns Assessment Noted Time PHQ-9 Depression Total Score: 4 03/12/20 17 3:53 PM CDT documented as of this encounter
--- OUTSIDE RECORDS SUMMARY | 2024-08-18 07:11 | XMS_ITS | Clinical Summary ---
Author Organization [facility] Address [address] [place] [address] Care Team Providers Care Cardiac Cath Lab Technologist Name Role Phone Nayeli Orourke Unavailable Sean Gaston MD Unavailable Nayeli Orourke Primary Care Provider [phone] Sonia Harley RN Unavailable [phone] Allergies Active Allergy Reactions Criticality Noted Date [...] Sex Assigned at Female 11/25/2018 7:20 AM BRIDGE CONTRACTOR Gender Identity Female 11/25/2018 7:20 AM BRIDGE CONTRACTOR Sexual Orientation Straight 11/25/2018 7: 20 AM BRIDGE CONTRACTOR Last Filed Vital Signs Vital Sign Reading Time Taken Comments Blood Pressure 112/55 12/08/2018 6:15 PM BRIDGE CONTRACTOR Pulse 72 12/08/2018 6:00 PM BRIDGE CONTRACTOR Temperature 36.8 ??C (98.2 ??F) 12/08/2018 6:15 PM CS T Respiratory Rate 14 12/08/2018 6:15 PM BRIDGE CONTRACTOR Oxygen Saturation 97% 12/08/2018 6:15 PM BRIDGE CONTRACTOR Inhaled Oxygen Concentration - - Weight 102.1 kg (225 lb) 12/24/2018 11:13 AM BRIDGE CONTRACTOR Height 165.1 cm (5' 5) 12/24/2018 11:13 AM BRIDGE CONTRACTOR Body Mass Index 37.44 12/24/2018 11:13 AM BRIDGE CONTRACTOR Plan of Treatment Not on file Care Teams Cardiac Cath Lab Technologist Relationship Specialty Start Date End Date Nayeli Orourke PCP - General Family Practice 11/26/17 Nayeli Orourke Referring Physician Family Practice 09/30/17 Sean Gaston MD [facility] [address] Orthopaedic Surgery 09/30/17 Sonia Harley, RN Registered Nurse Orthopaedic Surgery 12/20/17
--- OUTSIDE RECORDS SUMMARY | 2024-08-18 07:11 | XMS_ITS | Clinical Summary ---
Author Organization [facility] Address [place], [place] [address] Care Team Providers Care Research Epidemiologist Name Role Phone Nayeli Orourke MD Primary Care Provide r Carline Puente NP Unavailable Unavailable Jermain Collado MD Unavailable + [facility] Unavailable [phone] Allergies Active Allergy Reactions Criticality Noted Date [...] Weight Management - Adult Surgical Program -- MUSCLE SHOALS Initial Consult / Established Care 04/24/2022 with [...] kg/m??. Planned Operation: TO BE PRESENTED AT [facility] - s/p VBG to LAPAROSCOPIC BRAD-EN-Y GASTRIC BYPASS on 06/12/[address] Martinez; VBG [place] [address] Zapata Payor: MEDICA / Plan: MEDICA CHOICE / Product Type: *No Product type* / Additional Insurance requirements: TBD Est. Pgm Completion: ~ TBD Procedure Location: [place] Co-morbidities: Past Medical History: . Date Adjustment [...] mucosa Manometry (NA): NA Staff present from [facility], [place], [facility] & [place] Weight Management including Surgeons, Advance Practice Clinicians, Bariatric Nurse Clinicians, Registered Dietitians, Psychologists Patient notified by Medical message on: 07/13/22 Problem Noted Date Diagnosed Date Pap smear for cervical cancer screening 04/03/20 Overview (04/03/2024): 03/24/2024: NIL/HPV negative Plan: Pap and HPV in 5 years. Other pulmonary embolism without acute cor pulmo nale 08/29/2023 History of repair of hiatal hernia 10/10/2022 Weight gain 08/22/2022 Rib lesion 02/16/2022 Osteoporosis 05/09/2018 Colon polyp 07/08/2017 Overview (08/27/2022): Colonoscopy 06/2017 polyp repeat in 5 years Colonoscopy 07/2022 TA, repeat in 5 years Iron deficiency anemia 01/11/2017 Degenerative disc disease, lumbar 08/20/2012 HCD (health care directive) 07/25/2012 Bariatric surgery status 07/07/2012 Morbid obesity with BMI of 40.0-44.9, adult 05/28 Overview (08/07/2012): S/p gastric bypass. Congenital dysplasia of left hip - total hip in 200405/07/2012 Spondylolisthesis, grade 2 04/10/2012 Multiple gastric polyps 04/07/2012 History of total hip arthroplasty 03/04/2012 Resolved Problems Problem Noted Date Diagnosed Date Resolved Date Hiatal hernia with GERD 08/22/202209/27 Routine adult health maintenance 12/17/2014 12/27/2016 Overview (12/17/2014): Colonoscopy 11/2014 normal repeat in 10 years UTI (lower urinary tract infection) 07/07/2012 08/07/2012 Complications of stapling of GI tract 04/07/2012 07/07/2012 Bariatric surgery status: ve rtical banded gastroplasty 03/04/2012 07/07/2012 Overview (04/07/2012): -dilated proximal pouch, 2 staple disruptions, obstructed gastroplasty channel, by endoscopy. Congenital dislocation of hip, unilateral 01/30/2007 05/07/2012 Obesity, unspecified 01/30/2007 009 Gastroesophageal reflux dise ase without esophagitis 10/10/2022 Encounters Date Type Department Care Team Description 05/21/2024 Orders Only [facility] Scanner 1 scan: (1-Ord) [facility], HYSTERSCOPY, DandC, VAGINAL POLYPS AND REPAIR, 05/21/2024 05/21/2024 Lab Requisition [facility] [phone] Unknown, Doctor from Last 3 Months Immunizations Name Administration Dates Next Due COVID-19 vaccine (Corrine-J& J) PF, MDV 01/07/2021 COVID-19 vaccine ([facility] 30mcg/0.3mL) 12YO+ BIVALENT PF, MDV 09/21/2022 COVID-19 vaccine ([facility] 30mcg/0.3mL) PF, MDV 03/15/2022 Influenza A [...] Diabetes Mother AGe 60s Other Mother parkinsons /Platform Attendant hns disease/ myodisplsia Cancer-breast Paternal Grandmother Heart [...] file 11/29/2023 Food Insecurity Answer Date Recorded Do you worry your food will run out before you are able to buy more? 1 11/29/2023 Transportation Needs Answer Date Record ed Lack of Transportation (Medical) 1 11/29/2023 Housing Stability Answer Date Recorded What is your housing situation today? 1 11/29/2023 Sex and Gender Information Value [...] T Respiratory Rate 18 09/12/2023 9:05 AM HAND MOLDER Oxygen Saturation 99% 05/14/2024 1:54 PM CDT [...] 2) 2014 COVID-19 vaccine series ( season) 2024 09/21/2022, 03/15/2022, 09/04/2021, Additional history exists Influenza for age 50-64 06/28/2024 09/21/20 22, 07/26/2021, 07/26/2021, Additional history exists Mammogram for [...] this topic Medical Devices Implanted Type Area Civil Rights Attorney Device Identifier Shelf Expiration Date Model / Serial / Lot [id number] 1095bone Canclls Crushed 30cc [[id number] Implanted:Qty: 1 on 08/20/2012 at [facility] Explanted:(Jonah titthai not on file) Spine Musculoskeletal Transplant 05/03/2015 [id number]# / [id number] / [id number] bone Prec Graft [id number] [[id number] ] Implanted:Qty: 1 on 08/20/2012 at [facility] Explanted:at [facility] (Quantity not on file) Spine SPINAL GRAFT 07/15/2016 [id number]# / [id number] / Screw Low Profile 6.5x30mm [id number] - [id number] Implanted:Qty: 1 on 08/20/2012 at [facility] N/A: Lumbar Vertebrae Medtronic Spine/Ortho [id number]# / / Washer 17mm - [id number] Implanted:Qty: 1 on 08/20/2012 at [facility] N/A: Lumbar Vertebrae Medtronic Spine/Ortho [id number]# / / Screw Post 6.5x40mm Std Trio Thoraco-Lmbr - [id number] Implanted:Qty: 2 on 08/20/2012 by Milana Abbott MD at [facility] N/A: Spine [place]se Spine [id number]# / / Screw Post 6.5x50mm Std Trio Thoraco-Lmbr - [id number] Implanted:Qty: 2 on 08/20/2012 by Milana Abbott MD at [facility] N/A: Spine Adilene Spine [id number]# / / Matt Valeria Rad 40mm 108mm Radius - [id number] Implanted:Qty: 2 on 08/20/2012 by Milana Abbott MD at [facility] N/A: Spine Adilene Spine [id number]# / / Cnnctr Sm Offset - [id number] Implanted:Qty: 4 on 08/20/2012 by Benjamin Pereira PA at [facility] N/A: Spine Chebanse Spine [id number]# / / Kit Infuse Sm - [id number] Implanted:Qty: 1 on 08/20/2012 at [facility] Spine Medtronic Spine/Ortho [id number]# / / [id number] I Mesh Hiatal 7x10cm Bio-A - [id number] Implanted:Qty: 1 on 10/05/2022 by Jermain Crowe MD at [facility] N/A: Abdomen [employer] 05/29/2025 [id number] / [id number] / Procedures Procedure Name Priority Date/Time Associated Diagnosis Comments LAB TRACKING EVENT Routine 05/21/2024 9: 23 AM CDT PATH TISSUE EXAM Routine 05/21/2024 9:23 AM CDT SCAN-OPERATIVE/PROCE DURE REPORT 05/21/2024 12:00 AM CDT LIPID PANEL W REFLEX MEASURED LDL Routine 03/24/2024 9:42 AM CDT Lipid screening HPV HIGH RISK Routine 03/24/2024 9:26 AM CDT Screening for [...] Recently Relevant to Health Maintenance Results * LAB TRACKING EVENT (05/21/2024 9:23 AM CDT) Other (Other) Client Collect / Unknown 05/21/2024 9:23 AM CDT 05/21/2024 2:31 PM CDT Doctor Unknown LAB BILL ONLY [facility] [address] [place] [address], * PATH TISSUE EXAM (05/21/2024 9:23 AM CDT) Case Report Pathology Report ?Case: [id number] ? Authorizing Provider: ??Unknown, Doctor ?Collected: ? 05/21/2024 0923 ? Ordering Location: ? [facility] ?Received: ?05/21/2024 1840 ? Pathologist: ? Rich Earl MD ? Specimens: ?? A) - Vaginal Biopsy, Vaginal Polyp ? B) - Endometrial Curettings ? 05/25/2024 10:34 AM [facility] LABORATORY-C ENTRAL LABORATORY Final Diagnosis A) VAGINAL POLYP, POLYPECTOMY: 1. Benign fibroepithelial polyp 2. Negative for dysplasia and malignancy B) ENDOMETRIUM, CURETTAGE: 1. Fragments of benign endometrial polyp(s) 2. Background scant atrophic endometrium 3. Negative for atypia and malignancy 05/25/2024 10:34 AM [facility] LABORATORY-C ENTRAL LABORATORY Comment 05/25/2024 10:34 AM [facility] LABORATORY-C ENTRAL LABORATORY Clinical Information Abnormal ultrasound findings 05/25/2024 10:34 AM [facility] ENTRAL [facility]AT[facility] Gross Description A) Received in formalin, labeled with the patient's name and A vaginal polyp, is a single ocampo tissue fragment measuring 1.2 x 0.7 x 0.2 cm. The specimen is submitted in toto in one cassette. B) Received in formalin, labeled with the patient's name and endometrial curettings, is a 0.5 x 0.4 x 0.1 cm aggregate of pink-ocampo mucosa admixed with clotted blood and mucous. The specimen is entirely submitted in 1 cassette. EVM 05/21/2024 05/25/2024 10:34 AM CDT [facility] ENTRAL LABORATORY Microscopic Description The final diagnosis is based on microscopic examination of appropriate sections of all specimens. 05/25/2024 10:34 AM CDT [facility] ENTRAL LABORATORY Additional Information Interpreted at [facility] - [address] [facility] [address], [place] [address] 05/25/2024 10:34 AM CDT [facility] EN[facility] LABORAT[facility] Other (Vaginal Biopsy) 05/21/2024 9:23 AM CDT 05/21/2024 6:40 PM CDT Specimen (specimen) (Endometrial Curettings) 05/21/2024 9:23 AM CDT 05/21/2024 6:40 PM CDT Doctor Unknown PATHOLOGY/CYTOLOGY [facility] [address] [place] [address], * SCAN-OPERATIVE/PROCEDURE REPORT (05/21/2024 12:00 AM CDT) Scanner OTHER * (ABNORMAL) LIPID PANEL W REFLEX MEASURED LDL (03/24/2024 9:42 AM CDT) CHOLESTEROL,TOTAL 229(H) 100 - 199 mg/dL 03/24/2024 7:05 PM CDT [facility] TRAL [facility]ORAT[facility] Comment: Cholesterol, Total Reference Ranges Desirable <200 mg/dL Borderline 200-239 mg/dL High >=240 mg/dL TRIGLYCERIDES 87 <150 mg/dL 03/24/2024 7:05 PM CDT [facility] TRAL [facility] HDL CHOLESTEROL 68 >40 mg/dL 7:05 PM CDT [facility] NON-HDL CHOLESTEROL 161(H) <145 mg/dl 03/24/2024 7:05 PM CDT [facility] CHOL/HDL RATIO 3.37 <4.50 03/24/2024 7:05 PM CDT [facility] LDL CHOLESTEROL 144(H) <=130 mg/dL 03/24/2024 7:05 PM CDT [facility] VLDL CHOLESTEROL 17 <=30 mg/dL 03/24/2024 7:05 PM CDT [facility] PROVIDER ORDERED STATUS RANDOM 03/24/2024 7:05 PM CDT [facility] Blood BLOOD SPECIMEN / Unknown Venipuncture / Unknown 03/24/2024 9:42 AM CDT 03/24/2024 9:42 AM CDT Nayeli Orourke MD CHEMISTRY Performing Organization Address City/[facility]/ZIP Co de Phone Number [facility] [address] [place] [address], [place] * HPV HIGH RISK (03/24/2024 9:26 AM CDT) TYPE 16 Negative Negative 03/27/2024 6:00 AM CDT [facility] TYPE 18 Negative Negative 03/27/2024 6:00 AM CDT [facility] OTHER HIGH RISK TYPES Negative Negative 03/27/2024 6:00 AM CDT [facility] Other (Cervical) Non-Blood / Unknown 03/24/2024 9:26 AM CDT 03/25/2024 8:34 AM CDT Narrative [facility] - 03/27/2024 6:00 AM CDT HPV types 16, 18, 31, 33, 35, 39, 45, 51, 52, 56, 58, 59, 66 and 68 DNA were undetectable or below the pre-set threshold. Methodology: [facility] Peter 4800 HPV Test Nayeli Orourke MD MICROBIOLOGY Performing Organization Address City/[facility]/ZIP Co de Phone Number [facility] [address] [place] [address], [place] * XR MAMMO JACKIE BILAT SCREEN [...] care provider. XR MAMMO JACKIE BILAT SCREEN [[id number]] CLINICAL HISTORY: ??This is an asymptomatic 58 [...] adequate candidate for conscious sedation. The endoscope [id number] was passed through the anus andadvanced to [...] 11:38 AM Procedure Code(s): --- Professional --- 18566, Colonoscopy, flexible; with removalof tumor(s), polyp(s), or other lesion(s) bysnare technique Diagnosis Code(s): --- Professional --- Z86.010, Personal history of colonicpolyps D12.3, Benign neoplasm of transverse colon (hepatic flexure or splenic flexure) CPT copyright 2020 [employer]. All rights reserved. The codes documented in this report are preliminary and upon meteorological equipment repairer reviewmay be revised to meet current compliance requirements. Scope In: 1:27:03 PM Scope Withdrawal Time 0 hours 10 minutes 6 seconds Scope Out: 1:44:02 PM Keaton Agee MD PROCEDURE ORD * ANTI HCV (05/11/2011 5:16 PM CDT) ANTI HCV Non-reacti ve [facility] Blood specimen (specimen) BLOOD SPECIMEN / Unknown 05/11/2011 5:16 PM CDT 05/11/2011 5:11 PM CDT Nayeli Orourke MD SEND OUTS [facility] INTERNAL ZIP [id number] [address] * ANTI HIV 1/2 (05/11/2011 5:16 PM CDT) ANTI HIV 1/2 Non-reacti ve [facility] Blood specimen (specimen) BLOOD SPECIMEN / Unknown 05/11/2011 5:16 PM CDT 05/11/2011 5:11 PM CDT Nayeli Orourke MD SEND OUTS [facility] INTERNAL ZIP [id number] [address] from Last 3 Months or Most Recently Relevant to Health Maintenance Advance Directives Documents on File Type Date Recorded Patient Bark Skinner Expl anation Healthcare Directive 06/12/2012 6:48 AM [...] 12:32 PM 04/07/2012 5:00 PM Care Teams Research Epidemiologist Relationship Specialty Start Date End Date Nayeli Orourke MD [address] [place] [address] PCP - General 02/15/06 Carline Puente, ERIN [address] [place] [address] Nurse Practitioner - Adult 08/21/22 Jermain Collado MD [address] [facility] [address] [place] [address] Surgery - General 01/04/23 [place] [id number] [address] [address] 08/27/23
--- OUTSIDE RECORDS SUMMARY | 2024-08-18 07:11 | XMS_ITS | Referral Summary ---
Author Organization [place] Address [address] [place] [address] Care Team Providers Care Cleaning Porter Name Role Phone Nayeli Orourke Unavailable Sean Gaston MD Unavailable Nayeli Orourke Primary Care Provider [phone] Sonia Harley RN Unavailable [phone] Allergies Active Allergy Reactions Criticality Noted Date [...] Sex Assigned at Female 11/25/2018 7:20 AM [facility] Gender Identity Female 11/25/2018 7:20 AM [facility] Sexual Orientation Straight 11/25/2018 7: 20 AM [facility] Last Filed Vital Signs Vital Sign Reading Time Taken Comments Blood Pressure 112/55 12/08/2018 6:15 PM [facility] Pulse 72 12/08/2018 6:00 PM [facility] Temperature 36.8 ??C (98.2 ??F) 12/08/2018 6:15 PM CS T Respiratory Rate 14 12/08/2018 6:15 PM [facility] Oxygen Saturation 97% 12/08/2018 6:15 PM [facility] Inhaled Oxygen Concentration - - Weight 102.1 kg (225 lb) 12/24/2018 11:13 AM [facility] Height 165.1 cm (5' 5) 12/24/2018 11:13 AM [facility] Body Mass Index 37.44 12/24/2018 11:13 AM [facility] Plan of Treatment Not on file Care Teams Cleaning Porter Relationship Specialty Start Date End Date Nayeli Orourke PCP - General Family Practice 11/26/17 Nayeli Orourke Referring Physician Family Practice 09/30/17 Sean Gaston MD [address] [place] [address] Orthopaedic Surgery 09/30/17 Sonia Harley RN Registered Nurse Orthopaedic Surgery 12/20/17
--- OUTSIDE RECORDS SUMMARY | 2024-08-18 07:11 | XMS_ITS | Encounter Summary ---
Author Organization [place] Address [address] [place] [address] Care Team Providers Care Thinner Sprayer Name Role Phone Nayeli Orourke Unavailable Sean Gaston MD Unavailable Nayeli Orourke Primary Care Provider Sonia Harley RN Unavailable [phone] Encounter Details Date Type Department Care Team (Late st Contact Info) Description 10/31/2017 [facility] Medical Advice [facility] [address] [facility] [address] [place] [address] Sean Gaston MD [address] [place] [id number] Social History Tobacco Use Types Packs/Day Years Used Date Smoking Tobacco: Never Smokeless Tobacco: Never Alcohol Use Standard Drinks/Week Comments No 0 (1 standard drink = 0.6 oz pur e alcohol) Sex and Gender Information Value Date Recorded Sex Assigned at Female 11/25/2018 7:20 AM 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 Gender Identity Female 11/25/2018 7:20 AM 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 Sexual Orientation Straight 11/25/2018 7: 20 AM 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 documented as of this encounter Plan of Treatment Not on file documented as of this encounter Visit Diagnoses Not on filedocumented in this encounter Care Teams Thinner Sprayer Relationship Specialty Start Date End Date Nayeli Orourke PCP - General Family Practice 11/26/17 Nayeli Orourke Referring Physician Family Practice 09/30/17 Sean Gaston MD [address] [place] [address] Orthopaedic Surgery 09/30/17 Sonia Harley, RN Registered Nurse Orthopaedic Surgery 12/20/17 documented as of this encounter
--- OUTSIDE RECORDS SUMMARY | 2024-08-18 07:11 | XMS_ITS | Continuity of Care Document ---
Author Organization Z [facility] Address [address] [place] [address] Phone Care Team Providers Care Chief Cardiopulmonary Technologist Name Role Phone Unavailable Unavailable Unavailable Allergies, [...] Assist Insert Spine Fixation, Posteri or Office/Outpatient Visit,[facility], [facility] 2011 Advance Directives Directive Yes / No Effective Date File Name No Information Encounters Encounter Description Practice Location Reason(s) For Visit Diagnoses Date Provider Providers Copied on Encounter Z [facility], [address], [place], [place], [facility], [place] tel:[phone] [facility] No Information Rodney-2 1-201 3 No Information Z [facility], [address] [place] [address], [place], [place], [facility], [place] tel:[phone] [facility] No Information Dec-0 3-201 2 Mehbod Amir. [facility], [address], [place], [address] [place] [address], [place]. tel:[phone] Referring Provider: Ramesh Guthrie, [facility] [address], [place], [address]. tel:[phone] Z [facility], [address] [place] [address], [facility], [place] tel:[phone] [facility] ACQ SPONDYLOLISTH ESIS Dec-0 3-201 2 Eckroth Benjamin. [address] [place] [address], [address] [place] [address], [place]. tel:[phone] Z [facility], [address] [place] [address], [place], [facility], [place] tel:[phone] [facility] No Information Jul-2 4-201 2 Mehbod Amir. [facility], [address] [place] [address], [place], [place], [address] [place] [address], [place]. tel:[phone] Referring Provider: Ramesh Guthrie, [facility] [address], [place], [address]. tel:[phone] Office/Outpa tient Visit,[facility], [facility] Z [facility], [address] [place] [address], [place], [facility], [place] tel:[phone] [facility] LUMBAGO Julián-3 0-201 2 Mehbod Amir. [facility], [address] [place] [address], [place], [place], [address] [place] [address], [place]. tel:[phone] Referring Provider: Ramesh Guthrie, [facility] [address], [place], [address]. tel:[phone] Family History Family Member Type Diagnosis Age At Onset Problem (finding) Problem (finding) Problem (finding) Problem (finding) Problem (finding) Family history of Yes Problem (finding) Problem (finding) Payers Payer name Insurance type Covered [place] [id number] [facility] [id number] Social History Type Description Quantity Date Captured [...]
--- OUTSIDE RECORDS SUMMARY | 2024-08-18 07:11 | XMS_ITS | Encounter Summary ---
Author Organization [facility] Address [address] [place] [id number] Care Team Providers Care Cold Working Inspector Name Role Phone Unavailable Primary Care Provider Unavailabl e Reason for Referral * Outpatient (Routine) - Closed Specialty Diagnoses / Procedures Referred By Contac t Referred To Contact Diagnoses Osteoporosis Procedures BMD Bone Density Spine Hips Arlene Loco APRN, C.N.P. [address] [place] [phone] Phone: tel: fax: [facility] Referral ID Status Reason Start Date Expiration Date Visits Re quested Visits Authorized [id number] Closed 05/17/2023 05/16/2024 1 1 Reason for Visit * Outpatient (Routine) - Closed Specialty Diagnoses / Procedures Referred By Contac t Referred To Contact Diagnoses Osteoporosis Procedures BMD Bone Density Spine Hips Arlene Loco APRN, C.N.P. [address] [place] [phone] Phone: tel: fax: [facility] Referral ID Status Reason Start Date Expiration Date Visits Re quested Visits Authorized [id number] Closed 05/17/2023 05/16/2024 1 1 Encounter Details Date Type Department Care Team (Latest Contact Info) Description 05/22/2024 6:49 AM CDT - 05/22/2024 11:59 PM CDT Hospital Encounter Department of Radiology, [facility], in [place], [place] [address] [place] [address] Arlene Loco, JOSÉ MANUEL, C.N.P. [address] [place] [address] Osteoporosis Discharge Disposition: Home or Self Care Social History Tobacco Use Types Packs/Day Years Used Date Smoking Tobacco: Never Smokeless Tobacco: Never Alcohol Use Standard Drinks/Week Comments Not Currently 1 (1 standard drink = 0.6 oz pur e alcohol) [facility] Utilities Answer Date Recorded In the past 12 months has e [employer], gas, oil, or water [employer] threatened to shut off services in your [...] often do you attend chur ch or anabaptist services? Patient declined 08/28/2021 Do you belong to any clubs o r organizations such as adventism groups, unions, fraternal or athletic groups, or [...] Answer Date Recorded PHQ-2 Score 0 04/07/2020 [facility] - [...] living situation today? I have a [facility] to live 05/18/2024 Education Answer Date Recorded What is the highest level of school you have completed or the highest degree you have received? Associate degree: academic program 04/12/2019 Comments No Sex and Gender Information Value Date Recorded Sex Assigned at Female 08/28/2021 7:02 PM CDT Legal Sex Female 2:38 AM EDITOR Gender Identity Female 08/28/2021 7:02 PM CDT Sexual Orientation Straight 08/28/2021 7: 02 PM CDT documented as of this encounter Medications at Time of Discharge cyanocobalamin, vitamin B-12, 2,500 mcg tablet Take 2,500 mcg by mouth daily. 3 furosemide (LASIX) 20 mg tablet Administer 1 tablet (20 mg total) via small bowel tube daily. 30 tablet 1 3 iron,carbonyl/ascorbi c acid (VITRON-C ORAL) Take 1 tablet by mouth daily. 7 omeprazole (PriLOSEC) [address] capsule Take 1 capsule (40 mg total) by mouth every morning before breakfast. 30 capsule 3 3 sucralfate (CARAFATE) 100 mg/mL suspensionIndications :Fistula Stomach,Bypass Gastric Comfort En Y Status Post,Hemorrhage Gastrointestinal Take 10 mL (1 g total) by mouth 4 (four) times a day with meals and bedtime. Take 1 hour before meals and at bedtime 120 mL 11 4 06/08/20 24 documented as of this encounter Plan of Treatment Upcoming Encounters Date Type Department Care Team (Late st Contact Info) Description 09/03/2024 10:00 AM EDITOR Appointment Department of Radiology, [facility], in [place], [place] [address] [place] [address] Denise Tubbs M.D. [address] [place] [address] 10/01/2024 4:40 PM EDITOR Virtual Visit Division of Gastroenterology in [place], [place] [address] [place] [address] Denise Tubbs M.D. [address] [place] [address] documented as of this encounter Procedures Procedure Name Priority Date/Time Associated Diagnosis Comments BMD BONE DENSITY SPINE HIPS RAD - Routine (most inpatients and all outpatients) 05/22/2024 7:06 AM CDT Osteoporosis documented in this encounter Results * BMD Bone Density Spine Hips (05/22/2024 7:06 AM CDT) Anatomical Region Laterality Modality Hip, Lumbar Spine, Nuclear M edicine RST LOS, Musculoskeletal ARZ LOS, Muskuloskeletal FLA LOS N/A Radio graphic Imaging Impressions 05/22/2024 9:23 AM CDT Osteoporosis Right Femur (region: Neck) ?? Narrative 05/22/2024 9:23 AM CDT EXAM: ??BMD BONE DENSITY SPINE HIPS Bone Mineral Density (BMD) analysis performed on [employer] with serial number [id number]. ? COMPARISON: Serial Comparisons Right Total Hip [...] including images and graphs, is available in [employer]. In the absence of other causes of [...] Bone Mineral Density (BMD) analysis performed on [employer] with serialnumber [id number]. COMPARISON: Serial Comparisons Right Total Hip results: [...] (ontreatment) IMPRESSION: Osteoporosis Right Femur (region: Neck) us Arlene Loco APRN, C.N.P. IMG DXA PROCEDURES Final Result documented in this encounter Visit Diagnoses Diagnosis Osteoporosis documented in this encounter Additional Health Concerns Assessment Noted Time PHQ-9 Depression Total Score: 4 03/12/20 17 3:53 PM CDT documented as of this encounter
--- NOTE | 2024-08-18 07:15 | CRLHL7_ITS ---
For Patients: As a result of the Cures Act, medical imaging exams and procedure reports are released immediately into your electronic medical record. You may view this report before your referring provider. If you have questions, please contact your health care provider. INDICATION: Unspecified ovarian cyst. Reported history of vaginal polyps not otherwise specified. TECHNIQUE: Transabdominal and transvaginal pelvic ultrasound. Grayscale and color spectral Doppler waveform analysis was performed. COMPARISON: May 04, 2024. FINDINGS: The uterus measures 6.9 x 4.9 x 4.8 cm. The endometrial stripe measures 6 mm transvaginally. No myometrial mass. Again noted are 1 or more calcifications within the lower uterine segment/endocervical canal measuring 6 x 3 mm previously 7 x 8 mm. This may reflect changes from a prior procedure. Please correlate clinically. No free pelvic fluid. Nonvisualization of the left ovary. The right ovary measures 1.9 x 1.3 x 1.7 cm. Blood flow is documented in the right ovary both arterial and venous. No evidence for right ovarian torsion. No cystic or solid right ovarian masses. IMPRESSION: 1. Normal appearing right ovary. Nonvisualization of the left ovary. 2. Echogenic foci within the lower uterine segment/endocervical canal seen previously potentially related to prior interventional procedures. Please correlate clinically. Dictated by Shaun Garay MD @ 08/19/2024 11:50:24 AM (Electronically Signed)
== END 2024-08-18 07:09 | disposition home or self-care (01) ==
PROVIDERS: PCP Family Medicine; Visit Provider Obstetrics & Gynecology
DX: N83.201 Unspecified ovarian cyst, right side (principal)
CPT/HCPCS: 76830; 76856